=== PATIENT | female | born 1970 | race Caucasian/White ===

== ENCOUNTER 2017-01-22 05:23 | Emergency (ER) | payer OTHER ==
[~2017-01-22] VITALS: Ht 167.6 cm; Wt 54.5 kg
[~2017-01-22 05:23] MED LIST: B-CO-25 PO; BACL10TA PO; CALC500T83 PO; EPP3/2 IM; GABA-112 PO; LEVE1TAB57 PO; LEVO50TA6 PO; MAGN250T3 PO; MELO7.5T6 PO; MULT-506 PO; PANT40TA PO; POTA20TA16 PO; TOPI200T20 PO; VITACAP9 PO; ZLF/50 PO; [UNRECOGNIZED DRUG - CODE] PO
--- NOTE | 2017-01-22 05:54 | EMERGENCY ROOM VISIT NOTE ---
History Report prepared by Fely: Marshal Herron Under the Supervision of: Dr. Sarthak Waldron D.O. First contact with patient: 05:31 Chief Complaint: ALTERED MENTAL STATUS Stated Complaint: ALLERGIC REACTION TO MEDS History of Present Illness The patient is a 46 year old female with a history of epilepsy who presents to the Emergency Room with complaints of persistent altered mental status since she took her migraine medication almost 12 hours ago. As per , the patient has been very disoriented. The patient has been taking Sumatriptan for migraines which normally makes her "loopy." After taking it 12 hours ago the patient has been more out of it than usual. The patient has also been experiencing shakes throughout the night. Around 0200 the patient was shaking to such an extent that it nearly resembled past seizures. The patient takes Keppra for epilepsy. She has also been weaning off of Topamax since 01/10. History obtained from the patient's as the patient was nonverbal. 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 Review of Systems See HPI for pertinent positives and negatives. A total of ten systems were reviewed and were otherwise negative. Past Medical & Surgical Medical Problems: (1) Chest pain (2) History of sarcoidosis (3) Hypothyroidism (4) Raynauds phenomenon (5) Seizure (6) Seizure disorder Surgical Problems: (1) H/O foot surgery (2) H/O hernia repair (3) H/O shoulder surgery (4) History of esophagogastroduodenoscopy (EGD) (5) Hx of cholecystectomy Family History Breast cancer MOTHER GRANDMOTHER Diabetes mellitus MOTHER Hypertension MOTHER Myocardial infarction GRANDMOTHER Social History Smoking Status: Never Smoker Alcohol Use: none Drug Use: none Marital Status: Housing Status: lives with significant other Occupation Status: unemployed Current/Historical Medications Scheduled B-Complex W/ Folic Acid (Super B Complex Maxi), 1 TAB PO HS Baclofen (Lioresal), 20 MG PO TID Calcium (Calcium), 1 TAB PO HS Gabapentin (Neurontin), 200 MG PO TID Levetiracetam (Keppra), 1,500 MG PO BID Levothyroxine Sodium (Levothyroxine Sodium), 50 MCG PO QAM Magnesium (Magnesium 250 mg), 1 TAB PO HS Meloxicam (Mobic), 7.5 MG PO QAM Misc Natural Products (Super Greens), 1 TAB PO HS Multivitamin (Multivitamin), 1 TAB PO HS Pantoprazole (Protonix), 40 MG PO QAM Potassium Ext Rel (Klor-Con), 20 MEQ PO HS Sertraline (Zoloft), 200 MG PO DAILY Topiramate (Topamax), 200 MG PO BID Vitamins C & E (Cranberry Urinary Comfort), 1 TAB PO HS Scheduled PRN Epinephrine (Epipen 2-Itz), 0.3 MG IM UD PRN for ALLERGIC REACTION Sumatriptan Succinate (Imitrex), Unknown Dose PO UD PRN for Migraine Allergies Coded Allergies: Nut Tree (Verified Allergy, Unknown, throat swelling, 01/22/17) Penicillins (Verified Allergy, Unknown, HIVES, 01/22/17) Physical Exam Vital Signs Date Time Temp Pulse Resp B/P Pulse Ox O2 Delivery O2 Flow Rate FiO2 01/22/17 06:35 98 Room Air 01/22/17 06:24 85 20 98/71 99 Room Air 01/22/17 06:21 71 01/22/17 05:29 74 18 100/57 95 Room Air Physical Exam GENERAL: Alert but avoidant and tearful. HENT: Normocephalic, atraumatic. Oropharynx unremarkable. EYES: Normal conjunctiva. Sclera non-icteric. NECK: Supple. No nuchal rigidity. FROM. No JVD. RESPIRATORY: Clear to auscultation. CARDIAC: Regular rate, normal rhythm. Extremities warm and well perfused. Pulses equal. ABDOMEN: Soft, non-distended. No tenderness to palpation. No rebound or guarding. No masses. RECTAL: Deferred. MUSCULOSKELETAL: Chest examination reveals no tenderness. The back is symmetrical on inspection without obvious abnormality. There is no CVA tenderness to palpation. No joint edema. LOWER EXTREMITIES: Calves are equal size bilaterally and non-tender. No edema. No discoloration. NEURO: Alert, not interactive or talkative, otherwise nonfocal. SKIN: No rash or jaundice noted. PSYCH: Not cooperative, avoidant, tearful. Medical Decision & Procedures ER Provider Diagnostic Interpretation: Radiology results as stated below per my review and radiologist interpretation CT HEAD: No ICH, mass effect or edema. No evidence of acute cortical stroke. Visualized sinuses and mastoid air cells are clear. Radiologist: Elroy Morejon MD. Laboratory Results 01/22/17 05:55 Red Blood Count 4.05, Mean Corpuscular Volume 103.2, Mean Corpuscular Hemoglobin 34.1, Mean Corpuscular Hemoglobin Concent 33.0, Mean Platelet Volume 11.8, Neutrophils (%) (Auto) 46.8, Lymphocytes (%) (Auto) 43.1, Monocytes (%) ( Auto) 6.8, Eosinophils (%) (Auto) 2.3, Basophils (%) (Auto) 0.8, Neutrophils # ( Auto) 2.39, Lymphocytes # (Auto) 2.20, Monocytes # (Auto) 0.35, Eosinophils # ( Auto) 0.12, Basophils # (Auto) 0.04 01/22/17 05:55 Test 01/22/17 05:55 White Blood Count 5.11 K/uL (4.8-10.8) Red Blood Count 4.05 M/uL (4.2-5.4) Hemoglobin 13.8 g/dL (12.0-16.0) Hematocrit 41.8 % (37-47) Mean Corpuscular Volume 103.2 fL (80-100) Mean Corpuscular Hemoglobin 34.1 pg (25-34) Mean Corpuscular Hemoglobin Concent 33.0 g/dl (32-36) Platelet Count 193 K/uL (130-400) Mean Platelet Volume 11.8 fL (7.4-10.4) Neutrophils (%) (Auto) 46.8 % Lymphocytes (%) (Auto) 43.1 % Monocytes (%) (Auto) 6.8 % Eosinophils (%) (Auto) 2.3 % Basophils (%) (Auto) 0.8 % Neutrophils # (Auto) 2.39 K/uL (1.4-6.5) Lymphocytes # (Auto) 2.20 K/uL (1.2-3.4) Monocytes # (Auto) 0.35 K/uL (0.11-0.59) Eosinophils # (Auto) 0.12 K/uL (0-0.5) Basophils # (Auto) 0.04 K/uL (0-0.2) RDW Standard Deviation 49.8 fL (36.4-46.3) RDW Coefficient of Variation 13.2 % (11.5-14.5) Immature Granulocyte % (Auto) 0.2 % Immature Granulocyte # (Auto) 0.01 K/uL (0.00-0.02) Prothrombin Time 10.7 SECONDS (9.0-12.0) Prothromb Time International Ratio 1.0 (0.9-1.1) Activated Partial Thromboplast Time 24.6 SECONDS (21.0-31.0) Partial Thromboplastin Ratio 0.9 Anion Gap 9.0 mmol/L (3-11) Est Creatinine Clear Calc Drug Dose 68.0 ml/min Estimated GFR () 90.1 Estimated GFR (Non- 77.7 BUN/Creatinine Ratio 14.0 (10-20) Calcium Level 9.0 mg/dl (8.5-10.1) Total Bilirubin 0.8 mg/dl (0.2-1) Direct Bilirubin 0.2 mg/dl (0-0.2) Aspartate Amino Transf (AST/SGOT) 22 U/L (15-37) Alanine Aminotransferase (ALT/SGPT) 12 U/L (12-78) Alkaline Phosphatase 52 U/L (45-117) Total Protein 8.4 gm/dl (6.4-8.2) Albumin 4.5 gm/dl (3.4-5.0) Laboratory results reviewed by me ECG Indication: altered mental status Rate (beats per minute): 75 Rhythm: sinus rhythm Findings: PVC, no acute ischemic change, other (poor baseline, normal axis.) ED Course 0539: The patient was evaluated in room B2. A complete history and physical exam was performed. 0640: Checked on the patient. She is less tearful now. She is back from CT scan. 0655: I reevaluated the patient. Discussed results and discharge instructions: She verbalized understanding and agreement. The patient is ready for discharge. Medical Decision Differential diagnosis includes seizure, migraine, metabolic derangement, anxiety, psych disorder. Repeat examination of the patient at 7 AM she is nonfocal neurologically resting in no distress; patient may have taken an extra 50 mg eletriptan. Patient adamantly states that she did not overdose on any medication. does not think that she overdose. Patient is otherwise nonfocal and now interactive with me. There is no evidence of seizure. Patient's CAT scan is normal. There is no reported suicidal ideation. He feels comfortable taking her home and monitoring her today. He was advised she was advised of the CAT scan results as well as blood work. Advised to return for any concerns change in mental status or for further evaluation Impression Primary Impression: Altered mental status Additional Impression: Head ache Scribe Attestation The scribe's documentation has been prepared under my direction and personally reviewed by me in its entirety. I confirm that the note above accurately reflects all work, treatment, procedures, and medical decision making performed by me. Departure Information Dispostion Home / Self-Care Referrals Lorraine Garza M.D. (PCP) Forms HOME CARE DOCUMENTATION FORM, IMPORTANT VISIT INFORMATION Patient Instructions ED Altered Loc, ED Headache Migraine, My [facility] Health Problem Qualifiers Primary Impression: Altered mental status Altered mental status type: unspecified Qualified Codes: R41.82 - Altered mental status, unspecified Additional Impression: Head ache Headache type: unspecified Intractability: not intractable
[2017-01-22 06:13] LABS: BASO % 0.8 %; BASO ABS # 0.04 K/uL (0-0.2); COMPLETE YES; EOS % 2.3 %; HEMATOCRIT 41.8 % (37-47); IG% 0.2 %; LYMPH % 43.1 %; MEAN CELL VOLUME 103.2 fL (80-100); MEAN CORPUSCULAR HEMOGLOBIN 34.1 pg (25-34); MEAN PLATELET VOLUME 11.8 fL (7.4-10.4); MONO % 6.8 %; NEUT % 46.8 %; PLATELET COUNT 193 K/uL (130-400); RED BLOOD COUNT 4.05 M/uL (4.2-5.4); WHITE BLOOD COUNT 5.11 K/uL (4.8-10.8)
[2017-01-22 06:22] LABS: PARTIAL THROMBOPLASTIN RATIO 0.9; PROTHROMBIN TIME (PATIENT) 10.7 SECONDS (9.0-12.0)
[2017-01-22 06:24] VITALS: Ht 167.6 cm; Wt 54.5 kg
[2017-01-22 06:29] LABS: CREATININE 0.89 mg/dl (0.60-1.20); POTASSIUM 3.6 mmol/L (3.5-5.1)
[2017-01-22 06:35] VITALS: O2SAT 98
[2017-01-22] MEDS ORDERED: KPP/1000 PO (06:39)
[2017-01-22] MEDS ORDERED: SERT-234 PO (06:48)
[2017-01-22] MEDS ORDERED: SUMA25TA12 PO (06:49)
[2017-01-22 07:04] VITALS: BP 90/68; PULSE 112; O2SAT 94
--- NOTE | 2017-01-22 07:23 | DIAGNOSTIC IMAGING REPORT ---
HEAD CT NONCONTRAST CT DOSE: 537.48 mGy.cm HISTORY: headache TECHNIQUE: Multiaxial CT images of the head were performed without the use of intravenous contrast. Automated exposure control was utilized for this study. Comparison: Head CT 02/20/2016. Findings: The paranasal sinuses and mastoid air cells are clear. The calvarium and skull base are intact. The ventricles and sulci are within normal limits. There is no mass, hematoma, midline shift, or acute infarct. Impression: No acute intracranial abnormality. Electronically signed by: Finesse Polanco M.D. 01/22/2017 7:22 AM Dictated Date/Time: 01/22/2017 7:19 AM
== END 2017-01-22 08:08 | disposition home or self-care (01) ==
LOC: C.EDB 05:24
DX: R41.82 Altered mental status, unspecified (principal); R51 Headache; I49.3 Ventricular premature depolarization; G40.909 Epilepsy, unspecified, not intractable, without status epilepticus; E03.9 Hypothyroidism, unspecified; Z79.899 Other long term (current) drug therapy; Z87.898 Personal history of other specified conditions; Z80.3 Family history of malignant neoplasm of breast; Z82.49 Family history of ischemic heart disease and other diseases of the circulatory system; Z83.3 Family history of diabetes mellitus

== ENCOUNTER 2017-05-03 13:11 | Emergency (ER) | payer OTHER ==
[~2017-05-03] VITALS: Ht 167.6 cm; Wt 54.1 kg
[~2017-05-03 13:11] MED LIST changes: +KPP/1000 PO; -LEVE1TAB57 PO; +SERT-234 PO; +SUMA25TA12 PO; -ZLF/50 PO
[2017-05-03 13:26] VITALS: Ht 167.6 cm; Wt 54.1 kg
--- NOTE | 2017-05-03 14:15 | DIAGNOSTIC IMAGING REPORT ---
RIGHT RIBS UNILATERAL WITH PA CHEST CLINICAL HISTORY: Right rib pain status post trauma COMPARISON STUDY: Chest x-ray dated 07/03/2016 FINDINGS: Erect chest reveals no pneumothorax. There is no focal pulmonary consolidation. There is an old deformity the right sixth rib. No acute fractures are visualized on conventional radiographic imaging. 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 No acute fractures are visualized. There is no pneumothorax. Electronically signed by: Moris Childers M.D. 05/03/2017 2:14 PM Dictated Date/Time: 05/03/2017 2:12 PM
[2017-05-03] MEDS ORDERED: HYDR-5688 PO (15:03)
[2017-05-03 15:34] VITALS: BP 98/62; PULSE 61; TEMP 36.6; O2SAT 99
--- NOTE | 2017-05-03 15:47 | EMERGENCY ROOM VISIT NOTE ---
History First contact with patient: 13:29 Chief Complaint: RIB PAIN Stated Complaint: SEVERE PAIN IN RT SIDE RIB History of Present Illness The patient is a 47 year old female who presents to the Emergency Room with complaints of right-sided rib pain after falling down a few stairs at home last night. The patient is wearing a walking boot on her left foot as she has a history of chronic foot issues. She states this has made it difficult for her to go up and down the stairs, and last night she fell down 3 stairs at home, landing onto her right side. She did not strike her head or lose consciousness in the fall. She did not suffer extremity injury. Her discomfort is isolated to just under her right rest laterally. The pain is worse when she presses in the area, and takes a deep breath. She rates the pain a 9/10 without radiation. Review of Systems More than 10 systems were reviewed and otherwise negative with the exception of history of present illness. Past Medical/Surgical History Medical Problems: (1) Chest pain (2) History of sarcoidosis (3) Hypothyroidism (4) Raynauds phenomenon (5) Seizure (6) Seizure disorder Surgical Problems: (1) H/O foot surgery (2) H/O hernia repair (3) H/O shoulder surgery (4) History of esophagogastroduodenoscopy (EGD) (5) Hx of cholecystectomy Family History Breast cancer MOTHER GRANDMOTHER Diabetes mellitus MOTHER Hypertension MOTHER Myocardial infarction GRANDMOTHER Social History Smoking Status: Never Smoker Alcohol Use: none Drug Use: none Marital Status: Housing Status: lives with significant other Occupation Status: unemployed Current/Historical Medications Scheduled B-Complex W/ Folic Acid (Super B Complex Maxi), 1 TAB PO HS Baclofen (Lioresal), 20 MG PO TID Calcium (Calcium), 1 TAB PO HS Gabapentin (Neurontin), 200 MG PO TID Levetiracetam (Keppra), 1,500 MG PO BID Levothyroxine Sodium (Levothyroxine Sodium), 50 MCG PO QAM Magnesium (Magnesium 250 mg), 1 TAB PO HS Misc Natural Products (Super Greens), 1 TAB PO HS Multivitamin (Multivitamin), 1 TAB PO HS Potassium Ext Rel (Klor-Con), 20 MEQ PO HS Sertraline (Zoloft), 200 MG PO DAILY Topiramate (Topamax), 200 MG PO BID Vitamins C & E (Cranberry Urinary Comfort), 1 TAB PO HS Scheduled PRN Epinephrine (Epipen 2-Itz), 0.3 MG IM UD PRN for ALLERGIC REACTION Hydrocodone/Acetaminophen 5MG/325MG ([place] 5MG/325MG), 1-2 TABLET PO Q6 PRN for Pain Sumatriptan Succinate (Imitrex), Unknown Dose PO UD PRN for Migraine Physical Exam Vital Signs Date Time Temp Pulse Resp B/P (MAP) Pulse Ox O2 Delivery O2 Flow Rate FiO2 05/03/17 15:34 36.6 61 18 98/62 99 05/03/17 15:33 61 18 98/62 99 Room Air 05/03/17 13:26 36.6 65 18 99/64 99 Room Air Physical Exam VITALS: Vitals are noted on the nurse's note and reviewed by myself. Vital signs stable. GENERAL: Well-developed, well-nourished, white female, who is in no acute distress and resting comfortably. Patient is cooperative with the examination. NECK: Supple without nuchal rigidity. No lymphadenopathy. No thyromegaly. Cervical spine is nontender. HEART: Regular rate and rhythm without murmurs gallops or rubs. LUNGS: Clear to auscultation bilaterally without wheezes, rales or rhonchi. No retractions or accessory muscle use. CHEST WALL: Positive tenderness appreciated over the right anterolateral ribs, roughly through the fifth to seventh distribution. There is no flail chest or crepitus. No significant ecchymosis or edema. MUSCULOSKELETAL: Full sensation and range of motion to the bilateral upper extremities without deformity. Right lower extremity is also without acute findings. The patient is wearing a walking boot on the left lower extremity NEURO: Patient was alert and oriented to person place and time. CN II through XII grossly intact. Medical Decision & Procedures ER Provider Diagnostic Interpretation: RIGHT RIBS UNILATERAL WITH PA CHEST CLINICAL HISTORY: Right rib pain status post trauma COMPARISON STUDY: Chest x-ray dated 07/03/2016 FINDINGS: Erect chest reveals no pneumothorax. There is no focal pulmonary consolidation. There is an old deformity the right sixth rib. No acute fractures are visualized on conventional radiographic imaging. 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 No acute fractures are visualized. There is no pneumothorax. ED Course Physical exam and history were performed. Nursing notes, EMR, and Medication List were personally reviewed. Patient appears to have fallen down stairs last night with subsequent injury to her right side ribs. She does not appear to have other significant injury. Despite a history of seizure disorder, her symptoms most correlate with a mechanical fall, and she does not believe that she had a seizure. She is tender along the right side ribs and x-ray was performed. X-ray does not appear to show acute fracture, but may reveal old injury. She does not have pneumothorax. Overall the patient appears well for discharge home. I will give her an incentive spirometer to help prevent pneumonia. Additionally she will be given instructions to use Advil and Tylenol. She will be given a course of Vicodin to help with pain control. She is to follow with her family doctor in the next week and was certainly invited back to the emergency department with any new, worsening, or concerning symptoms. The chart was completed utilizing Back[employer] Speech Voice Recognition Software. Grammatical errors, random word insertions, pronoun errors, and incomplete sentences are an occasional consequence of this system due to software limitations, ambient noise, and hardware issues. Any formal questions or concerns about the content, text, or information contained within the body of this dictation should be directly addressed to the provider for clarification. . Medical Decision Differential diagnosis includes, but is not limited to: Sprain, strain, fracture , dislocation, sensation, contusion, pneumothorax, and others [place] Drug Monitoring Program Search Results: patient reviewed within database, no issues identified Medication Reconcilliation Current Medication List: was personally reviewed by oh Blood Pressure Screening Patient's blood pressure: Normal blood pressure Impression Primary Impression: Fall down stairs Additional Impression: Rib pain on right side Departure Information Prescriptions Hydrocodone/Acetaminophen 5MG/325MG ([place] 5MG/325MG) Tab 1-2 TABLET PO Q6 Y for Pain, #15 TAB For Initial Treatment Prov: Kody Huddleston PA-C 05/03/17 Referrals Lorraine Garza M.D. (PCP) Patient Instructions My [facility] Problem Qualifiers
== END 2017-05-03 15:34 | disposition home or self-care (01) ==
LOC: C.EDB 13:14 → C.EDD 15:34
DX: R07.81 Pleurodynia (principal); W10.9XXA Fall (on) (from) unspecified stairs and steps, initial encounter; Y92.019 Unspecified place in single-family (private) house as the place of occurrence of the external cause; D86.9 Sarcoidosis, unspecified; E03.9 Hypothyroidism, unspecified; G40.909 Epilepsy, unspecified, not intractable, without status epilepticus; I73.00 Raynaud's syndrome without gangrene; Z80.9 Family history of malignant neoplasm, unspecified; Z83.3 Family history of diabetes mellitus; Z82.49 Family history of ischemic heart disease and other diseases of the circulatory system; Z79.899 Other long term (current) drug therapy

== ENCOUNTER 2017-07-22 16:17 | Emergency (ER) | payer OTHER ==
[~2017-07-22] VITALS: Ht 165.1 cm; Wt 56.2 kg
[~2017-07-22 16:17] MED LIST changes: +HYDR-5688 PO; -MELO7.5T6 PO; -PANT40TA PO
[2017-07-22 16:20] VITALS: BP 109/74; PULSE 66; TEMP 36.8; O2SAT 98; Ht 165.1 cm; Wt 56.2 kg
--- NOTE | 2017-07-22 16:53 | DIAGNOSTIC IMAGING REPORT ---
L HAND MIN 3 VIEWS ROUTINE CLINICAL HISTORY: Left hand pain status post trauma COMPARISON: None. DISCUSSION: No fractures or dislocations are visualized. IMPRESSION: No fractures or dislocations identified. Electronically signed by: Moris Childers M.D. 07/22/2017 4:51 PM Dictated Date/Time: 07/22/2017 4:51 PM
[2017-07-22] MEDS ORDERED: METO25TA3 PO (17:04)
--- NOTE | 2017-07-22 18:19 | EMERGENCY ROOM VISIT NOTE ---
History Report prepared by Fely: Hardik Mace Under the Supervision of: Dr. Matthew Medina D.O. First contact with patient: 16:24 Chief Complaint: HAND PAIN/INJURY Stated Complaint: POSSIBLE BROKEN L HAND, L SHOULDER PAIN History of Present Illness The patient is a 47 year old female who presents to the Emergency Room with complaints of constant left handed pain that started last night. She rates her pain as an 8/10 in severity. The patient states that her pain is worsened with clenching her fist. The patient states that she fell down 5 stairs last night, which she admits is when her left hand started to hurt. She denies any loss of consciousness. Source of History: patient Onset: last night Position: hand (left) Symptom Intensity: 8/10 Timing: constant Modifying Factors (Worsening): other (clenching fist) Associated Symptoms: No LOC Review of Systems See HPI for pertinent positives & negatives. A total of 10 systems reviewed and were otherwise negative. Past Medical & Surgical Medical Problems: (1) Chest pain (2) History of sarcoidosis (3) Hypothyroidism (4) Raynauds phenomenon (5) Seizure (6) Seizure disorder Surgical Problems: (1) H/O foot surgery (2) H/O hernia repair (3) H/O shoulder surgery (4) History of esophagogastroduodenoscopy (EGD) (5) Hx of cholecystectomy Family History Breast cancer MOTHER GRANDMOTHER Diabetes mellitus MOTHER Hypertension MOTHER Myocardial infarction GRANDMOTHER Social History Smoking Status: Never Smoker Alcohol Use: none Drug Use: none Marital Status: Housing Status: lives with significant other Occupation Status: unemployed Current/Historical Medications Scheduled B-Complex W/ Folic Acid (Super B Complex Maxi), 1 TAB PO HS Baclofen (Lioresal), 20 MG PO TID Calcium (Calcium), 500 MG PO HS Gabapentin (Neurontin), 200 MG PO TID Levetiracetam (Keppra), 1,500 MG PO BID Levothyroxine Sodium (Levothyroxine Sodium), 50 MCG PO QAM Magnesium (Magnesium 250 mg), 250 MG PO HS Metoprolol Succ (Toprol Xl) (Toprol-Xl), 25 MG PO QAM Misc Natural Products (Super Greens), 1 TAB PO HS Multivitamin (Multivitamin), 1 TAB PO HS Potassium Ext Rel (Klor-Con), 20 MEQ PO HS Sertraline (Zoloft), 200 MG PO DAILY Topiramate (Topamax), 200 MG PO BID Vitamins C & E (Cranberry Urinary Comfort), 1 TAB PO HS Scheduled PRN Epinephrine (Epipen 2-Itz), 0.3 MG IM UD PRN for ALLERGIC REACTION Sumatriptan Succinate (Imitrex), Unknown Dose PO UD PRN for Migraine Allergies Coded Allergies: Penicillins (Verified Allergy, Unknown, HIVES, 05/03/17) Uncoded Allergies: TREE NUTS (Allergy, Severe, ANAPHYLAXIS, 07/22/17) Physical Exam Vital Signs Date Time Temp Pulse Resp B/P (MAP) Pulse Ox O2 Delivery O2 Flow Rate FiO2 07/22/17 16:20 36.8 66 16 109/74 98 Room Air Physical Exam CONSTITUTIONAL/VITAL SIGNS: Reviewed / noted above. GENERAL: Non-toxic in appearance. INTEGUMENTARY: Warm, dry, and [place]. HEAD: Normocephalic. EYES: without scleral icterus or trauma. ENT/OROPHARYNX: clear and moist. LYMPHADENOPATHY/NECK: Is supple without lymphadenopathy or meningismus. RESPIRATORY: Lungs clear and equal. CARDIOVASCULAR: Regular rate and rhythm. GI/ABDOMEN: Soft and nontender. No organomegaly or pulsatile mass. No rebound or guarding. Normal bowel sounds. EXTREMITIES: Warm and well perfused. Small abrasion noted to left shoulder. No obvious fracture. Full range of motion. BACK: No CVA tenderness. NEUROLOGICAL: Intact without focal deficits. PSYCHIATRIC: normal affect. MUSCULOSKELETAL: Normally developed with good muscle tone. Tenderness to palpation of the left hand ulnar side. Medical Decision & Procedures ER Provider Diagnostic Interpretation: X ray results and stated below per my interpretation and radiology interpretation. L HAND MIN 3 VIEWS ROUTINE CLINICAL HISTORY: Left hand pain status post trauma COMPARISON: None. DISCUSSION: No fractures or dislocations are visualized. IMPRESSION: No fractures or dislocations identified. Electronically signed by: Moris Childers M.D. 07/22/2017 4:51 PM Dictated Date/Time: 07/22/2017 4:51 PM ED Course 1627: Previous medical records were reviewed. The patient was evaluated in room C03. A complete history and physical examination was performed. 1808: On reevaluation, the patient is resting comfortably. I discussed the results and findings with the patient. She verbalized agreement of the treatment plan. The patient was discharged home. Medical Decision Differential diagnosis includes etiologies such as fracture, dislocation, neurovascular compromise, compartment syndrome, soft tissue injury, as well as others were entertained. This is a 47-year-old female who presents to the ED with a chief complaint of left hand pain after a fall down some steps. The patient states she fell down the steps yesterday. She came in with left hand pain today. She denies any other significant injuries. She does have a small abrasion to the left shoulder but does not feel anything is broken there. Exam of her left hand reveals tenderness in the ulnar aspect of the left dorsal hand. X-rays did not show fracture. The patient was felt to be stable for discharge. She was advised to take Tylenol or Motrin as needed for pain. Medication Reconcilliation Current Medication List: was personally reviewed by me Blood Pressure Screening Patient's blood pressure: Normal blood pressure Impression Primary Impression: Contusion of left hand Scribe Attestation The scribe's documentation has been prepared under my direction and personally reviewed by me in its entirety. I confirm that the note above accurately reflects all work, treatment, procedures, and medical decision making performed by me. Departure Information Dispostion Home / Self-Care Referrals Lorraine Garza M.D. (PCP) Patient Instructions Bruises Contusions, My [facility] Additional Instructions X-rays did not show fractures or broken bones. Take Tylenol or Motrin as needed for pain.
== END 2017-07-22 18:36 | disposition home or self-care (01) ==
LOC: C.EDB 16:19 → C.EDC 18:36
DX: S60.222A Contusion of left hand, initial encounter (principal); W10.9XXA Fall (on) (from) unspecified stairs and steps, initial encounter; Y92.9 Unspecified place or not applicable; D86.9 Sarcoidosis, unspecified; E03.9 Hypothyroidism, unspecified; I73.00 Raynaud's syndrome without gangrene; G40.909 Epilepsy, unspecified, not intractable, without status epilepticus; Z80.9 Family history of malignant neoplasm, unspecified; Z83.3 Family history of diabetes mellitus; Z82.49 Family history of ischemic heart disease and other diseases of the circulatory system; Z79.899 Other long term (current) drug therapy

== ENCOUNTER 2017-10-06 13:28 | Emergency (ER) | payer OTHER ==
[~2017-10-06] VITALS: Ht 165.1 cm; Wt 58.6 kg
[~2017-10-06 13:28] MED LIST changes: -HYDR-5688 PO; +METO25TA3 PO
[2017-10-06 13:31] VITALS: Ht 165.1 cm; Wt 58.6 kg
[2017-10-06] MEDS ORDERED: ONDANSETRON INJ 2 MG/ML 2 ML VIAL IV STA (13:48)
--- NOTE | 2017-10-06 13:56 | EMERGENCY ROOM VISIT NOTE ---
History First contact with patient: 13:35 Chief Complaint: SHORTNESS OF BREATH Stated Complaint: TROUBLE BREATHING, TARGETED CHEST PAIN Nursing Triage Summary: fell 2weeks ago has sob and thinks may have broken rib in left upper chest area traveled from [place] recently History of Present Illness The patient is a 47 year old female who presents to the Emergency Room with complaints of left anterior chest pain has gotten progressively worse over the last 2 weeks. The patient had a fall in [place] 2 weeks ago. The fall was mechanical. She has been taking ibuprofen with no relief. The pain is worse with deep inspiration. It is not exertional in nature. She denies any other symptoms such as lightheadedness, dizziness or shortness of breath. No recent illnesses such as fever or cough. 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 She sees Dr. Lopez and takes metoprolol daily. Review of Systems 10 system review performed and negative unless noted in HPI or below Past Medical/Surgical History Medical Problems: (1) Chest pain (2) History of sarcoidosis (3) Hypothyroidism (4) Raynauds phenomenon (5) Seizure (6) Seizure disorder Surgical Problems: (1) H/O foot surgery (2) H/O hernia repair (3) H/O shoulder surgery (4) History of esophagogastroduodenoscopy (EGD) (5) Hx of cholecystectomy Family History Breast cancer MOTHER GRANDMOTHER Diabetes mellitus MOTHER Hypertension MOTHER Myocardial infarction GRANDMOTHER Social History Smoking Status: Never Smoker Alcohol Use: none Drug Use: none Marital Status: Housing Status: lives with significant other Occupation Status: unemployed Current/Historical Medications Scheduled B-Complex W/ Folic Acid (Super B Complex Maxi), 1 TAB PO HS Baclofen (Lioresal), 20 MG PO TID Calcium (Calcium), 500 MG PO HS Gabapentin (Neurontin), 200 MG PO TID Levetiracetam (Keppra), 1,500 MG PO BID Levothyroxine Sodium (Levothyroxine Sodium), 50 MCG PO QAM Magnesium (Magnesium 250 mg), 250 MG PO HS Metoprolol Succ (Toprol Xl) (Toprol-Xl), 25 MG PO QAM Misc Natural Products (Super Greens), 1 TAB PO HS Multivitamin (Multivitamin), 1 TAB PO HS Potassium Ext Rel (Klor-Con), 20 MEQ PO HS Sertraline (Zoloft), 200 MG PO DAILY Topiramate (Topamax), 200 MG PO BID Vitamins C & E (Cranberry Urinary Comfort), 1 TAB PO HS Scheduled PRN Epinephrine (Epipen 2-Itz), 0.3 MG IM UD PRN for ALLERGIC REACTION Sumatriptan Succinate (Imitrex), Unknown Dose PO UD PRN for Migraine Tramadol (Ultram), 1 TAB PO Q4H PRN for Pain Physical Exam Vital Signs Date Time Temp Pulse Resp B/P (MAP) Pulse Ox O2 Delivery O2 Flow Rate FiO2 10/06/17 16:40 74 18 97/73 95 Room Air 10/06/17 15:08 36.8 75 18 115/86 98 Room Air 10/06/17 14:37 72 10/06/17 14:33 94 Room Air 10/06/17 13:31 36.7 82 18 105/72 97 Room Air Physical Exam VITALS: Vitals are noted on the nurse's note and reviewed by myself. Vital signs stable. GENERAL: 47-year-old female, in no acute distress, nondiaphoretic, well- developed well-nourished. SKIN: Multiple tattoos noted. No bruising on the thorax. HEAD: Normocephalic atraumatic. MOUTH: Mucous membranes slightly dry NECK: Supple without nuchal rigidity. No JVD. HEART: Regular rate and rhythm without murmurs gallops or rubs. Tenderness over the left anterior upper thorax above the breast. LUNGS: Clear to auscultation bilaterally without wheezes, rales or rhonchi. No accessory muscle use. ABDOMEN: Positive bowel sounds x 4.Soft, nontender, without organomegaly. No guarding or rebound tenderness. MUSCULOSKELETAL: No muscle atrophy, erythema, or edema noted. Strength 5/5 throughout. NEURO: Patient was alert and oriented to person place and time. Normal sensation to touch. No focal neurological deficits. Medical Decision & Procedures ER Provider Diagnostic Interpretation: CXR IMPRESSION: No active disease in the chest. Electronically signed by: Moris Childers M.D. 10/06/2017 2:06 PM Dictated Date/Time: 10/06/2017 2:05 PM The status of this report is Signed. Draft = Not yet reviewed or approved by Radiologist. Signed = Reviewed and approved by Radiologist. Laboratory Results 10/06/17 14:09 Red Blood Count 3.58, Mean Corpuscular Volume 104.5, Mean Corpuscular Hemoglobin 34.6, Mean Corpuscular Hemoglobin Concent 33.2, Mean Platelet Volume 11.1, Neutrophils (%) (Auto) 46.6, Lymphocytes (%) (Auto) 46.6, Monocytes (%) ( Auto) 4.7, Eosinophils (%) (Auto) 1.2, Basophils (%) (Auto) 0.6, Neutrophils # ( Auto) 1.59, Lymphocytes # (Auto) 1.59, Monocytes # (Auto) 0.16, Eosinophils # ( Auto) 0.04, Basophils # (Auto) 0.02 10/06/17 14:09 Test 10/06/17 13:48 10/06/17 14:09 10/06/17 14:43 10/06/17 15:02 Creatine Kinase MB Ratio (0-3.0) White Blood Count 3.41 K/uL (4.8-10.8) Red Blood Count 3.58 M/uL (4.2-5.4) Hemoglobin 12.4 g/dL (12.0-16.0) Hematocrit 37.4 % (37-47) Mean Corpuscular Volume 104.5 fL (80-100) Mean Corpuscular Hemoglobin 34.6 pg (25-34) Mean Corpuscular Hemoglobin Concent 33.2 g/dl (32-36) Platelet Count 233 K/uL (130-400) Mean Platelet Volume 11.1 fL (7.4-10.4) Neutrophils (%) (Auto) 46.6 % Lymphocytes (%) (Auto) 46.6 % Monocytes (%) (Auto) 4.7 % Eosinophils (%) (Auto) 1.2 % Basophils (%) (Auto) 0.6 % Neutrophils # (Auto) 1.59 K/uL (1.4-6.5) Lymphocytes # (Auto) 1.59 K/uL (1.2-3.4) Monocytes # (Auto) 0.16 K/uL (0.11-0.59) Eosinophils # (Auto) 0.04 K/uL (0-0.5) Basophils # (Auto) 0.02 K/uL (0-0.2) RDW Standard Deviation 49.4 fL (36.4-46.3) RDW Coefficient of Variation 13.0 % (11.5-14.5) Immature Granulocyte % (Auto) 0.3 % Immature Granulocyte # (Auto) 0.01 K/uL (0.00-0.02) Anion Gap 7.0 mmol/L (3-11) Est Creatinine Clear Calc Drug Dose 104.3 ml/min Estimated GFR () 125.8 Estimated GFR (Non- 108.5 BUN/Creatinine Ratio 9.5 (10-20) Calcium Level 8.1 mg/dl (8.5-10.1) Total Bilirubin 0.3 mg/dl (0.2-1) Aspartate Amino Transf (AST/SGOT) 64 U/L (15-37) Alanine Aminotransferase (ALT/SGPT) 27 U/L (12-78) Alkaline Phosphatase 85 U/L (45-117) Total Creatine Kinase 57 U/L (26-192) Creatine Kinase MB < 0.5 ng/ml (0.5-3.6) Troponin I < 0.015 ng/ml (0-0.045) Total Protein 7.4 gm/dl (6.4-8.2) Albumin 3.5 gm/dl (3.4-5.0) Globulin 3.9 gm/dl (2.5-4.0) Albumin/Globulin Ratio 0.9 (0.9-2) Chemistry Specimen Hemolysis Urine Test NEG (NEG) D-Dimer 340 ug/L FEU (0-500) Test 10/06/17 16:45 Urine Opiates Screen POS (NEG) Urine Methadone, Qualitative NEG (NEG) Urine Barbiturates NEG (NEG) Urine Phencyclidine (PCP) Level NEG (NEG) Ur Amphetamine/Methamphetamine NEG (NEG) MDMA (Ecstasy) Screen NEG (NEG) Urine Benzodiazepines Screen NEG (NEG) Urine Cocaine Metabolite NEG (NEG) Urine Marijuana (THC) NEG (NEG) Medications Administered Medications (Trade) Dose Ordered Sig/Alix Route Start Time Stop Time Status Last Admin Dose Admin Morphine Sulfate (MoRPHine SULFATE INJ) 4 mg Q1H PRN IV 10/06/17 14:00 10/06/17 17:55 DC 10/06/17 14:19 4 MG Ondansetron HCl (Zofran Inj) 4 mg NOW STAT IV 10/06/17 13:48 10/06/17 13:51 DC 10/06/17 13:48 4 MG Diphenhydramine HCl (Benadryl Inj) 25 mg NOW STAT IV 10/06/17 15:03 10/06/17 15:04 DC 10/06/17 15:07 25 MG Dicyclomine HCl (Bentyl Tab) 20 mg ONE ONCE PO 10/06/17 15:30 10/06/17 15:31 DC 10/06/17 15:34 20 MG Tramadol HCl (Ultram Tab) 50 mg NOW STAT PO 10/06/17 16:11 10/06/17 16:12 DC 10/06/17 16:40 50 MG ECG Indication: chest pain Rate (beats per minute): 77 Rhythm: normal sinus Findings: other (Q waves in the antior leads) ED Course Patient was seen and examined Vital signs including blood pressure were reviewed medications list was verified with patient Labs were obtained, and a saline lock was established The patient was given morphine 4 mg IV and Zofran 4 mg IV for her symptoms. Upon reevaluation, the patient thought that she was having a reaction to the morphine. She was complaining of abdominal cramping. She was given Benadryl 25 mg IV and Bentyl 20 mg po She was reassessed. The abdominal cramping was slightly better. She was still complaining of chest pain. She was given 1 dose of Ultram 50 mg. We discussed her workup. She voiced understanding. She was comfortable being discharged home. I reviewed discharge instructions the patient. They voiced understanding and had no further questions. Medical Decision Differential diagnosis: Pulmonary contusion, muscular skeletal pain, pulmonary embolus Acute myocardial infarction, cardiac arrhythmia, anemia, thyroid abnormality, pneumothorax, pneumonia, bronchitis, pericarditis, electrolyte imbalance This patient is a 47-year-old female that presents to emergency department with worsening anterior left chest pain for the last 2 weeks after an injury. She has also had recent long travel. On exam, the patient was tender over the left upper anterior chest wall. Otherwise, her physical exam was unremarkable. Her EKG shows normal sinus rhythm. No signs of ischemia or infarction. Troponin is negative. I do not suspect a cardiac cause. The patient also had reproducible pain, which was encouraging for musculoskeletal pain. Because of the recent travel, I ordered a d-dimer. This was negative. I have a very low suspicion of PE. The patient has good pain relief with Ultram. She was given a prescription for this. She was also instructed to continue ibuprofen. She was given an incentive spirometer. She was encouraged to follow up closely with her primary care physician. She was comfortable with this plan. She agrees to return to the emergency department with any new or worsening symptoms. This chart was completed in part utilizing [employer] Speech Voice Recognition software. Attempts were made to minimize the grammatical errors, random word insertions, pronoun errors and incomplete sentences. Any formal questions or concerns about the content, text or information contained within the body of this dictation should be directly addressed to the provider for clarification. Medication Reconcilliation Current Medication List: was personally reviewed by me Blood Pressure Screening Patient's blood pressure: Normal blood pressure Impression Primary Impression: Chest pain Departure Information Dispostion Home / Self-Care Condition GOOD Prescriptions Tramadol (Ultram) 50 Mg Tab 1 TAB PO Q4H Y for Pain, #15 TAB For Initial Treatment Prov: Seema Pearl PA-C 10/06/17 Referrals Lorraine Garza M.D. (PCP) Patient Instructions ED Contusion Rib, My [facility] Additional Instructions You had been evaluated in the emergency department for chest pain. This is likely due to a bruise on your rib cage. Please use the incentive spirometer 10 times per hour for the next week. This is to prevent pneumonia. Please take ibuprofen 6 mg every 6 hours as needed for pain. Please take tramadol 1 tab every 4 hours as needed for severe pain. Please do not drink alcohol or travel taking this medication. It is very important to follow closely with her primary care physician. Please call as soon as possible for a follow-up appointment. Do not hesitate to return to the emergency department with any new, worsening or concerning symptoms; especially, sudden, severe pain, or difficulty breathing Work Instructions Return To Work: 1 day
[2017-10-06] MEDS ORDERED: MoRPHine SULFATE 4 MG/ML 1 ML CARP\\VIAL IV PRN (14:00)
--- NOTE | 2017-10-06 14:07 | DIAGNOSTIC IMAGING REPORT ---
CHEST ONE VIEW PORTABLE CLINICAL HISTORY: Left anterior chest pain. History of trauma. COMPARISON STUDY: 07/03/2016 FINDINGS: The cardiac and mediastinal contours are normal. There is no evidence of focal pulmonary consolidation. There is no evidence of failure. No pleural effusions are visualized.[ No pneumothorax is visualized. IMPRESSION: No active disease in the chest. Electronically signed by: Moris Childers M.D. 10/06/2017 2:06 PM Dictated Date/Time: 10/06/2017 2:05 PM
[2017-10-06 14:22] LABS: BASO % 0.6 %; BASO ABS # 0.02 K/uL (0-0.2); EOS % 1.2 %; EOS ABS # 0.04 K/uL (0-0.5); HEMATOCRIT 37.4 % (37-47); HEMOGLOBIN 12.4 g/dL (12.0-16.0); IG# 0.01 K/uL (0.00-0.02); LYMPH % 46.6 %; LYMPH ABS # 1.59 K/uL (1.2-3.4); MEAN CELL VOLUME 104.5 fL (80-100); MEAN CORPUSCULAR HEMOGLOBIN 34.6 pg (25-34); MEAN CORPUSCULAR HGB CONC 33.2 g/dl (32-36); MEAN PLATELET VOLUME 11.1 fL (7.4-10.4); MONO % 4.7 %; MONO ABS # 0.16 K/uL (0.11-0.59); NEUT % 46.6 %; NEUT ABS # 1.59 K/uL (1.4-6.5); PLATELET COUNT 233 K/uL (130-400); RED CELL DISTRIBUTION WIDTH SD 49.4 fL (36.4-46.3); WHITE BLOOD COUNT 3.41 K/uL (4.8-10.8)
[2017-10-06 14:33] VITALS: O2SAT 94
[2017-10-06 14:51] LABS: ALBUMIN 3.5 gm/dl (3.4-5.0); ALT/SGPT 27 U/L (12-78); AST/SGOT 64 U/L (15-37); BLOOD UREA NITROGEN 6 mg/dl (7-18); CALCIUM 8.1 mg/dl (8.5-10.1); CARBON DIOXIDE 23 mmol/L (21-32); GLUCOSE 70 mg/dl (70-99); POTASSIUM 3.8 mmol/L (3.5-5.1); SODIUM 139 mmol/L (136-145)
[2017-10-06 14:56] LABS: ALKALINE PHOSPHATASE 85 U/L (45-117); CKMB < 0.5 ng/ml (0.5-3.6); TOTAL PROTEIN 7.4 gm/dl (6.4-8.2)
[2017-10-06] MEDS ORDERED: DiphenhydrAMINE HCL 50 MG/ML VIAL IV STA (15:03)
[2017-10-06 15:08] VITALS: TEMP 36.8
[2017-10-06] MEDS ORDERED: DICYCLOMINE HCL 20 MG TAB PO ONE (15:30)
[2017-10-06] MEDS ORDERED: TRAMADOL HCL 50 MG TAB PO STA (16:11)
[2017-10-06 16:40] VITALS: BP 97/73; PULSE 74; O2SAT 95
[2017-10-06] MEDS ORDERED: TRAM-10 PO (16:53)
== END 2017-10-06 17:37 | disposition home or self-care (01) ==
LOC: C.EDB 13:29 → C.EDC 17:37
DX: R07.9 Chest pain, unspecified (principal); D86.9 Sarcoidosis, unspecified; E03.9 Hypothyroidism, unspecified; G40.909 Epilepsy, unspecified, not intractable, without status epilepticus; Z80.3 Family history of malignant neoplasm of breast; Z83.3 Family history of diabetes mellitus; Z82.49 Family history of ischemic heart disease and other diseases of the circulatory system

== ENCOUNTER 2017-10-20 13:55 | Emergency (ER) | payer OTHER ==
[~2017-10-20] VITALS: Ht 167.6 cm; Wt 62.1 kg
[~2017-10-20 13:55] MED LIST changes: +TRAM-10 PO
[2017-10-20 14:10] VITALS: TEMP 36.6; O2SAT 100; Ht 167.6 cm; Wt 62.1 kg
[2017-10-20] MEDS ORDERED: LORAZEPAM 2 MG/ML 1 ML VIAL IV STA (14:51)
[2017-10-20] MEDS ORDERED: HYDROmorphone INJ 0.5 MG/0.5 ML SYR IV STA (15:07)
[2017-10-20 15:34] LABS: PTT PATIENT 26.9 SECONDS (21.0-31.0)
[2017-10-20 15:40] LABS: HEMATOCRIT 39.6 % (37-47); MEAN CELL VOLUME 105.3 fL (80-100); MEAN CORPUSCULAR HEMOGLOBIN 34.6 pg (25-34); MEAN CORPUSCULAR HGB CONC 32.8 g/dl (32-36); MEAN PLATELET VOLUME 11.4 fL (7.4-10.4); PLATELET COUNT 224 K/uL (130-400); RED CELL DISTRIBUTION WIDTH CV 13.2 % (11.5-14.5); RED CELL DISTRIBUTION WIDTH SD 51.3 fL (36.4-46.3); WHITE BLOOD COUNT 2.75 K/uL (4.8-10.8)
--- NOTE | 2017-10-20 15:41 | DIAGNOSTIC IMAGING REPORT ---
HEAD WITHOUT CONTRAST (CT) CLINICAL HISTORY: 47 years-old Female presenting with Seizure. TECHNIQUE: Multidetector CT imaging of the head was performed without the use of intravenous contrast. IV contrast: None. A dose lowering technique was used consistent with the principles of ALARA (as low as reasonably achievable). COMPARISON: 01/22/2017. CT DOSE (mGy.cm): The estimated cumulative dose is 537.48 mGy.cm. 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 Ventricles and sulci normal in size. Brain parenchyma normal in appearance with preserved bernal-white differentiation. No mass effect or midline shift. No hemorrhage or acute territorial infarct. No extra-axial fluid collection. Paranasal sinuses and mastoid air cells clear. Calvarium intact. IMPRESSION: 1. No acute intracranial abnormality. Electronically signed by: Kory Robertson M.D. 10/20/2017 3:40 PM Dictated Date/Time: 10/20/2017 3:38 PM
[2017-10-20 15:45] LABS: ALBUMIN 3.4 gm/dl (3.4-5.0); CALCIUM 8.2 mg/dl (8.5-10.1); CREATININE 0.62 mg/dl (0.60-1.20); POTASSIUM 3.6 mmol/L (3.5-5.1)
[2017-10-20 15:50] LABS: BASO % 1.1 %; BASO ABS # 0.03 K/uL (0-0.2); EOS % 1.1 %; EOS ABS # 0.03 K/uL (0-0.5); LYMPH % 58.2 %; MONO % 1.8 %; MONO ABS # 0.05 K/uL (0.11-0.59); NEUT % 37.8 %; NEUT ABS # 1.04 K/uL (1.4-6.5)
--- NOTE | 2017-10-20 16:51 | DIAGNOSTIC IMAGING REPORT ---
THORACIC SPINE 3 VIEWS ROUTINE CLINICAL HISTORY: Mid to low back pain s/p seizure. COMPARISON STUDY: Thoracic spine CT February 20, 2016. FINDINGS: Alignment of the thoracic spine is anatomic. Vertebral body heights are maintained. There is no fracture within the thoracic spine. Disc spaces are preserved. There is minimal osteophytosis. IMPRESSION: No acute thoracic spine fracture or subluxation. Electronically signed by: Alessandro Bass M.D. 10/20/2017 4:50 PM Dictated Date/Time: 10/20/2017 4:49 PM
--- NOTE | 2017-10-20 16:53 | DIAGNOSTIC IMAGING REPORT ---
L-SPINE MIN 4 VIEWS ROUTINE CLINICAL HISTORY: Mid to low back pain s/p seizure. COMPARISON: Lumbar spine CT February 20, 2016. FINDINGS: Alignment of the lumbar spine is anatomic. Vertebral body heights are maintained. There is no fracture. There is moderate to marked disc space narrowing at L5-S1 with vacuum disc phenomenon and osteophytosis. There is moderate multilevel facet arthrosis. Intrauterine device is incidentally noted. IMPRESSION: 1. No acute lumbar spine fracture or subluxation. 2. Moderate multilevel facet arthrosis and moderate to severe degenerative disc disease at L5-S1. Electronically signed by: Alessandro Bass M.D. 10/20/2017 4:52 PM Dictated Date/Time: 10/20/2017 4:50 PM
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
[2017-10-20 18:02] VITALS: BP 98/67; PULSE 61; O2SAT 99
[2017-10-20] MEDS ORDERED: OXYCODONE IR HOME PACK PO STA (18:03)
[2017-10-20] MEDS ORDERED: OXYC1TAB3 PO (18:04)
[2017-10-20] MEDS ORDERED: TRAMADOL HCL 50 MG HOME PACK PO STA (18:11)
[2017-10-20] MEDS ORDERED: TRAM-10 PO (18:24)
== END 2017-10-20 18:24 | disposition home or self-care (01) ==
LOC: EDUNIT# 13:55 → C.EDA 14:05
DX: G40.909 Epilepsy, unspecified, not intractable, without status epilepticus (principal); E03.9 Hypothyroidism, unspecified; I73.00 Raynaud's syndrome without gangrene; Z90.49 Acquired absence of other specified parts of digestive tract; Z98.890 Other specified postprocedural states; Z80.3 Family history of malignant neoplasm of breast; Z83.3 Family history of diabetes mellitus; Z82.49 Family history of ischemic heart disease and other diseases of the circulatory system; Z79.899 Other long term (current) drug therapy

== ENCOUNTER 2017-11-04 19:34 | Emergency (ER) | payer OTHER ==
[~2017-11-04] VITALS: Ht 165.1 cm; Wt 52.2 kg
[2017-11-04 19:50] VITALS: Ht 165.1 cm; Wt 52.2 kg
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
[2017-11-04] MEDS ORDERED: FENTANYL CITRATE INJ 50 MCG/1 ML 2 ML VIAL IV ONE (20:00)
[2017-11-04 20:13] LABS: HEMATOCRIT 36.4 % (37-47); HEMOGLOBIN 12.2 g/dL (12.0-16.0); MEAN CELL VOLUME 102.8 fL (80-100); MEAN CORPUSCULAR HEMOGLOBIN 34.5 pg (25-34); MEAN CORPUSCULAR HGB CONC 33.5 g/dl (32-36); MEAN PLATELET VOLUME 10.8 fL (7.4-10.4); PLATELET COUNT 188 K/uL (130-400); RED CELL DISTRIBUTION WIDTH SD 48.9 fL (36.4-46.3); WHITE BLOOD COUNT 3.07 K/uL (4.8-10.8)
[2017-11-04 20:36] LABS: ALBUMIN 3.4 gm/dl (3.4-5.0); BASO % 0.7 %; BASO ABS # 0.02 K/uL (0-0.2); CALCIUM 8.4 mg/dl (8.5-10.1); CREATININE 0.66 mg/dl (0.60-1.20); EOS ABS # 0.06 K/uL (0-0.5); LYMPH % 53.1 %; LYMPH ABS # 1.63 K/uL (1.2-3.4); MONO % 7.8 %; MONO ABS # 0.24 K/uL (0.11-0.59); NEUT % 36.4 %; NEUT ABS # 1.12 K/uL (1.4-6.5); POTASSIUM 3.4 mmol/L (3.5-5.1)
--- NOTE | 2017-11-04 20:49 | DIAGNOSTIC IMAGING REPORT ---
HEAD WITHOUT CONTRAST (CT) CLINICAL HISTORY: 47 years-old Female presenting with EVALUATE FOR PSYCH CLEARANCE. TECHNIQUE: Multidetector CT imaging of the head was performed without the use of intravenous contrast. IV contrast: None. A dose lowering technique was used consistent with the principles of ALARA (as low as reasonably achievable). COMPARISON: 10/20/2017. CT DOSE (mGy.cm): The estimated cumulative dose is 601.98 mGy.cm. FINDINGS: Biomedical Technician topogram: Unremarkable. Ventricles and sulci normal in size. Brain parenchyma normal in appearance with preserved bernal-white differentiation. No mass effect or midline shift. No hemorrhage or acute territorial infarct. No extra-axial fluid collection. Paranasal sinuses and mastoid air cells clear. Calvarium intact. IMPRESSION: 1. No acute intracranial abnormality. Electronically signed by: Kory Robertson M.D. 11/04/2017 8:48 PM Dictated Date/Time: 11/04/2017 8:47 PM
--- NOTE | 2017-11-04 20:51 | DIAGNOSTIC IMAGING REPORT ---
LUMBAR SPINE 2 OR 3 VIEWS CLINICAL HISTORY: 47 years-old Female presenting with s/p fall w/ R paraspinal and midline LBP. TECHNIQUE: Frontal, lateral, and coned in lateral views of the lumbar spine were obtained. COMPARISON: 10/20/2017. FINDINGS: No scoliosis. Normal lumbar lordosis. Vertebral bodies maintain normal height and alignment. Intervertebral disc height loss at L5-S1, where there is the greatest degree of degenerative change including anterior osteophytosis and likely facet arthropathy. Suspected osseous neural foraminal narrowing at this level. No radiographic evidence of a compression deformity or subluxation. Intrauterine device projects over the pelvis. No bowel obstruction. IMPRESSION: Focal degenerative changes at L5-S1. No radiographic evidence of acute osseous injury. Electronically signed by: Kory Robertson M.D. 11/04/2017 8:50 PM Dictated Date/Time: 11/04/2017 8:49 PM
[2017-11-04] MEDS ORDERED: KETOROLAC TROMETHAMINE 30 MG/ML VIAL IV STA (21:34)
[2017-11-04] MEDS ORDERED: CYANOCOBALAMIN 500 MCG TAB (VIT B-12) PO STA (23:19)
[2017-11-04] MEDS ORDERED: LEVETIRACETAM 500 MG TAB PO STA (23:19)
[2017-11-04] MEDS ORDERED: TOPIRAMATE 100 MG TAB PO STA (23:19)
[2017-11-04] MEDS ORDERED: THIAMINE HCL 100 MG TAB PO STA (23:19)
[2017-11-05] MEDS ORDERED: LEVETIRACETAM 500 MG TAB PO STA ×2 (00:03→08:44)
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
[2017-11-05 07:00] VITALS: TEMP 36.6
[2017-11-05] MEDS ORDERED: TOPIRAMATE 100 MG TAB PO STA (07:09)
[2017-11-05] MEDS ORDERED: SERTRALINE HCL 50 MG TAB PO STA (07:09)
[2017-11-05] MEDS ORDERED: METOPROLOL SUCC 50MG EXT REL TAB PO STA (07:09)
[2017-11-05] MEDS ORDERED: GABAPENTIN 100 MG CAP PO STA (07:09)
[2017-11-05] MEDS ORDERED: LEVOTHYROXINE 100 MCG TAB PO STA (07:09)
[2017-11-05] MEDS ORDERED: LEVETIRACETAM 500 MG TAB PO SCH (07:15)
[2017-11-05] MEDS ORDERED: KETOROLAC TROMETHAMINE 30 MG/ML VIAL IV STA (08:25)
[2017-11-05 11:37] VITALS: BP 95/70; PULSE 72; O2SAT 96
== END 2017-11-05 11:25 ==
LOC: EDBD 19:34 → C.EDA 19:36
DX: R45.851 Suicidal ideations (principal); F32.1 Major depressive disorder, single episode, moderate; G40.909 Epilepsy, unspecified, not intractable, without status epilepticus; R55 Syncope and collapse; E87.6 Hypokalemia; S50.812A Abrasion of left forearm, initial encounter; X78.1XXA Intentional self-harm by knife, initial encounter; X78.8XXA Intentional self-harm by other sharp object, initial encounter; E03.9 Hypothyroidism, unspecified; F43.10 Post-traumatic stress disorder, unspecified; I73.00 Raynaud's syndrome without gangrene; Z90.49 Acquired absence of other specified parts of digestive tract; Z98.890 Other specified postprocedural states; Z80.3 Family history of malignant neoplasm of breast; Z83.3 Family history of diabetes mellitus; Z82.49 Family history of ischemic heart disease and other diseases of the circulatory system; Z91.018 Allergy to other foods; Z88.0 Allergy status to penicillin

== ENCOUNTER 2018-11-27 23:56 | Inpatient (IN) ==
[2018-11-28] MEDS ORDERED: SODIUM CHLORIDE 0.9% 1000ML 1,000 ML IV ONE ×2 (00:08→01:12)
[2018-11-28 00:25] LABS: Basophils # (auto) 0.04 K/uL (0-0.2); Basophils % (auto) 0.7 %; Eosinophils # (auto) 0.11 K/uL (0-0.5); Eosinophils % (auto) 1.8 %; Hematocrit (blood only) 35.6 % (37-47); Hemoglobin 11.7 g/dL (12.0-16.0); Immature Granulocytes # (auto) 0.01 K/uL (0.00-0.02); Immature Granulocytes % (auto) 0.2 %; Lymphocytes # (auto) 2.39 K/uL (1.2-3.4); Lymphocytes % (auto) 39.7 %; Mean Corpuscular Hgb Conc 32.9 g/dL (32-36); Mean Corpuscular Volume 100.3 fL (80-100); Mean Platelet Volume 11.2 fL (7.4-10.4); Monocytes # (auto) 0.42 K/uL (0.11-0.59); Neutrophils # (auto) 3.05 K/uL (1.4-6.5); Neutrophils % (auto) 50.6 %; Platelet Count 230 K/uL (130-400); RDW Coefficient of Variation 12.5 % (11.5-14.5); Red Blood Count 3.55 M/uL (4.2-5.4); White Blood Count 6.02 K/uL (4.8-10.8)
[2018-11-28 00:27] LABS: Appearance Urine Clear (Clear); Bilirubin Urine Negative (Negative); Blood Urine Negative (Negative); Color Urine Yellow; Glucose Urine UA Negative (Negative); Ketones Urine Negative (Negative); Leukocyte Esterase Urine Negative (Negative); Nitrite Urine Negative (Negative); Protein Urine Negative (Negative); Specific Gravity Urine 1.008 (1.000-1.030); Urobilinogen Urine Negative (Negative); pH Urine 5.5 (4.5-7.5)
[2018-11-28 00:33] LABS: Prothrombin Time 10.4 Seconds (9.0-12.0)
[2018-11-28 00:45] LABS: Pregnancy Test, Serum Negative (Negative)
[2018-11-28 00:46] LABS: Alanine Aminotransferase 12 U/L (12-78); Albumin Level 3.4 gm/dl (3.4-5.0); Aspartate Aminotransferase 21 U/L (15-37); BUN Creatinine Ratio 8.4 (10-20); Blood Urea Nitrogen 6 mg/dl (7-18); Calcium 7.8 mg/dl (8.5-10.1); Carbon Dioxide 24 mmol/L (21-32); Chloride 107 mmol/L (98-107); Creatinine Clr Calc Pharmacy 80.7 ml/min; Est GFR (Non-African American) 95.8; Glucose 70 mg/dl (70-99); Potassium 3.3 mmol/L (3.5-5.1); Sodium 137 mmol/L (136-145)
[2018-11-28 00:50] LABS: Amphetamines+Metham, Urine Neg (Neg); Barbiturates, Urine Neg (Neg); Benzodiazepine, Urine Neg (Neg); Cocaine, Urine Neg (Neg); MDMA (Ecstacy), Urine Neg (Neg); Methadone, Urine Neg (Neg); Opiate, Urine Neg (Neg); Phencyclidine, Urine Neg (Neg)
[2018-11-28 00:51] LABS: Acetaminophen < 2 ug/ml (10-30); Albumin Globulin Ratio 0.9 (0.9-2); Alkaline Phosphatase 86 U/L (45-117); Bilirubin,Total 0.2 mg/dl (0.2-1); Globulin 3.7 gm/dl (2.5-4.0); Salicylate < 1.7 mg/dl (2.8-20); Total Protein 7.1 gm/dl (6.4-8.2); Troponin I < 0.015 ng/ml (0-0.045)
[2018-11-28] MEDS ORDERED: CHARCOAL, ACTIVATED LIQ 25 GM/120 ML TUBE PO ONE (00:51)
[2018-11-28] MEDS ORDERED: PROMETHAZINE HCL 12.5 MG in SODIUM CHLORIDE 0.9% 50 ML IV STA (01:29)
[2018-11-28] MEDS ORDERED: levETIRAcetam 1,500 MG in DEXTROSE 5% 100 ML IV STA (01:33)
[2018-11-28] MEDS ORDERED: NSS + 20MEQ KCL 20 MEQ/1,000 ML BAG IV SCH (03:30)
[2018-11-28] MEDS: MAGNESIUM SULFATE / D5W 1 GM/100 ML BAG IV SCH ×2 (03:45→04:45)
--- NOTE | 2018-11-28 04:11 | Emergency Department Note ---
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 ml/min Est GFR ( Amer) Est GFR (Non-Af Amer) BUN/Creatinine Ratio (10-20) Glucose (70-99) mg/dl POC Glucose (70-99) Osmolality (280-300) mOsm/kg Calcium (8.5-10.1) mg/dl Magnesium (1.8-2.4) mg/dl Total Bilirubin (0.2-1) mg/dl AST (15-37) U/L ALT (12-78) U/L Alkaline Phosphatase (45-117) U/L Troponin I (0-0.045) ng/ml Total Protein (6.4-8.2) gm/dl Albumin (3.4-5.0) gm/dl Globulin (2.5-4.0) gm/dl Albumin/Globulin Ratio (0.9-2) Lipase (73-393) U/L Folate (>5.38) ng/ml HCG, Qual Negative (Negative) Urine Color Urine Appearance (Clear) Urine pH (4.5-7.5) Ur Specific [place] (1.000-1.030) Urine Protein (Negative) Urine Glucose (UA) (Negative) Urine Ketones (Negative) Urine Blood (Negative) Urine Nitrite (Negative) Urine Bilirubin (Negative) Urine Urobilinogen (Negative) Ur Leukocyte Esterase (Negative) Nasal Screen MRSA (PCR) (Negative) Salicylates < 1.7 L (2.8-20) mg/dl Urine Opiates Screen (Neg) Ur Methadone, Qual (Neg) Acetaminophen < 2 L (10-30) ug/ml Urine Barbiturates (Neg) Ur Phencyclidine (PCP) (Neg) U Amphetamin/Meth Scrn (Neg) MDMA (Ecstasy) Screen (Neg) U Benzodiazepines Scrn (Neg) Ur Cocaine Metabolite (Neg) U Marijuana (THC) Screen (Neg) Ethyl Alcohol mg/dL 238.0 H (0-3) mg/dl 11/28/18 11/28/18 11/28/18 Range/Units 00:13 00:13 10:00 WBC (4.8-10.8) K/uL RBC (4.2-5.4) M/uL Hgb (12.0-16.0) g/dL Hct (37-47) % MCV (80-100) fL MCH (25-34) pg MCHC (32-36) g/dL RDW Std Deviation (36.4-46.3) fL RDW Coeff of Thea (11.5-14.5) % Plt Count (130-400) K/uL MPV (7.4-10.4) fL Immature Gran % (Auto) % Neut % (Auto) % Lymph % (Auto) % Jack % (Auto) % Eos % (Auto) % Baso % (Auto) % Immature Gran # (Auto) (0.00-0.02) K/uL Neut # (Auto) (1.4-6.5) K/uL Lymph # (Auto) (1.2-3.4) K/uL Jack # (Auto) (0.11-0.59) K/uL Eos # (Auto) (0-0.5) K/uL Baso # (Auto) (0-0.2) K/uL PT (9.0-12.0) Seconds INR (0.9-1.1) VBG pH (7.36-7.41) VBG pCO2 (38-50) mmHg VBG pO2 mmHg VBG HCO3 mmol/L VBG O2 Saturation % VBG Base Excess mEq/L Barometric Pressure mm/Hg Sodium (136-145) mmol/L Potassium (3.5-5.1) mmol/L Chloride (98-107) mmol/L Carbon Dioxide (21-32) mmol/L Anion Gap (3-11) BUN (7-18) mg/dl Creatinine (0.6-1.2) mg/dl Est Cr Clr Drug Dosing ml/min Est GFR ( Amer) Est GFR (Non-Af Amer) BUN/Creatinine Ratio (10-20) Glucose (70-99) mg/dl POC Glucose (70-99) Osmolality (280-300) mOsm/kg Calcium (8.5-10.1) mg/dl Magnesium (1.8-2.4) mg/dl Total Bilirubin (0.2-1) mg/dl AST (15-37) U/L ALT (12-78) U/L Alkaline Phosphatase (45-117) U/L Troponin I (0-0.045) ng/ml Total Protein (6.4-8.2) gm/dl Albumin (3.4-5.0) gm/dl Globulin (2.5-4.0) gm/dl Albumin/Globulin Ratio (0.9-2) Lipase (73-393) U/L Folate (>5.38) ng/ml HCG, Qual (Negative) Urine Color Yellow Urine Appearance Clear (Clear) Urine pH 5.5 (4.5-7.5) Ur Specific [place] 1.008 (1.000-1.030) Urine Protein Negative (Negative) Urine Glucose (UA) Negative (Negative) Urine Ketones Negative (Negative) Urine Blood Negative (Negative) Urine Nitrite Negative (Negative) Urine Bilirubin Negative (Negative) Urine Urobilinogen Negative (Negative) Ur Leukocyte Esterase Negative (Negative) Nasal Screen MRSA (PCR) Negative (Negative) Salicylates (2.8-20) mg/dl Urine Opiates Screen Neg (Neg) Ur Methadone, Qual Neg (Neg) Acetaminophen (10-30) ug/ml Urine Barbiturates Neg (Neg) Ur Phencyclidine (PCP) Neg (Neg) U Amphetamin/Meth Scrn Neg (Neg) MDMA (Ecstasy) Screen Neg (Neg) U Benzodiazepines Scrn Neg (Neg) Ur Cocaine Metabolite Neg (Neg) U Marijuana (THC) Screen Neg (Neg) Ethyl Alcohol mg/dL (0-3) mg/dl 11/28/18 11/28/18 11/28/18 Range/Units 10:20 10:20 10:20 WBC (4.8-10.8) K/uL RBC (4.2-5.4) M/uL Hgb (12.0-16.0) g/dL Hct (37-47) % MCV (80-100) fL MCH (25-34) pg MCHC (32-36) g/dL RDW Std Deviation (36.4-46.3) fL RDW Coeff of Thea (11.5-14.5) % Plt Count (130-400) K/uL MPV (7.4-10.4) fL Immature Gran % (Auto) % Neut % (Auto) % Lymph % (Auto) % Jack % (Auto) % Eos % (Auto) % Baso % (Auto) % Immature Gran # (Auto) (0.00-0.02) K/uL Neut # (Auto) (1.4-6.5) K/uL Lymph # (Auto) (1.2-3.4) K/uL Jack # (Auto) (0.11-0.59) K/uL Eos # (Auto) (0-0.5) K/uL Baso # (Auto) (0-0.2) K/uL PT (9.0-12.0) Seconds INR (0.9-1.1) VBG pH 7.38 (7.36-7.41) VBG pCO2 39 (38-50) mmHg VBG pO2 24 mmHg VBG HCO3 23 mmol/L VBG O2 Saturation < 60.0 % VBG Base Excess -2.1 mEq/L Barometric Pressure 743.3 mm/Hg Sodium (136-145) mmol/L Potassium (3.5-5.1) mmol/L Chloride (98-107) mmol/L Carbon Dioxide (21-32) mmol/L Anion Gap (3-11) BUN (7-18) mg/dl Creatinine (0.6-1.2) mg/dl Est Cr Clr Drug Dosing ml/min Est GFR ( Amer) Est GFR (Non-Af Amer) BUN/Creatinine Ratio (10-20) Glucose (70-99) mg/dl POC Glucose (70-99) Osmolality 311 H (280-300) mOsm/kg Calcium (8.5-10.1) mg/dl Magnesium (1.8-2.4) mg/dl Total Bilirubin (0.2-1) mg/dl AST (15-37) U/L ALT (12-78) U/L Alkaline Phosphatase (45-117) U/L Troponin I (0-0.045) ng/ml Total Protein (6.4-8.2) gm/dl Albumin (3.4-5.0) gm/dl Globulin (2.5-4.0) gm/dl Albumin/Globulin Ratio (0.9-2) Lipase (73-393) U/L Folate (>5.38) ng/ml HCG, Qual (Negative) Urine Color Urine Appearance (Clear) Urine pH (4.5-7.5) Ur Specific [place] (1.000-1.030) Urine Protein (Negative) Urine Glucose (UA) (Negative) Urine Ketones (Negative) Urine Blood (Negative) Urine Nitrite (Negative) Urine Bilirubin (Negative) Urine Urobilinogen (Negative) Ur Leukocyte Esterase (Negative) Nasal Screen MRSA (PCR) (Negative) Salicylates (2.8-20) mg/dl Urine Opiates Screen (Neg) Ur Methadone, Qual (Neg) Acetaminophen (10-30) ug/ml Urine Barbiturates (Neg) Ur Phencyclidine (PCP) (Neg) U Amphetamin/Meth Scrn (Neg) MDMA (Ecstasy) Screen (Neg) U Benzodiazepines Scrn (Neg) Ur Cocaine Metabolite (Neg) U Marijuana (THC) Screen (Neg) Ethyl Alcohol mg/dL 60.0 H (0-3) mg/dl 11/28/18 11/28/18 11/28/18 Range/Units 10:33 10:36 11:04 WBC (4.8-10.8) K/uL RBC (4.2-5.4) M/uL Hgb (12.0-16.0) g/dL Hct (37-47) % MCV (80-100) fL MCH (25-34) pg MCHC (32-36) g/dL RDW Std Deviation (36.4-46.3) fL RDW Coeff of Thea (11.5-14.5) % Plt Count (130-400) K/uL MPV (7.4-10.4) fL Immature Gran % (Auto) % Neut % (Auto) % Lymph % (Auto) % Jack % (Auto) % Eos % (Auto) % Baso % (Auto) % Immature Gran # (Auto) (0.00-0.02) K/uL Neut # (Auto) (1.4-6.5) K/uL Lymph # (Auto) (1.2-3.4) K/uL Jack # (Auto) (0.11-0.59) K/uL Eos # (Auto) (0-0.5) K/uL Baso # (Auto) (0-0.2) K/uL PT (9.0-12.0) Seconds INR (0.9-1.1) VBG pH (7.36-7.41) VBG pCO2 (38-50) mmHg VBG pO2 mmHg VBG HCO3 mmol/L VBG O2 Saturation % VBG Base Excess mEq/L Barometric Pressure mm/Hg Sodium (136-145) mmol/L Potassium (3.5-5.1) mmol/L Chloride (98-107) mmol/L Carbon Dioxide (21-32) mmol/L Anion Gap (3-11) BUN (7-18) mg/dl Creatinine (0.6-1.2) mg/dl Est Cr Clr Drug Dosing ml/min Est GFR ( Amer) Est GFR (Non-Af Amer) BUN/Creatinine Ratio (10-20) Glucose (70-99) mg/dl POC Glucose 62 L* 56 L* 72 (70-99) Osmolality (280-300) mOsm/kg Calcium (8.5-10.1) mg/dl Magnesium (1.8-2.4) mg/dl Total Bilirubin (0.2-1) mg/dl AST (15-37) U/L ALT (12-78) U/L Alkaline Phosphatase (45-117) U/L Troponin I (0-0.045) ng/ml Total Protein (6.4-8.2) gm/dl Albumin (3.4-5.0) gm/dl Globulin (2.5-4.0) gm/dl Albumin/Globulin Ratio (0.9-2) Lipase (73-393) U/L Folate (>5.38) ng/ml HCG, Qual (Negative) Urine Color Urine Appearance (Clear) Urine pH (4.5-7.5) Ur Specific [place] (1.000-1.030) Urine Protein (Negative) Urine Glucose (UA) (Negative) Urine Ketones (Negative) Urine Blood (Negative) Urine Nitrite (Negative) Urine Bilirubin (Negative) Urine Urobilinogen (Negative) Ur Leukocyte Esterase (Negative) Nasal Screen MRSA (PCR) (Negative) Salicylates (2.8-20) mg/dl Urine Opiates Screen (Neg) Ur Methadone, Qual (Neg) Acetaminophen (10-30) ug/ml Urine Barbiturates (Neg) Ur Phencyclidine (PCP) (Neg) U Amphetamin/Meth Scrn (Neg) MDMA (Ecstasy) Screen (Neg) U Benzodiazepines Scrn (Neg) Ur Cocaine Metabolite (Neg) U Marijuana (THC) Screen (Neg) Ethyl Alcohol mg/dL (0-3) mg/dl 11/28/18 11/28/18 Range/Units 11:16 18:37 WBC (4.8-10.8) K/uL RBC (4.2-5.4) M/uL Hgb (12.0-16.0) g/dL Hct (37-47) % MCV (80-100) fL MCH (25-34) pg MCHC (32-36) g/dL RDW Std Deviation (36.4-46.3) fL RDW Coeff of Thea (11.5-14.5) % Plt Count (130-400) K/uL MPV (7.4-10.4) fL Immature Gran % (Auto) % Neut % (Auto) % Lymph % (Auto) % Jack % (Auto) % Eos % (Auto) % Baso % (Auto) % Immature Gran # (Auto) (0.00-0.02) K/uL Neut # (Auto) (1.4-6.5) K/uL Lymph # (Auto) (1.2-3.4) K/uL Jack # (Auto) (0.11-0.59) K/uL Eos # (Auto) (0-0.5) K/uL Baso # (Auto) (0-0.2) K/uL PT (9.0-12.0) Seconds INR (0.9-1.1) VBG pH (7.36-7.41) VBG pCO2 (38-50) mmHg VBG pO2 mmHg VBG HCO3 mmol/L VBG O2 Saturation % VBG Base Excess mEq/L Barometric Pressure mm/Hg Sodium (136-145) mmol/L Potassium (3.5-5.1) mmol/L Chloride (98-107) mmol/L Carbon Dioxide (21-32) mmol/L Anion Gap (3-11) BUN (7-18) mg/dl Creatinine (0.6-1.2) mg/dl Est Cr Clr Drug Dosing ml/min Est GFR ( Amer) Est GFR (Non-Af Amer) BUN/Creatinine Ratio (10-20) Glucose (70-99) mg/dl POC Glucose 71 (70-99) Osmolality (280-300) mOsm/kg Calcium (8.5-10.1) mg/dl Magnesium (1.8-2.4) mg/dl Total Bilirubin (0.2-1) mg/dl AST (15-37) U/L ALT (12-78) U/L Alkaline Phosphatase (45-117) U/L Troponin I (0-0.045) ng/ml Total Protein (6.4-8.2) gm/dl Albumin (3.4-5.0) gm/dl Globulin (2.5-4.0) gm/dl Albumin/Globulin Ratio (0.9-2) Lipase (73-393) U/L Folate 17.76 (>5.38) ng/ml HCG, Qual (Negative) Urine Color Urine Appearance (Clear) Urine pH (4.5-7.5) Ur Specific [place] (1.000-1.030) Urine Protein (Negative) Urine Glucose (UA) (Negative) Urine Ketones (Negative) Urine Blood (Negative) Urine Nitrite (Negative) Urine Bilirubin (Negative) Urine Urobilinogen (Negative) Ur Leukocyte Esterase (Negative) Nasal Screen MRSA (PCR) (Negative) Salicylates (2.8-20) mg/dl Urine Opiates Screen (Neg) Ur Methadone, Qual (Neg) Acetaminophen (10-30) ug/ml Urine Barbiturates (Neg) Ur Phencyclidine (PCP) (Neg) U Amphetamin/Meth Scrn (Neg) MDMA (Ecstasy) Screen (Neg) U Benzodiazepines Scrn (Neg) Ur Cocaine Metabolite (Neg) U Marijuana (THC) Screen (Neg) Ethyl Alcohol mg/dL (0-3) mg/dl Imaging Data Attestation: I personally reviewed and interpreted this imaging study as follows: My Impression: XR CHEST 1V: No cardiomegaly. No effusion. No focal consolidation. No wide mediastinum ECG Data Attestation: I personally reviewed and interpreted this ECG as follows: Indication: toxicologic Rate (beats per minute): 77 Rhythm: sinus rhythm Findings: + other (normal QRS and QTc) and + 1st degree AV block; no acute ischemic change and no ectopy Blood Pressure Blood Pressure Findings: Low blood pressure Additional Comments: situational hypotension MDM Narrative Patient here with intentional overdose. Patient's presentation not initially consistent with anticholinergic toxicity, however concern given amount of diphenhydramine she did ingest. Patient did receive initial activated charcoal, however once patient complained of nausea, this was stopped due to fear of vomiting and subsequent aspiration. Patient was started on normal saline solution initially due to hypotension and her blood pressure did improve. Serial EKGs performed to monitor for QRS prolongation, and QTC prolongation was noted. I discussed the case again with poison control after noticing this change, who recommended additional IV magnesium. Patient's initial magnesium level was 2. Patient was given additional potassium. Patient was also noted to be intoxicated. Given concern for QTC prolongation and need for additional IV electrolytes, case discussed with hospitalist for additional evaluation and management. No ectopy was noted at any time. Patient here continued to be somnolent but arousable was otherwise oriented. Patient had no other complaints of pain. Patient had no vomiting. Patient had no seizures noted here, however given significant seizure history and multiple antiepileptic medications, she was given her Keppra IV. Her other antiepileptics could not be converted to an IV form. I do not suspect additional coingestions otherwise. Patient is well- known to the emergency department and has been here previously due to self-harm. Patient does have a complicated medical history and multiple medications as well. Impression & Plan Intentional overdose of drug in tablet form, QT prolongation, Hypokalemia Critical Care Time I have personally spent greater than 60 minutes of critical care time in the direct management of this patient. This includes bedside care, interpretation of diagnostic studies, and testing, discussion with consultants, patient, and family members, and other required patient management activities. This 60 minutes is in excess of all separately billable procedures. Critical Care Time: Yes Total Critical Care Time: 60 Discharge Plan Visit Data *Final* Discharge Date/Time: 11/28/18 08:10 Chief Complaint: Overdose (Intentional) ED Provider: Tala Dave Discharge Problem: Intentional overdose of drug in tablet form, QT prolongation, Hypokalemia Patient Disposition: Admitted As Inpatient Discharge Instructions Interventions: ED Discharge Assessment Last Done: 11/28/18 08:10 The scribe's documentation has been prepared under my direction and personally reviewed by me in its entirety. I confirm that the note above accurately reflects all work, treatment, procedures, and medical decision making performed by me.
--- NOTE | 2018-11-28 06:59 | XRay Report ---
XR chest 1V portable CLINICAL HISTORY: overdose COMPARISON STUDY: Chest radiograph October 06, 2017. FINDINGS: Lung volumes are normal. There is no pneumothorax or pleural effusion. No consolidation is present. Cardiac size is normal. Mediastinal contours are normal. Postsurgical/posttraumatic deformit y of the distal right clavicle is noted. IMPRESSION: No acute cardiopulmonary findings. Electronically signed by: Alessandro Bass M.D. 11/28/2018 6:58 AM
[2018-11-28] MEDS ORDERED: ICU PROTOCOL FOR HYPERGLYCEMIA PRN (08:49)
--- NOTE | 2018-11-28 10:02 | Critical Care Consultation ---
Date of Consultation November 28, 2018 Assessment & Plan (1) QT prolongation: (2) Intentional overdose of drug in tablet form: Reason Critically Ill: 48-year-old female with intentional overdose with Benadryl while intoxicated. 302ed and admitted to ICU for observation and suicide precautions. Neuro CAM ICU: Positive Intentional overdose/suicide attemptpatient reportedly took 48 50 mg Benadryl capsules with 1 bottle of wine at approximately 2300 last night -EtOH on admission was 290, acetaminophen and salicylates and UDS negative on screen -Received activated charcoal in ED and 2 L normal saline bolus -CT head negative -Consider benzos if patient becomes more agitated -Patient currently 302ed, suicide precautions with sitter -Obtaining VBG, Osmo's, and current to EtOH level -We will continue to monitor in ICU -Consult psych when sober and appropriate Seizure disordercontinue home dose of Keppra -We will continue topiramate and Tegretol when appropriate Alcohol abuseAWSS protocol -Start thiamine, folic acid, multivitamin Cardiac Prolonged QTCconsistent with anticholinergic overdose -Currently elevated but stable, will continue to monitor with routine EKGs -We will treat with bicarb if patient becomes symptomatic or QTC is continue to prolong -Holding home dose sertraline -Monitor on telemetry Respiratory Chest x-ray negative Patient currently on room air and protecting airway, tension needed at this time GI LFTs within normal limits ProphylaxisPPI RENAL/LYTES Hypokalemiapatient on supplemental potassium as home regimen -Continue normal saline with potassium additive IV fluids at 150 mL/h Routine BMPs Mata inserted, will keep for now considering decreased bladder tonicity with anticholinergic effects ENDO ICU hyperglycemic protocol Continue home dose Synthroid HEME Routine CBC ID No indication for antibiotic therapy at this time LINES/IV ACCESS - Peripheral IVs, Mata DVT PROPHYLAXIS - SCDs (3) Seizure disorder: (4) Alcohol abuse: Supervising Physician Co-Signing Physician Notes I have personally evaluated and examined this patient. I agree with assessment and plan of Shonda CHAVEZ. Patient with altered mental status, prolonged QTC. Intentional drug overdose. Patient was discussed in multidisciplinary rounds I have personally spent 40 minutes of critical care time in the direct management of this patient. This is a life/limb threatening event. This includes time spent evaluating patient, direct bedside care, chart review, placing orders, interpretation of diagnostic studies, discussion with consultants, patient, and/or family members regarding treatment decisions, as well as other required patient management activities. This time is exclusive of all separately billable procedures, and teaching time and separate from and in addition to any other critical care service time. History of Present Illness Attending Physician: Vipul Ruiz MD History of Present Illness 48-year-old female with past medical history significant for status epilepticus, sarcoidosis, alcohol abuse who presented to the ED for anticholinergic ingestion suicide attempt with reported 48 50mg diphenhydramine at approximately 2300 last night with a bottle of wine. Patient was confused and agitated on arrival. EtOH 290, acetaminophen and salicylates negative. Was given activated charcoal and bolused 2 L normal saline. Patient presented as confused, prolonged QTC on EKG consistent with anticholinergic overdose. On arrival to the ICU patient remains confused, is verbal but answers questions inappropriately, however is alert and protecting airway. Mild anxiety, pupils are PERRLA and accommodate. She is afebrile. Complains of dry mouth. Indwelling Mata in place with adequate urine output. She is in normal sinus rhythm on monitor. Will obtain VBG, Osmo, and EtOH level. Patient is a 302 and on suicide precautions with sitter to remain in ICU for now. Allergies Allergy/AdvReac Type Severity Reaction Status Date / Time tree nut Allergy Severe ANAPHYLAXIS Verified 11/28/18 02:35 Penicillins Allergy Unknown HIVES Verified 11/28/18 02:35 Home Medications Home Medications Medication Instructions Recorded Confirmed Type Toprol XL 25 mg PO DAILY 11/28/18 11/28/18 History baclofen 20 mg PO TID 11/28/18 11/28/18 History calcium carbonate [Calcium 500] 500 mg PO DAILY 11/28/18 11/28/18 History carbamazepine [Carbatrol] 200 mg PO BID 11/28/18 11/28/18 History epinephrine [EpiPen] 0.3 mg IM UD PRN 11/28/18 11/28/18 History gabapentin 400 mg PO TID 11/28/18 11/28/18 History levetiracetam 2,000 mg PO BID 11/28/18 11/28/18 History levothyroxine 75 mcg PO DAILY 11/28/18 11/28/18 History magnesium 250 mg PO DAILY 11/28/18 11/28/18 History multivitamin 1 tab PO DAILY 11/28/18 11/28/18 History potassium gluconate 500 mg PO DAILY 11/28/18 11/28/18 History sertraline 200 mg PO DAILY 11/28/18 11/28/18 History sumatriptan succinate 1 tab PO UD PRN 11/28/18 11/28/18 History topiramate [Topamax] 200 mg PO BID 11/28/18 11/28/18 History vitamin B complex-folic acid 1 tab PO DAILY 11/28/18 11/28/18 History Patient History Medical History Seizure disorder (Chronic) Hypothyroidism (Chronic) Raynauds phenomenon (Chronic) History of sarcoidosis (Chronic) Alcohol abuse (Acute) Hypokalemia (Acute) Syncope, non cardiac (Acute) Surgical History Hx of cholecystectomy (Chronic) H/O foot surgery (Chronic) H/O shoulder surgery (Chronic) H/O hernia repair (Chronic) History of esophagogastroduodenoscopy (EGD) (Chronic) Family History Other Breast cancer Diabetes Hypertension Myocardial infarction Social History Preferred Language: Georgian Communication Ability: Impaired Communication Ability Comment: Patient currently confused, but able to speak. Outpatient Therapist Required: No Beliefs That Will Affect Care: None marital status: Current Living Situation: Significant Other current occupational status: employed Other Information That Helps Us Care for You: No Feels Safe at Home: Yes Safety Concerns: Feels Safe At This Time Smoking Status: Never smoker Hx Alcohol Use: Yes Hx Substance Use: No Review of Systems Unable to obtain 12 system ROS secondary to patient confusion, see HPI Physical Exam Vital Signs (Past 24 Hours): Last Vital Signs Temp 37.6 C H 11/28/18 08:52 Pulse 95 H 11/28/18 08:52 Resp 20 11/28/18 08:52 BP 111/75 11/28/18 08:52 Pulse Ox 100 11/28/18 08:52 Constitutional: average body habitus Vitals within normal limits Eyes: PERRLA, pupils appropriately accommodate, EOMs intact ENMT: Throat: uvula midline Mucosal membranes dry Neck: trachea midline, no thyromegaly Respiratory: normal respiratory effort, lungs clear to auscultation Cardiovascular: RRR, no murmur, no edema Heart Sounds: normal S1 and normal S2 Gastrointestinal (Abdomen): normal bowel sounds, soft, nontender, no hepatosplenomegaly Musculoskeletal: no cyanosis or clubbing, extremities motor strength 5/5 Skin: no rashes, warm and dry Neurologic: Speech slurred, confused, cough gag corneals intact, symmetrical movement bilaterally Psychiatric: Orientation: cooperative Eye Contact: + poor eye contact Affect: + anxious affect Thought Process: + thought process not clear or coherent Genitourinary: Indwelling Mata, adequate urine output Results & Data Laboratory Results Laboratory Results - last 24 hr 11/28/18 11/28/18 11/28/18 00:07 00:07 00:07 WBC 6.02 RBC 3.55 L Hgb 11.7 L Hct 35.6 L MCV 100.3 H MCH 33.0 MCHC 32.9 RDW Std Deviation 46.0 RDW Coeff of Thea 12.5 Plt Count 230 MPV 11.2 H Immature Gran % (Auto) 0.2 Neut % (Auto) 50.6 Lymph % (Auto) 39.7 [place] % (Auto) 7.0 Eos % (Auto) 1.8 Baso % (Auto) 0.7 Immature Gran # (Auto) 0.01 Neut # (Auto) 3.05 Lymph # (Auto) 2.39 [place] # (Auto) 0.42 Eos # (Auto) 0.11 Baso # (Auto) 0.04 PT 10.4 INR 1.0 Sodium 137 Potassium 3.3 L Chloride 107 Carbon Dioxide 24 Anion Gap 6.0 BUN 6 L Creatinine 0.74 Est Cr Clr Drug Dosing 80.7 Est GFR ( Amer) 111.0 Est GFR (Non-Af Amer) 95.8 BUN/Creatinine Ratio 8.4 L Glucose 70 Calcium 7.8 L Magnesium 2.0 Total Bilirubin 0.2 AST 21 ALT 12 Alkaline Phosphatase 86 Troponin I < 0.015 Total Protein 7.1 Albumin 3.4 Globulin 3.7 Albumin/Globulin Ratio 0.9 Lipase 173 HCG, Qual Urine Color Urine Appearance Urine pH Ur Specific [place] Urine Protein Urine Glucose (UA) Urine Ketones Urine Blood Urine Nitrite Urine Bilirubin Urine Urobilinogen Ur Leukocyte Esterase Salicylates Urine Opiates Screen Ur Methadone, Qual Acetaminophen Urine Barbiturates Ur Phencyclidine (PCP) U Amphetamin/Meth Scrn MDMA (Ecstasy) Screen U Benzodiazepines Scrn Ur Cocaine Metabolite U Marijuana (THC) Screen Ethyl Alcohol mg/dL 11/28/18 11/28/18 11/28/18 00:07 00:07 00:07 WBC RBC Hgb Hct MCV MCH MCHC RDW Std Deviation RDW Coeff of Thea Plt Count MPV Immature Gran % (Auto) Neut % (Auto) Lymph % (Auto) [place] % (Auto) Eos % (Auto) Baso % (Auto) Immature Gran # (Auto) Neut # (Auto) Lymph # (Auto) [place] # (Auto) Eos # (Auto) Baso # (Auto) PT INR Sodium Potassium Chloride Carbon Dioxide Anion Gap BUN Creatinine Est Cr Clr Drug Dosing Est GFR ( Amer) Est GFR (Non-Af Amer) BUN/Creatinine Ratio Glucose Calcium Magnesium Total Bilirubin AST ALT Alkaline Phosphatase Troponin I Total Protein Albumin Globulin Albumin/Globulin Ratio Lipase HCG, Qual Negative Urine Color Urine Appearance Urine pH Ur Specific [place] Urine Protein Urine Glucose (UA) Urine Ketones Urine Blood Urine Nitrite Urine Bilirubin Urine Urobilinogen Ur Leukocyte Esterase Salicylates < 1.7 L Urine Opiates Screen Ur Methadone, Qual Acetaminophen < 2 L Urine Barbiturates Ur Phencyclidine (PCP) U Amphetamin/Meth Scrn MDMA (Ecstasy) Screen U Benzodiazepines Scrn Ur Cocaine Metabolite U Marijuana (THC) Screen Ethyl Alcohol mg/dL 238.0 H 11/28/18 11/28/18 00:13 00:13 WBC RBC Hgb Hct MCV MCH MCHC RDW Std Deviation RDW Coeff of Thea Plt Count MPV Immature Gran % (Auto) Neut % (Auto) Lymph % (Auto) [place] % (Auto) Eos % (Auto) Baso % (Auto) Immature Gran # (Auto) Neut # (Auto) Lymph # (Auto) [place] # (Auto) Eos # (Auto) Baso # (Auto) PT INR Sodium Potassium Chloride Carbon Dioxide Anion Gap BUN Creatinine Est Cr Clr Drug Dosing Est GFR ( Amer) Est GFR (Non-Af Amer) BUN/Creatinine Ratio Glucose Calcium Magnesium Total Bilirubin AST ALT Alkaline Phosphatase Troponin I Total Protein Albumin Globulin Albumin/Globulin Ratio Lipase HCG, Qual Urine Color Yellow Urine Appearance Clear Urine pH 5.5 Ur Specific [place] 1.008 Urine Protein Negative Urine Glucose (UA) Negative Urine Ketones Negative Urine Blood Negative Urine Nitrite Negative Urine Bilirubin Negative Urine Urobilinogen Negative Ur Leukocyte Esterase Negative Salicylates Urine Opiates Screen Neg Ur Methadone, Qual Neg Acetaminophen Urine Barbiturates Neg Ur Phencyclidine (PCP) Neg U Amphetamin/Meth Scrn Neg MDMA (Ecstasy) Screen Neg U Benzodiazepines Scrn Neg Ur Cocaine Metabolite Neg U Marijuana (THC) Screen Neg Ethyl Alcohol mg/dL Medications Administered Home Medications Toprol XL 25 mg PO DAILY 11/28/18 [History Confirmed 11/28/18] baclofen 20 mg PO TID 11/28/18 [History Confirmed 11/28/18] calcium carbonate [Calcium 500] 500 mg PO DAILY 11/28/18 [History Confirmed 11/28/18] carbamazepine [Carbatrol] 200 mg PO BID 11/28/18 [History Confirmed 11/28/18] epinephrine [EpiPen] 0.3 mg IM UD PRN 11/28/18 [History Confirmed 11/28/18] gabapentin 400 mg PO TID 11/28/18 [History Confirmed 11/28/18] levetiracetam 2,000 mg PO BID 11/28/18 [History Confirmed 11/28/18] levothyroxine 75 mcg PO DAILY 11/28/18 [History Confirmed 11/28/18] magnesium 250 mg PO DAILY 11/28/18 [History Confirmed 11/28/18] multivitamin 1 tab PO DAILY 11/28/18 [History Confirmed 11/28/18] potassium gluconate 500 mg PO DAILY 11/28/18 [History Confirmed 11/28/18] sertraline 200 mg PO DAILY 11/28/18 [History Confirmed 11/28/18] sumatriptan succinate 1 tab PO UD PRN 11/28/18 [History Confirmed 11/28/18] topiramate [Topamax] 200 mg PO BID 11/28/18 [History Confirmed 11/28/18] vitamin B complex-folic acid 1 tab PO DAILY 11/28/18 [History Confirmed 11/28/18] Active Medications Carbamazepine (Tegretol Xr) 200 mg PO BID CÉSAR Stop: 12/28/18 20:59 Potassium Chloride/Sodium Chloride (Normal Saline W/20 Meq Kcl) 20 meq in 1,000 mls @ 125 mls/hr IV .Q8H CÉSAR Stop: 12/28/18 08:59 Levetiracetam 2,000 mg/ (Dextrose) 270 mls @ 999 mls/hr IV BID CÉSAR Stop: 12/28/18 20:59 Levothyroxine Sodium 37.5 mcg/ (Syringe) 1.875 mls @ 2 mls/min IV DAILY@0900 CÉSAR Stop: 12/29/18 08:59 Magnesium Oxide (Mag-Ox) 400 mg PO DAILY CÉSAR Stop: 12/28/18 08:59 Metoprolol Succinate (Toprol Xl) 25 mg PO DAILY CÉSAR Stop: 12/28/18 09:14 Miscellaneous (Icu Protocol For Hyperglycemia) 1 ea N/A PRN PRN; Protocol PRN Reason: Hyperglycemia Protocol Stop: 11/30/18 08:48 Multivitamins (Multivitamin Tab) 1 tab PO DAILY CÉSAR Stop: 12/28/18 08:59 Topiramate (Topamax) 200 mg PO BID CÉSAR Stop: 12/28/18 08:59
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
[2018-11-28 10:33] LABS: Base Excess VBG -2.1 mEq/L; HCO3 VBG 23 mmol/L; PCO2 VBG 39 mmHg (38-50); PO2 VBG 24 mmHg; pH VBG 7.38 (7.36-7.41)
[2018-11-28 10:34] LABS: Oxygen Saturation VBG < 60.0 %
[2018-11-28] MEDS: NSS + 20MEQ KCL 20 MEQ/1,000 ML BAG IV SCH ×2 (10:40→18:48)
[2018-11-28] MEDS: TOPIRAMATE 100 MG TAB PO SCH ×2 (10:46→20:13)
[2018-11-28] MEDS: MAGNESIUM OXIDE 400 MG TAB PO SCH (10:46)
[2018-11-28] MEDS: METOPROLOL SUCC 25MG EXT REL TAB PO SCH (10:46)
[2018-11-28] MEDS: MULTIVITAMIN TAB PO SCH (10:47)
[2018-11-28] MEDS ORDERED: MULTIVITAMIN TAB PO SCH (11:00)
[2018-11-28] MEDS ORDERED: GLUCOSE 40% GEL 15 GM TUBE PO PRN (11:30)
[2018-11-28] MEDS ORDERED: CARBOHYDRATES FOR HYPOGLYCEMIA PO PRN (11:30)
[2018-11-28] MEDS ORDERED: GLUCAGON FOR INJ 1 MG VIAL SQ PRN (11:30)
[2018-11-28] MEDS ORDERED: DEXTROSE 50% 50 ML SYRINGE IV PRN (11:30)
[2018-11-28] MEDS ORDERED: GLUCOSE 10 TABS/TUBE PO PRN (11:30)
--- NOTE | 2018-11-28 11:37 | Hospitalist Progress Note ---
Date of Service November 28, 2018 Assessment & Plan (1) QT prolongation: Received intravenous magnesium for QT prolongation Monitor EKGs We will check electrolytes (2) Intentional overdose of drug in tablet form: Reason Critically Ill: 48-year-old female with intentional overdose with Benadryl while intoxicated. 302ed and admitted to ICU for observation and suicide precautions. Intentional overdose/suicide attemptpatient reportedly took 48 capsule of 50 mg Benadryl capsules with 1 bottle of wine at approximately 2300 last night -EtOH on admission was 290, acetaminophen and salicylates and UDS negative on screen -Received activated charcoal in ED and 2 L normal saline bolus -CT head negative -Ativan PRN for agitation -Patient currently 302ed, suicide precautions with sitter -Appreciate head charger input and recommendation -Continue to monitor in the ICU DVT PROPHYLAXIS - SCDs (3) Seizure disorder: Seizure disordercontinue home dose of Keppra -We will continue topiramate and Tegretol when appropriate (4) Alcohol abuse: Monitor for withdrawal symptoms and manage accordingly Subjective The patient was examined and seen in ICU She is a 48-year-old female with past medical history significant for seizures, migraines, hypothyroidism, history of mitral valve prolapse, arthritis, hype rtension, GERD, history of Raynaud's phenomenon, sarcoidosis, generalized anxiety disorder, presents with drug overdose around 11:00 last night. She took about 48 pills of Benadryl 50 mg each. Remains drowsy and pleasantly confused and is seen Denies any acute symptoms Physical Exam Vital Signs (Past 24 Hours): Last Vital Signs Temp 37.6 C H 11/28/18 08:52 Pulse 90 11/28/18 11:00 Resp 17 11/28/18 11:00 BP 124/89 11/28/18 11:00 Pulse Ox 98 11/28/18 11:00 Physical Exam: No acute distress at rest Constitutional: WD/WN, vitals as above average body habitus Eyes: PERRL, conjunctivae normal, anicteric sclerae ENMT: Throat: uvula midline Neck: trachea midline, no thyromegaly Respiratory: normal respiratory effort Auscultation: lungs clear to auscultation bilaterally and + diminished lung sounds Cardiovascular: RRR, no murmur, no edema Heart Sounds: normal S1 and normal S2 Gastrointestinal (Abdomen): normal bowel sounds, soft, nontender, no hepatosplenomegaly Musculoskeletal: no cyanosis or clubbing, extremities motor strength 5/5 Skin: no rashes, warm and dry Neurologic: Alert, awake and pleasantly confused. Generally weak Psychiatric: Orientation: cooperative Eye Contact: + poor eye contact Affect: + anxious affect Thought Process: + thought process not clear or coherent Results & Data Laboratory Results Short CBC 11/28/18 Range/Units 00:07 WBC 6.02 (4.8-10.8) K/uL Hgb 11.7 L (12.0-16.0) g/dL Hct 35.6 L (37-47) % Plt Count 230 (130-400) K/uL BMP 11/28/18 00:07 Sodium 137 Potassium 3.3 L Chloride 107 Carbon Dioxide 24 BUN 6 L Creatinine 0.74 Glucose 70 Calcium 7.8 L Cardiac Enzymes 11/28/18 Range/Units 00:07 Troponin I < 0.015 (0-0.045) ng/ml Liver Function 11/28/18 Range/Units 00:07 Total Bilirubin 0.2 (0.2-1) mg/dl AST 21 (15-37) U/L ALT 12 (12-78) U/L Alkaline Phosphatase 86 (45-117) U/L Albumin 3.4 (3.4-5.0) gm/dl Urine 11/28/18 Range/Units 00:13 Urine Color Yellow Urine Appearance Clear (Clear) Urine pH 5.5 (4.5-7.5) Ur Specific [place] 1.008 (1.000-1.030) Urine Protein Negative (Negative) Urine Glucose (UA) Negative (Negative) Medications Administered Current Inpatient Medications Carbamazepine (Tegretol Xr) 200 mg PO BID CÉSAR Stop: 12/28/18 20:59 Dextrose (Dextrose 50%) 25 - 50 ml IV UD PRN; Protocol PRN Reason: Hypoglycemia Protocol Stop: 12/28/18 11:29 Folic Acid (Folvite) 400 mcg PO QAM CÉSAR Stop: 12/28/18 10:59 Glucagon (Glucagen) 1 mg SQ UD PRN; Protocol PRN Reason: Hypoglycemia Protocol Stop: 12/28/18 11:29 Glucose (Glucose 40%) 15 - 30 gm PO UD PRN; Protocol PRN Reason: Hypoglycemia Protocol Stop: 12/28/18 11:29 Glucose (Dex4 Glucose) 4 - 8 tabs PO UD PRN; Protocol PRN Reason: Hypoglycemia Protocol Stop: 12/28/18 11:29 Potassium Chloride/Sodium Chloride (Normal Saline W/20 Meq Kcl) 20 meq in 1,000 mls @ 125 mls/hr IV .Q8H CÉSAR Stop: 12/28/18 08:59 Last Admin: 11/28/18 10:40 Dose: 125 mls/hr Documented by: Levetiracetam 2,000 mg/ (Dextrose) 270 mls @ 999 mls/hr IV BID CÉSAR Stop: 12/28/18 20:59 Levothyroxine Sodium 37.5 mcg/ (Syringe) 1.875 mls @ 2 mls/min IV DAILY@0900 CÉSAR Stop: 12/29/18 08:59 Magnesium Oxide (Mag-Ox) 400 mg PO DAILY CÉSAR Stop: 12/28/18 08:59 Last Admin: 11/28/18 10:46 Dose: 400 mg Documented by: Metoprolol Succinate (Toprol Xl) 25 mg PO DAILY CÉSAR Stop: 12/28/18 09:14 Last Admin: 11/28/18 10:46 Dose: 25 mg Documented by: Miscellaneous (Icu Protocol For Hyperglycemia) 1 ea N/A PRN PRN; Protocol PRN Reason: Hyperglycemia Protocol Stop: 11/30/18 08:48 Miscellaneous (Carbohydrates For Hypoglycemia) 15 - 30 gm PO UD PRN PRN Reason: Hypoglycemia Treatment Stop: 12/28/18 11:29 Last Admin: 11/28/18 10:36 Dose: 15 gm Documented by: Multivitamins (Multivitamin Tab) 1 tab PO DAILY CÉSAR Stop: 12/28/18 08:59 Last Admin: 11/28/18 10:47 Dose: 1 tab Documented by: Pantoprazole Sodium (Protonix) 40 mg PO QAM CÉSAR Stop: 12/28/18 10:59 Thiamine HCl (Vitamin B-1) 100 mg PO QAM CÉSAR Stop: 12/28/18 10:59 Topiramate (Topamax) 200 mg PO BID CÉSAR Stop: 12/28/18 08:59 Last Admin: 11/28/18 10:46 Dose: 200 mg Documented by:
[2018-11-28] MEDS: THIAMINE HCL 100 MG TAB PO SCH (11:46)
[2018-11-28] MEDS: FOLIC ACID 400 MCG TAB PO SCH (11:46)
[2018-11-28] MEDS: PANTOprazole 40 MG TAB PO SCH (13:32)
[2018-11-28] MEDS ORDERED: ACETAMINOPHEN 325 MG TAB PO PRN (18:17)
[2018-11-28] MEDS: CARBAMAZEPINE 200 MG TABCR PO SCH (20:13)
[2018-11-28] MEDS ORDERED: levETIRAcetam 2,000 MG in DEXTROSE 5% 250 ML IV SCH (21:00)
[2018-11-29] MEDS: NSS + 20MEQ KCL 20 MEQ/1,000 ML BAG IV SCH ×3 (02:48→19:18)
[2018-11-29 04:44] LABS: Basophils # (auto) 0.01 K/uL (0-0.2); Basophils % (auto) 0.2 %; Eosinophils # (auto) 0.03 K/uL (0-0.5); Eosinophils % (auto) 0.6 %; Hematocrit (blood only) 35.8 % (37-47); Hemoglobin 11.7 g/dL (12.0-16.0); Lymphocytes # (auto) 2.15 K/uL (1.2-3.4); Mean Corpuscular Hgb Conc 32.7 g/dL (32-36); Mean Corpuscular Volume 101.1 fL (80-100); Mean Platelet Volume 11.7 fL (7.4-10.4); Monocytes # (auto) 0.43 K/uL (0.11-0.59); Monocytes % (auto) 8.2 %; Neutrophils # (auto) 2.62 K/uL (1.4-6.5); Platelet Count 181 K/uL (130-400); RDW Coefficient of Variation 13.3 % (11.5-14.5); RDW Standard Deviation 49.2 fL (36.4-46.3); Red Blood Count 3.54 M/uL (4.2-5.4); White Blood Count 5.24 K/uL (4.8-10.8)
[2018-11-29 05:01] LABS: Calcium 8.2 mg/dl (8.5-10.1); Creatinine Clr Calc Pharmacy 76.4 ml/min; Est GFR (African American) 99.5; Est GFR (Non-African American) 85.9; Phosphorus 2.3 mg/dl (2.5-4.9); Potassium 3.6 mmol/L (3.5-5.1)
--- NOTE | 2018-11-29 06:59 | Critical Care Consultation ---
Date of Consultation November 29, 2018 Assessment & Plan (1) QT prolongation: (2) Intentional overdose of drug in tablet form: Reason Critically Ill: 48-year-old female with intentional overdose with Benadryl while intoxicated. 302ed and admitted to ICU for observation and suicide precautions. Neuro CAM ICU: Positive Intentional overdose/suicide attemptpatient reportedly took 48 50 mg Benadryl capsules with 1 bottle of wine at approximately 2300 11/27 -EtOH on admission was 290, acetaminophen and salicylates and UDS negative on screen -Received activated charcoal in ED and 2 L normal saline bolus -CT head negative -Consider benzos if patient becomes more agitated -Patient currently 302ed, suicide precautions with sitter -We will continue to monitor in ICU -Psych consulted, patient currently unable to participate in interview Seizure disordercontinue home dose of Keppra, topiramate, Tegretol -Standard seizure precautions Alcohol abuseAWSS protocol -Start thiamine, folic acid, multivitamin Cardiac Prolonged QTCconsistent with anticholinergic overdose -Proving with QTC 460 last EKG -We will treat with bicarb if patient becomes symptomatic or QTC is continue to prolong -Holding home dose sertraline -Monitor on telemetry Respiratory Chest x-ray negative Patient currently on room air and protecting airway, no intervention needed at this time GI LFTs within normal limits ProphylaxisPPI Regular diet RENAL/LYTES Hypokalemiapatient on supplemental potassium as home regimen Routine BMPs Mata discontinued, patient voiding ENDO ICU hyperglycemic protocol Continue home dose Synthroid HEME Routine CBC ID No indication for antibiotic therapy at this time LINES/IV ACCESS - Peripheral IVs DVT PROPHYLAXIS - SCDs (3) Seizure disorder: (4) Alcohol abuse: Supervising Physician Co-Signing Physician Notes I have personally evaluated and examined this patient. I agree with assessment and plan of Shonda CHAVEZ. Patient's altered mental status is mildly improved however she is still encephalopathic/delirious secondary to medication effect of intentional drug overdose. Hopefully patient will clear later today and be stable for downgrade to mental health inpatient management. Patient is ambulatory, ambulate every shift SCDs when in bed Patient was discussed in multidisciplinary rounds, I discussed the patient Dr. Ruiz of the hospitalist service History of Present Illness Attending Physician: Vipul Ruiz MD History of Present Illness 48-year-old female with past medical history significant for status epilepticus, sarcoidosis, alcohol abuse who presented to the ED for anticholinergic ingestion suicide attempt with reported 48 50mg diphenhydramine at approximately 2300 last night with a bottle of wine. Patient was confused and agitated on arrival. EtOH 290, acetaminophen and salicylates negative. Was given activated charcoal and bolused 2 L normal saline. Patient presented as confused, prolonged QTC on EKG consistent with anticholinergic overdose. Patient is a 302 and on suicide precautions with sitter. This morning the patient is more alert however still displays some confusion during interview. The one-to-one sitter states that the patient has been hallucinating this morning. She denies dizziness, syncope, agitation or anxiety, shortness of breath, palpitations. Patient remains hemodynamically stable, QTC improved but still prolonged. We will continue to hold Seroquel. Restarting home dose antiseizure medications. We will continue to monitor in ICU for now until patient is medically cleared for psychiatric disposition. Allergies Allergy/AdvReac Type Severity Reaction Status Date / Time tree nut Allergy Severe ANAPHYLAXIS Verified 11/28/18 02:35 Penicillins Allergy Unknown HIVES Verified 11/28/18 02:35 Home Medications Home Medications Medication Instructions Recorded Confirmed Type Toprol XL 25 mg PO DAILY 11/28/18 11/28/18 History baclofen 20 mg PO TID 11/28/18 11/28/18 History calcium carbonate [Calcium 500] 500 mg PO DAILY 11/28/18 11/28/18 History carbamazepine [Carbatrol] 200 mg PO BID 11/28/18 11/28/18 History epinephrine [EpiPen] 0.3 mg IM UD PRN 11/28/18 11/28/18 History gabapentin 400 mg PO TID 11/28/18 11/28/18 History levetiracetam 2,000 mg PO BID 11/28/18 11/28/18 History levothyroxine 75 mcg PO DAILY 11/28/18 11/28/18 History magnesium 250 mg PO DAILY 11/28/18 11/28/18 History multivitamin 1 tab PO DAILY 11/28/18 11/28/18 History potassium gluconate 500 mg PO DAILY 11/28/18 11/28/18 History sertraline 200 mg PO DAILY 11/28/18 11/28/18 History sumatriptan succinate 1 tab PO UD PRN 11/28/18 11/28/18 History topiramate [Topamax] 200 mg PO BID 11/28/18 11/28/18 History vitamin B complex-folic acid 1 tab PO DAILY 11/28/18 11/28/18 History Patient History Medical History Seizure disorder (Chronic) Hypothyroidism (Chronic) Raynauds phenomenon (Chronic) History of sarcoidosis (Chronic) Alcohol abuse (Acute) Hypokalemia (Acute) Syncope, non cardiac (Acute) Surgical History Hx of cholecystectomy (Chronic) H/O foot surgery (Chronic) H/O shoulder surgery (Chronic) H/O hernia repair (Chronic) History of esophagogastroduodenoscopy (EGD) (Chronic) Family History Other Breast cancer Diabetes Hypertension Myocardial infarction Social History Communication Ability: Impaired Beliefs That Will Affect Care: None marital status: Current Living Situation: Significant Other current occupational status: employed Other Information That Helps Us Care for You: No Feels Safe at Home: Yes Safety Concerns: Feels Safe At This Time Smoking Status: Never smoker Hx Alcohol Use: Yes Hx Substance Use: No Review of Systems 12 system ROS negative except for as noted in HPI. See above Physical Exam Vital Signs (Past 24 Hours): Last Vital Signs Temp 36.7 C 11/29/18 04:00 Pulse 71 11/29/18 04:00 Resp 17 11/29/18 04:00 BP 119/81 11/29/18 04:00 Pulse Ox 95 11/29/18 04:00 Constitutional: average body habitus ENMT: Throat: uvula midline Neck: trachea midline, no thyromegaly Respiratory: normal respiratory effort, lungs clear to auscultation Cardiovascular: RRR, no murmur, no edema Heart Sounds: normal S1 and normal S2 Gastrointestinal (Abdomen): normal bowel sounds, soft, nontender, no hepatosplenomegaly Musculoskeletal: no cyanosis or clubbing, extremities motor strength 5/5 Skin: no rashes, warm and dry Psychiatric: Orientation: cooperative Eye Contact: + poor eye contact Affect: + anxious affect Thought Process: + thought process not clear or coherent Results & Data Laboratory Results Laboratory Results - last 24 hr 11/28/18 11/29/18 11/29/18 18:37 04:12 04:12 WBC 5.24 RBC 3.54 L Hgb 11.7 L Hct 35.8 L MCV 101.1 H MCH 33.1 MCHC 32.7 RDW Std Deviation 49.2 H RDW Coeff of Thea 13.3 Plt Count 181 MPV 11.7 H Immature Gran % (Auto) 0.0 Neut % (Auto) 50.0 Lymph % (Auto) 41.0 [place] % (Auto) 8.2 Eos % (Auto) 0.6 Baso % (Auto) 0.2 Immature Gran # (Auto) 0.00 Neut # (Auto) 2.62 Lymph # (Auto) 2.15 [place] # (Auto) 0.43 Eos # (Auto) 0.03 Baso # (Auto) 0.01 Sodium 142 Potassium 3.6 Chloride 117 H Carbon Dioxide 20 L Anion Gap 5.0 BUN 6 L Creatinine 0.81 Est Cr Clr Drug Dosing 76.4 Est GFR ( Amer) 99.5 Est GFR (Non-Af Amer) 85.9 BUN/Creatinine Ratio 8.0 L Glucose 78 POC Glucose 71 Calcium 8.2 L Phosphorus 2.3 L Magnesium 2.0 11/29/18 11/29/18 04:28 10:49 WBC RBC Hgb Hct MCV MCH MCHC RDW Std Deviation RDW Coeff of Thea Plt Count MPV Immature Gran % (Auto) Neut % (Auto) Lymph % (Auto) [place] % (Auto) Eos % (Auto) Baso % (Auto) Immature Gran # (Auto) Neut # (Auto) Lymph # (Auto) [place] # (Auto) Eos # (Auto) Baso # (Auto) Sodium Potassium Chloride Carbon Dioxide Anion Gap BUN Creatinine Est Cr Clr Drug Dosing Est GFR ( Amer) Est GFR (Non-Af Amer) BUN/Creatinine Ratio Glucose POC Glucose 72 99 Calcium Phosphorus Magnesium Medications Administered Home Medications Toprol XL 25 mg PO DAILY 11/28/18 [History Confirmed 11/28/18] baclofen 20 mg PO TID 11/28/18 [History Confirmed 11/28/18] calcium carbonate [Calcium 500] 500 mg PO DAILY 11/28/18 [History Confirmed 11/28/18] carbamazepine [Carbatrol] 200 mg PO BID 11/28/18 [History Confirmed 11/28/18] epinephrine [EpiPen] 0.3 mg IM UD PRN 11/28/18 [History Confirmed 11/28/18] gabapentin 400 mg PO TID 11/28/18 [History Confirmed 11/28/18] levetiracetam 2,000 mg PO BID 11/28/18 [History Confirmed 11/28/18] levothyroxine 75 mcg PO DAILY 11/28/18 [History Confirmed 11/28/18] magnesium 250 mg PO DAILY 11/28/18 [History Confirmed 11/28/18] multivitamin 1 tab PO DAILY 11/28/18 [History Confirmed 11/28/18] potassium gluconate 500 mg PO DAILY 11/28/18 [History Confirmed 11/28/18] sertraline 200 mg PO DAILY 11/28/18 [History Confirmed 11/28/18] sumatriptan succinate 1 tab PO UD PRN 11/28/18 [History Confirmed 11/28/18] topiramate [Topamax] 200 mg PO BID 11/28/18 [History Confirmed 11/28/18] vitamin B complex-folic acid 1 tab PO DAILY 11/28/18 [History Confirmed 11/28/18] Active Medications Acetaminophen (Tylenol) 650 mg PO Q4H PRN PRN Reason: Pain Stop: 12/28/18 18:16 Last Admin: 11/28/18 18:41 Dose: 650 mg Documented by: Carbamazepine (Tegretol Xr) 200 mg PO BID [facility] Stop: 12/28/18 20:59 Last Admin: 11/29/18 08:44 Dose: 200 mg Documented by: Dextrose (Dextrose 50%) 25 - 50 ml IV UD PRN; Protocol PRN Reason: Hypoglycemia Protocol Stop: 12/28/18 11:29 Folic Acid (Folvite) 400 mcg PO QAM [facility] Stop: 12/28/18 10:59 Last Admin: 11/29/18 08:41 Dose: 400 mcg Documented by: Glucagon (Glucagen) 1 mg SQ UD PRN; Protocol PRN Reason: Hypoglycemia Protocol Stop: 12/28/18 11:29 Glucose (Glucose 40%) 15 - 30 gm PO UD PRN; Protocol PRN Reason: Hypoglycemia Protocol Stop: 12/28/18 11:29 Glucose (Dex4 Glucose) 4 - 8 tabs PO UD PRN; Protocol PRN Reason: Hypoglycemia Protocol Stop: 12/28/18 11:29 Potassium Chloride/Sodium Chloride (Normal Saline W/20 Meq Kcl) 20 meq in 1,000 mls @ 125 mls/hr IV .Q8H [facility] Stop: 12/28/18 08:59 Last Admin: 11/29/18 08:45 Dose: 125 mls/hr Documented by: Levetiracetam (Keppra) 2,000 mg PO BID [facility] Stop: 12/29/18 08:59 Last Admin: 11/29/18 09:43 Dose: 2,000 mg Documented by: Levothyroxine Sodium (Synthroid) 75 mcg PO DAILYBB [facility] Stop: 12/30/18 06:29 Magnesium Oxide (Mag-Ox) 400 mg PO DAILY [facility] Stop: 12/28/18 08:59 Last Admin: 11/29/18 08:43 Dose: 400 mg Documented by: Metoprolol Succinate (Toprol Xl) 25 mg PO DAILY [facility] Stop: 12/28/18 09:14 Last Admin: 11/29/18 08:43 Dose: 25 mg Documented by: Miscellaneous (Icu Protocol For Hyperglycemia) 1 ea N/A PRN PRN; Protocol PRN Reason: Hyperglycemia Protocol Stop: 11/30/18 08:48 Miscellaneous (Carbohydrates For Hypoglycemia) 15 - 30 gm PO UD PRN PRN Reason: Hypoglycemia Treatment Stop: 12/28/18 11:29 Last Admin: 11/28/18 10:36 Dose: 15 gm Documented by: Multivitamins (Multivitamin Tab) 1 tab PO DAILY [facility] Stop: 12/28/18 08:59 Last Admin: 11/29/18 08:43 Dose: 1 tab Documented by: Pantoprazole Sodium (Protonix) 40 mg PO QAM [facility] Stop: 12/28/18 10:59 Last Admin: 11/29/18 08:43 Dose: 40 mg Documented by: Thiamine HCl (Vitamin B-1) 100 mg PO QAM [facility] Stop: 12/28/18 10:59 Last Admin: 11/29/18 08:44 Dose: 100 mg Documented by: Topiramate (Topamax) 200 mg PO BID [facility] Stop: 12/28/18 08:59 Last Admin: 11/29/18 08:42 Dose: 200 mg Documented by:
[2018-11-29] MEDS: FOLIC ACID 400 MCG TAB PO SCH (08:41)
[2018-11-29] MEDS: TOPIRAMATE 100 MG TAB PO SCH ×2 (08:42→20:21)
[2018-11-29] MEDS: MAGNESIUM OXIDE 400 MG TAB PO SCH (08:43)
[2018-11-29] MEDS: METOPROLOL SUCC 25MG EXT REL TAB PO SCH (08:43)
[2018-11-29] MEDS: MULTIVITAMIN TAB PO SCH (08:43)
[2018-11-29] MEDS: PANTOprazole 40 MG TAB PO SCH (08:43)
[2018-11-29] MEDS: THIAMINE HCL 100 MG TAB PO SCH (08:44)
[2018-11-29] MEDS: CARBAMAZEPINE 200 MG TABCR PO SCH ×2 (08:44→20:21)
[2018-11-29] MEDS ORDERED: LEVOTHYROXINE SODIUM 37.5 MCG in SYRINGE 0 ML IV SCH (09:00)
[2018-11-29] MEDS: levETIRAcetam 500 MG TAB PO SCH ×2 (09:43→20:21)
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
--- NOTE | 2018-11-29 13:11 | Hospitalist Progress Note ---
Date of Service November 29, 2018 Assessment & Plan (1) QT prolongation: Received intravenous magnesium for QT prolongation Monitor EKGs We will check electrolytes EKG this morning showed prolonged QT Electrolytes were normal Recheck EKG tomorrow (2) Intentional overdose of drug in tablet form: Reason Critically Ill: 48-year-old female with intentional overdose with Benadryl while intoxicated. 302ed and admitted to ICU for observation and suicide precautions. Intentional overdose/suicide attemptpatient reportedly took 48 capsule of 50 mg Benadryl capsules with 1 bottle of wine at approximately 2300 last night -EtOH on admission was 290, acetaminophen and salicylates and UDS negative on screen -Received activated charcoal in ED and 2 L normal saline bolus -CT head negative -Ativan PRN for agitation -Patient currently 302ed, suicide precautions with sitter -Appreciate cardiac/vascular sonographer input and recommendation -Continue to monitor in the ICU -Clinically better today -Likely to be transferred out this afternoon/evening -We will need to have psych evaluation DVT PROPHYLAXIS - SCDs (3) Seizure disorder: Seizure disordercontinue home dose of Keppra -We will continue topiramate and Tegretol when appropriate (4) Alcohol abuse: Monitor for withdrawal symptoms and manage accordingly -No withdrawal symptoms Subjective The patient was examined and seen in ICU She is a 48-year-old female with past medical history significant for seizures, migraines, hypothyroidism, history of mitral valve prolapse, arthritis, hypertension, GERD, history of Raynaud's phenomenon, sarcoidosis, generalized anxiety disorder, presents with drug overdose around 11:00 last night. She took about 48 pills of Benadryl 50 mg each. Remains drowsy and pleasantly confused and is seen Denies any acute symptoms 11/29 The patient was seen and examined in ICU She has been feeling better today Remains pleasantly confused Denies any symptoms Physical Exam Vital Signs (Past 24 Hours): Last Vital Signs Temp 36.9 C 11/29/18 12:00 Pulse 69 11/29/18 12:00 Resp 15 11/29/18 12:00 BP 121/82 11/29/18 12:00 Pulse Ox 97 11/29/18 12:00 Physical Exam: No apparent distress at rest Constitutional: WD/WN, vitals as above average body habitus Eyes: PERRL, conjunctivae normal, anicteric sclerae ENMT: Throat: uvula midline Neck: trachea midline, no thyromegaly Respiratory: normal respiratory effort Auscultation: lungs clear to auscultation bilaterally and + diminished lung sounds Cardiovascular: RRR, no murmur, no edema Heart Sounds: normal S1 and normal S2 Gastrointestinal (Abdomen): normal bowel sounds, soft, nontender, no hepatosplenomegaly Musculoskeletal: no cyanosis or clubbing, extremities motor strength 5/5 Skin: no rashes, warm and dry Psychiatric: Orientation: cooperative Eye Contact: + poor eye contact Affect: + anxious affect Thought Process: + thought process not clear or coherent Results & Data Laboratory Results Short CBC 11/29/18 Range/Units 04:12 WBC 5.24 (4.8-10.8) K/uL Hgb 11.7 L (12.0-16.0) g/dL Hct 35.8 L (37-47) % Plt Count 181 (130-400) K/uL BMP 11/29/18 04:12 Sodium 142 Potassium 3.6 Chloride 117 H Carbon Dioxide 20 L BUN 6 L Creatinine 0.81 Glucose 78 Calcium 8.2 L Medications Administered Current Inpatient Medications Acetaminophen (Tylenol) 650 mg PO Q4H PRN PRN Reason: Pain Stop: 12/28/18 18:16 Last Admin: 11/28/18 18:41 Dose: 650 mg Documented by: Carbamazepine (Tegretol Xr) 200 mg PO BID [facility] Stop: 12/28/18 20:59 Last Admin: 11/29/18 08:44 Dose: 200 mg Documented by: Dextrose (Dextrose 50%) 25 - 50 ml IV UD PRN; Protocol PRN Reason: Hypoglycemia Protocol Stop: 12/28/18 11:29 Folic Acid (Folvite) 400 mcg PO QAM [facility] Stop: 12/28/18 10:59 Last Admin: 11/29/18 08:41 Dose: 400 mcg Documented by: Glucagon (Glucagen) 1 mg SQ UD PRN; Protocol PRN Reason: Hypoglycemia Protocol Stop: 12/28/18 11:29 Glucose (Glucose 40%) 15 - 30 gm PO UD PRN; Protocol PRN Reason: Hypoglycemia Protocol Stop: 12/28/18 11:29 Glucose (Dex4 Glucose) 4 - 8 tabs PO UD PRN; Protocol PRN Reason: Hypoglycemia Protocol Stop: 12/28/18 11:29 Potassium Chloride/Sodium Chloride (Normal Saline W/20 Meq Kcl) 20 meq in 1,000 mls @ 125 mls/hr IV .Q8H [facility] Stop: 12/28/18 08:59 Last Admin: 11/29/18 08:45 Dose: 125 mls/hr Documented by: Levetiracetam (Keppra) 2,000 mg PO BID [facility] Stop: 12/29/18 08:59 Last Admin: 11/29/18 09:43 Dose: 2,000 mg Documented by: Levothyroxine Sodium (Synthroid) 75 mcg PO DAILYBB [facility] Stop: 12/30/18 06:29 Magnesium Oxide (Mag-Ox) 400 mg PO DAILY [facility] Stop: 12/28/18 08:59 Last Admin: 11/29/18 08:43 Dose: 400 mg Documented by: Metoprolol Succinate (Toprol Xl) 25 mg PO DAILY [facility] Stop: 12/28/18 09:14 Last Admin: 11/29/18 08:43 Dose: 25 mg Documented by: Miscellaneous (Icu Protocol For Hyperglycemia) 1 ea N/A PRN PRN; Protocol PRN Reason: Hyperglycemia Protocol Stop: 11/30/18 08:48 Miscellaneous (Carbohydrates For Hypoglycemia) 15 - 30 gm PO UD PRN PRN Reason: Hypoglycemia Treatment Stop: 12/28/18 11:29 Last Admin: 11/28/18 10:36 Dose: 15 gm Documented by: Multivitamins (Multivitamin Tab) 1 tab PO DAILY [facility] Stop: 12/28/18 08:59 Last Admin: 11/29/18 08:43 Dose: 1 tab Documented by: Pantoprazole Sodium (Protonix) 40 mg PO QAM [facility] Stop: 12/28/18 10:59 Last Admin: 11/29/18 08:43 Dose: 40 mg Documented by: Thiamine HCl (Vitamin B-1) 100 mg PO QAM [facility] Stop: 12/28/18 10:59 Last Admin: 11/29/18 08:44 Dose: 100 mg Documented by: Topiramate (Topamax) 200 mg PO BID [facility] Stop: 12/28/18 08:59 Last Admin: 11/29/18 08:42 Dose: 200 mg Documented by:
[2018-11-30] MEDS: NSS + 20MEQ KCL 20 MEQ/1,000 ML BAG IV SCH (03:18)
[2018-11-30 04:55] LABS: Basophils # (auto) 0.03 K/uL (0-0.2); Basophils % (auto) 0.5 %; Eosinophils # (auto) 0.16 K/uL (0-0.5); Eosinophils % (auto) 2.8 %; Hemoglobin 11.5 g/dL (12.0-16.0); Immature Granulocytes # (auto) 0.01 K/uL (0.00-0.02); Immature Granulocytes % (auto) 0.2 %; Lymphocytes # (auto) 2.47 K/uL (1.2-3.4); Lymphocytes % (auto) 42.5 %; Mean Corpuscular Hgb Conc 32.9 g/dL (32-36); Mean Corpuscular Volume 100.6 fL (80-100); Mean Platelet Volume 11.5 fL (7.4-10.4); Monocytes # (auto) 0.37 K/uL (0.11-0.59); Monocytes % (auto) 6.4 %; Neutrophils # (auto) 2.77 K/uL (1.4-6.5); Neutrophils % (auto) 47.6 %; Platelet Count 190 K/uL (130-400); RDW Coefficient of Variation 13.2 % (11.5-14.5); RDW Standard Deviation 48.1 fL (36.4-46.3); Red Blood Count 3.48 M/uL (4.2-5.4); White Blood Count 5.81 K/uL (4.8-10.8)
[2018-11-30 05:13] LABS: BUN Creatinine Ratio 8.2 (10-20); Creatinine Clr Calc Pharmacy 80.4 ml/min; Est GFR (African American) 105.8; Est GFR (Non-African American) 91.3; Magnesium 1.9 mg/dl (1.8-2.4); Phosphorus 2.3 mg/dl (2.5-4.9)
[2018-11-30] MEDS ORDERED: LEVOTHYROXINE SODIUM 75 MCG TABLET PO SCH (06:30)
--- NOTE | 2018-11-30 07:42 | Critical Care Progress Note ---
Date of Service November 30, 2018 Assessment & Plan (1) QT prolongation: (2) Intentional overdose of drug in tablet form: Reason Critically Ill: 48-year-old female with intentional overdose with Benadryl while intoxicated. 302ed and admitted to ICU for observation and suicide precautions. Neuro [facility] ICU: Positive Intentional overdose/suicide attemptpatient reportedly took 48 50 mg Benadryl capsules with 1 bottle of wine at approximately 2300 11/27 -EtOH on admission was 290, acetaminophen and salicylates and UDS negative on screen -Received activated charcoal in ED and 2 L normal saline bolus -CT head negative -Okay to restart SSRI today -Consider benzos if patient becomes more agitated -Patient currently 302ed, suicide precautions with sitter -Psych consulted, patient unable to participate in interview yesterday, follow-up recs today Seizure disordercontinue home dose of Keppra, topiramate, Tegretol -Standard seizure precautions Alcohol abuseAWSS protocol -Start thiamine, folic acid, multivitamin Cardiac Prolonged QTCconsistent with anticholinergic overdose -Proving with QTC 469 last EKG -We will treat with bicarb if patient becomes symptomatic or QTC is continue to prolong -Monitor on telemetry Respiratory Chest x-ray negative Patient currently on room air and protecting airway, no intervention needed at this time GI LFTs within normal limits ProphylaxisPPI Regular diet RENAL/LYTES Hypokalemiapatient on supplemental potassium as home regimen Routine BMPs, replete electrolytes as necessary Mata discontinued, patient voiding ENDO ICU hyperglycemic protocol Continue home dose Synthroid HEME Routine CBC ID No indication for antibiotic therapy at this time LINES/IV ACCESS - Peripheral IVs DVT PROPHYLAXIS - SCDs (3) Seizure disorder: (4) Alcohol abuse: Supervising Physician Co-Signing Physician Notes I have personally evaluated and examined this patient. I agree with assessment and plan of Shonda CHAVEZ. Patient's encephalopathy has resolved, QTC 469 today will defer decision to restart SSRI to mental health stable for discharge and admission to mental health. Patient is ambulatory, ambulate every shift SCDs when in bed Patient was discussed in multidisciplinary rounds. Subjective 48-year-old female with past medical history significant for status epilepticus, sarcoidosis, alcohol abuse who presented to the ED for anticholinergic ingestion suicide attempt with reported 48 50mg diphenhydramine at approximately 2300 last night with a bottle of wine. Patient was confused and agitated on arrival. EtOH 290, acetaminophen and salicylates negative. Was given activated charcoal and bolused 2 L normal saline. Patient presented as confused, prolonged QTC on EKG consistent with anticholinergic overdose. Patient is a 302 and on suicide precautions with sitter. This morning the patient is alert and oriented. She denies dizziness, syncope, agitation or anxiety, shortness of breath, palpitations. Patient remains hemodynamically stable and okay to downgrade from telemetry status. Review of Systems 12 system ROS reviewed and negative Physical Exam Vital Signs (Past 24 Hours): Last Vital Signs Temp 36.9 C 11/30/18 04:00 Pulse 65 11/30/18 06:00 Resp 12 11/30/18 06:00 BP 102/66 11/30/18 06:00 Pulse Ox 96 11/30/18 06:00 Constitutional: average body habitus Neck: trachea midline, no thyromegaly Respiratory: normal respiratory effort, lungs clear to auscultation Cardiovascular: RRR, no murmur, no edema Heart Sounds: normal S1 and normal S2 Gastrointestinal (Abdomen): normal bowel sounds, soft, nontender, no hepatosplenomegaly Musculoskeletal: no cyanosis or clubbing, extremities motor strength 5/5 Skin: no rashes, warm and dry Psychiatric: Orientation: oriented x 3 and cooperative Results & Data Laboratory Results Laboratory Results - last 24 hr 11/29/18 11/29/18 11/29/18 10:49 16:58 22:38 WBC RBC Hgb Hct MCV MCH MCHC RDW Std Deviation RDW Coeff of Thea Plt Count MPV Immature Gran % (Auto) Neut % (Auto) Lymph % (Auto) Johnston % (Auto) Eos % (Auto) Baso % (Auto) Immature Gran # (Auto) Neut # (Auto) Lymph # (Auto) Johnston # (Auto) Eos # (Auto) Baso # (Auto) Sodium Potassium Chloride Carbon Dioxide Anion Gap BUN Creatinine Est Cr Clr Drug Dosing Est GFR ( Amer) Est GFR (Non-Af Amer) BUN/Creatinine Ratio Glucose POC Glucose 99 89 83 Calcium Phosphorus Magnesium 11/30/18 11/30/18 04:12 04:12 WBC 5.81 RBC 3.48 L Hgb 11.5 L Hct 35.0 L MCV 100.6 H MCH 33.0 MCHC 32.9 RDW Std Deviation 48.1 H RDW Coeff of Thea 13.2 Plt Count 190 MPV 11.5 H Immature Gran % (Auto) 0.2 Neut % (Auto) 47.6 Lymph % (Auto) 42.5 Johnston % (Auto) 6.4 Eos % (Auto) 2.8 Baso % (Auto) 0.5 Immature Gran # (Auto) 0.01 Neut # (Auto) 2.77 Lymph # (Auto) 2.47 Johnston # (Auto) 0.37 Eos # (Auto) 0.16 Baso # (Auto) 0.03 Sodium 141 Potassium 4.0 Chloride 116 H Carbon Dioxide 21 Anion Gap 4.0 BUN 6 L Creatinine 0.77 Est Cr Clr Drug Dosing 80.4 Est GFR ( Amer) 105.8 Est GFR (Non-Af Amer) 91.3 BUN/Creatinine Ratio 8.2 L Glucose 85 POC Glucose Calcium 8.0 L Phosphorus 2.3 L Magnesium 1.9 Medications Administered Home Medications Toprol XL 25 mg PO DAILY 11/28/18 [History Confirmed 11/28/18] baclofen 20 mg PO TID 11/28/18 [History Confirmed 11/28/18] calcium carbonate [Calcium 500] 500 mg PO DAILY 11/28/18 [History Confirmed 11/28/18] carbamazepine [Carbatrol] 200 mg PO BID 11/28/18 [History Confirmed 11/28/18] epinephrine [EpiPen] 0.3 mg IM UD PRN 11/28/18 [History Confirmed 11/28/18] gabapentin 400 mg PO TID 11/28/18 [History Confirmed 11/28/18] levetiracetam 2,000 mg PO BID 11/28/18 [History Confirmed 11/28/18] levothyroxine 75 mcg PO DAILY 11/28/18 [History Confirmed 11/28/18] magnesium 250 mg PO DAILY 11/28/18 [History Confirmed 11/28/18] multivitamin 1 tab PO DAILY 11/28/18 [History Confirmed 11/28/18] potassium gluconate 500 mg PO DAILY 11/28/18 [History Confirmed 11/28/18] sertraline 200 mg PO DAILY 11/28/18 [History Confirmed 11/28/18] sumatriptan succinate 1 tab PO UD PRN 11/28/18 [History Confirmed 11/28/18] topiramate [Topamax] 200 mg PO BID 11/28/18 [History Confirmed 11/28/18] vitamin B complex-folic acid 1 tab PO DAILY 11/28/18 [History Confirmed 11/28/18] Active Medications Acetaminophen (Tylenol) 650 mg PO Q4H PRN PRN Reason: Pain Stop: 12/28/18 18:16 Last Admin: 11/28/18 18:41 Dose: 650 mg Documented by: Carbamazepine (Tegretol Xr) 200 mg PO BID [facility] Stop: 12/28/18 20:59 Last Admin: 11/30/18 09:05 Dose: 200 mg Documented by: Dextrose (Dextrose 50%) 25 - 50 ml IV UD PRN; Protocol PRN Reason: Hypoglycemia Protocol Stop: 12/28/18 11:29 Folic Acid (Folvite) 400 mcg PO QAM [facility] Stop: 12/28/18 10:59 Last Admin: 11/30/18 09:05 Dose: 400 mcg Documented by: Glucagon (Glucagen) 1 mg SQ UD PRN; Protocol PRN Reason: Hypoglycemia Protocol Stop: 12/28/18 11:29 Glucose (Glucose 40%) 15 - 30 gm PO UD PRN; Protocol PRN Reason: Hypoglycemia Protocol Stop: 12/28/18 11:29 Glucose (Dex4 Glucose) 4 - 8 tabs PO UD PRN; Protocol PRN Reason: Hypoglycemia Protocol Stop: 12/28/18 11:29 Sodium Phosphate 24 mmol/ (Sodium Chloride) 508 mls @ 88 mls/hr IV ONE ONE Stop: 11/30/18 14:31 Last Admin: 11/30/18 08:58 Dose: 88 mls/hr Documented by: Levetiracetam (Keppra) 2,000 mg PO BID [facility] Stop: 12/29/18 08:59 Last Admin: 11/30/18 09:05 Dose: 2,000 mg Documented by: Levothyroxine Sodium (Synthroid) 75 mcg PO DAILYBB [facility] Stop: 12/30/18 06:29 Last Admin: 11/30/18 06:46 Dose: 75 mcg Documented by: Magnesium Oxide (Mag-Ox) 400 mg PO DAILY [facility] Stop: 12/28/18 08:59 Last Admin: 11/30/18 09:05 Dose: 400 mg Documented by: Metoprolol Succinate (Toprol Xl) 25 mg PO DAILY [facility] Stop: 12/28/18 09:14 Last Admin: 11/30/18 09:04 Dose: 25 mg Documented by: Miscellaneous (Carbohydrates For Hypoglycemia) 15 - 30 gm PO UD PRN PRN Reason: Hypoglycemia Treatment Stop: 12/28/18 11:29 Last Admin: 11/28/18 10:36 Dose: 15 gm Documented by: Multivitamins (Multivitamin Tab) 1 tab PO DAILY [facility] Stop: 12/28/18 08:59 Last Admin: 11/30/18 09:04 Dose: 1 tab Documented by: Pantoprazole Sodium (Protonix) 40 mg PO QAM [facility] Stop: 12/28/18 10:59 Last Admin: 11/30/18 09:04 Dose: 40 mg Documented by: Thiamine HCl (Vitamin B-1) 100 mg PO QAM [facility] Stop: 12/28/18 10:59 Last Admin: 11/30/18 09:05 Dose: 100 mg Documented by: Topiramate (Topamax) 200 mg PO BID [facility] Stop: 12/28/18 08:59 Last Admin: 11/30/18 09:05 Dose: 200 mg Documented by:
[2018-11-30] MEDS ORDERED: SODIUM PHOSPHATE 3 MMOL/1 ML 5 ML VIAL IV ONE (08:30)
[2018-11-30] MEDS ORDERED: SODIUM PHOSPHATE 24 MMOL in SODIUM CHLORIDE 0.9% 500 ML IV ONE (08:45)
[2018-11-30] MEDS: PANTOprazole 40 MG TAB PO SCH (09:04)
[2018-11-30] MEDS: MULTIVITAMIN TAB PO SCH (09:04)
[2018-11-30] MEDS: METOPROLOL SUCC 25MG EXT REL TAB PO SCH (09:04)
[2018-11-30] MEDS: CARBAMAZEPINE 200 MG TABCR PO SCH (09:05)
[2018-11-30] MEDS: levETIRAcetam 500 MG TAB PO SCH (09:05)
[2018-11-30] MEDS: FOLIC ACID 400 MCG TAB PO SCH (09:05)
[2018-11-30] MEDS: TOPIRAMATE 100 MG TAB PO SCH (09:05)
[2018-11-30] MEDS: MAGNESIUM OXIDE 400 MG TAB PO SCH (09:05)
[2018-11-30] MEDS: THIAMINE HCL 100 MG TAB PO SCH (09:05)
--- NOTE | 2018-11-30 12:00 | Hospitalist Progress Note ---
Date of Service November 30, 2018 Assessment & Plan (1) QT prolongation: Received intravenous magnesium for QT prolongation Monitor EKGs We will check electrolytes EKG this morning showed prolonged QT Electrolytes were normal Recheck EKG tomorrow-no more QT prolongation Electrolytes are corrected (2) Intentional overdose of drug in tablet form: Reason Critically Ill: 48-year-old female with intentional overdose with Benadryl while intoxicated. 302ed and admitted to ICU for observation and suicide precautions. Intentional overdose/suicide attemptpatient reportedly took 48 capsule of 50 mg Benadryl capsules with 1 bottle of wine at approximately 2300 last night -EtOH on admission was 290, acetaminophen and salicylates and UDS negative on screen -Received activated charcoal in ED and 2 L normal saline bolus -CT head negative -Ativan PRN for agitation -Patient currently 302ed, suicide precautions with sitter -Appreciate digital advertising analyst input and recommendation -Continue to monitor in the ICU -Clinically better today -Likely to be transferred out this afternoon/evening -We will need to have psych evaluation -Appreciate psych input and recommendation -She will be transferred to inpatient psych unit today DVT PROPHYLAXIS - SCDs (3) Seizure disorder: Seizure disordercontinue home dose of Keppra -We will continue topiramate and Tegretol when appropriate We will continue current medications (4) Alcohol abuse: Monitor for withdrawal symptoms and manage accordingly -No withdrawal symptoms The patient and her Agreeable to current management Subjective The patient was examined and seen in ICU She is a 48-year-old female with past medical history significant for seizures, migraines, hypothyroidism, history of mitral valve prolapse, arthritis, hypertension, GERD, history of Raynaud's phenomenon, sarcoidosis, generalized anxiety disorder, presents with drug overdose around 11:00 last night. She took about 48 pills of Benadryl 50 mg each. Remains drowsy and pleasantly confused and is seen Denies any acute symptoms 11/29 The patient was seen and examined in ICU She has been feeling better today Remains pleasantly confused Denies any symptoms 11/30 The patient was seen and examined in ICU and later on in telemetry unit She has been feeling a lot better She is willing to go to inpatient psychiatric unit She was discharged to the inpatient mental unit this afternoon Physical Exam Vital Signs (Past 24 Hours): Last Vital Signs Temp 36.8 C 11/30/18 08:00 Pulse 72 11/30/18 10:00 Resp 10 L 11/30/18 10:00 BP 110/80 11/30/18 10:00 Pulse Ox 100 11/30/18 10:00 Physical Exam: No apparent distress at rest Constitutional: WD/WN, vitals as above average body habitus Eyes: PERRL, conjunctivae normal, anicteric sclerae ENMT: Throat: uvula midline Neck: trachea midline, no thyromegaly Respiratory: normal respiratory effort Auscultation: lungs clear to auscultation bilaterally and + diminished lung sounds Cardiovascular: RRR, no murmur, no edema Heart Sounds: normal S1 and normal S2 Gastrointestinal (Abdomen): normal bowel sounds, soft, nontender, no hepatosplenomegaly Musculoskeletal: no cyanosis or clubbing, extremities motor strength 5/5 Skin: no rashes, warm and dry Psychiatric: Orientation: cooperative Eye Contact: + poor eye contact Affect: + anxious affect Thought Process: + thought process not clear or coherent Results & Data Laboratory Results Short CBC 11/30/18 Range/Units 04:12 WBC 5.81 (4.8-10.8) K/uL Hgb 11.5 L (12.0-16.0) g/dL Hct 35.0 L (37-47) % Plt Count 190 (130-400) K/uL BMP 11/30/18 04:12 Sodium 141 Potassium 4.0 Chloride 116 H Carbon Dioxide 21 BUN 6 L Creatinine 0.77 Glucose 85 Calcium 8.0 L Medications Administered Current Inpatient Medications Acetaminophen (Tylenol) 650 mg PO Q4H PRN PRN Reason: Pain Stop: 12/28/18 18:16 Last Admin: 11/28/18 18:41 Dose: 650 mg Documented by: Carbamazepine (Tegretol Xr) 200 mg PO BID [facility] Stop: 12/28/18 20:59 Last Admin: 11/30/18 09:05 Dose: 200 mg Documented by: Dextrose (Dextrose 50%) 25 - 50 ml IV UD PRN; Protocol PRN Reason: Hypoglycemia Protocol Stop: 12/28/18 11:29 Folic Acid (Folvite) 400 mcg PO QAM [facility] Stop: 12/28/18 10:59 Last Admin: 11/30/18 09:05 Dose: 400 mcg Documented by: Glucagon (Glucagen) 1 mg SQ UD PRN; Protocol PRN Reason: Hypoglycemia Protocol Stop: 12/28/18 11:29 Glucose (Glucose 40%) 15 - 30 gm PO UD PRN; Protocol PRN Reason: Hypoglycemia Protocol Stop: 12/28/18 11:29 Glucose (Dex4 Glucose) 4 - 8 tabs PO UD PRN; Protocol PRN Reason: Hypoglycemia Protocol Stop: 12/28/18 11:29 Levetiracetam (Keppra) 2,000 mg PO BID [facility] Stop: 12/29/18 08:59 Last Admin: 11/30/18 09:05 Dose: 2,000 mg Documented by: Levothyroxine Sodium (Synthroid) 75 mcg PO DAILYBB [facility] Stop: 12/30/18 06:29 Last Admin: 11/30/18 06:46 Dose: 75 mcg Documented by: Magnesium Oxide (Mag-Ox) 400 mg PO DAILY [facility] Stop: 12/28/18 08:59 Last Admin: 11/30/18 09:05 Dose: 400 mg Documented by: Metoprolol Succinate (Toprol Xl) 25 mg PO DAILY [facility] Stop: 12/28/18 09:14 Last Admin: 11/30/18 09:04 Dose: 25 mg Documented by: Miscellaneous (Carbohydrates For Hypoglycemia) 15 - 30 gm PO UD PRN PRN Reason: Hypoglycemia Treatment Stop: 12/28/18 11:29 Last Admin: 11/28/18 10:36 Dose: 15 gm Documented by: Multivitamins (Multivitamin Tab) 1 tab PO DAILY [facility] Stop: 12/28/18 08:59 Last Admin: 11/30/18 09:04 Dose: 1 tab Documented by: Pantoprazole Sodium (Protonix) 40 mg PO QAM [facility] Stop: 12/28/18 10:59 Last Admin: 11/30/18 09:04 Dose: 40 mg Documented by: Thiamine HCl (Vitamin B-1) 100 mg PO QAM [facility] Stop: 12/28/18 10:59 Last Admin: 11/30/18 09:05 Dose: 100 mg Documented by: Topiramate (Topamax) 200 mg PO BID [facility] Stop: 12/28/18 08:59 Last Admin: 11/30/18 09:05 Dose: 200 mg Documented by:
--- NOTE | 2018-11-30 13:22 | Psychiatric Progress Note ---
Date of Service November 30, 2018 Impression / Recommendations Impression 48-year-old female seen on psychiatric consult service for evaluation following an intentional overdose. Pt reportedly had not slept all evening and documentation continues to reflect that patient is not currently in a state to be able to provide accurate history. Given lack of sleep and a period of rest being beneficial to the patient, she was not awoken at time of initial visit. At this time, recommendation includes re-evaluation when better able to communicate psychiatric needs. Would recommend ongoing observation until assessment can be made. 302 on patient's chart, pt should not be permitted to leave the hospital AMA until re-evaluated. Pt will likely be recommended for inpatient mental health treatment, but will determine this once able to speak with the patient about the incident and associated stressors. Given ongoing variation in QTc and severity of her overdose, agree with holding sertraline at this time. Dr. Minerva Copeland was directly involved in review and discussion of the patient's case and participated in medical decision making regarding treatment recommendations. (1) Intentional overdose of drug in tablet form: 11/29 - Will require re-evaluation when better able to contribute to conversation - 302 on patient's chart - should not be permitted to leave AMA - Recommendation will likely be for inpatient psychiatric treatment once medically cleared, will firmly establish decision upon re-evaluation Risk Factors Assessment Male: No : Yes Health Problems: Yes Mental Health Diagnoses: Yes Interval History Chief Complaint "[]". Subjective Subjective Patient was seen & assessed and interval progress reviewed with [Treatment Team] [Nursing] Physical Exam Vital Signs (Past 24 Hours) Last Vital Signs Temp 36.8 C 11/30/18 12:00 Pulse 63 11/30/18 12:00 Resp 16 11/30/18 12:00 BP 123/84 11/30/18 12:00 Pulse Ox 100 11/30/18 12:00 Results & Data Laboratory Results Laboratory Results - last 24 hr 11/29/18 11/29/18 11/30/18 16:58 22:38 04:12 WBC 5.81 RBC 3.48 L Hgb 11.5 L Hct 35.0 L MCV 100.6 H MCH 33.0 MCHC 32.9 RDW Std Deviation 48.1 H RDW Coeff of Thea 13.2 Plt Count 190 MPV 11.5 H Immature Gran % (Auto) 0.2 Neut % (Auto) 47.6 Lymph % (Auto) 42.5 Ellis % (Auto) 6.4 Eos % (Auto) 2.8 Baso % (Auto) 0.5 Immature Gran # (Auto) 0.01 Neut # (Auto) 2.77 Lymph # (Auto) 2.47 Ellis # (Auto) 0.37 Eos # (Auto) 0.16 Baso # (Auto) 0.03 Sodium Potassium Chloride Carbon Dioxide Anion Gap BUN Creatinine Est Cr Clr Drug Dosing Est GFR ( Amer) Est GFR (Non-Af Amer) BUN/Creatinine Ratio Glucose POC Glucose 89 83 Calcium Phosphorus Magnesium 11/30/18 04:12 WBC RBC Hgb Hct MCV MCH MCHC RDW Std Deviation RDW Coeff of Thea Plt Count MPV Immature Gran % (Auto) Neut % (Auto) Lymph % (Auto) Ellis % (Auto) Eos % (Auto) Baso % (Auto) Immature Gran # (Auto) Neut # (Auto) Lymph # (Auto) Ellis # (Auto) Eos # (Auto) Baso # (Auto) Sodium 141 Potassium 4.0 Chloride 116 H Carbon Dioxide 21 Anion Gap 4.0 BUN 6 L Creatinine 0.77 Est Cr Clr Drug Dosing 80.4 Est GFR ( Amer) 105.8 Est GFR (Non-Af Amer) 91.3 BUN/Creatinine Ratio 8.2 L Glucose 85 POC Glucose Calcium 8.0 L Phosphorus 2.3 L Magnesium 1.9 Current Inpatient Medications Current Inpatient Medications: Current Inpatient Medications Acetaminophen (Tylenol) 650 mg PO Q4H PRN PRN Reason: Pain Stop: 12/28/18 18:16 Last Admin: 11/28/18 18:41 Dose: 650 mg Documented by: Carbamazepine (Tegretol Xr) 200 mg PO BID [facility] Stop: 12/28/18 20:59 Last Admin: 11/30/18 09:05 Dose: 200 mg Documented by: Dextrose (Dextrose 50%) 25 - 50 ml IV UD PRN; Protocol PRN Reason: Hypoglycemia Protocol Stop: 12/28/18 11:29 Folic Acid (Folvite) 400 mcg PO QAM CÉSAR Stop: 12/28/18 10:59 Last Admin: 11/30/18 09:05 Dose: 400 mcg Documented by: Glucagon (Glucagen) 1 mg SQ UD PRN; Protocol PRN Reason: Hypoglycemia Protocol Stop: 12/28/18 11:29 Glucose (Glucose 40%) 15 - 30 gm PO UD PRN; Protocol PRN Reason: Hypoglycemia Protocol Stop: 12/28/18 11:29 Glucose (Dex4 Glucose) 4 - 8 tabs PO UD PRN; Protocol PRN Reason: Hypoglycemia Protocol Stop: 12/28/18 11:29 Sodium Phosphate 24 mmol/ (Sodium Chloride) 508 mls @ 88 mls/hr IV ONE ONE Stop: 11/30/18 14:31 Last Admin: 11/30/18 08:58 Dose: 88 mls/hr Documented by: Levetiracetam (Keppra) 2,000 mg PO BID CÉSAR Stop: 12/29/18 08:59 Last Admin: 11/30/18 09:05 Dose: 2,000 mg Documented by: Levothyroxine Sodium (Synthroid) 75 mcg PO DAILYBB [facility] Stop: 12/30/18 06:29 Last Admin: 11/30/18 06:46 Dose: 75 mcg Documented by: Magnesium Oxide (Mag-Ox) 400 mg PO DAILY CÉSAR Stop: 12/28/18 08:59 Last Admin: 11/30/18 09:05 Dose: 400 mg Documented by: Metoprolol Succinate (Toprol Xl) 25 mg PO DAILY CÉSAR Stop: 12/28/18 09:14 Last Admin: 11/30/18 09:04 Dose: 25 mg Documented by: Miscellaneous (Carbohydrates For Hypoglycemia) 15 - 30 gm PO UD PRN PRN Reason: Hypoglycemia Treatment Stop: 12/28/18 11:29 Last Admin: 11/28/18 10:36 Dose: 15 gm Documented by: Multivitamins (Multivitamin Tab) 1 tab PO DAILY CÉSAR Stop: 12/28/18 08:59 Last Admin: 11/30/18 09:04 Dose: 1 tab Documented by: Pantoprazole Sodium (Protonix) 40 mg PO QAM CÉSAR Stop: 12/28/18 10:59 Last Admin: 11/30/18 09:04 Dose: 40 mg Documented by: Thiamine HCl (Vitamin B-1) 100 mg PO QAM CÉSAR Stop: 12/28/18 10:59 Last Admin: 11/30/18 09:05 Dose: 100 mg Documented by: Topiramate (Topamax) 200 mg PO BID CÉSAR Stop: 12/28/18 08:59 Last Admin: 11/30/18 09:05 Dose: 200 mg Documented by: CPT Code CPT Code 33874 [id number]
--- NOTE | 2018-11-30 13:32 | Communication Note ---
Date of Service: November 30, 2018 Patient's case was reviewed and discussed with psychiatric nurse liaison. Pt was evaluated by this provider and case was reviewed with supervising physician. It is our recommendation that patient be admitted for inpatient psychiatric admission, based on severity of overdose prior to admission and concern for patient's safety if discharged without mitigation of risk factors and adequate safety planning. See psychiatric H&P for full evaluation details. We are willing to accept patient on our unit voluntarily if she is agreeable for transfer and treatment. Attending physician will need to dispo 302 warrant if this is the case. Dr. Sarthak Helton was directly involved in review and discussion of the patient's case and participated in medical decision making regarding treatment recommendations.
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
== END 2018-11-30 16:48 | DRG 917 ==
LOC: ED 23:56 → 1E 11-28 07:01 → 2N 11-30 12:54

== ENCOUNTER 2018-11-30 16:48 | Inpatient (IN) ==
[2018-11-30] MEDS ORDERED: SODIUM CHLORIDE 0.65% NA SOLN 45 ML (OCEAN) PRN (17:18)
[2018-11-30] MEDS ORDERED: MAGNESIUM HYDROXIDE SUSP 30 ML UDC PO PRN (17:18)
[2018-11-30] MEDS ORDERED: ALUMINUM/MAGNESIUM SUSP 30 ML UDC PO PRN (17:18)
[2018-11-30] MEDS ORDERED: BISMUTH SUBSALICYLATE PER ML OMNICELL CHARGE PO PRN (17:18)
[2018-11-30] MEDS ORDERED: ACETAMINOPHEN 325 MG TAB PO PRN (17:18)
--- NOTE | 2018-11-30 17:25 | Allied Health Admission Assmnt ---
Date of Service November 30, 2018 Psychiatric History Identifying Data KAREN GARDINER is a 48-year-old F who currently lives in [place] with her significant other, Rayne. Pt has a reported history of depression and anxiety, and was admitted on 11/30/18 16:48 on a 201 voluntary commitment s/p intentional overdose of 48 - 50mg diphenhydramine tablets in combination with a bottle of wine. Information gathered from the patient is considered to be reliable. Chief Complaint "[]". Allergies Allergy/AdvReac Type Severity Reaction Status Date / Time tree nut Allergy Severe ANAPHYLAXIS Verified 11/28/18 02:35 Penicillins Allergy Unknown HIVES Verified 11/28/18 02:35 Home Medications Home Medications Medication Instructions Recorded Confirmed Type Toprol XL 25 mg PO DAILY 11/28/18 11/28/18 History multivitamin 1 tab PO DAILY 11/28/18 11/28/18 History potassium gluconate 500 mg PO DAILY 11/28/18 11/28/18 History sertraline 200 mg PO DAILY 11/28/18 11/28/18 History sumatriptan succinate 1 tab PO UD PRN 11/28/18 11/28/18 History topiramate [Topamax] 200 mg PO BID 11/28/18 11/28/18 History vitamin B complex-folic acid 1 tab PO DAILY 11/28/18 11/28/18 History baclofen 10 mg PO DAILY 11/30/18 11/30/18 History cannabidiol (CBD) extract 2 - 3 units PO DAILY 11/30/18 11/30/18 History carbamazepine [Tegretol XR] 200 mg PO DAILY 11/30/18 11/30/18 History gabapentin 100 mg PO TID 11/30/18 11/30/18 History levetiracetam [Keppra] 1,500 mg PO BID 11/30/18 11/30/18 History levothyroxine 75 mcg PO DAILY 11/30/18 11/30/18 History metoprolol tartrate 25 mg PO DAILY 11/30/18 11/30/18 History multivitamin 1 tab PO DAILY 11/30/18 11/30/18 History ondansetron HCl [Zofran] 4 mg PO TID PRN 11/30/18 11/30/18 History sertraline [Zoloft] 200 mg PO DAILY 11/30/18 11/30/18 History thiamine HCl (vitamin B1) 100 mg PO DAILY 11/30/18 11/30/18 History topiramate [Topamax] 200 mg PO BID 11/30/18 11/30/18 History Smoking Use Smoking Status: Never smoker Personal History Beliefs That Will Affect Care: None Patient History Social History Preferred Language: Kosovan Beliefs That Will Affect Care: None marital status: Current Living Situation: Significant Other current occupational status: employed Feels Safe at Home: Yes Smoking Status: Never smoker Hx Alcohol Use: Yes Hx Substance Use: No Results & Data Current Inpatient Medications Current Inpatient Medications: Current Inpatient Medications Acetaminophen (Tylenol) 650 mg PO Q4H PRN PRN Reason: Headache or Minor Fever Stop: 12/30/18 17:17 Al Hydrox/Mg Hydrox/Simethicone (Maalox) 30 ml PO Q4H PRN PRN Reason: GI Upset Stop: 12/30/18 17:17 Bismuth Subsalicylate (Kaopectate) 15 ml PO PRN PRN PRN Reason: Loose Stool Stop: 12/30/18 17:17 Hydroxyzine HCl (Vistaril) 25 mg PO Q4H PRN PRN Reason: Anxiety Stop: 12/30/18 17:17 Hydroxyzine HCl (Vistaril) 50 mg PO HSZ PRN PRN Reason: Insomnia Stop: 12/30/18 17:17 Magnesium Hydroxide (Milk Of Magnesia) 30 ml PO DAILY PRN PRN Reason: Heartburn Stop: 12/30/18 17:17 Sodium Chloride (Colbert Nasal) 1 - 2 sprays NA PRN PRN PRN Reason: Nasal Dryness/Congestion Stop: 12/30/18 17:17 CPT Code CPT Code Initial Hospital Care: [id number]
[2018-11-30] MEDS ORDERED: ONDANSETRON 4 MG TAB PO PRN (17:55)
--- NOTE | 2018-11-30 19:18 | History & Physical ---
Date of Service November 30, 2018 Impression / Recommendations Impression This is a somewhat puzzling case. The patient took a very large overdose of diphenhydramine. She estimates that she consumed 48 diphenhydramine 50 mg tablets, but has no recollection of doing so. She admits that she had consumed an entire bottle of wine and was drunk at the time. She assumes that the overdose was impulsive because she had not been contemplating suicide when she began drinking the wine. Both the patient and her report that alcohol consumption for the patient is unusual, and it is extremely unusual for her to drink enough alcohol to become intoxicated. The patient strongly denies any suicidal ideation, and tells me that she has never actually had any suicidal thoughts although she admits that she has implied suicidality on at least one occasion following an argument with her . However, this is the patient's second psychiatric hospitalization for presumed suicidality in less than a year, and there are certain presenting elements that do not necessarily fit together. For example, she tells me that she has 2 teenage sons and that her relationship with the sons is "good." However, when I told her that I had understood that her sons lived with their father in [place], she confirmed that, in fact, the teenage sons are living with their father and she did not offer an explanation. I also told her that I had her that her sons were estranged from her, and she c onfirmed that this is the case. She attributed the estrangement to "adolescent shitz, which is how it's pronounced in [place]," and she does not know exactly why they are speaking to herexcept that her divorce from their father was acrimonious. Our concern is that she seems to have great difficulty regulating her emotion within the context of a argument with her . She tells me that both she and her are "no each other's buttons and know how to push them," and she acknowledges that while she and her "rarely" fight, when they do fight today and up badly hurting each other's feelings. She tells me that her strategy to avoid any future occurrences of this nature is to work together with her to strenuously avoid pursuing arguments, and learning to walk away once one starts. She also tells me that she realizes that a precipitating factor for the overdose that she took prior to admission was the fact that she allowed herself to get drunk, and she recognizes that she will need to either not drink, or be extremely careful with alcohol use. While the patient does have a past history of recurrent major depressive episode, currently the patient does not meet criteria for major depression. I suspect that there may be certain characterologic issues in play in this case. (1) Acute stress reaction: 11/30/18 -The patient currently is taking sertraline 200 mg daily because of her history of recurrent depressive episodes. However, she does not endorse current symptoms of depression and, to the contrary, tells me that her mood has been "good" and "stable." However, clearly the patient has difficulty regulating her mood when under acute stress, such as an argument with her . -We will continue sertraline 200 mg daily. -It will also be important to identify the and further explore those triggers which precipitate an acute stress reaction for this individual. Certainly, arguments with her have precipitated her to psychiatric hospitalizations, and it will be important for the couple to come to some understanding as to how best to avoid pursuing argument to the point that there are severely hurt feelings or severe distress. Present on Admission?: Yes (2) Intentional overdose of drug in tablet form: 11/30/18 -The patient estimates that she took 2400 mg of diphenhydramine while intoxicated. She claims to not remember it, and says that she had not had thoughts of suicide when she started drinking, but does acknowledge that he was very upset because of the argument that she had with her . -We would like to have the opportunity to observe and evaluate the patient further in order to help assure a safe return to the community. -2 factors clearly contributed to the patient's intentional drug overdose: Alcohol intoxication and an argument with her . We will work with the patient to develop strategies to avoid both root causes in the future. Present on Admission?: No (3) Alcohol abuse: 11/30/18 -Although the patient and her tell us that it is "very unusual" for the patient to drink to the point of intoxication, she was given a diagnosis of alcohol abuse here at [facility] back in March 2018. -The patient is willing to consider that it will be important for her to not consume alcohol, given the length between her using alcohol and apparently impulsively taking a large overdose of medications. Inventory Assets Strengths: Supportive marriage. Multiple interests. Focused on her career. Needs: Improve mood regulation and improved individual coping strategies that will help her remove herself from situations in which she and her are beginning to argue, given the patient's reports that her 2 recent admissions were both precipitated by an argument with her . The patient also will need to abstain from alcohol and its role in the current suicide attempt. Risk Factors Assessment Male: No : Yes Do You Have Access To A Gun?: No Health Problems: Yes Mental Health Diagnoses: Yes Substance Use Disorders: No Previous Attempt: No Previous Attempt; Highly Lethal: No Previous Attempt; Planned: No Previous Attempt; Didn't Tell Anyone: No Family History of Suicide: No Previous Psychiatric Hospitalization: Yes Hopelessness: No Smoker: No Protective Factors Assessment Yarsanism Beliefs: No : Yes Responsible for Young Children: No Employed: Yes Stable Relationships: Yes Supportive Family: Yes Good Rapport with Provider: Yes Absence of Any Risk Factors Above: No Psychiatric History Identifying Data KAREN GARDINER is a 48-year-old F who currently lives in [place] with her second . She has a history of recurrent major depression, and was admitted on 11/30/18 16:48 on a 201 voluntary after she took an overdose of a "full bottle" of [id number] diphenhydramine while intoxicated. Chief Complaint "I did something really stupid and not like me. But, I'm accountable." History of Present Illness The patient is a 48-year-old woman who is admitted to the medical service at [facility] on 11/28/2018 after she drank an entire bottle of wine (a behavior that both she and her report is unusual for her) and, while intoxicated, consumed, she believes, 48 diphenhydramine 50 mg tablets. She tells us that she has no recollection of consuming the diphenhydramine tablets, assumes that it was an impulsive behavior that was a product of her intoxication, and she notes, specifically, that she was not considering suicide when she started drinking the wine. Instead, the patient notes that she was both hurt and upset following an argument that she had had with her . She struggles when she tells me that she cannot now even remember what the argument was about, but says that although she and her rarely argue, their arguments are almost always over 1 of them denigrating the others professional talents. 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 The patient reports that she has a history of recurrent depressive episodes dating back approximately 20 years. Her symptoms of depression have included depressed mood, withdrawal, apathy, anhedonia, anxiety, and anergia. She reports that she is only had to "severe" depressive episodesand both occurred . (She is the mother of 2 teenage sons.) The patient is currently in treatment with a Dr. Manolo Steen at [facility], and is also seeing a psychotherapist whom she refers to as "Karena." She has been taking sertraline 200 mg for years, and denies that she has been at all depressed recently. However, she was psychiatrically hospitalized last summer under somewhat similar circumstances. Following an argument with her , she made statements that she will admit suggested that she was considering harming herself, and locked herself in a bathroom and refused to come out. Out of concern, the patient's reportedly called the police, and the patient agreed to come out of the bathroom. The police determined that she require a psychiatric evaluation, and she was evaluated and psychiatrically hospitalized. The patient reports that she had not made a suicide attempt at the time, but does recall being "very upset" following the argument. Although the patient strongly denies any ongoing suicidal thoughts, and although she says she does not recall ever having suicidal thoughts, including preceding the behaviors that led to her admission, we are concerned by the fact that she tells us she cannot recall taking the overdose and has trouble saying how it is that she will avoid responding in a similar manner, should she and her argue in the future. The patient does note, however, that she can drink small amounts socially and has never consumed alcohol to the excess exhibited immediately prior to the overdose. Patient also says that she is prepared not to drink at all because of the risk. The patient is also interested in working with her to avoid "pushing each other's buttons," because she feels that "we are each other soulmates, but we both know what buttons to push, and its a behavior that we both have to be careful not to engage in." Past Psychiatric History Previous Psych History: Patient reports 1 previous psychiatric hospitalization during the summer 2017. That admission occurred under similar circumstances, although the patient had not made an actual suicide attempt. She does acknowledge that she had given her because to think that she might be suicidal when she locked herself in a bathroom and refused to exit the room. Current Psychiatric Diagnosis: depression [facility]: The patient currently is seeing Dr. Manolo Steen, a psychiatrist at [facility]. She is also seeing a individual therapist, Karena Vivas. Her only psychiatric medication is sertraline 200 mg a day, and she says that she has been on this medication "for some time." Apart from crises that appear to occur subsequent to in frequent arguments with her (the patient says "we do not argue often, but when we do argue it is always a doozy.") Previous Psych Admissions: This is the patient's second psychiatric hospitalization in less than a year. She reports that she has a history of no other previous psychiatric admissions. (See above.) Do You Have Access To A Gun?: No History of Previous Suicide Attempt: No Past Head Trauma/Neuro History History of Concussion/Seizure: Yes (The patient has a history of grand mal seizures. She says that her seizures have been well controlled recently, and attributes this to the addition of hemp based CBD oil ) Allergies Allergy/AdvReac Type Severity Reaction Status Date / Time tree nut Allergy Severe ANAPHYLAXIS Verified 11/28/18 02:35 Penicillins Allergy Unknown HIVES Verified 11/28/18 02:35 Home Medications Home Medications Medication Instructions Recorded Confirmed Type Toprol XL 25 mg PO DAILY 11/28/18 11/28/18 History multivitamin 1 tab PO DAILY 11/28/18 11/28/18 History potassium gluconate 500 mg PO DAILY 11/28/18 11/28/18 History sertraline 200 mg PO DAILY 11/28/18 11/28/18 History sumatriptan succinate 1 tab PO UD PRN 11/28/18 11/28/18 History topiramate [Topamax] 200 mg PO BID 11/28/18 11/28/18 History vitamin B complex-folic acid 1 tab PO DAILY 11/28/18 11/28/18 History baclofen 10 mg PO DAILY 11/30/18 11/30/18 History cannabidiol (CBD) extract 2 - 3 units PO DAILY 11/30/18 11/30/18 History carbamazepine [Tegretol XR] 200 mg PO DAILY 11/30/18 11/30/18 History gabapentin 100 mg PO TID 11/30/18 11/30/18 History levetiracetam [Keppra] 1,500 mg PO BID 11/30/18 11/30/18 History levothyroxine 75 mcg PO DAILY 11/30/18 11/30/18 History metoprolol tartrate 25 mg PO DAILY 11/30/18 11/30/18 History multivitamin 1 tab PO DAILY 11/30/18 11/30/18 History ondansetron HCl [Zofran] 4 mg PO TID PRN 11/30/18 11/30/18 History sertraline [Zoloft] 200 mg PO DAILY 11/30/18 11/30/18 History thiamine HCl (vitamin B1) 100 mg PO DAILY 11/30/18 11/30/18 History topiramate [Topamax] 200 mg PO BID 11/30/18 11/30/18 History Family History Family History of: Doesn't Know Alcohol History Hx of Alcohol Use Over the Past 12 Months: Yes (1 or 2 drinks of wine per week) AUDIT Total Score: 2 Smoking Use Have You Smoked or Used Tobacco Products in the Last 30 Days: No Smoking Status: Never smoker Substance History Hx of Prescription Med Misuse Over the Past 12 Months: No Hx of Over the Counter Med Misuse Over the Past 12 Months: Yes (Benadryl overdose) Hx of Inhalent Misuse Over the Past 12 Months: No Hx of Organic Substance Use Over the Past 12 Months: No Hx of Illegal Substances/Street Drug Use Over Past 12 Months: No Problems as a Result of Past Substance Use: None Identified Personal History Beliefs That Will Affect Care: None Patient History Social History Preferred Language: Belarusian Communication Ability: Effective Pot Feeder Required: No Beliefs That Will Affect Care: None marital status: Current Living Situation: Significant Other current occupational status: employed Feels Safe at Home: Yes Smoking Status: Never smoker Hx Alcohol Use: Yes Hx Substance Use: No Review of Systems All systems reviewed & are unremarkable except as noted in HPI & below The review of systems and physical examination completed by Vipul Ruiz MD earlier today has been reviewed and is approved for purposes of medical clearance to the behavioral health unit. Physical Exam Vital Signs (Past 24 Hours) Last Vital Signs Temp 36.6 C 11/30/18 17:15 Pulse 82 11/30/18 17:15 Resp 16 11/30/18 17:15 BP 120/83 11/30/18 17:15 Results & Data Current Inpatient Medications Current Inpatient Medications: Current Inpatient Medications Acetaminophen (Tylenol) 650 mg PO Q4H PRN PRN Reason: Headache or Minor Fever Stop: 12/30/18 17:17 Al Hydrox/Mg Hydrox/Simethicone (Maalox) 30 ml PO Q4H PRN PRN Reason: GI Upset Stop: 12/30/18 17:17 Baclofen (Lioresal) 10 mg PO DAILY CÉSAR Stop: 12/31/18 08:59 Bismuth Subsalicylate (Kaopectate) 15 ml PO PRN PRN PRN Reason: Loose Stool Stop: 12/30/18 17:17 Carbamazepine (Tegretol Xr) 200 mg PO DAILY CÉSAR Stop: 12/31/18 08:59 Gabapentin (Neurontin) 100 mg PO TID CÉSAR Stop: 12/30/18 20:59 Hydroxyzine HCl (Vistaril) 25 mg PO Q4H PRN PRN Reason: Anxiety Stop: 12/30/18 17:17 Hydroxyzine HCl (Vistaril) 50 mg PO HSZ PRN PRN Reason: Insomnia Stop: 12/30/18 17:17 Levetiracetam (Keppra) 1,500 mg PO BID CÉSAR Stop: 12/30/18 20:59 Levothyroxine Sodium (Synthroid) 75 mcg PO DAILY CÉSAR Stop: 12/31/18 08:59 Magnesium Hydroxide (Milk Of Magnesia) 30 ml PO DAILY PRN PRN Reason: Heartburn Stop: 12/30/18 17:17 Metoprolol Tartrate (Lopressor) 25 mg PO DAILY CÉSAR Stop: 12/31/18 08:59 Multivitamins (Multivitamin Tab) 1 tab PO DAILY CÉSAR Stop: 12/31/18 08:59 Ondansetron HCl (Zofran) 4 mg PO TID PRN PRN Reason: Nausea Stop: 12/30/18 17:54 Sertraline HCl (Zoloft) 200 mg PO DAILY CÉSAR Stop: 12/31/18 08:59 Sodium Chloride ([place] Nasal) 1 - 2 sprays NA PRN PRN PRN Reason: Nasal Dryness/Congestion Stop: 12/30/18 17:17 Thiamine HCl (Vitamin B-1) 100 mg PO DAILY CÉSAR Stop: 12/31/18 08:59 Topiramate (Topamax) 200 mg PO BID [facility] Stop: 12/30/18 20:59 CPT Code CPT Code Initial Hospital Care: 39982
[2018-11-30] MEDS: levETIRAcetam 500 MG TAB PO SCH (21:13)
[2018-11-30] MEDS: GABAPENTIN 100 MG CAP PO SCH (21:13)
[2018-11-30] MEDS: TOPIRAMATE 100 MG TAB PO SCH (21:15)
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
[2018-12-01] MEDS: MULTIVITAMIN TAB PO SCH (09:40)
[2018-12-01] MEDS: BACLOFEN 10 MG TAB PO SCH (09:40)
[2018-12-01] MEDS: levETIRAcetam 500 MG TAB PO SCH ×2 (09:40→21:19)
[2018-12-01] MEDS: METOPROLOL TARTRATE 25 MG TAB PO SCH (09:40)
[2018-12-01] MEDS: LEVOTHYROXINE SODIUM 75 MCG TABLET PO SCH (09:40)
[2018-12-01] MEDS: CARBAMAZEPINE 200 MG TABCR PO SCH (09:41)
[2018-12-01] MEDS: GABAPENTIN 100 MG CAP PO SCH ×3 (09:41→21:19)
[2018-12-01] MEDS: THIAMINE HCL 100 MG TAB PO SCH (09:42)
[2018-12-01] MEDS: TOPIRAMATE 100 MG TAB PO SCH ×2 (09:42→21:19)
[2018-12-01] MEDS: SERTRALINE HCL 100 MG TABLET PO SCH (09:43)
--- NOTE | 2018-12-02 08:30 | Discharge Summary ---
Date of Service December 02, 2018 History of Present Illness The patient is a 48-year-old woman who is admitted to the medical service at [facility] on 11/28/2018 after she drank an entire bottle of wine (a behavior that both she and her report is unusual for her) and, while intoxicated, consumed, she believes, 48 diphenhydramine 50 mg tablets. She tells us that she has no recollection of consuming the diphenhydramine tablets, assumes that it was an impulsive behavior that was a product of her intoxication, and she notes, specifically, that she was not considering suicide when she started drinking the wine. Instead, the patient notes that she was both hurt and upset following an argument that she had had with her . She struggles when she tells me that she cannot now even remember what the argument was about, but says that although she and her rarely argue, the ir arguments are almost always over 1 of them denigrating the others professional talents. 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 The patient reports that she has a history of recurrent depressive episodes dating back approximately 20 years. Her symptoms of depression have included depressed mood, withdrawal, apathy, anhedonia, anxiety, and anergia. She reports that she is only had to "severe" depressive episodesand both occurred . (She is the mother of 2 teenage sons.) The patient is currently in treatment with a Dr. Manolo Steen at [place], and is also seeing a psychotherapist whom she refers to as "Karena." She has been taking sertraline 200 mg for years, and denies that she has been at all depressed recently. However, she was psychiatrically hospitalized last summer under somewhat similar circumstances. Following an argument with her , she made statements that she will admit suggested that she was considering harming herself, and locked herself in a bathroom and refused to come out. Out of concern, the patient's reportedly called the police, and the patient agreed to come out of the bathroom. The police determined that she require a psychiatric evaluation, and she was evaluated and psychiatrically hospitalized. The patient reports that she had not made a suicide attempt at the time, but does recall being "very upset" following the argument. Although the patient strongly denies any ongoing suicidal thoughts, and although she says she does not recall ever having suicidal thoughts, including preceding the behaviors that led to her admission, we are concerned by the fact that she tells us she cannot recall taking the overdose and has trouble saying how it is that she will avoid responding in a similar manner, should she and her argue in the future. The patient does note, however, that she can drink small amounts socially and has never consumed alcohol to the excess exhibited immediately prior to the overdose. Patient also says that she is prepared not to drink at all because of the risk. The patient is also interested in working with her to avoid "pushing each other's buttons," because she feels that "we are each other soulmates, but we both know what buttons to push, and its a behavior that we both have to be careful not to engage in." Physical Exam Mental Examination Well-nourished well-developed white female appearing her stated age. Casually dressed, with good grooming and hygiene. Short, bright red dyed hair, wearing jewelry and glasses. Calm, cooperative, and pleasant. Seated in no acute distress, with good eye contact and no abnormal movements. Speech is spontaneous, normal rate, volume, and tone. Mood is "excited," and affect is euthymic, appropriate, and congruent. Thoughts are linear and goal-directed. Denies SI, HI, hallucinations, and paranoia; no delusions evident. Alert and oriented. Insight and judgment are fair. Vital Signs (Past 24 Hours) Last Vital Signs Temp 36.6 C 12/02/18 07:05 Pulse 91 H 12/02/18 07:06 Resp 16 12/02/18 07:05 BP 89/66 L 12/02/18 07:06 Principal Diagnosis MDD by history Acute stress reaction Intentional overdose (alcohol and diphenhydramine) with resulting delirium History of alcohol abuse Cluster B personality traits Psychiatric Data Patient was hospitalized on the behavioral health unit voluntarily for 2 days. She initially presented to the ER 11/28/2018 and was admitted to the ICU. She was medically stabilized and transferred to the behavioral health unit on 11/30/2018. While on the U, she consistently denied depressive symptoms and thoughts of suicide, stating her mood had been good until she had an argument with her significant other on the day of presentation. She was somewhat vague regarding the details of the argument and her overdose, at times stating she did not recall any of it, but other times giving some information. She consistently reported that she does not typically drink alcohol, and agreed to abstain from alcohol in the future. She attended and participated in groups, interacted appropriately with staff and peers, affect was bright and euthymic, and she completed ADLs independently. Her home medications were continued unchanged. There did appear to be an [place] II component with predominant cluster B personality traits, given her reports of pattern of unstable and intense interpersonal relationships (estranged from teenage sons, recent argument with friends that resulted in pseudoseizure and ER visit 11/24/2018), impulsivity, affective instability due to marked reactivity of mood, impressionistic style of speech that lacks detail, and use of physical appearance to draw attention to self. She was focused on discharge, stating she was homesick and did not feel she needed to be in the hospital. She reported good supports from friends and her significant other, who she referred to as her , but with additional questioning reported they were not legally , but were "spiritually ." She had a family meeting with her significant other and the social sciences chair on 12/01/2018. They discussed the need for improved communication, and agreed that alcohol played a role, and confirmed there are plan to remove alc ohol from the home. Her significant other said he would like to keep all of the medications locked and secured due to the patient's misuse/overdose, which the patient agreed to. They denied any other safety concerns with the discharge plan. Day of Discharge Assessment Patient reports her mood is "excited," and she is looking forward to returning h ome, listening to music, and spending time with her cats and . She continues to deny active depressive symptoms and thoughts of harming herself or anyone else. She denies side effects to her medications, and feels her current regimen works well for her. She is agreeing to abstain from alcohol for the foreseeable future, and to allow her significant other to keep all medications secured. She maintains that her overdose was impulsive in the setting of the argument with her significant other, and denies any safety concerns with going home. She is planning to follow-up with her outpatient therapist and physician health information assistant. She reports numerous healthy coping skills that she is looking forward to resuming at home. Transition of Care Transition Of Care Record: was reviewed with the patient Advance Directives Advance Directives Information Provided: No Advance Directives: No Mental Health Advance Directive: No Advance Directives on File: No Living Will: No Power of Bus Escort: No Advance Directives Reason:: Declines as Mental Health Visit. Risk Factors Assessment Risk factors were mitigated by admission to the inpatient unit, use of medications to target mood, treating comorbid medical conditions, participation in groups and therapy on the unit, working on healthy coping skills and a discharge safety plan, family meeting with significant other, and psychoeducation regarding the risks of alcohol use and recommendations for abstinence. The patient's significant other is going to lock and secure all medications in the home. The patient is reporting good mood, denying depressive symptoms and thoughts of harming herself, tending to ADLs independently, taking medications as prescribed, and voicing willingness to follow up with outpatient providers. Both she and her significant other whom she lives with deny any safety concerns at this time. She is requesting discharge, and as she is no longer at acute risk of harm to herself, can be managed as an outpatient at this time. Male: No : Yes Do You Have Access To A Gun?: No Health Problems: Yes Mental Health Diagnoses: Yes Substance Use Disorders: No Previous Attempt: No Previous Attempt; Highly Lethal: No Previous Attempt; Planned: No Previous Attempt; Didn't Tell Anyone: No Family History of Suicide: No Previous Psychiatric Hospitalization: Yes Hopelessness: No Smoker: No Protective Factors Assessment Scientology Beliefs: No : Yes Responsible for Young Children: No Employed: Yes Stable Relationships: Yes Supportive Family: Yes Good Rapport with Provider: Yes Absence of Any Risk Factors Above: No Hospital Course (1) Acute stress reaction: 11/30/18 -The patient currently is taking sertraline 200 mg daily because of her history of recurrent depressive episodes. However, she does not endorse current symptoms of depression and, to the contrary, tells me that her mood has been "good" and "stable." However, clearly the patient has difficulty regulating her mood when under acute stress, such as an argument with her . -We will continue sertraline 200 mg daily. -It will also be important to identify the and further explore those triggers which precipitate an acute stress reaction for this individual. Certainly, arguments with her have precipitated her to psychiatric hospitalizations, and it will be important for the couple to come to some understanding as to how best to avoid pursuing argument to the point that there are severely hurt feelings or severe distress. 12/01 -Suspect Oxn[place] II component. Patient continues to deny active depression. Scheduled family meeting with , and work on discharge safety plan. 12/02 -Family meeting held with significant other yesterday, and both he and patient are agreeable with discharge today. (2) Intentional overdose of drug in tablet form: 11/30/18 -The patient estimates that she took 2400 mg of diphenhydramine while intoxicated. She claims to not remember it, and says that she had not had thoughts of suicide when she started drinking, but does acknowledge that he was very upset because of the argument that she had with her . -We would like to have the opportunity to observe and evaluate the patient further in order to help assure a safe return to the community. -2 factors clearly contributed to the patient's intentional drug overdose: Alcohol intoxication and an argument with her . We will work with the patient to develop strategies to avoid both root causes in the future. 12/01 -Patient is agreeing to avoid alcohol for the foreseeable future. Would also recommend medications in the home be locked and secured. 12/02 -Significant other will locked and secure all medications, and remove all alcohol from the home prior to discharge. (3) Alcohol abuse: 11/30/18 -Although the patient and her tell us that it is "very unusual" for the patient to drink to the point of intoxication, she was given a diagnosis of alcohol abuse here at [facility] back in March 2018. -The patient is willing to consider that it will be important for her to not consume alcohol, given the length between her using alcohol and apparently impulsively taking a large overdose of medications. 12/01 -See above. Follow-up with therapist Karena Aponte and RUDY Barbosa for mental health and substance abuse treatment. 12/02 -Brief intervention was offered and accepted Brief interventions include: 1. Assess Readiness to Quit, 2. Advise: Help Patient to Reduce or Abstain from Alcohol, 3. Agree: Set Specific, Feasible Goals, 4. Assist: Anticipate barriers, Problem-Solving Solutions. Social work to 5. Arrange: Referrals to appropriate treatment. Summary of intervention: The patient is in contemplation stage with regards to transtheoretical model of change. The patient is advised to decrease alcohol consumption due to depressant effects and risk of interactions with prescription medications. The patient agreed to abstain from alcohol, and will be provided with recovery materials to continue to education self on how to cope with their condition without drinking. Post Discharge Appointments Primary Care Physician Name Of Family Doctor: Dr. Lorraine Garza - follow up as needed Primary Care Provider Appointment Comment: [address], [place] Psychiatrist Name of Psychiatrist: Tuyet Steen @ [facility] Psychiatric Appointment Comment: [id number] [place] [address] Therapist Name of Therapist: Karena Mathias Therapist's Date of Therapist Appointment: 12/04/18 Time of Therapist Appointment: 2 p.m. Therapy Appointment Comment: [address] [place], [place] Contact Information Discharge Discharge Address: [address] [place] [id number] Discharge Plan Discharge Items Patient Disposition: Home - Self-Care Reason For Visit: INTENTIONAL OVERDOSE Discharge Diagnosis: Overdose, depression Discharge Goals: Improve disease control, Prevent disease and Therapeutic intervention Activity: Per 'Additional Instructions' section Non-emergency contact: Psychiatrist and Therapist Call non-emergency contact if: you have any medication questions and your symptoms worsen Follow-up/Referrals: PCP,NO [Primary Care Provider] - Diet: Regular Addtl Provider Instructions: SPECIAL CARE INSTRUCTIONS: 1. Follow through with your scheduled aftercare appointments. If unable to keep an appointment, please call to reschedule. 2. Take your medication only as prescribed. Medication should not be changed or stopped without the approval of your doctor. In the event of worsening symptoms or concerns about side effects, contact your doctor immediately. 3. Utilize new healthy coping skills, anger management skills, and stress management skills learned during your hospitalization. Journal feelings and process them with a support person. Identify stressors or situations that may result in relapse, deterioration or inappropriate behaviors and develop a plan to deal with those issues. 4. If your coping skills are ineffective and you are in crisis, contact your outpatient providers for direction. If unable to reach your providers, please call the CAN HELP LINE AT or go to the closest Emergency Room. 5. Avoid alcohol and un-prescribed drugs. 6. You have been provided with the Mental Health Advance Directives Pamphlet for your review. AFTERCARE APPOINTMENTS: * Please call your insurance company prior to your scheduled appointment to confirm your aftercare providers are covered. Take your insurance information to your appointments. WHO TO CALL AND WHEN: Medical Emergencies: For questions or emergencies related to your hospital stay, please contact the Inpatient Behavioral Health Unit at [phone]. A train control technician is on-call 27/03 for the Behavioral Health Unit for angela rgencies At any time you feel your situation is an emergency, you may also call 911 immediately. Your Doctors Instructions noted above were prepared by provider Minerva Copeland MD. Prescriptions: Continued multivitamin Tablet 1 tab PO DAILY RF: 0 levetiracetam [Keppra] 500 mg Tablet 1,500 mg PO BID RF: 0 thiamine HCl (vitamin B1) 100 mg Tablet 100 mg PO DAILY RF: 0 sertraline [Zoloft] 100 mg Tablet 200 mg PO DAILY RF: 0 topiramate [Topamax] 200 mg Tablet 200 mg PO BID RF: 0 baclofen 10 mg Tablet 10 mg PO DAILY RF: 0 gabapentin 100 mg Capsule 100 mg PO TID RF: 0 metoprolol tartrate 25 mg Tablet 25 mg PO DAILY RF: 0 ondansetron HCl [Zofran] 4 mg Tablet 4 mg PO TID PRN (Reason: Nausea) RF: 0 carbamazepine [Tegretol XR] 200 mg Tablet Extended Release 12 Hr 200 mg PO DAILY RF: 0 cannabidiol (CBD) extract 2 - 3 units PO DAILY RF: 0 levothyroxine 75 mcg Tablet 75 mcg PO DAILY RF: 0 vitamin B complex-folic acid 0.4 mg Tablet 1 tab PO DAILY RF: 0 sumatriptan succinate 1 tab PO UD PRN (Reason: Migraine Headache) RF: 0 potassium gluconate 500 mg 500 mg PO DAILY RF: 0 Toprol XL 25 mg 25 mg PO DAILY RF: 0 Stand-Alone Forms: [facility] Discharge Orders: Discharge Order (Routine); Ordered 12/02/18 Ordered By: Minerva Copeland Admission Data Admit Date/Time: 11/30/18 16:48 Attending Provider: Minerva Copeland Admit Provider: Sarthak Helton Primary Care Provider: PCP,NO Service: Psychiatry Other Interventions: Discharge Summary Assessment (RN) Last Done: 12/02/18 09:58 PSY Interdisciplinary Discharge Planning Last Done: 12/02/18 10:02 Pending Studies at Discharge: No DC Date/Time DO NOT enter until pt leaves facility: 12/02/18 11:00
[2018-12-02] MEDS: CARBAMAZEPINE 200 MG TABCR PO SCH (09:54)
[2018-12-02] MEDS: THIAMINE HCL 100 MG TAB PO SCH (09:54)
[2018-12-02] MEDS: MULTIVITAMIN TAB PO SCH (09:54)
[2018-12-02] MEDS: BACLOFEN 10 MG TAB PO SCH (09:55)
[2018-12-02] MEDS: LEVOTHYROXINE SODIUM 75 MCG TABLET PO SCH (09:55)
[2018-12-02] MEDS: SERTRALINE HCL 100 MG TABLET PO SCH (09:55)
[2018-12-02] MEDS: GABAPENTIN 100 MG CAP PO SCH (09:56)
[2018-12-02] MEDS: METOPROLOL TARTRATE 25 MG TAB PO SCH (09:56)
[2018-12-02] MEDS: levETIRAcetam 500 MG TAB PO SCH (09:56)
[2018-12-02] MEDS: TOPIRAMATE 100 MG TAB PO SCH (09:57)
== END 2018-12-02 11:00 | disposition home or self-care (01) | DRG 880 ==
LOC: 3S 16:48
DX: Z79.899 Other long term (current) drug therapy; Z91.5 Personal history of self-harm; F10.10 Alcohol abuse, uncomplicated; F43.0 Acute stress reaction

== ENCOUNTER 2018-12-21 19:12 | Inpatient (IN) ==
--- NOTE | 2018-12-21 20:30 | CT Scan Report ---
HEAD CT NONCONTRAST CT DOSE: HISTORY: fall, headache TECHNIQUE: Multiaxial CT images of the head were performed without the use of intravenous contrast. A utomated exposure control was utilized for this study. A dose lowering technique was utilized adheri ng to the principles of ALARA. Comparison: Head CT 11/24/2018. Findings: The paranasal sinuses and mastoid air cells are clear. The calvarium and skull base are int act. The ventricles and sulci are within normal limits. There is no mass, hematoma, midline shift, or acute infarct. Impression: No acute intracranial abnormality. Electronically signed by: Finesse Polanco M.D. 12/21/2018 8:29 PM
--- NOTE | 2018-12-21 20:33 | CT Scan Report ---
CERVICAL SPINE CT CT DOSE: 968.08 mGy.cm HISTORY: fall TECHNIQUE: Multiaxial CT images of the cervical spine were performed and reformatted in the sagittal and coronal plane without the use of contrast. A dose lowering technique was utilized adhering to th e principles of ALARA. COMPARISON: Cervical spine CT 02/20/2016. FINDINGS: No fractures. No subluxation. Prevertebral soft tissues and the C1-C2 interval are intact. No pneumothorax. IMPRESSION: No fractures within the cervical spine. Electronically signed by: Finesse Polanco M.D. 12/21/2018 8:32 PM
[2018-12-21 20:43] LABS: Alanine Aminotransferase 16 U/L (12-78); Albumin Level 4.2 gm/dl (3.4-5.0); Aspartate Aminotransferase 20 U/L (15-37); BUN Creatinine Ratio 14.3 (10-20); Blood Urea Nitrogen 12 mg/dl (7-18); Calcium 9.4 mg/dl (8.5-10.1); Carbon Dioxide 23 mmol/L (21-32); Chloride 108 mmol/L (98-107); Creatinine Clr Calc Pharmacy 82.8 ml/min; Est GFR (African American) 98.1; Est GFR (Non-African American) 84.6; Glucose 48 mg/dl (70-99); Magnesium 2.2 mg/dl (1.8-2.4); Potassium 3.8 mmol/L (3.5-5.1); Sodium 139 mmol/L (136-145)
[2018-12-21 20:48] LABS: Pregnancy Test, Serum Negative (Negative)
[2018-12-21] MEDS ORDERED: DEXTROSE 50% 50 ML SYRINGE IV ONE (20:57)
[2018-12-21 21:01] LABS: Hematocrit (blood only) 33.3 % (37-47); Mean Corpuscular Volume 97.9 fL (80-100); Mean Platelet Volume 11.5 fL (7.4-10.4); Platelet Count 201 K/uL (130-400); RDW Coefficient of Variation 12.6 % (11.5-14.5); RDW Standard Deviation 44.7 fL (36.4-46.3); White Blood Count 5.25 K/uL (4.8-10.8)
[2018-12-21 21:04] LABS: Alkaline Phosphatase 82 U/L (45-117); Bilirubin,Total 0.2 mg/dl (0.2-1); Globulin 4.3 gm/dl (2.5-4.0); Total Protein 8.5 gm/dl (6.4-8.2); Troponin I < 0.015 ng/ml (0-0.045)
[2018-12-21 21:11] LABS: D Dimer 430 ug/L FEU (0-500); Prothrombin Time 10.4 Seconds (9.0-12.0)
[2018-12-21 21:29] LABS: Carbamazepine Tegretol < 0.5 mcg/ml (4-12); Salicylate 2.1 mg/dl (2.8-20)
--- NOTE | 2018-12-21 21:52 | XRay Report ---
XR chest 1V portable HISTORY: Atypical Chest Pain COMPARISON: Chest 11/28/2018. FINDINGS: No pneumothorax. No pleural effusions. Old right distal clavicle deformity remains unchange d. The heart remains enlarged. There is mild central pulmonary vascular congestion without overt dominic a. IMPRESSION: Borderline cardiomegaly with mild central pulmonary vascular congestion. Electronically signed by: Finesse Polanco M.D. 12/21/2018 9:51 PM
[2018-12-21] MEDS ORDERED: SODIUM CHLORIDE 0.9% 1000ML 1,000 ML IV ONE (22:08)
[2018-12-21] MEDS ORDERED: levETIRAcetam 1,500 MG in DEXTROSE 5% 100 ML IV STA (22:08)
[2018-12-21] MEDS ORDERED: GLUCAGON 1 MG in SYRINGE 0 ML IV STA (22:22)
[2018-12-21] MEDS ORDERED: LACTATED RINGER'S 1,000 ML IV ONE (22:27)
[2018-12-21 22:51] LABS: Basophils # (auto) 0.02 K/uL (0-0.2); Basophils % (auto) 0.4 %; Eosinophils % (auto) 1.9 %; Immature Granulocytes # (auto) 0.01 K/uL (0.00-0.02); Immature Granulocytes % (auto) 0.2 %; Lymphocytes # (auto) 1.23 K/uL (1.2-3.4); Lymphocytes % (auto) 23.4 %; Monocytes # (auto) 0.37 K/uL (0.11-0.59); Neutrophils # (auto) 3.52 K/uL (1.4-6.5); Neutrophils % (auto) 67.1 %
[2018-12-21] MEDS ORDERED: GLUCAGON FOR INJ 1 MG VIAL ONE (23:30)
[2018-12-22] MEDS ORDERED: NALOXONE HCL 0.4 MG/1 ML VIAL/CARP ONE (00:42)
--- NOTE | 2018-12-22 00:42 | Emergency Department Note ---
Entered by Eirca Gonzalez acting as a scribe for History of Present Illness General Chief complaint: Chest Pain Source: patient History of Present Illness Onset (ago): day(s) (today) Location: neck, chest and left (arm) Quality: + other (chest pain) Associated symptoms: + headaches (for the past week), + shortness of breath and + other (Positive nausea, neck pain, numbness in her left arm. Possible LOC and hitting her head. Negative hx of diabetes. ) The patient is a 48 year old female who presents to the Emergency Room with complaints of chest pain beginning today. She states she fell in the shower and believes she passed out and hit her head. She reports she has had a headache for the past week. She states she cannot feel her left arm and she feels a heaviness in her chest. She is accompanied by her who states that she has had intense chest pain and is worried his is having a heart attack. Pt has SOB, nausea, neck pain but denies having a hx of diabetes. Pt regularly takes metoprolol. She states she has been drinking a lot over the past 2 months to cope with her anxiety of her recently losing her mother. She reports she got a shot of vivitrol yesterday. Home Medications Home Medications Medication Instructions Recorded Confirmed Type vitamin B complex-folic acid 1 tab PO DAILY 11/28/18 12/21/18 History baclofen 10 mg PO TID 11/30/18 12/21/18 History cannabidiol (CBD) extract 2 - 3 units PO DAILY 11/30/18 12/21/18 History carbamazepine [Tegretol XR] 200 mg PO DAILY 11/30/18 12/21/18 History gabapentin 300 mg PO TID 11/30/18 12/21/18 History levetiracetam [Keppra] 1,500 mg PO BID 11/30/18 12/21/18 History levothyroxine 75 mcg PO DAILY 11/30/18 12/21/18 History metoprolol tartrate 25 mg PO DAILY 11/30/18 12/21/18 History multivitamin 1 tab PO DAILY 11/30/18 12/21/18 History ondansetron HCl [Zofran] 4 mg PO TID PRN 11/30/18 12/21/18 History sertraline [Zoloft] 200 mg PO DAILY 11/30/18 12/21/18 History topiramate [Topamax] 200 mg PO BID 11/30/18 12/21/18 History magnesium oxide 400 mg PO DAILY 12/21/18 12/21/18 History Allergies Allergy/AdvReac Type Severity Reaction Status Date / Time tree nut Allergy Severe ANAPHYLAXIS Verified 12/21/18 21:19 Penicillins Allergy Intermediate HIVES Verified 12/21/18 21:19 Past Med/Surg History Medical History Seizure disorder (Chronic) Hypothyroidism (Chronic) Raynauds phenomenon (Chronic) History of sarcoidosis (Chronic) Alcohol abuse (Acute) Hypokalemia (Acute) Syncope, non cardiac (Acute) Surgical History Hx of cholecystectomy (Chronic) H/O foot surgery (Chronic) H/O shoulder surgery (Chronic) H/O hernia repair (Chronic) History of esophagogastroduodenoscopy (EGD) (Chronic) Family History Other Breast cancer Diabetes Hypertension Myocardial infarction Social History Preferred Language: Bengali Communication Ability: Effective Beliefs That Will Affect Care: None marital status: Current Living Situation: Significant Other current occupational status: employed Feels Safe at Home: Yes Smoking Status: Never smoker Second Hand Exposure: No Hx Alcohol Use: Yes Hx Substance Use: No Review of Systems See HPI for pertinent positives & negatives. and A total of 10 systems reviewed and were otherwise negative Physical Exam Vital Signs Vital Signs - 24 hr 12/21/18 19:28 12/21/18 20:28 12/21/18 20:35 Temperature 36.7 C Temperature Source Oral Sepsis Recent Fever Within 48 Hours No Sepsis New/Unexplained Change in Mental Status No Sepsis Action Taken by Nursing No Action Required Pulse Rate 48 L Pulse Rate [Apical] 62 Respiratory Rate 18 18 Blood Pressure 106/69 Blood Pressure [Right Arm] 107/71 Blood Pressure Mean 81 Blood Pressure Mean [Right Arm] 83 Pulse Oximetry 94 93 94 Oxygen Delivery Method Room Air Room Air Room Air 12/21/18 22:02 12/21/18 23:45 Temperature Temperature Source Sepsis Recent Fever Within 48 Hours Sepsis New/Unexplained Change in Mental Status Sepsis Action Taken by Nursing Pulse Rate Pulse Rate [Apical] 60 61 Respiratory Rate 18 18 Blood Pressure Blood Pressure [Right Arm] 85/53 L 81/52 L Blood Pressure Mean Blood Pressure Mean [Right Arm] 63 61 Pulse Oximetry 97 95 Oxygen Delivery Method Room Air Room Air GENERAL: Awake, alert, in c collar HENT: Normocephalic, atraumatic. Oropharynx unremarkable. EYES: Normal conjunctiva. Sclera non-icteric. PERRL. Extra-ocular motions intact NECK: In a C-Collar. Mild posterior neck tenderness RESPIRATORY: Clear to auscultation. No wheezes. Normal respiratory effort. CARDIAC: Normal rate. Normal rhythm. Extremities warm and well perfused. GI: Soft, non-distended. No tenderness to palpation. No rebound or guarding. No masses. RECTAL: Deferred. MUSCULOSKELETAL: Atraumatic. Chest examination reveals no tenderness. UPPER EXTREMITIES: Lack of sensation on the LUE LOWER EXTREMITIES: Calves are equal size bilaterally and non-tender. No edema NEURO: Normal sensorium. No sensory or motor deficits noted. No facial droop. SKIN: Warm and dry. No rash or jaundice noted. Course 1952: The patient was evaluated in room C9, and a complete history and physical examination were performed. 2208: I reviewed the patient's case with Dr. [facility]. He will evaluate the patient for further management. Consultations Consultation #1: I reviewed the patient's case with Dr. [facility]. He will evaluate the patient for further management. Time: 22:09 Administered Medications Discontinued Medications Atropine Sulfate (Atropine Sulfate) 0.5 mg IV NOW STA Stop: 12/22/18 00:46 Last Admin: 12/22/18 01:04 Dose: Not Given Documented by: [id number] Atropine Sulfate (Atropine Sulfate 1mg/Ml) Confirm Administered Dose 1 mg .ROUTE .STK-MED ONE Stop: 12/22/18 00:48 Last Admin: 12/22/18 00:48 Dose: 0.5 mg Documented by: [id number] Dextrose (Dextrose 50%) 50 ml IV NOW ONE Stop: 12/21/18 20:58 Last Admin: 12/21/18 21:00 Dose: 50 ml Documented by: [id number] Glucagon (Glucagen) Confirm Administered Dose 1 mg .ROUTE .STK-MED ONE Stop: 12/21/18 23:31 Last Admin: 12/22/18 00:19 Dose: Not Given Documented by: [id number] Levetiracetam 1,500 mg/ (Dextrose) 115 mls @ 440 mls/hr IV NOW STA Stop: 12/21/18 22:22 Last Infusion: 12/21/18 23:19 Dose: 0 mls/hr Documented by: [id number] Admin: 12/21/18 23:00 Dose: 440 mls/hr Documented by: [id number] Sodium Chloride (Nss 1000ml) 1,000 mls @ 999 mls/hr IV .Q1H1M ONE Stop: 12/21/18 23:08 Last Infusion: 12/22/18 00:20 Dose: 0 mls/hr Documented by: [id number] Admin: 12/21/18 23:00 Dose: 999 mls/hr Documented by: [id number] Glucagon 1 mg/ Syringe 1 mls @ 1 mls/min IV NOW STA Stop: 12/21/18 22:23 Last Admin: 12/21/18 23:32 Dose: 1 mls/min Documented by: [id number] Lactated Ringer's (Lr) 1,000 mls @ 500 mls/hr IV .Q2H ONE Stop: 12/22/18 00:26 Last Admin: 12/22/18 00:19 Dose: 500 mls/hr Documented by: [id number] Naloxone HCl (Narcan) Confirm Administered Dose 0.4 mg .ROUTE .STK-MED ONE Stop: 12/22/18 00:43 Last Admin: 12/22/18 00:44 Dose: 0.4 mg Documented by: [id number] Naloxone HCl (Narcan) 0.4 mg IV NOW STA Stop: 12/22/18 00:44 Last Admin: 12/22/18 01:04 Dose: Not Given Documented by: [id number] Naloxone HCl (Narcan) 0.4 mg IV NOW STA Stop: 12/22/18 00:48 Last Admin: 12/22/18 01:05 Dose: Not Given Documented by: [id number] Medical Decision Making Differential Diagnosis Differential diagnosis: Etiologies such as metabolic, infection, hypoglycemia, electrolyte abnormalities, cardiac sources, intracerebral event, toxicologic, neurologic, cardiac ischemia, aortic dissection, pulmonary embolism, pneumonia, pneumothorax, musculoskeletal, infections, pericarditis, myocarditis, esophageal rupture, gastrointestinal, as well as others were entertained. Home Medications Current Medication List: was personally reviewed by me Laboratory Data Attestation: I reviewed the patient's lab results. Result diagrams: 12/21/18 20:53 12/21/18 19:17 Lab Results 12/21/18 12/21/18 12/21/18 Range/Units 19:17 19:17 19:17 WBC Cancelled RBC Cancelled Hgb Cancelled Hct Cancelled MCV Cancelled MCH Cancelled MCHC Cancelled RDW Std Deviation Cancelled RDW Coeff of Thea Cancelled Plt Count Cancelled MPV Cancelled Immature Gran % (Auto) Cancelled Neut % (Auto) Cancelled Lymph % (Auto) Cancelled Ferry % (Auto) Cancelled Eos % (Auto) Cancelled Baso % (Auto) Cancelled Immature Gran # (Auto) Cancelled Neut # (Auto) Cancelled Lymph # (Auto) Cancelled Ferry # (Auto) Cancelled Eos # (Auto) Cancelled Baso # (Auto) Cancelled Absolute Nucleated RBC Cancelled Nucleated RBC % (auto) Cancelled Neutrophils % (Manual) Cancelled Band Neutrophils % Cancelled Lymphocytes % (Manual) Cancelled Prolymphocyte % Cancelled Reactive Lymphs % (Man) Cancelled Monocytes % (Manual) Cancelled Eosinophils % (Manual) Cancelled Basophils % (Manual) Cancelled Metamyelocytes % (Man) Cancelled Myelocytes % (Man) Cancelled Promyelocytes % (Man) Cancelled Blast Cells % (Manual) Cancelled Plasma Cell % (Manual) Cancelled Other Cells % Cancelled Nucleated RBC % Cancelled Neutrophils # (Manual) Cancelled Band Neutrophils # Cancelled Total Absolute Neuts Cancelled Lymphocytes # (Manual) Cancelled Prolymphocyte # Cancelled Reactive Lymphs # Cancelled Total Abs Lymphocytes Cancelled Monocytes # (Manual) Cancelled Eosinophils # (Manual) Cancelled Basophils # (Manual) Cancelled Metamyelocytes # (Man) Cancelled Myelocytes # (Manual) Cancelled Promyelocytes # (Man) Cancelled Blast Cells # (Man) Cancelled Plasma Cell # (Manual) Cancelled Other Cells # Cancelled Nucleated RBCs # (Man) Cancelled Hypersegmented Neuts Cancelled Hyposegmented Neuts Cancelled Hypogranular Neuts Cancelled Large Granular Lymphs Cancelled # Lrg Granular Lymphs Cancelled Hairy Cells Cancelled Smudge Cells Cancelled Toxic Granulation Cancelled Toxic Vacuolation Cancelled Dohle Bodies Cancelled Lucero Rods Cancelled Platelet Estimate Cancelled Hypogranular Platelets Cancelled Clumped Platelets Cancelled Giant Platelets Cancelled Platelet Satelliting Cancelled RBC Morphology Cancelled Polychromasia Cancelled Hypochromasia Cancelled Poikilocytosis Cancelled Basophilic Stippling Cancelled Anisocytosis Cancelled Microcytosis Cancelled Macrocytosis Cancelled Spherocytes Cancelled Pappenheimer Bodies Cancelled Sickle Cells Cancelled Target Cells Cancelled Tear Drop Cells Cancelled Ovalocytes Cancelled Stomatocytes Cancelled [place] Bodies Cancelled Echinocytes Cancelled Acanthocytes (Spur) Cancelled Rouleaux Cancelled RBC Agglutinates Cancelled Schistocytes Cancelled RBC Morph Comment Cancelled Sezary Cell Cancelled PT (9.0-12.0) Seconds INR (0.9-1.1) D-Dimer (0-500) ug/L FEU Sodium 139 (136-145) mmol/L Potassium 3.8 (3.5-5.1) mmol/L Chloride 108 H (98-107) mmol/L Carbon Dioxide 23 (21-32) mmol/L Anion Gap 8.0 (3-11) BUN 12 (7-18) mg/dl Creatinine 0.82 (0.6-1.2) mg/dl Est Cr Clr Drug Dosing 82.8 ml/min Est GFR ( Amer) 98.1 Est GFR (Non-Af Amer) 84.6 BUN/Creatinine Ratio 14.3 (10-20) Glucose 48 L* (70-99) mg/dl POC Glucose (70-99) Lactate (0.4-2.0) mmol/L Calcium 9.4 (8.5-10.1) mg/dl Magnesium 2.2 (1.8-2.4) mg/dl Total Bilirubin 0.2 (0.2-1) mg/dl AST 20 (15-37) U/L ALT 16 (12-78) U/L Alkaline Phosphatase 82 (45-117) U/L Troponin I < 0.015 (0-0.045) ng/ml Total Protein 8.5 H (6.4-8.2) gm/dl Albumin 4.2 (3.4-5.0) gm/dl Globulin 4.3 H (2.5-4.0) gm/dl Albumin/Globulin Ratio 1.0 (0.9-2) Lipase 322 (73-393) U/L Procalcitonin (0-0.5) ng/ml TSH 2.020 (0.300-4.500) uIu/ml HCG, Qual Negative (Negative) Specimen Hemolysis Salicylates (2.8-20) mg/dl Acetaminophen (10-30) ug/ml Carbamazepine (4-12) mcg/ml Ethyl Alcohol mg/dL (0-3) mg/dl 12/21/18 12/21/18 12/21/18 Range/Units 19:17 19:17 20:53 WBC RBC Hgb Hct MCV MCH MCHC RDW Std Deviation RDW Coeff of Thea Plt Count MPV Immature Gran % (Auto) Neut % (Auto) Lymph % (Auto) Ferry % (Auto) Eos % (Auto) Baso % (Auto) Immature Gran # (Auto) Neut # (Auto) Lymph # (Auto) Ferry # (Auto) Eos # (Auto) Baso # (Auto) Absolute Nucleated RBC Nucleated RBC % (auto) Neutrophils % (Manual) Band Neutrophils % Lymphocytes % (Manual) Prolymphocyte % Reactive Lymphs % (Man) Monocytes % (Manual) Eosinophils % (Manual) Basophils % (Manual) Metamyelocytes % (Man) Myelocytes % (Man) Promyelocytes % (Man) Blast Cells % (Manual) Plasma Cell % (Manual) Other Cells % Nucleated RBC % Neutrophils # (Manual) Band Neutrophils # Total Absolute Neuts Lymphocytes # (Manual) Prolymphocyte # Reactive Lymphs # Total Abs Lymphocytes Monocytes # (Manual) Eosinophils # (Manual) Basophils # (Manual) Metamyelocytes # (Man) Myelocytes # (Manual) Promyelocytes # (Man) Blast Cells # (Man) Plasma Cell # (Manual) Other Cells # Nucleated RBCs # (Man) Hypersegmented Neuts Hyposegmented Neuts Hypogranular Neuts Large Granular Lymphs # Lrg Granular Lymphs Hairy Cells Smudge Cells Toxic Granulation Toxic Vacuolation Dohle Bodies Lucero Rods Platelet Estimate Hypogranular Platelets Clumped Platelets Giant Platelets Platelet Satelliting RBC Morphology Polychromasia Hypochromasia Poikilocytosis Basophilic Stippling Anisocytosis Microcytosis Macrocytosis Spherocytes Pappenheimer Bodies Sickle Cells Target Cells Tear Drop Cells Ovalocytes Stomatocytes [place] Bodies Echinocytes Acanthocytes (Spur) Rouleaux RBC Agglutinates Schistocytes RBC Morph Comment Sezary Cell PT 10.4 (9.0-12.0) Seconds INR 1.0 (0.9-1.1) D-Dimer 430 (0-500) ug/L FEU Sodium (136-145) mmol/L Potassium (3.5-5.1) mmol/L Chloride (98-107) mmol/L Carbon Dioxide (21-32) mmol/L Anion Gap (3-11) BUN (7-18) mg/dl Creatinine (0.6-1.2) mg/dl Est Cr Clr Drug Dosing ml/min Est GFR ( Amer) Est GFR (Non-Af Amer) BUN/Creatinine Ratio (10-20) Glucose (70-99) mg/dl POC Glucose (70-99) Lactate (0.4-2.0) mmol/L Calcium (8.5-10.1) mg/dl Magnesium (1.8-2.4) mg/dl Total Bilirubin (0.2-1) mg/dl AST (15-37) U/L ALT (12-78) U/L Alkaline Phosphatase (45-117) U/L Troponin I (0-0.045) ng/ml Total Protein (6.4-8.2) gm/dl Albumin (3.4-5.0) gm/dl Globulin (2.5-4.0) gm/dl Albumin/Globulin Ratio (0.9-2) Lipase (73-393) U/L Procalcitonin (0-0.5) ng/ml TSH (0.300-4.500) uIu/ml HCG, Qual (Negative) Specimen Hemolysis Salicylates 2.1 L (2.8-20) mg/dl Acetaminophen < 2 L (10-30) ug/ml Carbamazepine < 0.5 L (4-12) mcg/ml Ethyl Alcohol mg/dL (0-3) mg/dl 12/21/18 12/21/18 12/21/18 Range/Units 20:53 20:53 21:25 WBC 5.25 RBC 3.40 L Hgb 11.0 L Hct 33.3 L MCV 97.9 MCH 32.4 MCHC 33.0 RDW Std Deviation 44.7 RDW Coeff of Thea 12.6 Plt Count 201 MPV 11.5 H Immature Gran % (Auto) 0.2 Neut % (Auto) 67.1 Lymph % (Auto) 23.4 Ferry % (Auto) 7.0 Eos % (Auto) 1.9 Baso % (Auto) 0.4 Immature Gran # (Auto) 0.01 Neut # (Auto) 3.52 Lymph # (Auto) 1.23 Ferry # (Auto) 0.37 Eos # (Auto) 0.10 Baso # (Auto) 0.02 Absolute Nucleated RBC Nucleated RBC % (auto) Neutrophils % (Manual) Band Neutrophils % Lymphocytes % (Manual) Prolymphocyte % Reactive Lymphs % (Man) Monocytes % (Manual) Eosinophils % (Manual) Basophils % (Manual) Metamyelocytes % (Man) Myelocytes % (Man) Promyelocytes % (Man) Blast Cells % (Manual) Plasma Cell % (Manual) Other Cells % Nucleated RBC % Neutrophils # (Manual) Band Neutrophils # Total Absolute Neuts Lymphocytes # (Manual) Prolymphocyte # Reactive Lymphs # Total Abs Lymphocytes Monocytes # (Manual) Eosinophils # (Manual) Basophils # (Manual) Metamyelocytes # (Man) Myelocytes # (Manual) Promyelocytes # (Man) Blast Cells # (Man) Plasma Cell # (Manual) Other Cells # Nucleated RBCs # (Man) Hypersegmented Neuts Hyposegmented Neuts Hypogranular Neuts Large Granular Lymphs # Lrg Granular Lymphs Hairy Cells Smudge Cells Toxic Granulation Toxic Vacuolation Dohle Bodies [place] Rods Platelet Estimate Hypogranular Platelets Clumped Platelets Giant Platelets Platelet Satelliting RBC Morphology Polychromasia Hypochromasia Poikilocytosis Basophilic Stippling Anisocytosis Microcytosis Macrocytosis Spherocytes Pappenheimer Bodies Sickle Cells Target Cells Tear Drop Cells Ovalocytes Stomatocytes [place] Bodies Echinocytes Acanthocytes (Spur) Rouleaux RBC Agglutinates Schistocytes RBC Morph Comment Sezary Cell PT (9.0-12.0) Seconds INR (0.9-1.1) D-Dimer (0-500) ug/L FEU Sodium (136-145) mmol/L Potassium (3.5-5.1) mmol/L Chloride (98-107) mmol/L Carbon Dioxide (21-32) mmol/L Anion Gap (3-11) BUN (7-18) mg/dl Creatinine (0.6-1.2) mg/dl Est Cr Clr Drug Dosing ml/min Est GFR ( Amer) Est GFR (Non-Af Amer) BUN/Creatinine Ratio (10-20) Glucose (70-99) mg/dl POC Glucose 238 H (70-99) Lactate (0.4-2.0) mmol/L Calcium (8.5-10.1) mg/dl Magnesium (1.8-2.4) mg/dl Total Bilirubin (0.2-1) mg/dl AST (15-37) U/L ALT (12-78) U/L Alkaline Phosphatase (45-117) U/L Troponin I (0-0.045) ng/ml Total Protein (6.4-8.2) gm/dl Albumin (3.4-5.0) gm/dl Globulin (2.5-4.0) gm/dl Albumin/Globulin Ratio (0.9-2) Lipase (73-393) U/L Procalcitonin < 0.05 (0-0.5) ng/ml TSH (0.300-4.500) uIu/ml HCG, Qual (Negative) Specimen Hemolysis Salicylates (2.8-20) mg/dl Acetaminophen (10-30) ug/ml Carbamazepine (4-12) mcg/ml Ethyl Alcohol mg/dL (0-3) mg/dl 12/21/18 12/21/18 12/21/18 Range/Units 21:26 21:38 22:58 WBC RBC Hgb Hct MCV MCH MCHC RDW Std Deviation RDW Coeff of Thea Plt Count MPV Immature Gran % (Auto) Neut % (Auto) Lymph % (Auto) Ferry % (Auto) Eos % (Auto) Baso % (Auto) Immature Gran # (Auto) Neut # (Auto) Lymph # (Auto) Ferry # (Auto) Eos # (Auto) Baso # (Auto) Absolute Nucleated RBC Nucleated RBC % (auto) Neutrophils % (Manual) Band Neutrophils % Lymphocytes % (Manual) Prolymphocyte % Reactive Lymphs % (Man) Monocytes % (Manual) Eosinophils % (Manual) Basophils % (Manual) Metamyelocytes % (Man) Myelocytes % (Man) Promyelocytes % (Man) Blast Cells % (Manual) Plasma Cell % (Manual) Other Cells % Nucleated RBC % Neutrophils # (Manual) Band Neutrophils # Total Absolute Neuts Lymphocytes # (Manual) Prolymphocyte # Reactive Lymphs # Total Abs Lymphocytes Monocytes # (Manual) Eosinophils # (Manual) Basophils # (Manual) Metamyelocytes # (Man) Myelocytes # (Manual) Promyelocytes # (Man) Blast Cells # (Man) Plasma Cell # (Manual) Other Cells # Nucleated RBCs # (Man) Hypersegmented Neuts Hyposegmented Neuts Hypogranular Neuts Large Granular Lymphs # Lrg Granular Lymphs Hairy Cells Smudge Cells Toxic Granulation Toxic Vacuolation Dohle Bodies [place] Rods Platelet Estimate Hypogranular Platelets Clumped Platelets Giant Platelets Platelet Satelliting RBC Morphology Polychromasia Hypochromasia Poikilocytosis Basophilic Stippling Anisocytosis Microcytosis Macrocytosis Spherocytes Pappenheimer Bodies Sickle Cells Target Cells Tear Drop Cells Ovalocytes Stomatocytes [place] Bodies Echinocytes Acanthocytes (Spur) Rouleaux RBC Agglutinates Schistocytes RBC Morph Comment Sezary Cell PT (9.0-12.0) Seconds INR (0.9-1.1) D-Dimer (0-500) ug/L FEU Sodium (136-145) mmol/L Potassium (3.5-5.1) mmol/L Chloride (98-107) mmol/L Carbon Dioxide (21-32) mmol/L Anion Gap (3-11) BUN (7-18) mg/dl Creatinine (0.6-1.2) mg/dl Est Cr Clr Drug Dosing ml/min Est GFR ( Amer) Est GFR (Non-Af Amer) BUN/Creatinine Ratio (10-20) Glucose (70-99) mg/dl POC Glucose 235 H 124 H (70-99) Lactate (0.4-2.0) mmol/L Calcium (8.5-10.1) mg/dl Magnesium (1.8-2.4) mg/dl Total Bilirubin (0.2-1) mg/dl AST (15-37) U/L ALT (12-78) U/L Alkaline Phosphatase (45-117) U/L Troponin I (0-0.045) ng/ml Total Protein (6.4-8.2) gm/dl Albumin (3.4-5.0) gm/dl Globulin (2.5-4.0) gm/dl Albumin/Globulin Ratio (0.9-2) Lipase (73-393) U/L Procalcitonin (0-0.5) ng/ml TSH (0.300-4.500) uIu/ml HCG, Qual (Negative) Specimen Hemolysis Salicylates (2.8-20) mg/dl Acetaminophen (10-30) ug/ml Carbamazepine (4-12) mcg/ml Ethyl Alcohol mg/dL < 3.0 (0-3) mg/dl 12/21/18 12/21/18 Range/Units 23:16 23:54 WBC RBC Hgb Hct MCV MCH MCHC RDW Std Deviation RDW Coeff of Thea Plt Count MPV Immature Gran % (Auto) Neut % (Auto) Lymph % (Auto) Ferry % (Auto) Eos % (Auto) Baso % (Auto) Immature Gran # (Auto) Neut # (Auto) Lymph # (Auto) [place]erry # (Auto) Eos # (Auto) Baso # (Auto) Absolute Nucleated RBC Nucleated RBC % (auto) Neutrophils % (Manual) Band Neutrophils % Lymphocytes % (Manual) Prolymphocyte % Reactive Lymphs % (Man) Monocytes % (Manual) Eosinophils % (Manual) Basophils % (Manual) Metamyelocytes % (Man) Myelocytes % (Man) Promyelocytes % (Man) Blast Cells % (Manual) Plasma Cell % (Manual) Other Cells % Nucleated RBC % Neutrophils # (Manual) Band Neutrophils # Total Absolute Neuts Lymphocytes # (Manual) Prolymphocyte # Reactive Lymphs # Total Abs Lymphocytes Monocytes # (Manual) Eosinophils # (Manual) Basophils # (Manual) Metamyelocytes # (Man) Myelocytes # (Manual) Promyelocytes # (Man) Blast Cells # (Man) Plasma Cell # (Manual) Other Cells # Nucleated RBCs # (Man) Hypersegmented Neuts Hyposegmented Neuts Hypogranular Neuts Large Granular Lymphs # Lrg Granular Lymphs Hairy Cells Smudge Cells Toxic Granulation Toxic Vacuolation Dohle Bodies Luc[place] Rods Platelet Estimate Hypogranular Platelets Clumped Platelets Giant Platelets Platelet Satelliting RBC Morphology Polychromasia Hypochromasia Poikilocytosis Basophilic Stippling Anisocytosis Microcytosis Macrocytosis Spherocytes Pappenheimer Bodies Sickle Cells Target Cells Tear Drop Cells Ovalocytes Stomatocytes [place] Bodies Echinocytes Acanthocytes (Spur) Rouleaux RBC Agglutinates Schistocytes RBC Morph Comment Sezary Cell PT (9.0-12.0) Seconds INR (0.9-1.1) D-Dimer (0-500) ug/L FEU Sodium (136-145) mmol/L Potassium (3.5-5.1) mmol/L Chloride (98-107) mmol/L Carbon Dioxide (21-32) mmol/L Anion Gap (3-11) BUN (7-18) mg/dl Creatinine (0.6-1.2) mg/dl Est Cr Clr Drug Dosing ml/min Est GFR ( Amer) Est GFR (Non-Af Amer) BUN/Creatinine Ratio (10-20) Glucose (70-99) mg/dl POC Glucose 161 H (70-99) Lactate 1.1 (0.4-2.0) mmol/L Calcium (8.5-10.1) mg/dl Magnesium (1.8-2.4) mg/dl Total Bilirubin (0.2-1) mg/dl AST (15-37) U/L ALT (12-78) U/L Alkaline Phosphatase (45-117) U/L Troponin I (0-0.045) ng/ml Total Protein (6.4-8.2) gm/dl Albumin (3.4-5.0) gm/dl Globulin (2.5-4.0) gm/dl Albumin/Globulin Ratio (0.9-2) Lipase (73-393) U/L Procalcitonin (0-0.5) ng/ml TSH (0.300-4.500) uIu/ml HCG, Qual (Negative) Specimen Hemolysis Salicylates (2.8-20) mg/dl Acetaminophen (10-30) ug/ml Carbamazepine (4-12) mcg/ml Ethyl Alcohol mg/dL (0-3) mg/dl Imaging Data Radiologist's Impression: Radiology results as stated below per my review and the radiologist's interpretation: XR chest 1V portable HISTORY: Atypical Chest Pain COMPARISON: Chest 11/28/2018. FINDINGS: No pneumothorax. No pleural effusions. Old right distal clavicle deformity remains unchanged. The heart remains enlarged. There is mild central pulmonary vascular congestion without overt edema. IMPRESSION: Borderline cardiomegaly with mild central pulmonary vascular congestion. Electronically signed by: Finesse Polanco M.D. 12/21/2018 9:[address] DOSE: 968.08 mGy.cm HISTORY: fall TECHNIQUE: Multiaxial CT images of the cervical spine were performed and reformatted in the sagittal and coronal plane without the use of contrast. A dose lowering technique was utilized adhering to the principles of ALARA. COMPARISON: Cervical spine CT 02/20/2016. FINDINGS: No fractures. No subluxation. Prevertebral soft tissues and the C1-C2 interval are intact. No pneumothorax. IMPRESSION: No fractures within the cervical spine. Electronically signed by: Finesse Polanco M.D. 12/21/2018 8:[address]AST CT DOSE: HISTORY: fall, headache TECHNIQUE: Multiaxial CT images of the head were performed without the use of intravenous contrast. Automated exposure control was utilized for this study. A dose lowering technique was utilized adhering to the principles of ALARA. Comparison: Head CT 11/24/2018. Findings: The paranasal sinuses and mastoid air cells are clear. The calvarium and skull base are intact. The ventricles and sulci are within normal limits. There is no mass, hematoma, midline shift, or acute infarct. Impression: No acute intracranial abnormality. Electronically signed by: Finesse Polanco M.D. 12/21/2018 8:29 PM ECG Data Attestation: I personally reviewed and interpreted this ECG as follows: Indication: chest pain Rate (beats per minute): 71 Rhythm: normal sinus Findings: + other (QTC 475); no ST depression and no ST elevation Blood Pressure Blood Pressure Findings: Normal blood pressure Blood Pressure Disposition: did not require urgent referral MDM Narrative Patient is a 48-year-old female with a past medical history seizures, psychiatric history recent overdose attempt who presents today after having a fall event in the shower. Fell to the ground complained of severe left-sided upper chest pain. Patient denies any overdose attempt or taking extra medication. States did just get Vivitrol yesterday. Denies alcohol use. Start experience numbness in her left arm with slight headache over the past week. CT the head and cervical spine was completed. Does have some mild cervical spine tenderness and is in a c-collar. CT the head and cervical but are negative. Patient was noted to be hypoglycemic and given D50 here. Patient's blood sugar improved but became more somnolent. My initial evaluation she is awake and talking me him describing her symptoms. Later on reevaluation she seemed much more fatigued and required some stimuli for interaction. Negative Tylenol and ethanol level. No anion gap. Doubt infectious etiology. EKG does show borderline QTC. Similar to previous. EKG and troponin are completed without other ischemic findings. Chest x-ray is unremarkable without gross evidence of pneumonia. No pneumothorax. D-dimer is negative. Is able to move the left arm fine so no motor weakness; seems of an odd distribution for focal stroke. Unsure if this is migrainous atypical symptom or related to possible postictal/seizure but unable to clear cervical spine given her decreased mental status now and this finding. Placed in a Irion J collar. Given IV Keppra dose of her home medication. Given the fact that she is at this unexplained event with severe chest pain and is now more somnolent with hypoglycemia of unclear significance discussed with the hospitalist for admission. Impression & Plan Syncope, Chest pain, Altered mental status, Numbness of upper limb Discharge Plan Visit Data Chief Complaint: Chest Pain Other Complaint: Seizure ED Provider: Hai Wolf Discharge Problem: Syncope, Chest pain, Altered mental status, Numbness of upper limb Patient Disposition: Being Evaluated by Hospitalist Forms Stand Alone Forms: Call Back Authorization, [facility] Prescriptions Prescriptions: No Action multivitamin Tablet 1 tab PO DAILY RF: 0 levetiracetam [Keppra] 500 mg Tablet 1,500 mg PO BID RF: 0 sertraline [Zoloft] 100 mg Tablet 200 mg PO DAILY RF: 0 topiramate [Topamax] 200 mg Tablet 200 mg PO BID RF: 0 baclofen 10 mg Tablet 10 mg PO TID RF: 0 gabapentin 100 mg Capsule 300 mg PO TID RF: 0 metoprolol tartrate 25 mg Tablet 25 mg PO DAILY RF: 0 ondansetron HCl [Zofran] 4 mg Tablet 4 mg PO TID PRN (Reason: Nausea) RF: 0 carbamazepine [Tegretol XR] 200 mg Tablet Extended Release 12 Hr 200 mg PO DAILY RF: 0 cannabidiol (CBD) extract 2 - 3 units PO DAILY RF: 0 levothyroxine 75 mcg Tablet 75 mcg PO DAILY RF: 0 vitamin B complex-folic acid 0.4 mg Tablet 1 tab PO DAILY RF: 0 magnesium oxide 400 mg magnesium Tablet 400 mg PO DAILY RF: 0 Referrals Referrals: Lorraine Garza MD [Primary Care Provider] - Discharge Problem: Syncope Qualifiers: Syncope type: unspecified Qualified Code(s): R55 - Syncope and collapse Chest pain Qualifiers: Chest pain type: unspecified Qualified Code(s): R07.9 - Chest pain, unspecified Altered mental status Qualifiers: Altered mental status type: somnolence Qualified Code(s): R40.0 - Somnolence The scribe's documentation has been prepared under my direction and personally reviewed by me in its entirety. I confirm that the note above accurately reflects all work, treatment, procedures, and medical decision making performed by me.
[2018-12-22] MEDS ORDERED: NALOXONE HCL 0.4 MG/1 ML VIAL/CARP IV STA ×2 (00:43→00:47)
[2018-12-22] MEDS ORDERED: ATROPINE SULFATE 0.1 MG/ML 10ML SYR IV STA (00:45)
[2018-12-22] MEDS ORDERED: ATROPINE SO4 1 MG/ML 1ML VIAL ONE (00:47)
[2018-12-22 01:10] LABS: NT Pro B Type Natriuretic Pept 218 pg/ml (0-450)
[2018-12-22 01:11] LABS: Appearance Urine Clear (Clear); Bilirubin Urine Negative (Negative); Blood Urine Negative (Negative); Color Urine Yellow; Glucose Urine UA Negative (Negative); Ketones Urine Negative (Negative); Leukocyte Esterase Urine Negative (Negative); Nitrite Urine Negative (Negative); Protein Urine Negative (Negative); Specific Gravity Urine 1.009 (1.000-1.030); Urobilinogen Urine Negative (Negative); pH Urine 6.5 (4.5-7.5)
[2018-12-22 01:29] LABS: Amphetamines+Metham, Urine Neg (Neg); Barbiturates, Urine Neg (Neg); Benzodiazepine, Urine Neg (Neg); Cocaine, Urine Neg (Neg); MDMA (Ecstacy), Urine Neg (Neg); Methadone, Urine Neg (Neg); Opiate, Urine Neg (Neg); Phencyclidine, Urine Neg (Neg)
--- NOTE | 2018-12-22 01:29 | History & Physical Report ---
Date of Service December 22, 2018 Assessment & Plan (1) Hypotension: Episodic hypotension, bradycardia, hypoglycemia ? 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 Past history intentional drug overdose Encephalopathy likely secondary to polypharmacy overdose Unwitnessed syncopal event secondary to break through seizure/pseudoseizure Traumatic chest pain rule out rib fracture, pericarditis Traumatic cervical pain with radiculopathy symptoms CT cervical spine uninformative anxiety disorder hypothyroidism, euthyroid as of today's TSH chronic anemia hemoglobin at baseline PCU Appropriate to hold home beta-gino for now IVF, atropine, glucagon as needed Accu-Cheks every 4 hours for now Hold home neuropsychotropics until patient more awake Psych consult RE suicidality, suicide watch for now Cervical MRI RE traumatic cervical pain with radiculopathy symptoms Orthopedics spine consult RE traumatic cervical pain Continue cervical collar until evaluated by Orthopedics Rib series, TTE RE traumatic chest pain DVT prophylaxis. SCDs RE possible Orthopedic spine procedure Full code Patient's boyfriend requesting updates from providers. Mr. Abel Huerta, contact #[phone]. Addendum : Upon arriving at PCU room, patient became upset by one-to-one suicide watch order. Patient denied prior suicidal statements. Will maintain suicide precautions until evaluated by Psychiatry. History of Present Illness Chief Complaint: Chest pain, syncope Primary Care Provider: Lorraine Garza MD History obtained from patient, family, and records. Patient is a fair historian. History limited by partial sedation during encounter. Medical history significant for seizure/pseudoseizure disorder, sarcoidosis, anxiety disorder, migraine, hypothyroidism, frequent PVCs on beta-gino Rx, autonomic orthostatic hypotension as per records, chronic anemia baseline hemoglobin of 11. Recent confinement November 2018 for intentional (suicidal) drug (Benadryl) overdose. Patient subsequently discharged to mental health unit. Patient had an unwitnessed syncopal event in the shower, thinks she may have had a seizure. Patient sustained head and chest trauma. Achy headache. Neck pain shooting down the left arm, left upper extremity weakness, pleuritic central chest pain with shortness of breath. Patient brought to the emergency room. Episodic hypotension, bradycardia, hypoglycemia noted at the ER. IV Glucagon and Atropine given for possible beta-gino overdose. Patient subsequently became difficult to rouse at the ER despite normal blood sugars. Patient woke up after IV Narcan administration. Half-asleep, patient admitted to taking her home medications and amounts more than prescribed to harm herself because of stress. 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 Allergy/AdvReac Type Severity Reaction Status Date / Time tree nut Allergy Severe ANAPHYLAXIS Verified 12/21/18 21:19 Penicillins Allergy Intermediate HIVES Verified 12/21/18 21:19 Home Medications Home Medications Medication Instructions Recorded Confirmed Type vitamin B complex-folic acid 1 tab PO DAILY 11/28/18 12/21/18 History baclofen 10 mg PO TID 11/30/18 12/21/18 History cannabidiol (CBD) extract 2 - 3 units PO DAILY 11/30/18 12/21/18 History carbamazepine [Tegretol XR] 200 mg PO DAILY 11/30/18 12/21/18 History gabapentin 300 mg PO TID 11/30/18 12/21/18 History levetiracetam [Keppra] 1,500 mg PO BID 11/30/18 12/21/18 History levothyroxine 75 mcg PO DAILY 11/30/18 12/21/18 History metoprolol tartrate 25 mg PO DAILY 11/30/18 12/21/18 History multivitamin 1 tab PO DAILY 11/30/18 12/21/18 History ondansetron HCl [Zofran] 4 mg PO TID PRN 11/30/18 12/21/18 History sertraline [Zoloft] 200 mg PO DAILY 11/30/18 12/21/18 History topiramate [Topamax] 200 mg PO BID 11/30/18 12/21/18 History magnesium oxide 400 mg PO DAILY 12/21/18 12/21/18 History Past Med/Surg History Medical History Seizure disorder (Chronic) Hypothyroidism (Chronic) Raynauds phenomenon (Chronic) History of sarcoidosis (Chronic) Alcohol abuse (Acute) Hypokalemia (Acute) Syncope, non cardiac (Acute) Surgical History Hx of cholecystectomy (Chronic) H/O foot surgery (Chronic) H/O shoulder surgery (Chronic) H/O hernia repair (Chronic) History of esophagogastroduodenoscopy (EGD) (Chronic) Family History Other Breast cancer Diabetes Hypertension Myocardial infarction Social History Preferred Language: Jamaican Communication Ability: Effective Beliefs That Will Affect Care: None marital status: Current Living Situation: Spouse current occupational status: employed Other Information That Helps Us Care for You: No Feels Safe at Home: Yes Safety Concerns: Feels Safe At This Time Smoking Status: Unknown if ever smoked Hx Alcohol Use: No Hx Substance Use: Yes Substance Use Type Other:: cannabis oil Review of Systems Review of Systems: Could not be reliably obtained Physical Exam Physical Exam: GENERAL: Lethargic, uncomfortable, no respiratory distress SKIN: Pallor, warm HEENT: Pale palpebral conjunctivae, no ptosis, dry buccal mucosa NECK : Cervical collar in place, left lateral tenderness CHEST : Decreased effort, bilateral chest wall tenderness HEART : Bradycardic, no obvious murmurs ABDOMEN: Some distention, nontender EXTREMITIES : No LE swelling/tenderness, no other conspicuous deformities noted NEUROLOGIC : Lethargic, no facial asymmetry, MMTS LUE/RUE 4/5 Results & Data Vital Signs (Past 12 Hours) Vital Signs Temp Pulse Pulse Resp BP BP Pulse Ox 12/22/18 01:15 79 18 98/80 L 96 12/21/18 23:45 61 18 81/52 L 95 12/21/18 22:02 60 18 85/53 L 97 12/21/18 20:35 62 18 107/71 94 12/21/18 20:28 93 12/21/18 19:28 36.7 C 48 L 18 106/69 94 Laboratory Results Laboratory Results WBC 5.25 K/uL (4.8-10.8) 12/21/18 20:53 RBC 3.40 M/uL (4.2-5.4) L 12/21/18 20:53 Hgb 11.0 g/dL (12.0-16.0) L 12/21/18 20:53 Hct 33.3 % (37-47) L 12/21/18 20:53 MCV 97.9 fL (80-100) 12/21/18 20:53 MCH 32.4 pg (25-34) 12/21/18 20:53 MCHC 33.0 g/dL (32-36) 12/21/18 20:53 RDW Std Deviation 44.7 fL (36.4-46.3) 12/21/18 20:53 RDW Coeff of Thea 12.6 % (11.5-14.5) 12/21/18 20:53 Plt Count 201 K/uL (130-400) 12/21/18 20:53 MPV 11.5 fL (7.4-10.4) H 12/21/18 20:53 Immature Gran % (Auto) 0.2 % 12/21/18 20:53 Neut % (Auto) 67.1 % 12/21/18 20:53 Lymph % (Auto) 23.4 % 12/21/18 20:53 [place]a % (Auto) 7.0 % 12/21/18 20:53 Eos % (Auto) 1.9 % 12/21/18 20:53 Baso % (Auto) 0.4 % 12/21/18 20:53 Immature Gran # (Auto) 0.01 K/uL (0.00-0.02) 12/21/18 20:53 Neut # (Auto) 3.52 K/uL (1.4-6.5) 12/21/18 20:53 Lymph # (Auto) 1.23 K/uL (1.2-3.4) 12/21/18 20:53 [place] # (Auto) 0.37 K/uL (0.11-0.59) 12/21/18 20:53 Eos # (Auto) 0.10 K/uL (0-0.5) 12/21/18 20:53 Baso # (Auto) 0.02 K/uL (0-0.2) 12/21/18 20:53 Absolute Nucleated RBC Cancelled 12/21/18 19:17 Nucleated RBC % (auto) Cancelled 12/21/18 19:17 Neutrophils % (Manual) Cancelled 12/21/18 19:17 Band Neutrophils % Cancelled 12/21/18 19:17 Lymphocytes % (Manual) Cancelled 12/21/18 19:17 Prolymphocyte % Cancelled 12/21/18 19:17 Reactive Lymphs % (Man) Cancelled 12/21/18 19:17 Monocytes % (Manual) Cancelled 12/21/18 19:17 Eosinophils % (Manual) Cancelled 12/21/18 19:17 Basophils % (Manual) Cancelled 12/21/18 19:17 Metamyelocytes % (Man) Cancelled 12/21/18 19:17 Myelocytes % (Man) Cancelled 12/21/18 19:17 Promyelocytes % (Man) Cancelled 12/21/18 19:17 Blast Cells % (Manual) Cancelled 12/21/18 19:17 Plasma Cell % (Manual) Cancelled 12/21/18 19:17 Other Cells % Cancelled 12/21/18 19:17 Nucleated RBC % Cancelled 12/21/18 19:17 Neutrophils # (Manual) Cancelled 12/21/18 19:17 Band Neutrophils # Cancelled 12/21/18 19:17 Total Absolute Neuts Cancelled 12/21/18 19:17 Lymphocytes # (Manual) Cancelled 12/21/18 19:17 Prolymphocyte # Cancelled 12/21/18 19:17 Reactive Lymphs # Cancelled 12/21/18 19:17 Total Abs Lymphocytes Cancelled 12/21/18 19:17 Monocytes # (Manual) Cancelled 12/21/18 19:17 Eosinophils # (Manual) Cancelled 12/21/18 19:17 Basophils # (Manual) Cancelled 12/21/18 19:17 Metamyelocytes # (Man) Cancelled 12/21/18 19:17 Myelocytes # (Manual) Cancelled 12/21/18 19:17 Promyelocytes # (Man) Cancelled 12/21/18 19:17 Blast Cells # (Man) Cancelled 12/21/18 19:17 Plasma Cell # (Manual) Cancelled 12/21/18 19:17 Other Cells # Cancelled 12/21/18 19:17 Nucleated RBCs # (Man) Cancelled 12/21/18 19:17 Hypersegmented Neuts Cancelled 12/21/18 19:17 Hyposegmented Neuts Cancelled 12/21/18 19:17 Hypogranular Neuts Cancelled 12/21/18 19:17 Large Granular Lymphs Cancelled 12/21/18 19:17 # Lrg Granular Lymphs Cancelled 12/21/18 19:17 Hairy Cells Cancelled 12/21/18 19:17 Smudge Cells Cancelled 12/21/18 19:17 Toxic Granulation Cancelled 12/21/18 19:17 Toxic Vacuolation Cancelled 12/21/18 19:17 Dohle Bodies Cancelled 12/21/18 19:17 Lucero Rods Cancelled 12/21/18 19:17 Platelet Estimate Cancelled 12/21/18 19:17 Hypogranular Platelets Cancelled 12/21/18 19:17 Clumped Platelets Cancelled 12/21/18 19:17 Giant Platelets Cancelled 12/21/18 19:17 Platelet Satelliting Cancelled 12/21/18 19:17 RBC Morphology Cancelled 12/21/18 19:17 Polychromasia Cancelled 12/21/18 19:17 Hypochromasia Cancelled 12/21/18 19:17 Poikilocytosis Cancelled 12/21/18 19:17 Basophilic Stippling Cancelled 12/21/18 19:17 Anisocytosis Cancelled 12/21/18 19:17 Microcytosis Cancelled 12/21/18 19:17 Macrocytosis Cancelled 12/21/18 19:17 Spherocytes Cancelled 12/21/18 19:17 Pappenheimer Bodies Cancelled 12/21/18 19:17 Sickle Cells Cancelled 12/21/18 19:17 Target Cells Cancelled 12/21/18 19:17 Tear Drop Cells Cancelled 12/21/18 19:17 Ovalocytes Cancelled 12/21/18 19:17 Stomatocytes Cancelled 12/21/18 19:17 Webster-Donaldson Bodies Cancelled 12/21/18 19:17 Echinocytes Cancelled 12/21/18 19:17 Acanthocytes (Spur) Cancelled 12/21/18 19:17 Rouleaux Cancelled 12/21/18 19:17 RBC Agglutinates Cancelled 12/21/18 19:17 Schistocytes Cancelled 12/21/18 19:17 RBC Morph Comment Cancelled 12/21/18 19:17 Sezary Cell Cancelled 12/21/18 19:17 PT 10.4 Seconds (9.0-12.0) 12/21/18 20:53 INR 1.0 (0.9-1.1) 12/21/18 20:53 D-Dimer 430 ug/L FEU (0-500) 12/21/18 20:53 Sodium 139 mmol/L (136-145) 12/21/18 19:17 Potassium 3.8 mmol/L (3.5-5.1) 12/21/18 19:17 Chloride 108 mmol/L (98-107) H 12/21/18 19:17 Carbon Dioxide 23 mmol/L (21-32) 12/21/18 19:17 Anion Gap 8.0 (3-11) 12/21/18 19:17 BUN 12 mg/dl (7-18) 12/21/18 19:17 Creatinine 0.82 mg/dl (0.6-1.2) 12/21/18 19:17 Est Cr Clr Drug Dosing 82.8 ml/min 12/21/18 19:17 Est GFR ( Amer) 98.1 12/21/18 19:17 Est GFR (Non-Af Amer) 84.6 12/21/18 19:17 BUN/Creatinine Ratio 14.3 (10-20) 12/21/18 19:17 Glucose 48 mg/dl (70-99) L* 12/21/18 19:17 POC Glucose 161 (70-99) H 12/21/18 23:54 Lactate 1.1 mmol/L (0.4-2.0) 12/21/18 23:16 Calcium 9.4 mg/dl (8.5-10.1) 12/21/18 19:17 Magnesium 2.2 mg/dl (1.8-2.4) 12/21/18 19:17 Total Bilirubin 0.2 mg/dl (0.2-1) 12/21/18 19:17 AST 20 U/L (15-37) 12/21/18 19:17 ALT 16 U/L (12-78) 12/21/18 19:17 Alkaline Phosphatase 82 U/L (45-117) 12/21/18 19:17 Troponin I < 0.015 ng/ml (0-0.045) 12/21/18 19:17 NT-Pro-B Natriuret Pep 218 pg/ml (0-450) 12/21/18 19:17 Total Protein 8.5 gm/dl (6.4-8.2) H 12/21/18 19:17 Albumin 4.2 gm/dl (3.4-5.0) 12/21/18 19:17 Globulin 4.3 gm/dl (2.5-4.0) H 12/21/18 19:17 Albumin/Globulin Ratio 1.0 (0.9-2) 12/21/18 19:17 Lipase 322 U/L (73-393) 12/21/18 19:17 Procalcitonin < 0.05 ng/ml (0-0.5) 12/21/18 20:53 TSH 2.020 uIu/ml (0.300-4.500) 12/21/18 19:17 HCG, Qual Negative (Negative) 12/21/18 19:17 Specimen Hemolysis 12/21/18 19:17 Urine Color Yellow 12/22/18 00:59 Urine Appearance Clear (Clear) 12/22/18 00:59 Urine pH 6.5 (4.5-7.5) 12/22/18 00:59 Ur Specific [place] 1.009 (1.000-1.030) 12/22/18 00:59 Urine Protein Negative (Negative) 12/22/18 00:59 Urine Glucose (UA) Negative (Negative) 12/22/18 00:59 Urine Ketones Negative (Negative) 12/22/18 00:59 Urine Blood Negative (Negative) 12/22/18 00:59 Urine Nitrite Negative (Negative) 12/22/18 00:59 Urine Bilirubin Negative (Negative) 12/22/18 00:59 Urine Urobilinogen Negative (Negative) 12/22/18 00:59 Ur Leukocyte Esterase Negative (Negative) 12/22/18 00:59 Salicylates 2.1 mg/dl (2.8-20) L 12/21/18 19:17 Acetaminophen < 2 ug/ml (10-30) L 12/21/18 19:17 Carbamazepine < 0.5 mcg/ml (4-12) L 12/21/18 19:17 Ethyl Alcohol mg/dL < 3.0 mg/dl (0-3) 12/21/18 21:38 Diagnostic Findings Chest x-ray showed cardiomegaly, central congestion EKG as per my interpretation : rate 70, NSR, diffuse T wave flattening CT head: No acute pathology CT cervical spine: No acute pathology
[2018-12-22] MEDS ORDERED: IBUPROFEN 200 MG TAB PO PRN (01:38)
[2018-12-22] MEDS ORDERED: ATROPINE SULFATE 0.1 MG/ML 5ML SYR IV PRN (01:38)
[2018-12-22] MEDS ORDERED: PROMETHAZINE HCL 12.5 MG in SODIUM CHLORIDE 0.9% 50 ML IV PRN (01:38)
[2018-12-22] MEDS ORDERED: KETOROLAC TROMETHAMINE 15 MG/ML VIAL IV PRN (01:38)
[2018-12-22] MEDS ORDERED: GLUCOSE 40% GEL 15 GM TUBE PO PRN (01:43)
[2018-12-22] MEDS ORDERED: GLUCOSE 10 TABS/TUBE PO PRN (01:43)
[2018-12-22] MEDS ORDERED: DEXTROSE 50% 50 ML SYRINGE IV PRN (01:43)
[2018-12-22] MEDS ORDERED: CARBOHYDRATES FOR HYPOGLYCEMIA PO PRN (01:43)
[2018-12-22] MEDS ORDERED: GLUCAGON FOR INJ 1 MG VIAL SQ PRN (01:43)
[2018-12-22] MEDS ORDERED: ACETAMINOPHEN 325 MG TAB PO PRN (02:43)
[2018-12-22] MEDS ORDERED: LACTATED RINGER'S 1,000 ML IV ONE (02:43)
[2018-12-22 06:25] LABS: Basophils # (auto) 0.01 K/uL (0-0.2); Basophils % (auto) 0.2 %; Eosinophils # (auto) 0.11 K/uL (0-0.5); Eosinophils % (auto) 2.2 %; Hematocrit (blood only) 34.9 % (37-47); Hemoglobin 11.2 g/dL (12.0-16.0); Immature Granulocytes # (auto) 0.01 K/uL (0.00-0.02); Immature Granulocytes % (auto) 0.2 %; Lymphocytes # (auto) 1.74 K/uL (1.2-3.4); Lymphocytes % (auto) 34.9 %; Mean Corpuscular Hgb Conc 32.1 g/dL (32-36); Mean Corpuscular Volume 100.9 fL (80-100); Mean Platelet Volume 11.8 fL (7.4-10.4); Monocytes # (auto) 0.29 K/uL (0.11-0.59); Monocytes % (auto) 5.8 %; Neutrophils # (auto) 2.82 K/uL (1.4-6.5); Neutrophils % (auto) 56.7 %; Platelet Count 191 K/uL (130-400); RDW Coefficient of Variation 12.6 % (11.5-14.5); RDW Standard Deviation 46.2 fL (36.4-46.3); Red Blood Count 3.46 M/uL (4.2-5.4); White Blood Count 4.98 K/uL (4.8-10.8)
[2018-12-22] MEDS: LEVOTHYROXINE SODIUM 75 MCG TABLET PO SCH (06:34)
[2018-12-22 06:55] LABS: BUN Creatinine Ratio 11.6 (10-20); Blood Urea Nitrogen 9 mg/dl (7-18); Calcium 8.8 mg/dl (8.5-10.1); Carbon Dioxide 25 mmol/L (21-32); Chloride 118 mmol/L (98-107); Creatinine Clr Calc Pharmacy 81.5 ml/min; Est GFR (African American) 107.5; Est GFR (Non-African American) 92.8; Glucose 89 mg/dl (70-99); Sodium 147 mmol/L (136-145); Troponin I < 0.015 ng/ml (0-0.045)
--- NOTE | 2018-12-22 07:24 | XRay Report ---
XR ribs BI 9 views CLINICAL HISTORY: Rib pain. Trauma. COMPARISON: None. DISCUSSION: There are multiple bilateral rib fractures which are likely old. No pneumothorax is visua lized. IMPRESSION: Multiple bilateral rib fractures, likely subacute and chronic. No pneumothorax identified . Electronically signed by: Moris Childers M.D. 12/22/2018 7:23 AM
[2018-12-22] MEDS: VITAMIN B COMPLEX TAB PO SCH (08:10)
[2018-12-22] MEDS: MULTIVITAMIN TAB PO SCH (08:10)
[2018-12-22] MEDS ORDERED: CARBAMAZEPINE 200 MG TABCR PO SCH (09:00)
[2018-12-22] MEDS ORDERED: levETIRAcetam 500 MG TAB PO SCH (09:00)
[2018-12-22] MEDS: D5W AND 1/2NSS 1,000 ML IV SCH ×2 (09:34→16:27)
[2018-12-22] MEDS ORDERED: LORazepam 1 MG TAB PO STA ×2 (11:38→15:13)
--- NOTE | 2018-12-22 11:52 | Hospitalist Progress Note ---
Date of Service delayed entry date of service as noted below December 22, 2018 Assessment & Plan (1) Hypotension: PCU Appropriate to hold home beta-gino for now IVF, atropine, glucagon as needed Accu-Cheks every 4 hours for now Hold home neuropsychotropics until patient more awake Psych consult RE suicidality, suicide watch for now Cervical MRI RE traumatic cervical pain with radiculopathy symptoms Orthopedics spine consult RE traumatic cervical pain Continue cervical collar until evaluated by Orthopedics Rib series, TTE RE traumatic chest pain DVT prophylaxis. SCDs RE possible Orthopedic spine procedure Full code Patient's boyfriend requesting updates from providers. Mr. Abel Huerta, contact #[phone]. Addendum : Upon arriving at PCU room, patient became upset by one-to-one suicide watch order. Patient denied prior suicidal statements. Will maintain suicide precautions until evaluated by Psychiatry. (2) Syncope: Likely secondary to orthostasis, bradycardia Metoprolol for PVCs held Monitor heart rate and blood pressure, continue telemetry monitoring IV fluids ordered Also possible breakthrough seizure History of seizure disorder Neurologist Dr. Gonzalez consulted Recommend to increase Keppra 2000 mg twice daily Hypoglycemia Resolved Neck pain Developed after syncopal episode MRI cervical spine shows pain paracentral disc protrusion and C5-C6 Orthopedic spine service consulted History of anxiety, depression Psychiatry service consulted Confirmed that the patient did not have a suicide attempt Recommend to hold off on patient's antidepressant, likely rexulti as this can lower the seizure threshold Recommend to resume previous psychiatry medications hypothyroidism euthyroid chronic anemia baseline hemoglobin of 11 In the evening patient, developed syncope while standing brushing her teeth at the sink, she was supported by her significant other and did not hit the floor Patient reports feeling lightheaded and dizzy event She was noted to the bed, blood pressure systolic 111, heart rate also above 60s Blood sugars also fine Likely orthostasis, bedrest, IV fluids continued, metoprolol held Monitor orthostatic vitals Case discussed with patient and her significant other in detail and at length Comfortable and agreeable with plan of care DVT prophylaxis SCDs Disposition Lives at home PT OT evaluation and blood pressure stable stable Subjective ff up for syncope, seizure resting in bed, RN Don at bedside thru whole encounter not in distress, answers all questions appropriately states she still feels somewhat drowsy, tired recalls that she suddenly passed out while in the shower, felt she had a seizure, woke up with her on her side, felt somewhat confused has mild neck discomfort, left hand numbness, no other focal neurologic de ficits, denies other pain in her body States her mood is fine, denies taking more of her medications to harm herself No symptoms Review of Systems Review of Systems: All systems reviewed & are unremarkable except as noted in HPI & below Physical Exam Physical Exam: General- oriented x 3, not in distress, speaks in sentences with no effort or accessory muscle use Head- atraumatic Eyes- PERRL, EOMI, anicteric ENT- oropharynx clear Neck-collar in place Lungs- clear to auscultation bilaterally, no rales/wheezes Heart- normal rate, regular rhythm; no murmur, no gallop, no rub appreciated Abdomen- normal bowel sounds, nondistended, soft, nontender, no masses or hepatosplenomegaly Extremities- no pretibial edema, no calf tenderness; peripheral pulses intact Neuro- alert, oriented x 3; CN 2-12 grossly intact; motor 5/5 bilaterally;s ensation 100% on all extremities; no other gross focal neurologic deficits Skin- warm & dry Results & Data Vital Signs (Past 12 Hours) Vital Signs Temp Pulse Pulse Resp BP Pulse Ox 12/22/18 08:00 51 L 12/22/18 07:00 36.3 C L 64 18 98/59 L 100 12/22/18 02:43 36.3 C L 79 80 111/70 100 12/22/18 01:15 79 18 98/80 L 96
[2018-12-22] MEDS: CARBAMAZEPINE 100 MG CHEW TAB PO SCH ×2 (14:08→20:36)
[2018-12-22] MEDS: MAGNESIUM OXIDE 400 MG TAB PO SCH (14:08)
[2018-12-22] MEDS: TOPIRAMATE 100 MG TAB PO SCH ×2 (14:08→20:36)
[2018-12-22] MEDS: GABAPENTIN 400 MG CAP PO SCH ×2 (14:08→20:36)
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
--- NOTE | 2018-12-22 16:06 | Neurology Progress Note ---
Date of Service December 22, 2018 Assessment & Plan (1) Seizure disorder: I attempted to see NUPURMARYKAREN today, but she was not in her room. It is unclear to me if her recent events have been epileptic seizures vs non-epileptic. I don't think she needs to stay in the hospital from a n euological standpoint, and can call the neuro clinic on Monday. Could increase her keppra back to 2000mg BID if desired on discharge (although a negative carbamazepine level suggests that she may not be to her medications as prescribed). If she is still here tomorrow, I will see her. If possible, it would be helpful to obtain records from [facility] from November 2018, as she was recently there for evaluation of seizure-like events. Results & Data Vital Signs (Past 12 Hours) Vital Signs Temp Pulse Pulse Resp BP Pulse Ox 12/22/18 11:50 36.6 C 66 18 100/64 95 12/22/18 08:00 51 L 12/22/18 07:00 36.3 C L 64 18 98/59 L 100
[2018-12-22] MEDS: SERTRALINE HCL 100 MG TABLET PO SCH (16:26)
--- NOTE | 2018-12-22 17:21 | Magnetic Resonance Report ---
MR cervical spine wo con CLINICAL HISTORY: Traumatic neck pain with left upper extremity weakness. TECHNIQUE: Sagittal and axial T1, T2 and STIR images were obtained. COMPARISON STUDY: CT scan dated 12/21/2018 There are no suspicious areas of marrow replacement. No intrinsic cervical cord lesions are visualize d. There are no areas of marrow edema to indicate an occult fracture. C2-3: There is no evidence of disc bulge or focal herniation. There is no spinal or foraminal stenosi s. C3-4: There is no evidence of disc bulge or focal herniation. There is no spinal or foraminal stenosi s. C4-5: There are no disc bulges or focal herniations. There is no spinal or foraminal stenosis. C5-6 :There is a tiny left posterior central disc protrusion. There is slight effacement of the left anterior thecal sac. There is no significant foraminal narrowing C6-7: There is a tiny annular fissure. There is no significant spinal or foraminal stenosis. C7-T1: There is no evidence of disc bulge or focal herniation. There is no evidence of spinal or fora sparkle stenosis. There is no evidence of ligamentous disruption. IMPRESSION: 1. No acute traumatic findings. 2. No evidence of spinal cord contusion 3. No evidence of ligamentous disruption 4. Tiny left paracentral disc protrusion at the C5-6 level. Electronically signed by: Moris Childers M.D. 12/22/2018 5:20 PM
[2018-12-22] MEDS: levETIRAcetam 500 MG TAB PO SCH (20:37)
[2018-12-23] MEDS: D5W AND 1/2NSS 1,000 ML IV SCH ×3 (02:09→18:13)
[2018-12-23] MEDS: LEVOTHYROXINE SODIUM 75 MCG TABLET PO SCH (06:26)
[2018-12-23] MEDS: SERTRALINE HCL 100 MG TABLET PO SCH (08:54)
[2018-12-23] MEDS: MULTIVITAMIN TAB PO SCH (08:54)
[2018-12-23] MEDS: CARBAMAZEPINE 100 MG CHEW TAB PO SCH ×2 (08:55→20:47)
[2018-12-23] MEDS: GABAPENTIN 400 MG CAP PO SCH ×3 (08:55→20:46)
[2018-12-23] MEDS: TOPIRAMATE 100 MG TAB PO SCH ×2 (08:56→20:46)
[2018-12-23] MEDS: MAGNESIUM OXIDE 400 MG TAB PO SCH (08:56)
[2018-12-23] MEDS: VITAMIN B COMPLEX TAB PO SCH (08:57)
[2018-12-23] MEDS: levETIRAcetam 500 MG TAB PO SCH ×2 (09:34→20:47)
--- NOTE | 2018-12-23 10:45 | Consultation Report ---
DATE OF CONSULTATION: 12/23/2018 Orthopedic consultation coverage for Dr. Schmitz for neck problem. HISTORY OF PRESENT ILLNESS: The patient is a 48-year-old female, who was admitted to the hospital following an unwitnessed syncopal episode. She has a long history of mental health issue as well as question pseudoseizure versus seizure disorder. She had an unwitnessed fall where she struck her head. She was admitted to the hospital on Monday evening. She has had an extensive workup including CAT scan and MRI of her neck. At the point she was brought to the Emergency Room, she was hypotensive, bradycardic and hypoglycemic. She received IV glucagon, atropine for possible beta-gino overdose. The patient became difficult to arouse and woke up after IV Narcan administration. PAST SURGICAL HISTORY: Remarkable for breast surgery, bunion surgery, clavicle surgery, shoulder surgery, hernia repair. FAMILY HISTORY: Remarkable for breast cancer, diabetes, heart disease. PERSONAL AND SOCIAL HISTORY: Remarkable for no tobacco use, past alcohol abuse per records. ALLERGIES: MULTIPLE MEDICATION ALLERGIES, ALSO IS ALLERGIC TO TREE NUTS, PENICILLIN. PREADMISSION MEDICATIONS: Include vitamins, baclofen, CBD extract, Tegretol, gabapentin, Keppra, levothyroxine, metoprolol, multivitamin, Zofran, Zoloft, Topamax and magnesium oxide. REVIEW OF SYSTEMS: Noncontributory today. Reveals no chest pain, shortness of breath, fever, chills, nausea, vomiting or headache. Chief complaint today is significant for pain in her left arm. She states it is globally numb. It is non-anatomic in distribution and complete. She states the whole arm feels like it fallen asleep and starting to wake up. Vital signs are stable. She is afebrile. Hematocrit has been stable in the mid 30s. EKG per Medicine. CT of her head, no acute pathology. CT of her cervical spine, no acute pathology. MRI of her spine reveals some minor disc changes, nothing that is causing any type of significant impending catastrophic spinal cord impingement. PHYSICAL EXAMINATION: Today reveals nothing focal. Has negative Lico sign. Has intact strength with poor effort on the left in median, radian, ulnar, suprascapular and axillary nerve distribution. Has initiate abduction, adduction of fingers, but has uncoordinated unreliable scissoring of her fingers. EPL, FPL intact. EDQ, FDP, FDS to the little finger intact. FDP, FDS to all digits intact. FPL intact. Elbow flexion, extension intact. Shoulder abduction and rotation intact.Bilateral neurologic exam of lower extremities is wnl.Reflexes upper and lower symmetric. Assessment: Cervival neck pain with mild dd and no cord compromise.Imaging Studies reviewed and are revealing no obvious fracture or surgical disc lesion. At this point, suggest continued medical management, neck collar. Consult when Dr. Schmitz is available for official spine consult. His office has been notified. At this point, there is nothing further to do except try to medically manage her symptoms. Consider dose of Decadron to help with some of the suspected slight nerve impingement. MTDD
[2018-12-23] MEDS ORDERED: DEXAMETHASONE SOD PHOSPHATE 8 MG in SYRINGE 0 ML IV ONE (11:00)
[2018-12-23 12:11] LABS: BUN Creatinine Ratio 7.5 (10-20); Calcium 8.3 mg/dl (8.5-10.1); Creatinine Clr Calc Pharmacy 84.8 ml/min; Est GFR (African American) 112.9; Est GFR (Non-African American) 97.4; Potassium 3.7 mmol/L (3.5-5.1)
--- NOTE | 2018-12-23 12:18 | Ultrasound Report ---
LEFT UPPER EXTREMITY VENOUS DOPPLER HISTORY: Left arm swelling. COMPARISON STUDY: None. FINDINGS: The left internal jugular vein and proximal subclavian vein are obscured by the patient's c ervical collar. The mid to distal left subclavian vein is patent. There is normal flow and compressib ility within the left axillary, basilic, brachial, radial, ulnar, and visualized cephalic veins. IMPRESSION: No DVT within the visualized left upper extremity. Electronically signed by: Finesse Polanco M.D. 12/23/2018 12:17 PM
--- NOTE | 2018-12-23 12:42 | Neurology Consultation ---
Date of Consultation December 23, 2018 Assessment & Plan (1) Syncope: This is a 48-year-old female with some sort of syncopal episode yesterday. It is unclear whether she had epileptic seizure or not. Certainly most causes of syncope are related to blood pressure cardiogenic. Her description of feeling lightheaded before the event may point towards hypotension or cardiogenic. That being said the patient did have some events last month concerning for possible seizure versus pseudoseizures. This occurred after her Keppra was decreased to 1500 mg twice a day. Recommendations: Recommend increasing Keppra back to 2000 mg twice a day to cover for possible seizure etiology. Continue home carbamazepine extended release 200 mg twice a day without any changes. (Med reconciliation is incorrect for this visit as carbamazepine should be twice a day not daily) If the patient continues to have uncontrolled events concerning for seizures, recommend referral to [facility] epilepsy monitoring unit. Follow-up in neurology clinic as previously instructed in May, or if she continues to have uncontrolled events sooner if needed. I had the patient sign medical release today so that we can get records from her recent stay at [facility] in November 2018. Agree with orthopedic consult to treat her symptoms symptomatically and to consider short course of steroids. History of Present Illness Reason for Consultation: Consultation for possible seizure Attending Physician: Dionicio Franklin MD History of Present Illness This is a 48-year-old left-handed female who is known to myself as I see her in neurology clinic for epilepsy and migraine headaches. Patient was seen in November for episodes concerning for possible seizure versus pseudoseizures. She was transferred to [facility]. Unfortunately I do not have notes from [facility] to review. She reports that no events were captured on EEG at [facility]. She reports that testing was normal at that time. I have had some concern in the past that she could have psychogenic nonepileptic events, versus a combination of epileptic and nonepileptic events. Patient has seem to respond appropriately to antiepileptic medications in the past indicating that her events could be simply epileptic seizures. When patient was seen in November I had lowered her Keppra to 1500 mg twice a day and increased her carbamazepine extended release to 200 mg twice a day in an effort to try to get her off Keppra in the event that this could potentially be worsening her moods (although patient denies any mood side effects). Patient at that time reported that her migraine headaches and seizures were under control with CBD. Yesterday patient presented to the hospital because she had some syncopal or unresponsive events. She was having neck pain and arm numbness with pain as well as chest pressure/pain. She was found to have several fractured ribs (which may be old), and MRI of the C-spine reported images were reviewed by myself and essentially unremarkable. She has not few mild bulging disc but no signs of cord injury or compression. In addition no signs of nerve impingement. Patient reports that she still has pain and numbness in her left arm but seems to be improving. She does not know why she passed out or if it was a seizure. She does report that she felt lightheaded beforehand. Orthostatics this morning were unremarkable, although the patient's blood pressure does seem to run on the low side. Allergies Allergy/AdvReac Type Severity Reaction Status Date / Time tree nut Allergy Severe ANAPHYLAXIS Verified 12/21/18 21:19 Penicillins Allergy Intermediate HIVES Verified 12/21/18 21:19 Home Medications Home Medications Medication Instructions Recorded Confirmed Type vitamin B complex-folic acid 1 tab PO DAILY 11/28/18 12/21/18 History baclofen 10 mg PO TID 11/30/18 12/21/18 History cannabidiol (CBD) extract 2 - 3 units PO DAILY 11/30/18 12/21/18 History carbamazepine [Tegretol XR] 200 mg PO DAILY 11/30/18 12/21/18 History gabapentin 300 mg PO TID 11/30/18 12/21/18 History levetiracetam [Keppra] 1,500 mg PO BID 11/30/18 12/21/18 History levothyroxine 75 mcg PO DAILY 11/30/18 12/21/18 History metoprolol tartrate 25 mg PO DAILY 11/30/18 12/21/18 History multivitamin 1 tab PO DAILY 11/30/18 12/21/18 History ondansetron HCl [Zofran] 4 mg PO TID PRN 11/30/18 12/21/18 History sertraline [Zoloft] 200 mg PO DAILY 11/30/18 12/21/18 History topiramate [Topamax] 200 mg PO BID 11/30/18 12/21/18 History magnesium oxide 400 mg PO DAILY 12/21/18 12/21/18 History Patient History Medical History Seizure disorder (Chronic) Hypothyroidism (Chronic) Raynauds phenomenon (Chronic) History of sarcoidosis (Chronic) Alcohol abuse (Acute) Hypokalemia (Acute) Syncope, non cardiac (Acute) Surgical History Hx of cholecystectomy (Chronic) H/O foot surgery (Chronic) H/O shoulder surgery (Chronic) H/O hernia repair (Chronic) History of esophagogastroduodenoscopy (EGD) (Chronic) Family History Other Breast cancer Diabetes Hypertension Myocardial infarction Social History Preferred Language: Kiswahili Communication Ability: Effective Beliefs That Will Affect Care: None marital status: Current Living Situation: Spouse current occupational status: employed Other Information That Helps Us Care for You: No Feels Safe at Home: Yes Safety Concerns: Feels Safe At This Time Smoking Status: Unknown if ever smoked Hx Alcohol Use: No Hx Substance Use: Yes Substance Use Type Other:: cannabis oil Review of Systems Review of Systems: All systems reviewed & are unremarkable except as noted in HPI & below Physical Exam Physical Exam: Gen.: Patient is alert and oriented in no acute distress lying in bed Heart: Regular rate and rhythm Extremities: No gross deformities or rashes noted Neurological examination: Mental status: Patient is alert and oriented to person place and time. Able to give own history. Good fund of knowledge. Attention and concentration normal for the situation. Recent and remote memory intact Speech is fluent without any dysarthria or aphasia noted Cranial nerves: Funduscopic examination was unremarkable with no signs of papilledema. Pupils equally round and reactive to light. Extraocular muscles intact without nystagmus. No facial asymmetry noted. Facial sensation intact. Tongue midline. Good palatal elevation. Good shoulder shrug bilaterally. Hearing grossly intact voice. Strength: 5/5 both proximal and distal in all extremities, with give way weaknes s secondary to pain in left upper extremity.Tone is normal. Sensation: Grossly intact to light touch in all extremities with the exception of decreased sensation diffusely in the left arm Deep tendon reflexes: +2 in bilateral biceps and patellar. Coordination: Patient has good finger to nose without dysmetria Station within the bed is normal. Results & Data Vital Signs (Past 12 Hours) Vital Signs Temp Pulse Pulse Resp BP Pulse Ox 12/23/18 08:00 64 12/23/18 07:08 36.6 C 65 18 101/63 94 12/23/18 03:49 36.4 C L 70 15 95/63 L 96 (1) Syncope Syncope type: unspecified Qualified Code(s): R55 - Syncope and collapse
--- NOTE | 2018-12-23 17:30 | Hospitalist Progress Note ---
Date of Service December 23, 2018 Assessment & Plan (1) Syncope: Likely secondary to orthostasis, bradycardia Metoprolol for PVCs held Heart rate mostly in the 60s 70s while awake, couple of PVCs overnight Pressure still on the low side Hold metoprolol Monitor orthostatic vital signs IV fluids ordered Also possible breakthrough seizure History of seizure disorder Neurologist Dr. Gonzalez consulted Recommend to increase Keppra 2000 mg twice daily If persistent, recommend [facility] referral Hypoglycemia Resolved Neck pain Developed after syncopal episode MRI cervical spine shows pain paracentral disc protrusion and C5-C6 Orthopedic spine service consulted recommend trial of Decadron History of anxiety, depression Psychiatry service consulted Confirmed that the patient did not have a suicide attempt Recommend to hold off on patient's antidepressant, likely rexulti as this can lower the seizure threshold Recommend to resume previous psychiatry medications Mood stable Left flank pain In the abdomen, patient was reporting persistent sharp left flank pain, denies urinary symptoms Renal ultrasound ordered to rule out nephrolithiasis Monitor closely hypothyroidism euthyroid chronic anemia baseline hemoglobin of 11 Case discussed with patient in detail and at length Comfortable and agreeable with plan of care DVT prophylaxis SCDs Hold anti-coagulation as patient is high risk for falls at this time Disposition Lives at home PT OT evaluation when blood pressure stable stable Subjective Follow-up for syncope, orthostasis, possible breakthrough seizure Seen sitting up in bed, awake, alert, not distressed Appears brighter today States she feels improved today compared to yesterday Denies confusion, focal neurologic deficits except for mild numbness of the left upper extremity Headache, dizziness, palpitations, chest pain, shortness of breath Ambulated to the commode today with no symptoms Denies other symptoms Review of Systems Review of Systems: All systems reviewed & are unremarkable except as noted in HPI & below Physical Exam Physical Exam: General- oriented x 3, not in distress, speaks in sentences with no effort or accessory muscle use Eyes- anicteric Neck- no JVD Lungs- clear BS bilaterally Heart- normal rate, regular rhythm; no murmurs Abdomen- normal bowel sounds, nondistended, soft, nontender Extremities-positive moderate edema of the left upper extremity, no warmth/tenderness ;no pretibial edema, no calf tenderness Neuro- alert, oriented x 3; no gross focal neurologic deficits Skin- warm & dry Results & Data Vital Signs (Past 12 Hours) Vital Signs Temp Pulse Pulse Resp BP Pulse Ox 12/23/18 16:20 63 12/23/18 15:48 36.6 C 74 18 99/64 L 94 12/23/18 08:00 64 12/23/18 07:08 36.6 C 65 18 101/63 94 Laboratory Results Laboratory Results - last 24 hr 12/22/18 12/23/18 12/23/18 19:53 07:22 11:12 Sodium Potassium Chloride Carbon Dioxide Anion Gap BUN Creatinine Est Cr Clr Drug Dosing Est GFR ( Amer) Est GFR (Non-Af Amer) BUN/Creatinine Ratio Glucose POC Glucose 111 H 121 H 101 H Calcium 12/23/18 12/23/18 11:27 16:23 Sodium 142 Potassium 3.7 D Chloride 112 H Carbon Dioxide 24 Anion Gap 6.0 BUN 5 L Creatinine 0.73 Est Cr Clr Drug Dosing 84.8 Est GFR ( Amer) 112.9 Est GFR (Non-Af Amer) 97.4 BUN/Creatinine Ratio 7.5 L Glucose 94 POC Glucose 158 H Calcium 8.3 L
--- NOTE | 2018-12-23 19:08 | Ultrasound Report ---
RENAL ULTRASOUND HISTORY: left flank pain, r/o nephrolithiasis COMPARISON: None. FINDINGS: Right kidney: 8.9 cm. No hydronephrosis. Normal corticomedullary differentiation and cortical thickne ss. Left kidney: 8.9 cm. No hydronephrosis. Normal corticomedullary differentiation and cortical thicknes s. Bladder: No bladder wall thickening. The bilateral ureteral jets were identified. IMPRESSION: Normal renal ultrasound. Electronically signed by: Finesse Polanco M.D. 12/23/2018 7:06 PM
[2018-12-23] MEDS ORDERED: LORazepam 0.5 MG/1 ML VIAL IV STA (20:44)
[2018-12-24] MEDS: D5W AND 1/2NSS 1,000 ML IV SCH ×2 (01:20→08:18)
[2018-12-24] MEDS: LEVOTHYROXINE SODIUM 75 MCG TABLET PO SCH (05:51)
[2018-12-24] MEDS: TOPIRAMATE 100 MG TAB PO SCH ×2 (08:19→20:53)
[2018-12-24] MEDS: MULTIVITAMIN TAB PO SCH (08:19)
[2018-12-24] MEDS: SERTRALINE HCL 100 MG TABLET PO SCH (08:19)
[2018-12-24] MEDS: VITAMIN B COMPLEX TAB PO SCH (08:19)
[2018-12-24] MEDS: GABAPENTIN 400 MG CAP PO SCH ×3 (08:20→20:53)
[2018-12-24] MEDS: levETIRAcetam 500 MG TAB PO SCH ×2 (08:20→20:53)
[2018-12-24] MEDS: MAGNESIUM OXIDE 400 MG TAB PO SCH (08:20)
[2018-12-24] MEDS: CARBAMAZEPINE 100 MG CHEW TAB PO SCH ×2 (08:20→20:53)
[2018-12-24] MEDS: BACLOFEN 20 MG TAB PO PRN (09:15)
[2018-12-24 12:47] LABS: BUN Creatinine Ratio 5.1 (10-20); Calcium 8.2 mg/dl (8.5-10.1); Est GFR (African American) 114.8; Potassium 3.2 mmol/L (3.5-5.1)
[2018-12-24] MEDS ORDERED: POTASSIUM CHLORIDE 10 MEQ TABCR PO ONE (15:00)
--- NOTE | 2018-12-24 18:00 | Hospitalist Progress Note ---
Date of Service delayed entry date of serivce noted below December 24, 2018 Assessment & Plan (1) Syncope: Likely secondary to orthostasis, bradycardia Metoprolol for PVCs held Heart rate mostly in the 60s 70s while awake, couple of PVCs overnight BP improved Metoprolol discontinued Also possible breakthrough seizure History of seizure disorder Neurologist Dr. Gonzalez consulted Recommend to increase Keppra 2000 mg twice daily If persistent, recommend [facility] epilepsy center referral will discuss with Dr. Blanco re: overnight's event Hypoglycemia Resolved Neck pain Developed after syncopal episode MRI cervical spine shows pain paracentral disc protrusion and C5-C6 Orthopedic spine service consulted :trial of Decadron, improved History of anxiety, depression Psychiatry service consulted Confirmed that the patient did not have a suicide attempt Recommend to hold off on patient's antidepressant, likely rexulti as this can lower the seizure threshold Recommend to resume previous psychiatry medications Mood stable Left flank pain In the abdomen, patient was reporting persistent sharp left flank pain, denies urinary symptoms Renal ultrasound ordered to rule out nephrolithiasis resolved hypothyroidism euthyroid chronic anemia baseline hemoglobin of 11 Case discussed with patient in detail and at length Comfortable and agreeable with plan of care DVT prophylaxis SCDs Hold anti-coagulation as patient is high risk for falls at this time Disposition Lives at home PT OT evaluation Subjective ff up for breakthrough seizure seen resting in bed, comfortable overnight, patient was found to be "slumped over bedrail patient was woken up, no confusion- postictal symptoms noted no recurrence since denies confusion, headache, dizziness states she feels that she continues to improve neck pain improving, no L arm numbness denies other symptoms Review of Systems Review of Systems: All systems reviewed & are unremarkable except as noted in HPI & below Physical Exam Physical Exam: General- oriented x 3, not in distress, speaks in sentences with no effort or accessory muscle use Eyes- anicteric Neck- no JVD Lungs- clear BS BL Heart- normal rate, regular rhythm; no murmurs Abdomen- normal bowel sounds, nondistended, soft, nontender Extremities- no pretibial edema, no calf tenderness Neuro- alert, oriented x 3; no gross focal neurologic deficits Skin- warm & dry Results & Data Vital Signs (Past 12 Hours) Vital Signs Temp Pulse Pulse Resp BP Pulse Ox 12/24/18 15:37 36.8 C 18 12/24/18 10:35 36.6 C 79 16 108/75 99 12/24/18 09:36 80 12/24/18 07:57 36.6 C 82 18 102/65 96 Laboratory Results all noted and reviewed
[2018-12-25] MEDS: LEVOTHYROXINE SODIUM 75 MCG TABLET PO SCH (06:08)
[2018-12-25 06:40] LABS: Calcium 8.3 mg/dl (8.5-10.1); Creatinine Clr Calc Pharmacy 83.7 ml/min; Est GFR (Non-African American) 95.8; Magnesium 1.9 mg/dl (1.8-2.4); Potassium 3.7 mmol/L (3.5-5.1)
[2018-12-25] MEDS ORDERED: POTASSIUM CHLORIDE 10 MEQ TABCR PO STA (08:05)
[2018-12-25] MEDS: BACLOFEN 20 MG TAB PO PRN (08:34)
[2018-12-25] MEDS: GABAPENTIN 400 MG CAP PO SCH ×2 (08:34→14:56)
[2018-12-25] MEDS: SERTRALINE HCL 100 MG TABLET PO SCH (08:34)
[2018-12-25] MEDS: MAGNESIUM OXIDE 400 MG TAB PO SCH (08:34)
[2018-12-25] MEDS: TOPIRAMATE 100 MG TAB PO SCH (08:35)
[2018-12-25] MEDS: CARBAMAZEPINE 100 MG CHEW TAB PO SCH (08:35)
[2018-12-25] MEDS: VITAMIN B COMPLEX TAB PO SCH (08:35)
[2018-12-25] MEDS: MULTIVITAMIN TAB PO SCH (08:35)
[2018-12-25] MEDS: levETIRAcetam 500 MG TAB PO SCH (08:35)
--- NOTE | 2018-12-25 14:18 | Hospitalist Progress Note ---
Date of Service December 25, 2018 Assessment & Plan (1) Syncope: Likely secondary to orthostasis, bradycardia Metoprolol for PVCs held Heart rate mostly in the 70s while awake, no PVCs overnight given IV fluids Blood pressure stable, now systolic 110s patient ambulating with no problems cleared by PT/OT to return home Also Possible breakthrough seizure History of Seizure disorder Neurologist Dr. Gonzalez consulted Recommend to increase Keppra 2000 mg twice daily If persistent, recommend [facility] epilepsy center referral Hypoglycemia Resolved Neck pain Developed after syncopal episode MRI cervical spine shows pain paracentral disc protrusion and C5-C6 Orthopedic spine service consulted recommend trial of Decadron-- neck pain improved left arm numbness resolved History of anxiety, depression Psychiatry service consulted- Dr. Hunter Confirmed that the patient did not have a suicide attempt Recommend to hold off on patient's antidepressant, likely rexulti as this can lower the seizure threshold Recommend to resume other previous psychiatry medications Mood stable since admission ff up with Psychiatrist as scheduled 1st week of January Left flank pain In the abdomen, patient was reporting persistent sharp left flank pain, denies urinary symptoms Renal ultrasound: no Nephrolithiasis resolved Hypothyroidism euthyroid Chronic anemia baseline hemoglobin of 11 Case discussed with patient in detail and at length Comfortable and agreeable with plan of care Disposition Lives at home d/c home ff up with PCp 01/04/19 (patient has travel plans to [place] this week) ff up with Psychiatrist 1st week of January Subjective ff up for syncope seen resting in bed, comfortable sitting up, using tablet in good spirits states she feels better overall denies syncope/presyncope recurrence denies dizziness, nausea, chest pain, dyspnea, palpitations ambulating with no problems has some posterior neck pain, no left arm numbness denies other symptoms states she is ready and would like to be discharged today Review of Systems Review of Systems: All systems reviewed & are unremarkable except as noted in HPI & below Physical Exam Physical Exam: General- oriented x 3, not in distress, speaks in sentences with no effort or accessory muscle use Eyes- anicteric Neck- no JVD Lungs- clear breath sounds bilaterally Heart- normal rate, regular rhythm; no murmurs Abdomen- normal bowel sounds, nondistended, soft, nontender Extremities- no pretibial edema, no calf tenderness mild Left arm edema: no erythema/warmth Neuro- alert, oriented x 3; no gross focal neurologic deficits left arm 5/5 motor strength Skin- warm & dry Results & Data Vital Signs (Past 12 Hours) Vital Signs Temp Pulse Pulse Resp BP Pulse Ox 12/25/18 11:13 36.8 C 73 18 117/74 95 12/25/18 08:25 64 12/25/18 07:00 36.8 C 95 H 16 96 12/25/18 04:00 36.6 C 72 16 103/69 94
--- NOTE | 2018-12-25 14:38 | Discharge Summary ---
Date of Service December 25, 2018 Admission HPI Per Admitting Provider History obtained from patient, family, and records. Patient is a fair historian. History limited by partial sedation during encounter. Medical history significant for seizure/pseudoseizure disorder, sarcoidosis, anxiety disorder, migraine, hypothyroidism, frequent PVCs on beta-gino Rx, autonomic orthostatic hypotension as per records, chronic anemia baseline hemoglobin of 11. Recent confinement November 2018 for intentional (suicidal) drug (Benadryl) overdose. Patient subsequently discharged to mental health unit. Patient had an unwitnessed syncopal event in the shower, thinks she may have had a seizure. Patient sustained head and chest trauma. Achy headache. Neck pain shooting down the left arm, left upper extremity weakness, pleuritic central chest pain with shortness of breath. Patient brought to the emergency room. Episodic hypotension, bradycardia, hypoglycemia noted at the ER. IV Glucagon and Atropine given for possible beta-gino overdose. Patient subsequently became difficult to rouse at the ER despite normal blood sugars. Patient woke up after IV Narcan administration. Half-asleep, patient admitted to taking her home medications and amounts more than prescribed to harm herself because of stress. 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 Admission Exam Per Admitting Provider GENERAL: Lethargic, uncomfortable, no respiratory distress SKIN: Pallor, warm HEENT: Pale palpebral conjunctivae, no ptosis, dry buccal mucosa NECK : Cervical collar in place, left lateral tenderness CHEST : Decreased effort, bilateral chest wall tenderness HEART : Bradycardic, no obvious murmurs ABDOMEN: Some distention, nontender EXTREMITIES : No LE swelling/tenderness, no other conspicuous deformities noted NEUROLOGIC : Lethargic, no facial asymmetry, MMTS LUE/RUE 4/5 Principal Diagnosis BREAKTHROUGH SEIZURE Discharge Exam General- oriented x 3, not in distress, speaks in sentences with no effort or accessory muscle use Eyes- anicteric Neck- no JVD Lungs- clear breath sounds bilaterally Heart- normal rate, regular rhythm; no murmurs Abdomen- normal bowel sounds, nondistended, soft, nontender Extremities- no pretibial edema, no calf tenderness mild Left arm edema: no erythema/warmth Neuro- alert, oriented x 3; no gross focal neurologic deficits left arm 5/5 motor strength Skin- warm & dry Discharge Data Allergies Allergy/AdvReac Type Severity Reaction Status Date / Time tree nut Allergy Severe ANAPHYLAXIS Verified 12/21/18 21:19 Penicillins Allergy Intermediate HIVES Verified 12/21/18 21:19 Consultations 12/21/18 22:03 ED Decision to Admit Stat 12/22/18 11:50 Consult Neurology Routine 12/23/18 08:55 Consult Orthopedic Surgery Routine Ordered Studies 12/21/18 20:04 CT cervical spine wo con Stat IMPRESSION: No fractures within the cervical spine. CT head/brain wo con Stat Impression: No acute intracranial abnormality. 12/22/18 01:38 MR cervical spine wo con Routine IMPRESSION: 1. No acute traumatic findings. 2. No evidence of spinal cord contusion 3. No evidence of ligamentous disruption 4. Tiny left paracentral disc protrusion at the C5-6 level. 12/23/18 10:40 US venous doppler UE LT Stat IMPRESSION: No DVT within the visualized left upper extremity 12/23/18 17:19 US renal/blad retro comp Routine IMPRESSION: Normal renal ultrasound. Hospital Course (1) Syncope: Likely secondary to orthostasis, bradycardia Metoprolol for PVCs held Heart rate mostly in the 70s while awake, no PVCs overnight given IV fluids Blood pressure stable, now systolic 110s patient ambulating with no problems cleared by PT/OT to return home Also Possible breakthrough seizure History of Seizure disorder Neurologist Dr. Gonzalez consulted Recommend to increase Keppra 2000 mg twice daily If persistent, recommend [facility] epilepsy center referral Hypoglycemia Resolved Neck pain Developed after syncopal episode MRI cervical spine shows pain paracentral disc protrusion and C5-C6 Orthopedic spine service consulted recommend trial of Decadron-- neck pain improved left arm numbness resolved History of anxiety, depression Psychiatry service consulted- Dr. Hunter Confirmed that the patient did not have a suicide attempt Recommend to hold off on patient's antidepressant, likely rexulti as this can lower the seizure threshold Recommend to resume other previous psychiatry medications Mood stable since admission ff up with Psychiatrist as scheduled 1st week of January Left flank pain In the abdomen, patient was reporting persistent sharp left flank pain, denies urinary symptoms Renal ultrasound: no Nephrolithiasis resolved Hypothyroidism euthyroid Chronic anemia baseline hemoglobin of 11 Case discussed with patient in detail and at length Comfortable and agreeable with plan of care Disposition Lives at home d/c home ff up with PCp 01/04/19 (patient has travel plans to [place] this week) ff up with Psychiatrist week january Total Time Total Time Spent Total Time Spent (In Minutes): 45 minutes Discharge Plan Discharge Items Patient Disposition: Home - Self-Care Reason For Visit: EPISODIC HYPOTENSION, DRUG OD Discharge Diagnosis: SYNCOPE, LIKELY FROM ORTHOSTASIS, POSSIBLE BREAKTHROUGH SEIZURE Discharge Goals: Diagnostic testing and Therapeutic intervention Activity: As commented below Activity Comment: NO HEAVY EXERTION UNTIL RE-EVALUATED BY PRIMARY CARE PHYSICIAN Lifting: Wait until after follow-up appointment Bathing Comment: NO BATHING IN THE TUB Exercise/Sports: Wait until after follow-up appointment Driving/Machine Use Comment: NO DRIVING Non-emergency contact: Primary Care Provider Call non-emergency contact if: you have any medication questions, your symptoms worsen, your pain is not controlled and you have a fever Follow-up/Referrals: Lorraine Garza MD [Primary Care Provider] - 01/04/19 1:25 pm Diet: Regular Addtl Provider Instructions: PLEASE FOLLOW UP WITH THE PSYCHIATRIST SCHEDULED WEEK January. ALSO FOLLOW UP WITH ORTHOPEDIC CLINIC DR. BARTH IN 1-2 WEEKS. PLEASE CALL HIS OFFICE FOR AN APPOINTMENT. TEL NO. . FOLLOW UP WITH NEUROLOGIST DR. FLETCHER SCHEDULED. CALL PRIMARY CARE PHYSICIAN IMMEDIATELY IF WITH DIZZINESS/LIGHTHEADEDNESS, WEAKNESS, INCREASING NECK PAIN, ARM NUMBNESS/PAIN/SWELLING. CALL 911 IMMEDIATELY IF WITH RECURRENCE OF PASSING OUT, SEIZURES. NO DRIVING, OPERATING MACHINERIES, SWIMMING, BATHING IN THE TUB, HEIGHTS. PLEASE REVIEW YOUR NEW MEDICATION LIST AND FOLLOW INSTRUCTIONS CAREFULLY. KEEP THE NECK COLLAR IN PLACE UNTIL FOLLOW UP WITH THE ORTHOPEDIC SURGEON. STAY WELL HYDRATED, DRINK PLENTY OF FLUIDS. EAT A WELL BALANCED DIET AND ENSURE THREE MEALS IN A DAY. Prescriptions: New levetiracetam [Keppra] 500 mg Tablet 2,000 mg PO BID 30 Days Qty: 240 RF: 1 hydroxyzine HCl 25 mg Tablet 25 mg PO Q6H PRN (Reason: anxiety) 7 Days Qty: 10 RF: 0 acetaminophen 500 mg capsule 500 mg PO Q6H PRN (Reason: pain) 7 Days Qty: 14 RF: 0 Continued multivitamin Tablet 1 tab PO DAILY RF: 0 sertraline [Zoloft] 100 mg Tablet 200 mg PO DAILY RF: 0 topiramate [Topamax] 200 mg Tablet 200 mg PO BID RF: 0 gabapentin 100 mg Capsule 300 mg PO TID RF: 0 ondansetron HCl [Zofran] 4 mg Tablet 4 mg PO TID PRN (Reason: Nausea) RF: 0 cannabidiol (CBD) extract 2 - 3 units PO DAILY RF: 0 levothyroxine 75 mcg Tablet 75 mcg PO DAILY RF: 0 vitamin B complex-folic acid 0.4 mg Tablet 1 tab PO DAILY RF: 0 magnesium oxide 400 mg magnesium Tablet 400 mg PO DAILY RF: 0 Changed baclofen 10 mg Tablet 10 mg PO TID PRN (Reason: MUSCLE SPASMS) 7 Days Qty: 0 RF: 0 Discontinued levetiracetam [Keppra] 500 mg Tablet 1,500 mg PO BID RF: 0 metoprolol tartrate 25 mg Tablet 25 mg PO DAILY RF: 0 carbamazepine [Tegretol XR] 200 mg Tablet Extended Release 12 Hr 200 mg PO DAILY RF: 0 Stand-Alone Forms: Call Back Authorization, [facility] Discharge Orders: Discharge Order (Routine); Ordered 12/25/18 Ordered By: Dionicio Franklin Admission Data Admit Date/Time: 12/22/18 01:33 Attending Provider: Dionicio Franklin Admit Provider: Carlos Sharp Primary Care Provider: Lorraine Garza Other Providers: Carlos Sharp ; Andrew Greenwood ; Demarcus Millan III ; Bess Fletcher ; Joan Szymanski ; Sarthak Lee ; Jose Francisco Barth Service: Telemetry Other Interventions: Discharge Summary Assessment (RN) Last Done: 12/25/18 14:37 DC Date/Time DO NOT enter until pt leaves facility: 12/25/18 17:33
--- NOTE | 2018-12-25 16:03 | Orthopedic Progress Note ---
Date of Service December 25, 2018 Assessment & Plan (1) Neck pain: She was seen and examined by Dr. Farrell today. MRI of her c-spine was reviewed. She has a small left sided paracentral disc protrusion at the C5-6 level. We recommended continued conservative management. She can be discharged from an orthopedic standpoint when medically ready. She can continue use of the collar for comfort as needed, tylenol for pain, and follow up with Dr. Schmitz in approx 2 weeks at our office. [phone] Nuno is a 48 y/o female, initially seen by Dr. Iqbal for an orthopedic consult. She had a fall, which she states was either a syncopal episode or seizure, and now has some neck pain. She still has some neck pain. She's been in a cervical collar. She reports some tingling in the LUE. Denies any gait problems or weakness in her legs. No neck pain prior to this episode. Physical Exam Physical Exam: She's alert, NAD. She has a cervical collar on. 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 Results & Data Vital Signs (Past 12 Hours) Vital Signs Temp Pulse Pulse Pulse Resp BP BP 12/25/18 15:42 36.8 C 69 18 125/80 12/25/18 14:37 36.8 C 66 73 18 117/74 102/68 12/25/18 11:13 36.8 C 73 18 117/74 12/25/18 08:25 64 12/25/18 07:00 36.8 C 95 H 16 Pulse Ox 12/25/18 15:42 98 12/25/18 14:37 95 12/25/18 11:13 95 12/25/18 08:25 12/25/18 07:00 96
[2018-12-27 11:50] LABS: Levetiracetam Keppra < 1.0 mcg/mL; Topiramate 10.2 mcg/mL
== END 2018-12-25 17:33 | disposition home or self-care (01) | DRG 100 ==
LOC: ED 19:12 → 2S 12-22 01:33
DX: Z80.9 Family history of malignant neoplasm, unspecified; G92 Toxic encephalopathy; G40.909 Epilepsy, unspecified, not intractable, without status epilepticus; I73.00 Raynaud's syndrome without gangrene; E03.9 Hypothyroidism, unspecified; D86.9 Sarcoidosis, unspecified; F43.10 Post-traumatic stress disorder, unspecified; Z90.49 Acquired absence of other specified parts of digestive tract; T44.7X5A Adverse effect of beta-adrenoreceptor antagonists, initial encounter; R00.1 Bradycardia, unspecified; I95.9 Hypotension, unspecified; F41.9 Anxiety disorder, unspecified; F32.1 Major depressive disorder, single episode, moderate; Z82.49 Family history of ischemic heart disease and other diseases of the circulatory system; M54.2 Cervicalgia; Z88.0 Allergy status to penicillin; Z79.899 Other long term (current) drug therapy; Z83.3 Family history of diabetes mellitus

== ENCOUNTER 2019-01-04 02:33 | Inpatient (IN) ==
--- OUTSIDE RECORDS SUMMARY | 2019-01-04 02:36 | External Medical Summary | Continuity of Care Document ---
:1970 Author Name Vernon Weldon, Provider Address Unavailable Unavailable , Care Team Providers Name Role Phone Todd Weldon, Sudarshan Venegas Unavailable [email or web address] Unavailable [email or web address] MEREDITH Unavailable [email or web address] MAINALI Unavailable Unavailable Unavailable Unavailable Unavailable Problems Anxiety disorder (300.00) (F41.9) Musculocutaneous nerve lesion, right Syncope and collapse (780.2) (R55) Labral tear of shoulder (840.8) (S43.439A) Traumatic partial tear of biceps tendon (840.8) (S46.119A) Filemon's thyroiditis (245.2) (E06.3) Hypothyroidism (244.9) (E03.9) Insomnia (780.52) (G47.00) Arm pain, diffuse, right (729.5) (M79.601) Arm pain, diffuse, left (729.5) (M79.602) Irregular heart beat (427.9) (I49.9) Classic migraine with aura (346.00) (G43.109) Epilepsy (345.90) (G40.909) Allergies and Adverse Reactions Penicillins (Allergy) Nuts (Allergy) Medications Vitamin B Complex Oral Tablet; TAKE 1 TABLET DAILY. Start: 18-Sep-2014 Refills: 0 Magnesium Oxide 400 MG Oral Tablet; TAKE 1 TABLET DAILY. Start: 18-Sep-2014 Refills: 0 Multi Vitamin Daily Oral Tablet; TAKE 1 TABLET DAILY. Start: 18-Sep-2014 Refills: 0 levETIRAcetam 500 MG Oral Tablet; TAKE 3 TABLETS TWICE DAILY DO Bess Blanco Start: 18-Sep-2014 Quantity: 180 Refills: 5 carBAMazepine ER 200 MG Oral Capsule Ext ended Release 12 Hour; TAKE 1 CAPSULE EVERY 12 HOURS DAILY. DO Bess Blanco Start: 11-Jan-2018 Quantity: 60 Refills: 5 Baclofen 10 MG Oral Tablet; TAKE 1 TABLET 3 times daily Refills: 0 Potassium TABS Refills: 0 Sertraline HCl - 100 MG Oral Tablet; TAKE 2 TABLETS DAILY. Start: 18-Nov-2014 Refills: 0 Gabapentin 100 MG Oral Capsule; TAKE 3 CAPSULE 3 times daily Refills: 0 Topiramate 200 MG Oral Tablet; take 1 tablet by mouth twice a day DO Bess Blanco Start: 07-Jan-2015 Quantity: 60 Refills: 5 Metoprolol Tartrate 25 MG Oral Tablet; TAKE 1 TABLET DAILY. Start: 19-Oct-2016 Refills: 0 Ondansetron HCl - 4 MG Oral Tablet; TAKE 1-2 TABLETS THREE TIMES DAILY NEEDED FOR NAUSEA DO Bess Blanco Start: 19-Oct-2016 Quantity: 30 Refills: 0 Cannabidiol (CBD); as directed DO Bess Blanco Start: 12-May-2018 Quantity: 1 Refills: 0 Levothyroxine Sodium 75 MCG Oral Tablet; TAKE 1 TABLET DAILY DIRECTED. Shiraz Brooks Start: 25-Jun-2018 Quantity: 90 Refills: 3 Procedures History of Umbilical Hernia Repair Statu s: Completed History of Cholecystotomy Status: Comple lc History of Foot Surgery Status: Complete d Immunizations Immunizations not documented Family History Mother Family history unknown (V49.89) (Z78.9) Status: Active Father Family history unknown (V49.89) (Z78.9) Status: Active Social History - Smoking Status Never smoker Plan of Treatment Planned Encounters Appointment; Joan Szymanski PA-C Start: 24-May-2019 15:30 R equest Planned Observations Planned Goals not documented Results No Known Results Results not documented Encounters Appointment; Bess Blanco DO 21-Nov-2018 15:20 Encounter Diagnosis: Problem not documented Appointment; Jamey Lind PA-C 22-Jun-2018 13:50 Encounter Diagnosis: Problem not documented Appointment; Bess Blanco DO 22-May-2018 14:40 Encounter Diagnosis: Problem not documented Appointment; Bess Blanco DO 11-Jan-2018 16:00 Encounter Diagnosis: Problem not documented Appointment; Bess Blanco DO 25-Oct-2017 14:20 Encounter Diagnosis: Problem not documented Appointment; Bess Blanco DO 22-Jun-2017 14:40 Encounter Diagnosis: Problem not documented Appointment; Jamey Lind PA-C 13-Apr-2017 13:50 Encounter Diagnosis: Problem not documented Appointment; Joan Szymanski PA-C 24-May-2019 15:30 Encounter Diagnosis: Problem not documented
[2019-01-04] MEDS ORDERED: SODIUM CHLORIDE 0.9% 1000ML 1,000 ML IV ONE (02:47)
[2019-01-04 03:00] LABS: Appearance Urine Clear (Clear); Bilirubin Urine Negative (Negative); Blood Urine Negative (Negative); Color Urine Yellow; Glucose Urine UA Negative (Negative); Ketones Urine Negative (Negative); Leukocyte Esterase Urine Negative (Negative); Nitrite Urine Negative (Negative); Protein Urine Negative (Negative); Urobilinogen Urine Negative (Negative); pH Urine 7.5 (4.5-7.5)
[2019-01-04 03:19] LABS: Basophils # (auto) 0.03 K/uL (0-0.2); Basophils % (auto) 0.5 %; Eosinophils # (auto) 0.25 K/uL (0-0.5); Eosinophils % (auto) 4.2 %; Hematocrit (blood only) 32.3 % (37-47); Hemoglobin 10.9 g/dL (12.0-16.0); Immature Granulocytes # (auto) 0.01 K/uL (0.00-0.02); Immature Granulocytes % (auto) 0.2 %; Lymphocytes # (auto) 2.61 K/uL (1.2-3.4); Lymphocytes % (auto) 43.8 %; Mean Corpuscular Hgb Conc 33.7 g/dL (32-36); Mean Corpuscular Volume 94.4 fL (80-100); Monocytes # (auto) 0.37 K/uL (0.11-0.59); Monocytes % (auto) 6.2 %; Neutrophils # (auto) 2.69 K/uL (1.4-6.5); Neutrophils % (auto) 45.1 %; Platelet Count 236 K/uL (130-400); RDW Coefficient of Variation 12.4 % (11.5-14.5); RDW Standard Deviation 42.4 fL (36.4-46.3); Red Blood Count 3.42 M/uL (4.2-5.4); White Blood Count 5.96 K/uL (4.8-10.8)
[2019-01-04 03:21] LABS: Amphetamines+Metham, Urine Neg (Neg); Barbiturates, Urine Neg (Neg); Benzodiazepine, Urine Neg (Neg); Cocaine, Urine Neg (Neg); MDMA (Ecstacy), Urine Neg (Neg); Methadone, Urine Neg (Neg); Opiate, Urine Neg (Neg); Phencyclidine, Urine Neg (Neg)
[2019-01-04 03:28] LABS: Prothrombin Time 10.3 Seconds (9.0-12.0)
[2019-01-04 03:31] LABS: HCO3 ABG 22 mmol/L (19-24); Oxygen Saturation ABG 99.4 % (90-95); PCO2 ABG 33 mmHg (35-46); PO2 ABG 172 mm/Hg (80-95); pH ABG 7.44 (7.35-7.45)
[2019-01-04 03:32] LABS: Allen Test Pos (Pos)
[2019-01-04 03:37] LABS: Alanine Aminotransferase 13 U/L (12-78); Albumin Level 3.2 gm/dl (3.4-5.0); Aspartate Aminotransferase 18 U/L (15-37); Blood Urea Nitrogen 7 mg/dl (7-18); Calcium 8.7 mg/dl (8.5-10.1); Carbon Dioxide 23 mmol/L (21-32); Chloride 112 mmol/L (98-107); Creatinine Clr Calc Pharmacy 94.1 ml/min; Est GFR (African American) 114.8; Glucose 90 mg/dl (70-99); Potassium 3.4 mmol/L (3.5-5.1); Sodium 141 mmol/L (136-145)
[2019-01-04 03:40] LABS: Pregnancy Test, Serum Negative (Negative)
[2019-01-04 03:43] LABS: Albumin Globulin Ratio 0.9 (0.9-2); Alkaline Phosphatase 71 U/L (45-117); Bilirubin,Total 0.2 mg/dl (0.2-1); Globulin 3.4 gm/dl (2.5-4.0); Total Protein 6.6 gm/dl (6.4-8.2); Troponin I < 0.015 ng/ml (0-0.045)
[2019-01-04 03:49] LABS: Phosphorus 2.7 mg/dl (2.5-4.9)
[2019-01-04] MEDS: MAGNESIUM SULFATE / D5W 1 GM/100 ML BAG IV SCH ×2 (03:52→04:59)
[2019-01-04 03:56] LABS: Acetaminophen < 2 ug/ml (10-30); Salicylate < 1.7 mg/dl (2.8-20)
[2019-01-04] MEDS ORDERED: LORazepam 2 MG/4 ML VIAL ONE (04:03)
[2019-01-04] MEDS ORDERED: LORazepam 0.5 MG/1 ML VIAL IV STA (04:13)
[2019-01-04] MEDS ORDERED: SODIUM CHLORIDE 0.9% 1000ML 1,000 ML IV SCH (05:15)
--- NOTE | 2019-01-04 06:39 | XRay Report ---
XR chest 1V portable CLINICAL HISTORY: od dyspnea COMPARISON STUDY: 12/22/2018 FINDINGS: Lungs are clear. Diaphragms are smooth. Old fracture right clavicle. Old separation right a cromioclavicular joint. IMPRESSION: Chronic change. No acute process. The above report was generated using voice recognition software. It may contain grammatical, syntax or spelling errors. Electronically signed by: Caesar Damon M.D. 01/04/2019 6:37 AM
[2019-01-04] MEDS ORDERED: POTASSIUM CHLORIDE 20 MEQ TABCR PO STA (06:47)
[2019-01-04] MEDS ORDERED: NITROGLYCERIN SL 0.4 MG/TAB TAB SL PRN (06:50)
[2019-01-04] MEDS ORDERED: ONDANSETRON 4 MG TAB PO PRN (06:50)
[2019-01-04] MEDS ORDERED: LORazepam 1 MG/2 ML VIAL IV PRN (06:50)
[2019-01-04] MEDS ORDERED: ACETAMINOPHEN 325 MG TAB PO PRN (06:50)
--- NOTE | 2019-01-04 08:02 | History and Physical Report ---
DATE OF ADMISSION: 01/04/2019 CHIEF COMPLAINT: Drug overdose, suicidal ideation. HISTORY OF PRESENT ILLNESS: This is a 48-year-old female with past medical history significant for seizures, migraines, hypothyroidism, history of mitral valve prolapse, arthritis, hypertension, GERD, history of Raynaud's phenomenon, sarcoidosis, general anxiety disorder, history of drug overdose with Benadryl in November and recently in December with a beta gino overdose, now presents with drug overdose of carbamazepine. The patient's boyfriend was in the room, but by the time I saw her the boyfriend left. The patient in the ER had a short like few seconds of seizure activity and 5 minutes of confusion and was given like a small dose of 0.5 IV Ativan. Currently drowsy but arousable and answers appropriately. Can tell her name, knows today's date, and knows that she is in the hospital and can tell her date of . She said she took a bottle of carbamazepine, seems to be 30 to 50 tablets. Last admission, carbamazepine was stopped and she her Keppra dose was increased for seizures. Patient says that she had thoughts to hurt herself at that time, but now she is okay. Denies any headache, no blurred visions, no sore throat, no chest pain, no shortness of breath, no abdominal pain, no nausea. She has normal bowel and bladder movements. No melena or hematochezia or hematuria. No swelling in the legs. No rash. Currently resting comfortable and hemodynamically stable. Her QT was prolonged at 504 and though her magnesium was 2, poison control recommended 2 g of magnesium and recheck magnesium levels every 6 hours and also recheck EKG every 6 hours and to monitor until patient is asymptomatic. ALLERGIES: TREE NUTS, PENICILLINS. PAST MEDICAL HISTORY: As mentioned above. PAST SURGICAL HISTORY: Right breast core biopsy, left foot bunion surgery, colonoscopy, EGDs, right clavicle repair, right shoulder arthroscopy, umbilical hernia repair. MEDICATIONS: She was discharged on Keppra 2000 mg p.o. b.i.d., hydralazine 25 mg p.o. q. 6 hours p.r.n. for anxiety, Tylenol 500 mg p.o. q. 6 hours p.r.n., multivitamin 1 tablet daily, Zoloft 200 mg p.o. daily, Topamax 200 mg p.o. b.i.d., gabapentin 300 mg p.o. t.i.d., Zofran 4 mg p.o. t.i.d. p.r.n., CBD extract 2-3 units p.o. daily, levothyroxine 75 mcg p.o. daily, vitamin B complex 1 tablet daily, magnesium 400 mg p.o. daily. FAMILY HISTORY: Significant for mother had breast cancer and diabetes, aunt has breast cancer, maternal grandmother had breast cancer, and maternal grandfather had heart disorder. SOCIAL HISTORY: . No smoking, history of alcoholism, has been sober since 2012, but her alcohol level was high today. No drug use as per records. REVIEW OF SYMPTOMS: As per HPI. Rest of the review of symptoms negative. PHYSICAL EXAMINATION: GENERAL: The patient is drowsy but arousable, not in acute distress. VITAL SIGNS: Temperature 36.5, pulse 80, respiratory rate 17, blood pressure 87/75, oxygen 99% on 2 L. HEENT: No pallor, no icterus. Pupils are equal, round, and reactive to light. NECK: No JVD, no neck masses, no carotid bruits. CARDIOVASCULAR: S1, S2 heard, regular rate and rhythm, no murmur, no gallop. RESPIRATORY: Normal AP diameter, no accessory muscle use. No wheezes, no crackles. ABDOMEN: Soft, bowel sounds present. Nontender. No distention. CENTRAL NERVOUS SYSTEM: Drowsy, but alert and oriented x3. Answers questions appropriately. Moves extremities. EXTREMITIES: No edema, no erythema. SKIN: Tattoos seen all over the body. LABORATORY DATA: WBC 5.9, hemoglobin 10.9, hematocrit 32.8, platelets 236. PT 10.3, INR 1. Blood gases , pH 7.44, pCO2 of 33, pO2 of 172, bicarbonate 22, on 6 L. Sodium 141, potassium 3.4, chloride 112, CO2 of 23, BUN 7, creatinine 0.7, serum glucose 90, calcium 8.7, phosphorus 2.7, magnesium 2, total bilirubin 0.2, AST 18, ALT 13, alkaline phosphatase 71. Troponin I less than 0.015. Lipase 149. TSH 1.12. HCG negative. Urinalysis negative. Toxicology screen, salicylate less than 1.7, acetaminophen less than 2. Urine tox screen negative. Alcohol level 124. IMAGING DATA: Chest x-ray, no acute findings. EKG: Normal sinus rhythm with rate of 73 with QTC of 504. ASSESSMENT AND PLAN: This is a 48-year-old female who presents with drug overdose and suicidal ideation. 1. Drug overdose. Recently patient in hospital in the last week of November. She was admitted for Benadryl overdose and on December 22 again she was admitted for beta-gino overdose and discharged on 12/25/2018. Supposed to follow with PCP on 01/04/2019 and also with psychiatry in first week of January. Presents again with overdose of carbamazepine. Carbamazepine was actually stopped last admission. Her beta-gino was also stopped last admission and her Keppra was increased from 1500mg to 2000 mg b.i.d. Actually carbamazepine can also cause suicidal ideations, but it was stopped last admission, but patient seems to have taken 30-50 tablets today. Overdose of carbamazepine can be proconvulsant and cause seizures and also hypertension. She had a few seconds of seizure episode in the ER and was given 0.5 of IV Ativan. Currently resting comfortably and stable. Her QTC was 504 and poison control, even though magnesium was 2, recommended 2 g of IV magnesium, which she was given in the ER. To recheck EKG in 6 hours and also magnesium in 6 hours and monitor patient in the tele floor until patient is asymptomatic. We will place the patient on intravenous fluids. Full liquid diet for now. Avoid QT prolongation agents. Continue her home Keppra and Topamax and IV Ativan p.r.n. for breakthrough seizures. One-on-one on suicidal watch and consult psychiatry and also consult neurology to help with seizure medications. Closely monitor in the tele floor. Repeat EKG every 6 hours. 2. Hypothyroidism, continue her home Synthroid. 3. Chronic anemia, baseline hemoglobin 11, today hemoglobin is 10.9, will monitor the labs. 4. Deep venous thrombosis prophylaxis, sequential compression devices for now. 5. Disposition: Closely monitor in tele floor. Level 1 full code. MTDD
[2019-01-04] MEDS ORDERED: VITAMIN B COMPLEX FOLIC ACID PO SCH (09:00)
[2019-01-04] MEDS ORDERED: levETIRAcetam 500 MG TAB PO SCH (09:00)
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
--- NOTE | 2019-01-04 12:31 | Hospitalist Progress Note ---
Date of Service January 04, 2019 Assessment & Plan (1) Overdose: This is a 48-year-old female who presents with drug overdose and suicidal ideation. Drug overdose - Recently patient in hospital in the last week for Benadryl overdose and on December 22 again she was admitted for beta-gino overdose and discharged on 12/25/2018 (for which beta gino and carbamazepine were discontinued) - Presents again with overdose of carbamazepine. Carbamazepine level was found to be in the toxic range as 21.6 mcg/ml due to taking excess medication -also positive alcohol levels in the urine -continue IV fluids -monitor on telemetry -continue 1 to 1 observation and suicide checks -psychiatry consultation requested Prolong QTC on EKG -QTC was 504 and poison control recommended giving 2 grams of IV magnesium even though admission serum magnesium was normal -serial EKGs are being performed because of concern for carbamazepine toxicity -Patient's EKG at noon on 01/04/19 with QTC at 482 Seizure disorder: -This is a 48-year-old female with epilepsy NOS - In the ED on this admission ; She had a few seconds of suspected seizure episode in the ER and was given 0.5 of IV Ativan. -as per initial neurology note, neurologist suspects that subsequent lethargy may have psychiatric component and it is not clear whether the shaking episodes seen in the ED was were true epileptic seizures vs pseudoseizures -Neurology service recommends to continue Keppra and Topamax and possible outpatient epilepsy monitoring -would hold Carbamazepine at this time and trend levels; neurology recommends that when carbamazeipine is no longer in toxic range then can resume home carbamazepine 200 mg twice a day Hypothyroidism -continue her home Synthroid. Chronic anemia Deep venous thrombosis prophylaxis, sequential compression devices for now. Subjective Patient is lethargic. snoring and difficult to arouse. she was able to open her eyes briefly and make eye contact but then went back to sleep. Patient was seen when psychiatry nurse in the room to try to get more medical history but patient cannot give history at this time. Patient's EKG at noon on 01/04/19 with QTC at 482 Physical Exam Constitutional: + lethargic Eyes: PERRL, conjunctivae normal, anicteric sclerae ENMT: external ear and nose normal, oropharynx normal Neck: normal visual inspection Respiratory: normal respiratory effort, lungs clear to auscultation Cardiovascular: RRR, no murmur, no edema Gastrointestinal (Abdomen): normal bowel sounds, soft, nontender, no hepatosplenomegaly Results & Data Vital Signs (Past 12 Hours) Vital Signs Temp Pulse Pulse Pulse Resp BP BP 01/04/19 11:58 36.6 C 93 H 20 108/63 01/04/19 08:00 80 01/04/19 07:13 36.6 C 85 18 127/83 01/04/19 06:51 36.6 C 84 22 123/85 01/04/19 05:31 80 17 87/73 L 01/04/19 05:30 80 18 01/04/19 05:02 87 18 01/04/19 05:01 70 11 L 85/56 L 01/04/19 05:00 71 12 01/04/19 04:32 69 01/04/19 04:31 68 93/63 L 01/04/19 04:30 69 01/04/19 04:14 70 14 01/04/19 04:13 70 14 98/70 L 01/04/19 04:05 73 4 L 108/68 01/04/19 03:31 76 19 115/79 01/04/19 03:28 68 71 12 110/78 110/78 01/04/19 02:39 36.5 C 75 14 121/86 Pulse Ox 01/04/19 11:58 92 01/04/19 08:00 01/04/19 07:13 96 01/04/19 06:51 98 01/04/19 05:31 99 01/04/19 05:30 01/04/19 05:02 98 01/04/19 05:01 98 01/04/19 05:00 98 01/04/19 04:32 100 01/04/19 04:31 100 01/04/19 04:30 100 01/04/19 04:14 100 01/04/19 04:13 100 01/04/19 04:05 100 01/04/19 03:31 98 01/04/19 03:28 98 01/04/19 02:39 100 (1) Overdose Encounter type: initial encounter Injury intent: intentional self-harm Qualified Code(s): T50.902A - Poisoning by unspecified drugs, medicaments and biological substances, intentional self-harm, initial encounter
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
[2019-01-04] MEDS: SODIUM CHLORIDE 0.9% 1000ML 1,000 ML IV SCH ×2 (13:20→16:23)
[2019-01-04] MEDS: TOPIRAMATE 100 MG TAB PO SCH ×2 (15:23→20:19)
[2019-01-04] MEDS: MULTIVITAMIN TAB PO SCH (15:23)
[2019-01-04] MEDS: MAGNESIUM OXIDE 400 MG TAB PO SCH (15:23)
[2019-01-04] MEDS: LEVOTHYROXINE SODIUM 75 MCG TABLET PO SCH (15:23)
[2019-01-04] MEDS: GABAPENTIN 300 MG CAP PO SCH ×2 (15:23→20:19)
[2019-01-04] MEDS: SERTRALINE HCL 100 MG TABLET PO SCH (15:24)
[2019-01-04] MEDS: levETIRAcetam 2,000 MG in DEXTROSE 5% 250 ML IV SCH (20:42)
--- NOTE | 2019-01-04 22:08 | Emergency Department Note ---
Entered by Elroy Reese acting as a scribe for History of Present Illness General Chief complaint: Overdose (Intentional) Stated complaint: overdose Source: EMS Mode of arrival: EMS Limitations: altered mental status History of Present Illness The patient is a 48 y/o female who presents to the ED w/ CC of an intentional overdose beginning 1.5 hours ago. EMS states the patient just returned home from [place]. They report when she returned home, she took about 30, 200mg tablets of Carbamazepin Extended release. EMS notes she waited an hour before telling her that she took the pills. They state police found the patient in her bed, unresponsive. EMS reports the patient was flaccid the entire time they brought her out to the ambulance. They note the patient started to seize in the ambulance which lasted <1 minute. No medication was given. The patients sats have been normal for EMS. No other VS abnormality. HPI limited secondary to the patient's AMS. Home Medications Home Medications Medication Instructions Recorded Confirmed Type vitamin B complex-folic acid 1 tab PO DAILY 11/28/18 01/04/19 History cannabidiol (CBD) extract 2 - 3 units PO DAILY 11/30/18 01/04/19 History gabapentin 300 mg PO TID 11/30/18 01/04/19 History levothyroxine 75 mcg PO DAILY 11/30/18 01/04/19 History multivitamin 1 tab PO DAILY 11/30/18 01/04/19 History ondansetron HCl [Zofran] 4 mg PO TID PRN 11/30/18 01/04/19 History sertraline [Zoloft] 200 mg PO DAILY 11/30/18 01/04/19 History topiramate [Topamax] 200 mg PO BID 11/30/18 01/04/19 History magnesium oxide 400 mg PO DAILY 12/21/18 01/04/19 History levetiracetam [Keppra] 2,000 mg PO BID 30 Days #240 tab 12/25/18 01/04/19 Rx hydroxyzine HCl 25 mg PO Q6H PRN 01/04/19 01/04/19 History Allergies Allergy/AdvReac Type Severity Reaction Status Date / Time tree nut Allergy Severe ANAPHYLAXIS Verified 01/04/19 02:57 Penicillins Allergy Intermediate HIVES Verified 01/04/19 02:57 Past Med/Surg History Medical History Seizure disorder (Chronic) Hypothyroidism (Chronic) Raynauds phenomenon (Chronic) History of sarcoidosis (Chronic) Alcohol abuse (Acute) Hypokalemia (Acute) Syncope, non cardiac (Acute) Surgical History Hx of cholecystectomy (Chronic) H/O foot surgery (Chronic) H/O shoulder surgery (Chronic) H/O hernia repair (Chronic) History of esophagogastroduodenoscopy (EGD) (Chronic) Family History Other Breast cancer Diabetes Hypertension Myocardial infarction Social History Preferred Language: Malay Communication Ability: Effective Beliefs That Will Affect Care: None marital status: Current Living Situation: Spouse current occupational status: employed Other Information That Helps Us Care for You: No Feels Safe at Home: Yes Safety Concerns: Feels Safe At This Time Smoking Status: Unknown if ever smoked Hx Alcohol Use: No Hx Substance Use: Yes Substance Use Type Other:: cannabis oil Review of Systems Unobtainable due to reduced consciousness Physical Exam Vital Signs Vital Signs - 24 hr 01/04/19 02:39 01/04/19 03:28 01/04/19 03:31 Temperature 36.5 C Temperature Source Oral Sepsis Recent Fever Within 48 Hours No Sepsis Action Taken by Nursing No Action Required Pulse Rate 75 68 76 Pulse Rate [Apical] 71 Pulse Rate [Left Brachial] Pulse Rate from SpO2 Sensor 76 73 Pulse Rhythm Regular Respiratory Rate 14 12 19 Respiratory Effort / Characteristics Non-Labored Spontaneous Non-Labored Spontaneous Respiratory Depth Normal Normal Blood Pressure 121/86 110/78 115/79 Blood Pressure [Left Arm] 110/78 Blood Pressure Mean 97 88 91 Blood Pressure Mean [Left Arm] 88 Blood Pressure Position Lying Blood Pressure Position [Left Arm] Lying Pulse Oximetry 100 98 98 Oxygen Delivery Method Room Air Room Air Oxygen Flow Rate 01/04/19 04:05 01/04/19 04:13 01/04/19 04:14 Temperature Temperature Source Sepsis Recent Fever Within 48 Hours Sepsis Action Taken by Nursing Pulse Rate 73 70 70 Pulse Rate [Apical] Pulse Rate [Left Brachial] Pulse Rate from SpO2 Sensor 73 70 71 Pulse Rhythm Respiratory Rate 4 L 14 14 Respiratory Effort / Characteristics Respiratory Depth Blood Pressure 108/68 98/70 L Blood Pressure [Left Arm] Blood Pressure Mean 81 79 Blood Pressure Mean [Left Arm] Blood Pressure Position Blood Pressure Position [Left Arm] Pulse Oximetry 100 100 100 Oxygen Delivery Method Nasal Cannula Oxygen Flow Rate 2 01/04/19 04:30 01/04/19 04:31 01/04/19 04:32 Temperature Temperature Source Sepsis Recent Fever Within 48 Hours Sepsis Action Taken by Nursing Pulse Rate 69 68 69 Pulse Rate [Apical] Pulse Rate [Left Brachial] Pulse Rate from SpO2 Sensor 69 68 70 Pulse Rhythm Respiratory Rate Respiratory Effort / Characteristics Respiratory Depth Blood Pressure 93/63 L Blood Pressure [Left Arm] Blood Pressure Mean 73 Blood Pressure Mean [Left Arm] Blood Pressure Position Blood Pressure Position [Left Arm] Pulse Oximetry 100 100 100 Oxygen Delivery Method Nasal Cannula Nasal Cannula Oxygen Flow Rate 2 2 2 01/04/19 05:00 01/04/19 05:01 01/04/19 05:02 Temperature Temperature Source Sepsis Recent Fever Within 48 Hours Sepsis Action Taken by Nursing Pulse Rate 71 70 87 Pulse Rate [Apical] Pulse Rate [Left Brachial] Pulse Rate from SpO2 Sensor 71 70 83 Pulse Rhythm Respiratory Rate 12 11 L 18 Respiratory Effort / Characteristics Respiratory Depth Blood Pressure 85/56 L Blood Pressure [Left Arm] Blood Pressure Mean 65 Blood Pressure Mean [Left Arm] Blood Pressure Position Blood Pressure Position [Left Arm] Pulse Oximetry 98 98 98 Oxygen Delivery Method Nasal Cannula Oxygen Flow Rate 2 2 01/04/19 05:30 01/04/19 05:31 01/04/19 06:30 Temperature Temperature Source Sepsis Recent Fever Within 48 Hours Sepsis Action Taken by Nursing Pulse Rate 80 80 Pulse Rate [Apical] Pulse Rate [Left Brachial] Pulse Rate from SpO2 Sensor 87 80 Pulse Rhythm Respiratory Rate 18 17 Respiratory Effort / Characteristics Respiratory Depth Blood Pressure 87/73 L Blood Pressure [Left Arm] Blood Pressure Mean 77 Blood Pressure Mean [Left Arm] Blood Pressure Position Blood Pressure Position [Left Arm] Pulse Oximetry 99 Oxygen Delivery Method Nasal Cannula Room Air Oxygen Flow Rate 2 01/04/19 06:51 01/04/19 07:13 01/04/19 08:00 Temperature 36.6 C 36.6 C Temperature Source Oral Oral Sepsis Recent Fever Within 48 Hours Sepsis Action Taken by Nursing Pulse Rate 80 Pulse Rate [Apical] 84 Pulse Rate [Left Brachial] 85 Pulse Rate from SpO2 Sensor Pulse Rhythm Respiratory Rate 22 18 Respiratory Effort / Characteristics Respiratory Depth Blood Pressure Blood Pressure [Left Arm] 123/85 127/83 Blood Pressure Mean Blood Pressure Mean [Left Arm] 97 97 Blood Pressure Position Blood Pressure Position [Left Arm] Semi-fowlers Pulse Oximetry 98 96 Oxygen Delivery Method Room Air Room Air Oxygen Flow Rate 01/04/19 11:58 01/04/19 14:57 01/04/19 16:00 Temperature 36.6 C 36.7 C Temperature Source Oral Oral Sepsis Recent Fever Within 48 Hours Sepsis Action Taken by Nursing Pulse Rate 80 Pulse Rate [Apical] Pulse Rate [Left Brachial] 93 H 95 H Pulse Rate from SpO2 Sensor Pulse Rhythm Respiratory Rate 20 18 Respiratory Effort / Characteristics Respiratory Depth Blood Pressure Blood Pressure [Left Arm] 108/63 121/74 Blood Pressure Mean Blood Pressure Mean [Left Arm] 78 89 Blood Pressure Position Blood Pressure Position [Left Arm] Semi-fowlers Semi-fowlers Pulse Oximetry 92 94 Oxygen Delivery Method Room Air Room Air Oxygen Flow Rate 01/04/19 18:54 Temperature 36.6 C Temperature Source Axillary Sepsis Recent Fever Within 48 Hours Sepsis Action Taken by Nursing Pulse Rate Pulse Rate [Apical] Pulse Rate [Left Brachial] 114 H Pulse Rate from SpO2 Sensor Pulse Rhythm Respiratory Rate 20 Respiratory Effort / Characteristics Respiratory Depth Blood Pressure Blood Pressure [Left Arm] 133/79 Blood Pressure Mean Blood Pressure Mean [Left Arm] 97 Blood Pressure Position Blood Pressure Position [Left Arm] Lying Pulse Oximetry 95 Oxygen Delivery Method Room Air Oxygen Flow Rate GENERAL: alert, well appearing, well nourished, no distress, non-toxic EYE EXAM: normal conjunctiva, PERRL and EOM's grossly intact OROPHARYNX: no exudate, no erythema, lips, buccal mucosa, and tongue normal and mucous membranes are moist NECK: supple, no nuchal rigidity, no adenopathy, non-tender LUNGS: Clear to auscultation. Normal chest wall mechanics. Left nasal pharyngeal airway placed w/o difficulty. HEART: no murmurs, S1 normal and S2 normal ABDOMEN: abdomen soft, non-tender, normo-active bowel sounds, no masses, no rebound or guarding. BACK: Back is symmetrical on inspection and there is no deformity, no midline tenderness, no CVA tenderness. SKIN: no rashes and no bruising UPPER EXTREMITIES: upper extremities are grossly normal. Nml pulses b/l, no evidence of trauma. LOWER EXTREMITIES: No pitting edema. Nml pulses b/l, no evidence of trauma. NEURO EXAM: Patient resists eye opening. No response to verbal or painful stimuli otherwise. Minimal gag reflex. Course 0233: The patient was evaluated in room B01. A complete history and physical exam was performed. 0244: The patient is now more awake and responding to questions. 0258: The patient is awake and trying to get a line in her. 0321: She is now awake and alert an the family is at the bedside. 0334: I discussed the case with Poison Control. They recommended the patient be given 2g of magnesium over 15 minutes due to her prolonged QTc. Then, repeat the magnesium level in 6 hours after it is given. 0354: The patient states she actually took 50 tablets instead of 30 minutes. 0402: The patient had brief seizure like activity per the nursing staff. The patient stopped seizing before I arrived in the room. Ativan 0.5 mg given. 0437: Discussed the patient's case with Dr. Brewster, [place] [facility]. The patient will be evaluated for further management. Administered Medications Gabapentin (Neurontin) 300 mg PO TID [facility] Stop: 02/03/19 08:59 Last Admin: 01/04/19 20:19 Dose: Not Given Documented by: [id number] Admin: 01/04/19 15:23 Dose: Not Given Documented by: [id number] Admin: 01/04/19 15:23 Dose: Not Given Documented by: [id number] Sodium Chloride (Nss 1000ml) 1,000 mls @ 125 mls/hr IV .Q8H CÉSAR Stop: 02/03/19 06:49 Last Admin: 01/04/19 16:23 Dose: 125 mls/hr Documented by: [id number] Infusion: 01/04/19 16:23 Dose: 125 mls/hr Documented by: [id number] Admin: 01/04/19 13:20 Dose: 125 mls/hr Documented by: [id number] Levetiracetam 2,000 mg/ (Dextrose) 270 mls @ 999 mls/hr IV BID CÉSAR Stop: 02/03/19 20:59 Last Infusion: 01/04/19 21:14 Dose: 0 mls/hr Documented by: [id number] Admin: 01/04/19 20:42 Dose: 999 mls/hr Documented by: [id number] Levothyroxine Sodium (Synthroid) 75 mcg PO DAILYBB CÉSAR Stop: 02/03/19 06:29 Last Admin: 01/04/19 15:23 Dose: Not Given Documented by: [id number] Magnesium Oxide (Mag-Ox) 400 mg PO DAILY CÉSAR Stop: 02/03/19 08:59 Last Admin: 01/04/19 15:23 Dose: Not Given Documented by: [id number] Multivitamins (Multivitamin Tab) 1 tab PO DAILY CÉSAR Stop: 02/03/19 08:59 Last Admin: 01/04/19 15:23 Dose: Not Given Documented by: [id number] Sertraline HCl (Zoloft) 200 mg PO DAILY CÉSAR Stop: 02/03/19 08:59 Last Admin: 01/04/19 15:24 Dose: Not Given Documented by: [id number] Topiramate (Topamax) 200 mg PO BID CÉSAR Stop: 02/03/19 08:59 Last Admin: 01/04/19 20:19 Dose: Not Given Documented by: [id number] Admin: 01/04/19 15:23 Dose: Not Given Documented by: [id number] Discontinued Medications Sodium Chloride (Nss 1000ml) 1,000 mls @ 999 mls/hr IV .Q1H1M ONE Stop: 01/04/19 03:47 Last Infusion: 01/04/19 04:16 Dose: 0 mls/hr Documented by: [id number] Admin: 01/04/19 03:15 Dose: 999 mls/hr Documented by: [id number] Magnesium Sulfate/Dextrose (Magnesium Sulfate / D5w) 1 gm in 100 mls @ 100 mls/hr IV Q1H CÉSAR Stop: 01/04/19 05:44 Last Infusion: 01/04/19 06:11 Dose: 0 mls/hr Documented by: [id number] Admin: 01/04/19 04:59 Dose: 100 mls/hr Documented by: [id number] Infusion: 01/04/19 04:52 Dose: 100 mls/hr Documented by: [id number] Admin: 01/04/19 03:52 Dose: 100 mls/hr Documented by: [id number] Lorazepam (Ativan) 0.5 mg in 1 mls @ 1 mls/min IV NOW STA Stop: 01/04/19 04:14 Last Admin: 01/04/19 04:16 Dose: Not Given Documented by: [id number] Sodium Chloride (Nss 1000ml) 1,000 mls @ 200 mls/hr IV .Q5H CÉSAR Stop: 02/03/19 05:14 Last Infusion: 01/04/19 19:10 Dose: 0 mls/hr Documented by: [id number] Admin: 01/04/19 05:03 Dose: 200 mls/hr Documented by: [id number] Levetiracetam (Keppra) 2,000 mg PO BID CÉSAR Stop: 02/03/19 08:59 Last Admin: 01/04/19 15:23 Dose: Not Given Documented by: [id number] Lorazepam (Ativan) Confirm Administered Dose 2 mg .ROUTE .STK-MED ONE Stop: 01/04/19 04:04 Last Admin: 01/04/19 04:06 Dose: 0.5 mg Documented by: [id number] Potassium Chloride (Klor-Con M20) 40 meq PO NOW STA Stop: 01/04/19 06:48 Last Admin: 01/04/19 15:23 Dose: Not Given Documented by: [id number] Medical Decision Making Differential Diagnosis Differential: Suicide Attempt, Mood Disorder, Poisoning, Medication OD, Narcotic OD, Tylenol OD, Salicylated OD, Prolonged QTc, Metabolic/Electrolyte imbalance, Trauma, Rhabdo, Infectious, amongst other pathologies entertained. Medical Records Attestation: I reviewed the patient's medical records. Home Medications Current Medication List: was personally reviewed by me Laboratory Data Attestation: I reviewed the patient's lab results. Result diagrams: 01/04/19 03:04 01/04/19 03:04 Lab Results 01/04/19 01/04/19 01/04/19 Range/Units 02:45 02:45 03:04 WBC (4.8-10.8) K/uL RBC (4.2-5.4) M/uL Hgb (12.0-16.0) g/dL Hct (37-47) % MCV (80-100) fL MCH (25-34) pg MCHC (32-36) g/dL RDW Std Deviation (36.4-46.3) fL RDW Coeff of Thea (11.5-14.5) % Plt Count (130-400) K/uL MPV (7.4-10.4) fL Immature Gran % (Auto) % Neut % (Auto) % Lymph % (Auto) % Crisp % (Auto) % Eos % (Auto) % Baso % (Auto) % Immature Gran # (Auto) (0.00-0.02) K/uL Neut # (Auto) (1.4-6.5) K/uL Lymph # (Auto) (1.2-3.4) K/uL Crisp # (Auto) (0.11-0.59) K/uL Eos # (Auto) (0-0.5) K/uL Baso # (Auto) (0-0.2) K/uL PT (9.0-12.0) Seconds INR (0.9-1.1) ABG pH 7.44 (7.35-7.45) ABG pCO2 33 L (35-46) mmHg ABG pO2 172 H (80-95) mm/Hg ABG HCO3 22 (19-24) mmol/L ABG O2 Saturation 99.4 H (90-95) % ABG Base Excess -1.8 (-9-1.8) mEq/L Forrest Test Pos (Pos) Barometric Pressure 732.2 mm/Hg Oxygen Given 6L O2 Sodium (136-145) mmol/L Potassium (3.5-5.1) mmol/L Chloride (98-107) mmol/L Carbon Dioxide (21-32) mmol/L Anion Gap (3-11) BUN (7-18) mg/dl Creatinine (0.6-1.2) mg/dl Est Cr Clr Drug Dosing ml/min Est GFR ( Amer) Est GFR (Non-Af Amer) BUN/Creatinine Ratio (10-20) Glucose (70-99) mg/dl Calcium (8.5-10.1) mg/dl Phosphorus (2.5-4.9) mg/dl Magnesium (1.8-2.4) mg/dl Total Bilirubin (0.2-1) mg/dl AST (15-37) U/L ALT (12-78) U/L Alkaline Phosphatase (45-117) U/L Troponin I (0-0.045) ng/ml Total Protein (6.4-8.2) gm/dl Albumin (3.4-5.0) gm/dl Globulin (2.5-4.0) gm/dl Albumin/Globulin Ratio (0.9-2) Lipase (73-393) U/L TSH (0.300-4.500) uIu/ml HCG, Qual (Negative) Urine Color Yellow Urine Appearance Clear (Clear) Urine pH 7.5 (4.5-7.5) Ur Specific [place] 1.010 (1.000-1.030) Urine Protein Negative (Negative) Urine Glucose (UA) Negative (Negative) Urine Ketones Negative (Negative) Urine Blood Negative (Negative) Urine Nitrite Negative (Negative) Urine Bilirubin Negative (Negative) Urine Urobilinogen Negative (Negative) Ur Leukocyte Esterase Negative (Negative) Salicylates (2.8-20) mg/dl Urine Opiates Screen Neg (Neg) Ur Methadone, Qual Neg (Neg) Acetaminophen (10-30) ug/ml Urine Barbiturates Neg (Neg) Carbamazepine (4-12) mcg/ml Ur Phencyclidine (PCP) Neg (Neg) U Amphetamin/Meth Scrn Neg (Neg) MDMA (Ecstasy) Screen Neg (Neg) U Benzodiazepines Scrn Neg (Neg) Ur Cocaine Metabolite Neg (Neg) U Marijuana (THC) Screen Neg (Neg) Ethyl Alcohol mg/dL (0-3) mg/dl 01/04/19 01/04/19 01/04/19 Range/Units 03:04 03:04 03:04 WBC 5.96 (4.8-10.8) K/uL RBC 3.42 L (4.2-5.4) M/uL Hgb 10.9 L (12.0-16.0) g/dL Hct 32.3 L (37-47) % MCV 94.4 (80-100) fL MCH 31.9 (25-34) pg MCHC 33.7 (32-36) g/dL RDW Std Deviation 42.4 (36.4-46.3) fL RDW Coeff of Thea 12.4 (11.5-14.5) % Plt Count 236 (130-400) K/uL MPV 11.0 H (7.4-10.4) fL Immature Gran % (Auto) 0.2 % Neut % (Auto) 45.1 % Lymph % (Auto) 43.8 % Crisp % (Auto) 6.2 % Eos % (Auto) 4.2 % Baso % (Auto) 0.5 % Immature Gran # (Auto) 0.01 (0.00-0.02) K/uL Neut # (Auto) 2.69 (1.4-6.5) K/uL Lymph # (Auto) 2.61 (1.2-3.4) K/uL Crisp # (Auto) 0.37 (0.11-0.59) K/uL Eos # (Auto) 0.25 (0-0.5) K/uL Baso # (Auto) 0.03 (0-0.2) K/uL PT 10.3 (9.0-12.0) Seconds INR 1.0 (0.9-1.1) ABG pH (7.35-7.45) ABG pCO2 (35-46) mmHg ABG pO2 (80-95) mm/Hg ABG HCO3 (19-24) mmol/L ABG O2 Saturation (90-95) % ABG Base Excess (-9-1.8) mEq/L Forrest Test (Pos) Barometric Pressure mm/Hg Oxygen Given Sodium 141 (136-145) mmol/L Potassium 3.4 L (3.5-5.1) mmol/L Chloride 112 H (98-107) mmol/L Carbon Dioxide 23 (21-32) mmol/L Anion Gap 6.0 (3-11) BUN 7 (7-18) mg/dl Creatinine 0.72 (0.6-1.2) mg/dl Est Cr Clr Drug Dosing 94.1 ml/min Est GFR ( Amer) 114.8 Est GFR (Non-Af Amer) 99.0 BUN/Creatinine Ratio 10.0 (10-20) Glucose 90 (70-99) mg/dl Calcium 8.7 (8.5-10.1) mg/dl Phosphorus 2.7 (2.5-4.9) mg/dl Magnesium 2.0 (1.8-2.4) mg/dl Total Bilirubin 0.2 (0.2-1) mg/dl AST 18 (15-37) U/L ALT 13 (12-78) U/L Alkaline Phosphatase 71 (45-117) U/L Troponin I < 0.015 (0-0.045) ng/ml Total Protein 6.6 (6.4-8.2) gm/dl Albumin 3.2 L (3.4-5.0) gm/dl Globulin 3.4 (2.5-4.0) gm/dl Albumin/Globulin Ratio 0.9 (0.9-2) Lipase 149 (73-393) U/L TSH 1.120 (0.300-4.500) uIu/ml HCG, Qual (Negative) Urine Color Urine Appearance (Clear) Urine pH (4.5-7.5) Ur Specific [place] (1.000-1.030) Urine Protein (Negative) Urine Glucose (UA) (Negative) Urine Ketones (Negative) Urine Blood (Negative) Urine Nitrite (Negative) Urine Bilirubin (Negative) Urine Urobilinogen (Negative) Ur Leukocyte Esterase (Negative) Salicylates (2.8-20) mg/dl Urine Opiates Screen (Neg) Ur Methadone, Qual (Neg) Acetaminophen (10-30) ug/ml Urine Barbiturates (Neg) Carbamazepine (4-12) mcg/ml Ur Phencyclidine (PCP) (Neg) U Amphetamin/Meth Scrn (Neg) MDMA (Ecstasy) Screen (Neg) U Benzodiazepines Scrn (Neg) Ur Cocaine Metabolite (Neg) U Marijuana (THC) Screen (Neg) Ethyl Alcohol mg/dL (0-3) mg/dl 01/04/19 01/04/19 01/04/19 Range/Units 03:04 03:04 03:05 WBC (4.8-10.8) K/uL RBC (4.2-5.4) M/uL Hgb (12.0-16.0) g/dL Hct (37-47) % MCV (80-100) fL MCH (25-34) pg MCHC (32-36) g/dL RDW Std Deviation (36.4-46.3) fL RDW Coeff of Thea (11.5-14.5) % Plt Count (130-400) K/uL MPV (7.4-10.4) fL Immature Gran % (Auto) % Neut % (Auto) % Lymph % (Auto) % Crisp % (Auto) % Eos % (Auto) % Baso % (Auto) % Immature Gran # (Auto) (0.00-0.02) K/uL Neut # (Auto) (1.4-6.5) K/uL Lymph # (Auto) (1.2-3.4) K/uL Crisp # (Auto) (0.11-0.59) K/uL Eos # (Auto) (0-0.5) K/uL Baso # (Auto) (0-0.2) K/uL PT (9.0-12.0) Seconds INR (0.9-1.1) ABG pH (7.35-7.45) ABG pCO2 (35-46) mmHg ABG pO2 (80-95) mm/Hg ABG HCO3 (19-24) mmol/L ABG O2 Saturation (90-95) % ABG Base Excess (-9-1.8) mEq/L Forrest Test (Pos) Barometric Pressure mm/Hg Oxygen Given Sodium (136-145) mmol/L Potassium (3.5-5.1) mmol/L Chloride (98-107) mmol/L Carbon Dioxide (21-32) mmol/L Anion Gap (3-11) BUN (7-18) mg/dl Creatinine (0.6-1.2) mg/dl Est Cr Clr Drug Dosing ml/min Est GFR ( Amer) Est GFR (Non-Af Amer) BUN/Creatinine Ratio (10-20) Glucose (70-99) mg/dl Calcium (8.5-10.1) mg/dl Phosphorus (2.5-4.9) mg/dl Magnesium (1.8-2.4) mg/dl Total Bilirubin (0.2-1) mg/dl AST (15-37) U/L ALT (12-78) U/L Alkaline Phosphatase (45-117) U/L Troponin I (0-0.045) ng/ml Total Protein (6.4-8.2) gm/dl Albumin (3.4-5.0) gm/dl Globulin (2.5-4.0) gm/dl Albumin/Globulin Ratio (0.9-2) Lipase (73-393) U/L TSH (0.300-4.500) uIu/ml HCG, Qual Negative (Negative) Urine Color Urine Appearance (Clear) Urine pH (4.5-7.5) Ur Specific [place] (1.000-1.030) Urine Protein (Negative) Urine Glucose (UA) (Negative) Urine Ketones (Negative) Urine Blood (Negative) Urine Nitrite (Negative) Urine Bilirubin (Negative) Urine Urobilinogen (Negative) Ur Leukocyte Esterase (Negative) Salicylates < 1.7 L (2.8-20) mg/dl Urine Opiates Screen (Neg) Ur Methadone, Qual (Neg) Acetaminophen < 2 L (10-30) ug/ml Urine Barbiturates (Neg) Carbamazepine (4-12) mcg/ml Ur Phencyclidine (PCP) (Neg) U Amphetamin/Meth Scrn (Neg) MDMA (Ecstasy) Screen (Neg) U Benzodiazepines Scrn (Neg) Ur Cocaine Metabolite (Neg) U Marijuana (THC) Screen (Neg) Ethyl Alcohol mg/dL 124.0 H (0-3) mg/dl 01/04/19 01/04/19 Range/Units 07:53 12:50 WBC (4.8-10.8) K/uL RBC (4.2-5.4) M/uL Hgb (12.0-16.0) g/dL Hct (37-47) % MCV (80-100) fL MCH (25-34) pg MCHC (32-36) g/dL RDW Std Deviation (36.4-46.3) fL RDW Coeff of Thea (11.5-14.5) % Plt Count (130-400) K/uL MPV (7.4-10.4) fL Immature Gran % (Auto) % Neut % (Auto) % Lymph % (Auto) % Crisp % (Auto) % Eos % (Auto) % Baso % (Auto) % Immature Gran # (Auto) (0.00-0.02) K/uL Neut # (Auto) (1.4-6.5) K/uL Lymph # (Auto) (1.2-3.4) K/uL Crisp # (Auto) (0.11-0.59) K/uL Eos # (Auto) (0-0.5) K/uL Baso # (Auto) (0-0.2) K/uL PT (9.0-12.0) Seconds INR (0.9-1.1) ABG pH (7.35-7.45) ABG pCO2 (35-46) mmHg ABG pO2 (80-95) mm/Hg ABG HCO3 (19-24) mmol/L ABG O2 Saturation (90-95) % ABG Base Excess (-9-1.8) mEq/L Forrest Test (Pos) Barometric Pressure mm/Hg Oxygen Given Sodium (136-145) mmol/L Potassium (3.5-5.1) mmol/L Chloride (98-107) mmol/L Carbon Dioxide (21-32) mmol/L Anion Gap (3-11) BUN (7-18) mg/dl Creatinine (0.6-1.2) mg/dl Est Cr Clr Drug Dosing ml/min Est GFR ( Amer) Est GFR (Non-Af Amer) BUN/Creatinine Ratio (10-20) Glucose (70-99) mg/dl Calcium (8.5-10.1) mg/dl Phosphorus (2.5-4.9) mg/dl Magnesium 2.3 (1.8-2.4) mg/dl Total Bilirubin (0.2-1) mg/dl AST (15-37) U/L ALT (12-78) U/L Alkaline Phosphatase (45-117) U/L Troponin I (0-0.045) ng/ml Total Protein (6.4-8.2) gm/dl Albumin (3.4-5.0) gm/dl Globulin (2.5-4.0) gm/dl Albumin/Globulin Ratio (0.9-2) Lipase (73-393) U/L TSH (0.300-4.500) uIu/ml HCG, Qual (Negative) Urine Color Urine Appearance (Clear) Urine pH (4.5-7.5) Ur Specific [place] (1.000-1.030) Urine Protein (Negative) Urine Glucose (UA) (Negative) Urine Ketones (Negative) Urine Blood (Negative) Urine Nitrite (Negative) Urine Bilirubin (Negative) Urine Urobilinogen (Negative) Ur Leukocyte Esterase (Negative) Salicylates (2.8-20) mg/dl Urine Opiates Screen (Neg) Ur Methadone, Qual (Neg) Acetaminophen (10-30) ug/ml Urine Barbiturates (Neg) Carbamazepine 21.6 H* (4-12) mcg/ml Ur Phencyclidine (PCP) (Neg) U Amphetamin/Meth Scrn (Neg) MDMA (Ecstasy) Screen (Neg) U Benzodiazepines Scrn (Neg) Ur Cocaine Metabolite (Neg) U Marijuana (THC) Screen (Neg) Ethyl Alcohol mg/dL (0-3) mg/dl Imaging Data Attestation: I personally reviewed and interpreted this imaging study as follows: My Impression: XR chest 1V: No pulmonary edema. No focal consolidation. No wide mediastinum. No effusion. ECG Data Attestation: I personally reviewed and interpreted this ECG as follows: Indication: toxicologic Rate (beats per minute): 73 Rhythm: sinus rhythm Findings: + other (Normal axis. Normal QRS. Prolonged QTc.); no ST depression, no ST elevation and no acute ischemic change Comparison ECG Date: from (10/06/17) Change: the following changes noted Additional Comments: Current QTc is more prolonged compared to prior. Blood Pressure Blood Pressure Findings: Low blood pressure Blood Pressure Disposition: further management by hospitalist MDM Narrative Pt here after intentional overdose. Initially unresponsive and seizure like episode for EMS and still unresponsive on arrival here. While preparing to intubate the patient due to GCS <8, pt began to have more purposeful movements. Never hypoxic, no tachycardia, BP stable. Pt's mentation improved and she was oriented and able to provide additional hx. Pt with prior hx of depression and prior suicide attempts. Case was discussed with poison control who agrees with plan for medical observation due to increased risk of seizures throughout long half life as pt's carbamazepine is extended release. Pt with prolonged QT hx, however today's EKG QT is more prolonged than usual. Given risk of dysrhythmia, increased seizure risk, case discussed with hospitalist for additional evaluation and mgmt. Mild alcohol intoxication also noted, however I do not feel this is a significant contributing factor to her current condition. Pt placed on suicide precautions and seizure precautions. No evidence of anticholinergic toxicity. Impression & Plan Overdose, Prolonged QT interval, Suicidal ideation, Seizure disorder Discharge Plan Visit Data *Final* Discharge Date/Time: 01/04/19 06:18 Chief Complaint: Overdose (Intentional) Stated Complaint: overdose ED Provider: Tala Dave Discharge Problem: Overdose, Prolonged QT interval, Suicidal ideation, Seizure disorder Patient Disposition: Admitted As Inpatient Condition: Fair Discharge Instructions Interventions: ED Discharge Assessment Last Done: 01/04/19 06:18 The scribe's documentation has been prepared under my direction and personally reviewed by me in its entirety. I confirm that the note above accurately reflects all work, treatment, procedures, and medical decision making performed by me.
[2019-01-04 22:19] LABS: Magnesium 2.2 mg/dl (1.8-2.4)
[2019-01-05] MEDS: SODIUM CHLORIDE 0.9% 1000ML 1,000 ML IV SCH ×4 (00:33→22:03)
[2019-01-05] MEDS: LEVOTHYROXINE SODIUM 75 MCG TABLET PO SCH (06:07)
[2019-01-05] MEDS: MAGNESIUM OXIDE 400 MG TAB PO SCH (08:02)
[2019-01-05] MEDS: SERTRALINE HCL 100 MG TABLET PO SCH (08:02)
[2019-01-05] MEDS: TOPIRAMATE 100 MG TAB PO SCH ×2 (08:02→20:23)
[2019-01-05] MEDS: GABAPENTIN 300 MG CAP PO SCH ×3 (08:02→20:23)
[2019-01-05] MEDS: MULTIVITAMIN TAB PO SCH (08:02)
[2019-01-05] MEDS: levETIRAcetam 2,000 MG in DEXTROSE 5% 250 ML IV SCH ×2 (08:21→20:31)
[2019-01-05 08:34] LABS: Basophils # (auto) 0.01 K/uL (0-0.2); Basophils % (auto) 0.1 %; Eosinophils # (auto) 0.02 K/uL (0-0.5); Eosinophils % (auto) 0.3 %; Hematocrit (blood only) 28.7 % (37-47); Hemoglobin 9.8 g/dL (12.0-16.0); Immature Granulocytes # (auto) 0.02 K/uL (0.00-0.02); Immature Granulocytes % (auto) 0.3 %; Lymphocytes # (auto) 1.07 K/uL (1.2-3.4); Lymphocytes % (auto) 14.1 %; Mean Corpuscular Hgb Conc 34.1 g/dL (32-36); Mean Corpuscular Volume 95.3 fL (80-100); Mean Platelet Volume 10.8 fL (7.4-10.4); Monocytes % (auto) 5.3 %; Neutrophils # (auto) 6.09 K/uL (1.4-6.5); Neutrophils % (auto) 79.9 %; Platelet Count 196 K/uL (130-400); RDW Coefficient of Variation 12.7 % (11.5-14.5); RDW Standard Deviation 43.4 fL (36.4-46.3); Red Blood Count 3.01 M/uL (4.2-5.4); White Blood Count 7.61 K/uL (4.8-10.8)
[2019-01-05 08:51] LABS: Albumin Level 2.8 gm/dl (3.4-5.0); BUN Creatinine Ratio 10.2 (10-20); Bilirubin Direct 0.1 mg/dl (0-0.2); Est GFR (African American) 119.9; Est GFR (Non-African American) 103.4; Magnesium 2.1 mg/dl (1.8-2.4)
[2019-01-05 08:54] LABS: Bilirubin,Total 0.4 mg/dl (0.2-1); Total Protein 5.8 gm/dl (6.4-8.2)
--- NOTE | 2019-01-05 09:22 | Hospitalist Progress Note ---
Date of Service January 05, 2019 Assessment & Plan (1) Overdose: This is a 48-year-old female who presents with drug overdose and suicidal ideation. Drug overdose - Recently patient in hospital in the last week for Benadryl overdose and on December 22 again she was admitted for beta-gino overdose and discharged on 12/25/2018 (for which beta gino and carbamazepine were discontinued) - Presents again with overdose of carbamazepine. Carbamazepine level was found to be in the toxic range as 21.6 mcg/ml due to taking excess medication -also positive alcohol levels in the urine -daily carbamazepine levels, carbamazepine peaked at 41.3 mcg/ml on 01/04/19 and downtrended to 27.4 mcg/ml 01/05/19 -continue IV fluids -monitor on telemetry and monitor EKGs daily -continue 1 to 1 observation and suicide checks -psychiatry consultation following but patient cannot engage in meaningful conversation at this time due to lethargy Prolong QTC on EKG -QTC was 504 and poison control recommended giving 2 grams of IV magnesium even though admission serum magnesium was normal -serial EKGs are being performed because of concern for carbamazepine toxicity -Patient's EKG at nightime of 01/05/19 with QTC at 471 -continue EKG daily monitoring and telemetry monitoring Seizure disorder: -This is a 48-year-old female with epilepsy NOS - In the ED on this admission ; She had a few seconds of suspected seizure episode in the ER and was given 0.5 of IV Ativan. -as per initial neurology note, neurologist suspects that subsequent lethargy may have psychiatric component and it is not clear whether the shaking episodes seen in the ED was were true epileptic seizures vs pseudoseizures -Neurology service recommends to continue Keppra and Topamax and possible outpatient epilepsy monitoring -would hold Carbamazepine at this time and trend levels; neurology recommends that when carbamazeipine is no longer in toxic range then can resume home carbamazepine 200 mg twice a day Hypokalemia -serum potassium is 3 on 01/05/19, will give IV potassium 10 meq x 4 Hypothyroidism -continue her home Synthroid. Chronic anemia Deep venous thrombosis prophylaxis, sequential compression devices for now. Subjective Patient is lethargic today but appears less somnolent than yesterday. Patient was able to take deep breaths when instructed and move her arms out of they way when asked to for chest auscultation. She was sleeping in position and was able to straighten her legs while laying on the bed when asked. Patient was encouraged to speak with physician but only mouthed words softly. We could not engage in conversation Physical Exam Constitutional: + lethargic Eyes: PERRL, conjunctivae normal, anicteric sclerae ENMT: external ear and nose normal, oropharynx normal Neck: normal visual inspection Respiratory: normal respiratory effort, lungs clear to auscultation Cardiovascular: RRR, no murmur, no edema Gastrointestinal (Abdomen): normal bowel sounds, soft, nontender, no hepatosplenomegaly Psychiatric: Eye Contact: + poor eye contact Results & Data Vital Signs (Past 12 Hours) Vital Signs Temp Pulse Resp BP Pulse Ox 01/05/19 07:25 36.8 C 96 H 20 153/78 H 93 01/05/19 03:32 36.9 C 108 H 18 122/75 95 01/04/19 23:05 36.9 C 111 H 16 133/82 97 (1) Overdose Encounter type: initial encounter Injury intent: intentional self-harm Qualified Code(s): T50.902A - Poisoning by unspecified drugs, medicaments and biological substances, intentional self-harm, initial encounter
[2019-01-05] MEDS: POTASSIUM CHLORIDE / WTR 10 MEQ/100 ML PLCT IV SCH ×4 (09:46→13:09)
--- NOTE | 2019-01-05 12:06 | Psychiatric Progress Note ---
Date of Service January 05, 2019 Impression / Recommendations Impression s/p Tegretol OD, ?polysubstance ingestion Continue prn Ativan and medical monitoring. Will hold Zoloft as well as can't exclude some degree of serotonin syndrome. Presentation could also be consistent with anticholinergic delirium. Will likely need inpatient mental health when medically cleared. Risk Factors Assessment Do You Have Access To A Gun?: No Interval History Chief Complaint delirium Review of Systems Notes patient unable to complete Subjective Subjective Contacted last night as patient had periods of calling out during the day and remained restless. Seemed to be posturing with her hands with unusual mouth movements, ?swelling of tongue. Confirmed patient not on atypical. Receiving prn Ativan per toxicology rec. Hasn't received Zoloft so far due to AMS. Case reviewed with Dr. Shepard briefly following MSE and review of psych consult. Patient with slightly elevated BP and tachy seemingly due to restlessness follow ing OD. Patient with history of recent anticholinergic OD and reviewed that presentation could be complicated by polypharm ingestion. Physical Exam Psychiatric Orientation: oriented to person; + not oriented to place, + not oriented to time and + uncooperative Apperance: not disheveled Eye Contact: not poor eye contact writhing on bed, picking up legs appearing uncomfortable, vocalized when asked if need to have a bowel movement so likely related to indwelling moreira. Calmed a bit when cardiac monitoring leads disconnected briefly during exam. Follows command intermittently, able to stick out tone. appears to have some jaw tremor and although no muscle tightness in legs has few beats of clonus both sides. odd vocalizations Affect: + blunted affect unable to assess Vital Signs (Past 24 Hours) Last Vital Signs Temp 36.8 C 01/05/19 07:25 Pulse 96 H 01/05/19 07:25 Resp 20 01/05/19 07:25 BP 153/78 H 01/05/19 07:25 Pulse Ox 93 01/05/19 07:25 Results & Data Laboratory Results Laboratory Results - last 24 hr 01/04/19 01/04/19 01/04/19 12:50 21:57 21:57 WBC RBC Hgb Hct MCV MCH MCHC RDW Std Deviation RDW Coeff of Thea Plt Count MPV Immature Gran % (Auto) Neut % (Auto) Lymph % (Auto) Randall % (Auto) Eos % (Auto) Baso % (Auto) Immature Gran # (Auto) Neut # (Auto) Lymph # (Auto) Randall # (Auto) Eos # (Auto) Baso # (Auto) Sodium Potassium Chloride Carbon Dioxide Anion Gap BUN Creatinine Est Cr Clr Drug Dosing Est GFR ( Amer) Est GFR (Non-Af Amer) BUN/Creatinine Ratio Glucose Calcium Magnesium 2.3 2.2 Total Bilirubin Direct Bilirubin AST ALT Alkaline Phosphatase Total Creatine Kinase 70 Total Protein Albumin Carbamazepine 41.3 H* 01/05/19 01/05/19 01/05/19 08:13 08:13 08:13 WBC 7.61 RBC 3.01 L Hgb 9.8 L Hct 28.7 L MCV 95.3 MCH 32.6 MCHC 34.1 RDW Std Deviation 43.4 RDW Coeff of Thea 12.7 Plt Count 196 MPV 10.8 H Immature Gran % (Auto) 0.3 Neut % (Auto) 79.9 Lymph % (Auto) 14.1 Randall % (Auto) 5.3 Eos % (Auto) 0.3 Baso % (Auto) 0.1 Immature Gran # (Auto) 0.02 Neut # (Auto) 6.09 Lymph # (Auto) 1.07 L Randall # (Auto) 0.40 Eos # (Auto) 0.02 Baso # (Auto) 0.01 Sodium 142 Potassium 3.0 L Chloride 114 H Carbon Dioxide 22 Anion Gap 6.0 BUN 7 Creatinine 0.68 Est Cr Clr Drug Dosing 91.0 Est GFR ( Amer) 119.9 Est GFR (Non-Af Amer) 103.4 BUN/Creatinine Ratio 10.2 Glucose 139 H Calcium 8.0 L Magnesium 2.1 Total Bilirubin 0.4 Direct Bilirubin 0.1 AST 19 ALT 12 Alkaline Phosphatase 66 Total Creatine Kinase Total Protein 5.8 L Albumin 2.8 L Carbamazepine 27.4 H* Current Inpatient Medications Current Inpatient Medications: Current Inpatient Medications Acetaminophen (Tylenol) 650 mg PO Q4H PRN PRN Reason: Pain or Fever Stop: 02/03/19 06:49 Gabapentin (Neurontin) 300 mg PO TID CÉSAR Stop: 02/03/19 08:59 Last Admin: 01/05/19 08:02 Dose: Not Given Documented by: Sodium Chloride (Nss 1000ml) 1,000 mls @ 125 mls/hr IV .Q8H CÉSAR Stop: 02/03/19 06:49 Last Admin: 01/05/19 08:21 Dose: 125 mls/hr Documented by: Levetiracetam 2,000 mg/ (Dextrose) 270 mls @ 999 mls/hr IV BID CÉSAR Stop: 02/03/19 20:59 Last Infusion: 01/05/19 08:38 Dose: Infused Documented by: Potassium Chloride (K Manish / Wtr) 10 meq in 100 mls @ 100 mls/hr IV Q1H CÉSAR Stop: 01/05/19 13:29 Last Admin: 01/05/19 11:41 Dose: 100 mls/hr Documented by: Levothyroxine Sodium (Synthroid) 75 mcg PO DAILYBB CÉSAR Stop: 02/03/19 06:29 Last Admin: 01/05/19 06:07 Dose: Not Given Documented by: Magnesium Oxide (Mag-Ox) 400 mg PO DAILY CÉSAR Stop: 02/03/19 08:59 Last Admin: 01/05/19 08:02 Dose: Not Given Documented by: Multivitamins (Multivitamin Tab) 1 tab PO DAILY CÉSAR Stop: 02/03/19 08:59 Last Admin: 01/05/19 08:02 Dose: Not Given Documented by: Nitroglycerin (Nitrostat) 0.4 mg SL UD PRN PRN Reason: Chest Pain Stop: 02/03/19 06:49 Ondansetron HCl (Zofran) 4 mg PO TID PRN PRN Reason: Nausea Stop: 02/03/19 06:49 Topiramate (Topamax) 200 mg PO BID CÉSAR Stop: 02/03/19 08:59 Last Admin: 01/05/19 08:02 Dose: Not Given Documented by: CPT Code CPT Code 89474
[2019-01-06] MEDS: SODIUM CHLORIDE 0.9% 1000ML 1,000 ML IV SCH (05:33)
[2019-01-06] MEDS: LEVOTHYROXINE SODIUM 75 MCG TABLET PO SCH (05:34)
[2019-01-06] MEDS: TOPIRAMATE 100 MG TAB PO SCH ×2 (08:26→19:41)
[2019-01-06] MEDS: levETIRAcetam 2,000 MG in DEXTROSE 5% 250 ML IV SCH ×2 (08:26→19:41)
[2019-01-06] MEDS: MAGNESIUM OXIDE 400 MG TAB PO SCH (08:26)
[2019-01-06] MEDS: MULTIVITAMIN TAB PO SCH (08:26)
[2019-01-06] MEDS: GABAPENTIN 300 MG CAP PO SCH ×3 (08:26→19:41)
[2019-01-06 09:22] LABS: Basophils # (auto) 0.02 K/uL (0-0.2); Basophils % (auto) 0.4 %; Eosinophils # (auto) 0.12 K/uL (0-0.5); Eosinophils % (auto) 2.4 %; Hematocrit (blood only) 27.6 % (37-47); Hemoglobin 9.4 g/dL (12.0-16.0); Lymphocytes # (auto) 1.22 K/uL (1.2-3.4); Lymphocytes % (auto) 24.5 %; Mean Corpuscular Hgb Conc 34.1 g/dL (32-36); Mean Corpuscular Volume 94.8 fL (80-100); Mean Platelet Volume 10.4 fL (7.4-10.4); Monocytes # (auto) 0.27 K/uL (0.11-0.59); Monocytes % (auto) 5.4 %; Neutrophils # (auto) 3.35 K/uL (1.4-6.5); Neutrophils % (auto) 67.3 %; Platelet Count 158 K/uL (130-400); RDW Coefficient of Variation 12.7 % (11.5-14.5); RDW Standard Deviation 43.7 fL (36.4-46.3); Red Blood Count 2.91 M/uL (4.2-5.4); White Blood Count 4.98 K/uL (4.8-10.8)
[2019-01-06 09:48] LABS: Albumin Level 2.6 gm/dl (3.4-5.0); BUN Creatinine Ratio 7.3 (10-20); Calcium 7.7 mg/dl (8.5-10.1); Creatinine Clr Calc Pharmacy 116.8 ml/min; Est GFR (African American) 130.1; Est GFR (Non-African American) 112.3; Magnesium 1.7 mg/dl (1.8-2.4)
[2019-01-06 09:51] LABS: Albumin Globulin Ratio 0.9 (0.9-2); Bilirubin,Total 0.4 mg/dl (0.2-1); Globulin 2.9 gm/dl (2.5-4.0); Total Protein 5.5 gm/dl (6.4-8.2)
--- NOTE | 2019-01-06 10:20 | Hospitalist Progress Note ---
Date of Service January 06, 2019 Assessment & Plan (1) Overdose: This is a 48-year-old female who presents with drug overdose and concerns for suicidal ideation. Drug overdose - Recently patient in hospital in the last week for Benadryl overdose and on December 22 again she was admitted for beta-gino overdose and discharged on 12/25/2018 (for which beta gino and carbamazepine were discontinued) - Presents again with overdose of carbamazepine. Carbamazepine level was found to be in the toxic range as 21.6 mcg/ml due to taking excess medication -also positive alcohol levels in the urine -daily carbamazepine levels, carbamazepine peaked at 41.3 mcg/ml on 01/04/19 and downtrended to 27.4 mcg/ml 01/05/19 and to 14.2 mcg/ml on 01/06/19 while on IV fluids; will reduce IV fluids by 01/06/19 as carbamazipine levels are downtrended -monitor on telemetry and monitor EKGs daily -continue 1 to 1 observation and suicide checks -psychiatry consultation asked to see the patient as she is more awake and alert by 01/06/19; will also get PT/OT evaluation to encourage ambulation and discontinue moreira Prolong QTC on EKG -QTC was 504 and poison control recommended giving 2 grams of IV magnesium even though admission serum magnesium was normal -serial EKGs are being performed because of concern for carbamazepine toxicity -Patient's EKG 01/05/19 with QTC at 502 -continue EKG daily monitoring and telemetry monitoring Seizure disorder: -This is a 48-year-old female with epilepsy NOS - In the ED on this admission ; She had a few seconds of suspected seizure episode in the ER and was given 0.5 of IV Ativan. -as per initial neurology note, neurologist suspects that subsequent lethargy may have psychiatric component and it is not clear whether the shaking episodes seen in the ED was were true epileptic seizures vs pseudoseizures -Neurology service recommends to continue Keppra and Topamax and possible outpatient epilepsy monitoring in the future -would hold Carbamazepine at this time and trend levels; neurology recommends that when carbamazeipine is no longer in toxic range then can resume home carbamazepine 200 mg twice a day Hypokalemia -serum potassium is 3 on 01/05/19, and given IV potassium 10 meq x 4 -serum potassium remains as 3 on 5/5/19 and serum magnesium 1.7 and will give IV potassium and IV magnesium Hypothyroidism -continue her home Synthroid. Chronic anemia Deep venous thrombosis prophylaxis, sequential compression devices for now. Subjective Patient is somewhat lethargic today. But she is more awake and alert than she has been in recently days. First time this provider was able to carry a conservation with the patient. She was cooperative on exam. reports nausea. reports she has been able to urinate but no bowel movement yet. denies abdomen pain. denies chest pain. denies shortness of breath Patient oriented to month and year. she knows she has been in hospital but does not know for how long. she reports she lives at home with her . she denies concerns for domestic abuse or violence. she denies suicidal ideations but she cannot explain the context of why she has been found to have excessive amounts of medications such as carbamazepine in her system or previous hospitalization for overuse of Benadryl. She reports that she takes medications at home on her home and no one else assists her. She thinks that the last time she was her usual state of health was before January 2019 but she cannot explain at length how she was doing at that time Patient was able to name her outpatient psychology providers and neurologist. Patient agrees to be seen by inpatient behavioral health (psychiatry) but she is concerned that she still cannot stay awake long enough to speak at length to them Physical Exam Constitutional: + lethargic Eyes: PERRL, conjunctivae normal, anicteric sclerae ENMT: external ear and nose normal, oropharynx normal Neck: normal visual inspection Respiratory: normal respiratory effort, lungs clear to auscultation Cardiovascular: RRR, no murmur, no edema Gastrointestinal (Abdomen): normal bowel sounds, soft, nontender, no hepatosplenomegaly Musculoskeletal: no cyanosis or clubbing, extremities motor strength 5/5 Head/Neck/Chest: normocephalic and head atraumatic Neurologic: PERRL, EOMI, accommodation nl, no face palsy, no dysarthria CN's II-XI intact bilaterally Psychiatric: Orientation: alert, oriented to person, oriented to place, oriented to time and cooperative Genitourinary: moreira in place and to be removed Results & Data Vital Signs (Past 12 Hours) Vital Signs Temp Pulse Resp BP BP Pulse Ox 01/06/19 07:00 36.7 C 92 H 16 119/77 94 01/06/19 04:26 36.8 C 89 18 119/82 93 01/05/19 23:31 36.8 C 92 H 22 117/74 94 (1) Overdose Encounter type: initial encounter Injury intent: intentional self-harm Qualified Code(s): T50.902A - Poisoning by unspecified drugs, medicaments and biological substances, intentional self-harm, initial encounter
[2019-01-06] MEDS: POTASSIUM CHLORIDE / WTR 10 MEQ/100 ML PLCT IV SCH ×4 (10:22→13:25)
[2019-01-06] MEDS: MAGNESIUM SULFATE / D5W 1 GM/100 ML BAG IV SCH ×2 (14:26→15:30)
[2019-01-07 05:49] LABS: Basophils # (auto) 0.02 K/uL (0-0.2); Basophils % (auto) 0.4 %; Eosinophils # (auto) 0.33 K/uL (0-0.5); Eosinophils % (auto) 6.5 %; Hematocrit (blood only) 31.5 % (37-47); Hemoglobin 10.7 g/dL (12.0-16.0); Lymphocytes # (auto) 1.58 K/uL (1.2-3.4); Lymphocytes % (auto) 31.3 %; Mean Corpuscular Volume 94.9 fL (80-100); Mean Platelet Volume 10.5 fL (7.4-10.4); Neutrophils # (auto) 2.81 K/uL (1.4-6.5); Neutrophils % (auto) 55.8 %; Platelet Count 191 K/uL (130-400); RDW Coefficient of Variation 12.5 % (11.5-14.5); RDW Standard Deviation 43.3 fL (36.4-46.3); Red Blood Count 3.32 M/uL (4.2-5.4); White Blood Count 5.04 K/uL (4.8-10.8)
[2019-01-07] MEDS: LEVOTHYROXINE SODIUM 75 MCG TABLET PO SCH (05:52)
[2019-01-07 06:28] LABS: Albumin Level 2.7 gm/dl (3.4-5.0); BUN Creatinine Ratio 6.4 (10-20); Creatinine Clr Calc Pharmacy 110.6 ml/min; Est GFR (African American) 127.8; Est GFR (Non-African American) 110.3; Potassium 3.2 mmol/L (3.5-5.1)
[2019-01-07 06:31] LABS: Albumin Globulin Ratio 0.8 (0.9-2); Bilirubin,Total 0.4 mg/dl (0.2-1); Globulin 3.3 gm/dl (2.5-4.0)
[2019-01-07] MEDS ORDERED: POTASSIUM CHLORIDE 20 MEQ TABCR PO ONE (07:30)
[2019-01-07] MEDS: POTASSIUM CHLORIDE / WTR 10 MEQ/100 ML PLCT IV SCH ×4 (07:50→11:53)
[2019-01-07] MEDS: GABAPENTIN 300 MG CAP PO SCH ×2 (07:50→14:06)
[2019-01-07] MEDS: TOPIRAMATE 100 MG TAB PO SCH (07:50)
[2019-01-07] MEDS: MULTIVITAMIN TAB PO SCH (07:50)
[2019-01-07] MEDS: MAGNESIUM OXIDE 400 MG TAB PO SCH (07:50)
[2019-01-07] MEDS ORDERED: CARBAMAZEPINE 200 MG TABCR PO SCH ×2 (09:00)
[2019-01-07] MEDS ORDERED: levETIRAcetam 500 MG TAB PO SCH (09:00)
--- NOTE | 2019-01-07 14:33 | Hospitalist Progress Note ---
Date of Service January 07, 2019 Assessment & Plan (1) Overdose: This is a 48-year-old female who presents with drug overdose and concerns for suicidal ideation. Drug overdose - Recently patient in hospital in the last week for Benadryl overdose and on December 22 again she was admitted for beta-gino overdose and discharged on 12/25/2018 (for which beta gino and carbamazepine were discontinued) - Presents again with overdose of carbamazepine. Carbamazepine level was found to be in the toxic range as 21.6 mcg/ml due to taking excess medication -also positive alcohol levels in the urine -has been monitored on telemetry with 1 to 1 observation and suicide checks -daily carbamazepine levels, carbamazepine peaked at 41.3 mcg/ml on 01/04/19 and downtrended to 27.4 mcg/ml 01/05/19 and to 14.2 mcg/ml on 01/06/19 while on IV fluids; reduced IV fluids by 01/06/19 as carbamazipine levels are downtrended -01/07/19: carbamazepine levels downtrended to 10.6 and will follow the neurology recommendations to resume home carbamazepine 200 mg twice a day Patient is medically cleared to be transferred to behavioral health unit at [facility] for further inpatient mental health evaluation Prolong QTC on EKG (resolving) -QTC was 504 and poison control recommended giving 2 grams of IV magnesium even though admission serum magnesium was normal -serial EKGs are being performed because of concern for carbamazepine toxicity -Patient's EKG 01/05/19 with QTC at 502 -Patient's EKG on 01/06/19 with QTC 460 which may reflect resolution of carbamazepine toxicity Seizure disorder: -This is a 48-year-old female with epilepsy NOS - In the ED on this admission ; She had a few seconds of suspected seizure episode in the ER and was given 0.5 of IV Ativan. -as per initial neurology note, neurologist suspects that subsequent lethargy may have psychiatric component and it is not clear whether the shaking episodes seen in the ED was were true epileptic seizures vs pseudoseizures -Neurology service recommends to continue Keppra and Topamax and possible outpatient epilepsy monitoring in the future -neurology recommends that when carbamazeipine is no longer in toxic range then can resume home carbamazepine 200 mg twice a day ; carbamazepine has been resumed on 01/07/19 Hypokalemia -serum potassium is 3 on 01/05/19, and given IV potassium 10 meq x 4 -serum potassium remains as 3 on 01/06/19 and serum magnesium 1.7 and will give IV potassium and IV magnesium -serum potassium is 3.2 on 01/07/19 was was given 40 meq oral potassium and again IV potassium 10 meq x 4 -would recommend when discharge from telemetry olea to behavioral health unit that patient be on magnesium oxide 400 mg daily and potassium 10 meq daily and may need periodic monitoring of these levels Hypothyroidism -continue home dose Levothyroxine Chronic anemia Deep venous thrombosis prophylaxis, sequential compression devices and ambulation Discharge Diagnosis Drug overdose, Suicidal Ideation, Seizure disorder, Hypokalemia, QT prolongation (resolving), Hypothyroidism Disposition 01/07/19: Patient is medically cleared to be transferred to behavioral health unit at [facility] for further inpatient mental health evaluation would recommend when discharge from telemetry olea to behavioral health unit that patient be on magnesium oxide 400 mg daily and potassium 10 meq daily and may need periodic monitoring of these levels Subjective Patient awake and alert today. was able to ambulate with therapist. she is medically stable and agrees to be transferred to behavioral health unit at [facility] as she admits to suicidal ideations when she was taking excessive amounts of carbamazepine at home. Patient reports no chest pain. no shortness of breath no abdominal pain. She reports she is able to eat and use the bathroom. Physical Exam Constitutional: WD/WN, vitals as above Eyes: PERRL, conjunctivae normal, anicteric sclerae ENMT: external ear and nose normal, oropharynx normal Neck: normal visual inspection Respiratory: normal respiratory effort, lungs clear to auscultation Cardiovascular: RRR, no murmur, no edema Gastrointestinal (Abdomen): normal bowel sounds, soft, nontender, no hepatosplenomegaly Musculoskeletal: no cyanosis or clubbing, extremities motor strength 5/5 Head/Neck/Chest: normocephalic and head atraumatic Neurologic: PERRL, EOMI, accommodation nl, no face palsy, no dysarthria CN's II-XI intact bilaterally Psychiatric: Orientation: alert, oriented to person, oriented to place, oriented to time and cooperative Eye Contact: good eye contact Results & Data Vital Signs (Past 12 Hours) Vital Signs Temp Pulse Pulse Resp BP BP Pulse Ox 05/06/19 12:00 36.6 C 79 20 120/82 95 01/07/19 08:00 70 01/07/19 06:54 36.6 C 78 17 112/70 95 01/07/19 03:51 36.8 C 82 17 115/67 93 (1) Overdose Encounter type: initial encounter Injury intent: intentional self-harm Qualified Code(s): T50.902A - Poisoning by unspecified drugs, medicaments and biological substances, intentional self-harm, initial encounter
--- NOTE | 2019-01-07 14:43 | Discharge Summary ---
Date of Service January 07, 2019 Admission HPI Per Admitting Provider DATE OF ADMISSION: 01/04/2019 CHIEF COMPLAINT: Drug overdose, suicidal ideation. HISTORY OF PRESENT ILLNESS: This is a 48-year-old female with past medical history significant for seizures, migraines, hypothyroidism, history of mitral valve prolapse, arthritis, hypertension, GERD, history of Raynaud's phenomenon, sarcoidosis, general anxiety disorder, history of drug overdose with Benadryl in November and recently in December with a beta gino overdose, now presents with drug overdose of carbamazepine. The patient's boyfriend was in the room, but by the time I saw her the boyfriend left. The patient in the ER had a short like few seconds of seizure activity and 5 minutes of confusion and was given like a small dose of 0.5 IV Ativan. Currently drowsy but arousable and answers appropriately. Can tell her name, knows today's date, and knows that she is in the hospital and can tell her date of . She said she took a bottle of carbamazepine, seems to be 30 to 50 tablets. Last admission, carbamazepine was stopped and she her Keppra dose was increased for seizures. Patient says that she had thoughts to hurt herself at that time, but now she is okay. Denies any headache, no blurred visions, no sore throat, no chest pain, no shortness of breath, no abdominal pain, no nausea. She has normal bowel and bladder movements. No melena or hematochezia or hematuria. No swelling in the legs. No rash. Currently resting comfortable and hemodynamically stable. Her QT was prolonged at 504 and though her magnesium was 2, poison control recommended 2 g of magnesium and recheck magnesium levels every 6 hours and also recheck EKG every 6 hours and to monitor until patient is asymptomatic. Psychiatry initial evaluation "Yaakov York is a 48-year-old female admitted medically s/p intentional overdose of carbamazepine with QTc prolongation. Previous documentation suggests the patient ingested 30-50 tablets (unknown dosage) of carbamazepine prior to admission. No access yet to ED records to further clarify details of patient's presentation to the ED, and no visitors to gather collateral information. At time of this assessment, patient is not responsive to verbal or tactile stimuli and is not able to be aroused for formal evaluation. Historically, the patient was seen on our consult service in 11/2018 s/p intentional Benadryl overdose and was subsequently admitted for inpatient psychiatric treatment. She was maintained on sertraline 200mg daily, as reporting the event to be an acute reaction to stress, and denying any symptoms of depression. She was again seen on psychiatric consult service on 12/22/18 due to what was suspected to be another overdose. Despite suspicion, patient had denied taking excessive medications and reported medication compliance. She denied any symptoms to provide criteria for re-admission to inpatient psychiatric treatment and was discharged home." Admission Exam Per Admitting Provider PHYSICAL EXAMINATION: GENERAL: The patient is drowsy but arousable, not in acute distress. VITAL SIGNS: Temperature 36.5, pulse 80, respiratory rate 17, blood pressure 87/75, oxygen 99% on 2 L. HEENT: No pallor, no icterus. Pupils are equal, round, and reactive to light. NECK: No JVD, no neck masses, no carotid bruits. CARDIOVASCULAR: S1, S2 heard, regular rate and rhythm, no murmur, no gallop. RESPIRATORY: Normal AP diameter, no accessory muscle use. No wheezes, no crackles. ABDOMEN: Soft, bowel sounds present. Nontender. No distention. CENTRAL NERVOUS SYSTEM: Drowsy, but alert and oriented x3. Answers questions appropriately. Moves extremities. EXTREMITIES: No edema, no erythema. SKIN: Tattoos seen all over the body. Principal Diagnosis Drug overdose, Suicidal Ideation, Seizure disorder, Hypokalemia, QT prolongation (resolving), Hypothyroidism Discharge Exam Constitutional WD/WN, vitals as above Eyes PERRL, conjunctivae normal, anicteric sclerae ENMT external ear and nose normal, oropharynx normal Neck normal visual inspection Respiratory normal respiratory effort, lungs clear to auscultation Cardiovascular RRR, no murmur, no edema Gastrointestinal (Abdomen) normal bowel sounds, soft, nontender, no hepatosplenomegaly Musculoskeletal no cyanosis or clubbing, extremities motor strength 5/5 Head/Neck/Chest: normocephalic and head atraumatic Neurologic PERRL, EOMI, accommodation nl, no face palsy, no dysarthria CN's II-XI intact bilaterally Psychiatric Orientation: alert, oriented to person, oriented to place, oriented to time and cooperative Eye Contact: good eye contact Discharge Data Allergies Allergy/AdvReac Type Severity Reaction Status Date / Time tree nut Allergy Severe ANAPHYLAXIS Verified 01/04/19 02:57 Penicillins Allergy Intermediate HIVES Verified 01/04/19 02:57 Consultations 01/04/19 04:33 ED Decision to Admit Stat 01/04/19 06:50 Consult Case Management - Discharge Planning Routine 01/04/19 08:00 Consult Neurology Routine Consult Psychiatry Routine Hospital Course (1) Overdose: This is a 48-year-old female who presents with drug overdose and concerns for suicidal ideation. Drug overdose - Recently patient in hospital in the last week for Benadryl overdose and on December 22 again she was admitted for beta-gino overdose and discharged on 12/25/2018 (for which beta gino and carbamazepine were discontinued) - Presents again with overdose of carbamazepine. Carbamazepine level was found to be in the toxic range as 21.6 mcg/ml due to taking excess medication -also positive alcohol levels in the urine -has been monitored on telemetry with 1 to 1 observation and suicide checks -daily carbamazepine levels, carbamazepine peaked at 41.3 mcg/ml on 01/04/19 and downtrended to 27.4 mcg/ml 01/05/19 and to 14.2 mcg/ml on 01/06/19 while on IV fluids; reduced IV fluids by 01/06/19 as carbamazipine levels are downtrended -01/07/19: carbamazepine levels downtrended to 10.6 and will follow the neurology recommendations to resume home carbamazepine 200 mg twice a day Patient is medically cleared to be transferred to behavioral health unit at [facility] for further inpatient mental health evaluation Prolong QTC on EKG (resolving) -QTC was 504 and poison control recommended giving 2 grams of IV magnesium even though admission serum magnesium was normal -serial EKGs are being performed because of concern for carbamazepine toxicity -Patient's EKG 01/05/19 with QTC at 502 -Patient's EKG on 01/06/19 with QTC 460 which may reflect resolution of carbamazepine toxicity Seizure disorder: -This is a 48-year-old female with epilepsy NOS - In the ED on this admission ; She had a few seconds of suspected seizure episode in the ER and was given 0.5 of IV Ativan. -as per initial neurology note, neurologist suspects that subsequent lethargy may have psychiatric component and it is not clear whether the shaking episodes seen in the ED was were true epileptic seizures vs pseudoseizures -Neurology service recommends to continue Keppra and Topamax and possible outpatient epilepsy monitoring in the future -neurology recommends that when carbamazeipine is no longer in toxic range then can resume home carbamazepine 200 mg twice a day ; carbamazepine has been resumed on 01/07/19 Hypokalemia -serum potassium is 3 on 01/05/19, and given IV potassium 10 meq x 4 -serum potassium remains as 3 on 01/06/19 and serum magnesium 1.7 and will give IV potassium and IV magnesium -serum potassium is 3.2 on 01/07/19 was was given 40 meq oral potassium and again IV potassium 10 meq x 4 -would recommend when discharge from telemetry [facility] to behavioral health [facility] that patient be on magnesium oxide 400 mg daily and potassium 10 meq daily and may need periodic monitoring of these levels Hypothyroidism -continue home dose Levothyroxine Chronic anemia Deep venous thrombosis prophylaxis, sequential compression devices and ambulation Discharge Diagnosis Drug overdose, Suicidal Ideation, Seizure disorder, Hypokalemia, QT prolongation (resolving), Hypothyroidism Disposition 01/07/19: Patient is medically cleared to be transferred to behavioral health unit at [facility] for further inpatient mental health evaluation would recommend when discharge from telemetry [facility] to behavioral health unit that patient be on magnesium oxide 400 mg daily and potassium 10 meq daily and may need periodic monitoring of these levels Total Time Total Time Spent Total Time Spent (In Minutes): 40 minutes Total Time Includes: Examination of the Patient, Discharge Planning, Medication Reconciliation and Communication With Other Providers Discharge Plan Discharge Items Patient Disposition: Transfer [facility] Reason For Visit: DRUG OVERDOSE Discharge Diagnosis: Drug overdose, Suicidal Ideation, Seizure disorder, Hypokalemia, QT prolongation (resolving), Hypothyroidism Condition: Fair Discharge Goals: Improve disease control Activity: Per 'Additional Instructions' section Non-emergency contact: Primary Care Provider and Psychiatrist Call non-emergency contact if: you have any medication questions Follow-up/Referrals: Lorraine Garza MD [Primary Care Provider] - Diet: Regular Addtl Provider Instructions: Patient is medically cleared to be transferred to behavioral health unit at [facility] for further inpatient mental health evaluation would recommend when discharge from telemetry [facility] to behavioral health unit that patient be on magnesium oxide 400 mg daily and potassium 10 meq daily and may need periodic monitoring of these levels Prescriptions: New carbamazepine 200 mg Tablet Extended Release 12 Hr 200 mg PO BID 30 Days Qty: 60 RF: 0 potassium chloride [Klor-Con M10] 10 mEq Tablet,Er Particles/Crystals 10 meq PO DAILY 30 Days Qty: 30 RF: 0 Continued multivitamin Tablet 1 tab PO DAILY RF: 0 topiramate [Topamax] 200 mg Tablet 200 mg PO BID RF: 0 gabapentin 100 mg Capsule 300 mg PO TID RF: 0 ondansetron HCl [Zofran] 4 mg Tablet 4 mg PO TID PRN (Reason: Nausea) RF: 0 levothyroxine 75 mcg Tablet 75 mcg PO DAILY RF: 0 vitamin B complex-folic acid 0.4 mg Tablet 1 tab PO DAILY RF: 0 magnesium oxide 400 mg magnesium Tablet 400 mg PO DAILY RF: 0 levetiracetam [Keppra] 500 mg Tablet 2,000 mg PO BID 30 Days Qty: 240 RF: 1 hydroxyzine HCl 25 mg Tablet 25 mg PO Q6H PRN (Reason: Anxiety) RF: 0 Discontinued sertraline [Zoloft] 100 mg Tablet 200 mg PO DAILY RF: 0 cannabidiol (CBD) extract 2 - 3 units PO DAILY RF: 0 Stand-Alone Forms: [facility] Discharge Orders: Discharge Order (Routine); Ordered 01/07/19 Ordered By: Miles Shepard Admission Data Admit Date/Time: 01/04/19 05:45 Attending Provider: Miles Shepard Admit Provider: Steve Brewster Primary Care Provider: Lorraine Garza Other Providers: Steve Brewster ; Andrew Greenwood ; Demarcus Millan III ; Bess Blanco ; Joan Szymanski ; Sarthak Lee Melissa C Service: Telemetry
[2019-01-08] MEDS ORDERED: POTASSIUM CHLORIDE 10 MEQ TABCR PO SCH (09:00)
== END 2019-01-07 16:13 | DRG 918 ==
LOC: ED 02:33 → 2S 05:45

== ENCOUNTER 2019-01-07 16:14 | Inpatient (IN) ==
[2019-01-07] MEDS ORDERED: ALUMINUM/MAGNESIUM SUSP 30 ML UDC PO PRN (16:25)
[2019-01-07] MEDS ORDERED: SODIUM CHLORIDE 0.65% NA SOLN 45 ML (OCEAN) PRN (16:25)
[2019-01-07] MEDS ORDERED: BISMUTH SUBSALICYLATE PER ML OMNICELL CHARGE PO PRN (16:25)
[2019-01-07] MEDS ORDERED: MAGNESIUM HYDROXIDE SUSP 30 ML UDC PO PRN (16:25)
[2019-01-07] MEDS ORDERED: ONDANSETRON 4 MG TAB PO PRN (20:30)
[2019-01-07] MEDS: GABAPENTIN 100 MG CAP PO SCH (21:38)
[2019-01-07] MEDS: CARBAMAZEPINE 200 MG TABCR PO SCH (21:38)
[2019-01-07] MEDS: levETIRAcetam 500 MG TAB PO SCH (21:38)
[2019-01-07] MEDS: TOPIRAMATE 100 MG TAB PO SCH (21:38)
[2019-01-08] MEDS: LEVOTHYROXINE SODIUM 75 MCG TABLET PO SCH (08:48)
[2019-01-08] MEDS: levETIRAcetam 500 MG TAB PO SCH ×2 (10:05→21:31)
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
[2019-01-08] MEDS: POTASSIUM CHLORIDE 10 MEQ TABCR PO SCH (10:06)
[2019-01-08] MEDS: MAGNESIUM OXIDE 400 MG TAB PO SCH (10:06)
[2019-01-08] MEDS: GABAPENTIN 100 MG CAP PO SCH ×3 (10:07→21:31)
[2019-01-08] MEDS: MULTIVITAMIN TAB PO SCH (10:07)
[2019-01-08] MEDS: TOPIRAMATE 100 MG TAB PO SCH ×2 (10:08→21:31)
[2019-01-08] MEDS: VITAMIN B COMPLEX TAB PO SCH (10:08)
[2019-01-08] MEDS: CARBAMAZEPINE 200 MG TABCR PO SCH ×2 (10:08→21:31)
[2019-01-08] MEDS: ACETAMINOPHEN 325 MG TAB PO PRN (13:16)
[2019-01-09] MEDS: LEVOTHYROXINE SODIUM 75 MCG TABLET PO SCH (08:43)
[2019-01-09] MEDS: MULTIVITAMIN TAB PO SCH (10:09)
[2019-01-09] MEDS: GABAPENTIN 100 MG CAP PO SCH ×3 (10:09→21:36)
[2019-01-09] MEDS: TOPIRAMATE 100 MG TAB PO SCH ×2 (10:10→21:36)
[2019-01-09] MEDS: MAGNESIUM OXIDE 400 MG TAB PO SCH (10:10)
[2019-01-09] MEDS: levETIRAcetam 500 MG TAB PO SCH ×2 (10:11→21:36)
[2019-01-09] MEDS: CARBAMAZEPINE 200 MG TABCR PO SCH ×2 (10:11→21:36)
[2019-01-09] MEDS: POTASSIUM CHLORIDE 10 MEQ TABCR PO SCH (10:11)
[2019-01-09] MEDS: VITAMIN B COMPLEX TAB PO SCH (10:12)
[2019-01-09] MEDS: ACETAMINOPHEN 325 MG TAB PO PRN (12:35)
--- NOTE | 2019-01-09 12:39 | Psychiatric Progress Note ---
Date of Service January 09, 2019 Impression / Recommendations Impression Patient reports improvement in mood since her initial admission. Her affect does appear brighter, and she is encouraged to continue discussing safety plans. The impulsive nature of her overdose attempts continues to be concerning and puts her at higher risk of future attempts. Contact has been made with both patient's outpatient prescriber and therapist, and we are hoping to confirm her reports of her reports of referrals for additional outpatient providers. Despite improvement in mood and safety planning will be very important for this particular patient. We will attempt to ensure medications are adequately secured, and coordinate care with outpatient providers to reduce risk of self- harm in the future. Family meeting with scheduled for this afternoon, which will allow us to ensure involvement of her largest outpatient support. Given uncertainties and safety and aftercare planning, it is medically necessary the patient remain on the inpatient psychiatric unit with adequate supervision until these factors can be adequately addressed. She remains at high risk of harm to self if discharged prematurely without adequate safety plan. (1) Overdose: 01/08 -patient overdosed intentionally on a large amount of carbamazepine XR, resulting in loss of consciousness, seizures, and prolonged QTC, requiring hospitalization for 5 days on the medical service. She states this occurred in the context of a rejection from her teenage sons, whom she attempted to contact using her mother's phone, but they hung up on her. She took a bottle of alcohol from a relatives house, drink to intoxication, then impulsively took the overdose. She did not tell her until at least an hour later. This was a serious, potentially lethal suicide attempt. Unfortunately, she is minimizing this and is dismissive of recommendations to address her alcohol abuse and repeated overdoses, not wanting to allow her boyfriend whom she lives with to secure her medications and dispense them daily, she does not want to "be controlled." She had recently been started on Vivitrol as an outpatient, but does not want to continue it as she does not think it will help, despite having not given it an adequate trial. -She remains at high risk for suicide. We will coordinate care with her outpatient PA, Tuyet Steen at [facility], and therapist Karena Mathias. -Suicide checks for safety. -Family meeting with significant other, Abel. -Patient had hypokalemia and hypomagnesemia, which are being treated with oral potassium and magnesium. Continue and follow up with PCP as directed by the hospitalist service. 01/09 - Continue treatment plan as above - Meeting with Abel scheduled for this afternoon - Confirm reports of additional therapy referrals to ensure adequate outp atient support - Will need to address safety concerns prior to discharge, specifically her access to medications at home (2) Cluster B personality disorder: 01/08 -patient reports mood was good until the incident several days prior to the overdose where she felt rejected by her son. Her symptom pattern is not consistent with major depression, and she reports borderline and histrionic traits including a pattern of unstable and intense interpersonal relationships (estrangement from teenage sons, arguments with significant other resulting in overdose/suicide attempt, arguments with friends resulting in pseudoseizures and an ER visit), impulsivity, affective instability due to marked reactivity of mood, impressionistic style of speech that lacks detail, and use of physical appearance to draw attention to self. -Coordinate care with therapist. Explore IOP option patient states her therapist suggested (she does not know the name). (3) PTSD (post-traumatic stress disorder): 01/08 -patient reports a history of PTSD diagnosis, but current symptoms are minimal. Coordinate care with therapist. -Patient previously on sertraline 200 mg daily, but it was discontinued while on the medical service due to prolonged QTc and seizures. Will discuss with her outpatient PA prior to resuming psychotropic medications, given the risk with ongoing alcohol use, multiple overdoses, and refusal to allow significant other to secure all medications at home, which places her at risk for repeated overdoses. (4) Alcohol abuse: 01/08 -has had 2 serious, intentional overdoses in the past 2 months while intoxicated. -Believes that drinking is a problem for her, but is unwilling to continue Vivitrol after receiving her first shot within the past 2 weeks, feeling that "cravings are not a problem for me." She will need ongoing motivational interviewing and psychoeducation about alcohol use disorder. -Follow-up with therapist Karena Aponte and PA Tuyet Steen. Consider the need for intensive outpatient substance abuse treatment if she continues to drink. (5) Seizure disorder: 01/08 - Patient seen by Dr. Gonzalez of neurology during her hospitalist admission. She recommended continuing her antiepileptic medications, including topiramate 200 mg twice daily, carbamazepine XR 200 mg twice daily, and levetiracetam 2000 mg twice daily. She will need to follow-up with neurology as an outpatient after discharge. -Patient does not drive due to active seizure disorder. (6) Hypothyroidism: 01/08 -continue home dose of levothyroxine 75 mcg daily. TSH 01/04/2019 was normal at 1.120. Inventory Assets Strengths: Supportive relationship, stable housing, artistic Needs: Sobriety from alcohol, DBT, reasonable safety plan with respect to access to large amounts of multiple prescription medications. Risk Factors Assessment Male: No : Yes Do You Have Access To A Gun?: No Health Problems: Yes Mental Health Diagnoses: Yes Substance Use Disorders: Yes Previous Attempt: Yes Family History of Suicide: Yes Previous Psychiatric Hospitalization: Yes Hopelessness: No Smoker: No Protective Factors Assessment Sikhism Beliefs: Yes : No (But lives with significant other) Responsible for Young Children: No (Estranged from teenage children) Employed: Yes Stable Relationships: No Supportive Family: No Good Rapport with Provider: Yes Interval History Identifying Information KAREN GARDINER is a 48-year-old F who currently lives in [place] with her boyfriend, has a history of seizure disorder, depression, anxiety, personality disorder, alcohol use disorder, multiple intentional medication overdoses, and was admitted on 01/07/19 16:14 on a 201 voluntary commitment on transfer from the hospitalist service, after presenting 01/04/2019 status post intentional overdose on number #30 200 mg tablets of carbamazepine extended release in a suicide attempt. Chief Complaint "Feeling much better". Review of Systems Notes Constitutional: denied Cardiovascular: denied Respiratory: denied Gastrointestinal: denied Neurological: denied Musculoskeletal: musculoskeletal pain of sternum Psychiatric: denies symptoms other than stated above Total of at least 10 systems reviewed, pertinent positives as above and in HPI. Sleep Information Total Hours of Sleep: 6.5 Sleep Comments: pt on q-15 minute checks Meal Information Percent Meal Consumed - Breakfast: 100 Percent Meal Consumed - Lunch: 65 Percent Meal Consumed - Dinner: 100 Nutrition Comment: per meal log Subjective Subjective Patient was seen & assessed and interval progress reviewed with Treatment Team. Staff report the patient was initially cooperative yesterday with admission assessments, then isolating to bed with complaints of a migraine headache. Since that time staff feels the patient's mood has been brighter and she has been interactive with peers. Patient was seen today to assess progress since admission. She feels that she is doing "much better." The patient states that she has been able to recognize a specific trigger which led to this impulsive overdose, reporting she has not been able to identify specific triggers in the past. Patient states her son hanging up on her was most likely the cause of her impulsive reaction to stress. Patient states she is feeling better today and is spoken with her regarding some aspects of safety planning. The patient was recommended to have control medications, providing her with doses daily. She states this seems, "a little too controlling," but was agreeable to only having access to a week's supply of medication. The patient also shares with this provider various therapy and support groups recommended to the patient by her therapist. She is unaware of specific details, but they have been discussing referrals for more intensive outpatient support at her recent sessions. The patient is planning to have a meeting with her this afternoon, and states she is hopeful for discharge tomorrow. Patient denies SI today. Does not verbalize any other concerns. Physical Exam Psychiatric Orientation: alert, oriented x 3 and cooperative Apperance: appropriately dressed, appropriately groomed and appeared stated age appropriately dressed and groomed; short, bright red hair with several piercings and tattoos Eye Contact: good eye contact Motor Behavior: steady gait and station and no abnormal motor movements Speech: normal rate/rhythm/volume of speech Affect: euthymic affect (appears calm) Mood: no depressed mood and no anxious mood Reports improvement in mood, "much better" Thought Process: goal directed thought process and clear/coherent thought process Thought Content: reality based without delusions Suicidal Thoughts: denies suicidal thoughts Homicidal Thoughts: denies homicidal thoughts Hallucinations: no auditory hallucinations and no visual hallucinations Cognition: recent memory grossly intact, remote memory grossly intact, attention grossly intact (Circumstantial) and language grossly intact Estimated Intelligence: average estimated intelligence Insight: + fair insight Judgement: + fair judgement Vital Signs (Past 24 Hours) Last Vital Signs Temp 36.6 C 01/09/19 06:54 Pulse 88 01/09/19 06:55 Resp 16 01/09/19 06:54 BP 88/61 L 01/09/19 06:55 Pulse Ox 98 01/07/19 17:10 Results & Data Current Inpatient Medications Current Inpatient Medications: Current Inpatient Medications Acetaminophen (Tylenol) 650 mg PO Q4H PRN PRN Reason: Headache or Minor Fever Stop: 02/06/19 16:24 Last Admin: 01/08/19 13:16 Dose: 650 mg Documented by: Al Hydrox/Mg Hydrox/Simethicone (Maalox) 30 ml PO Q4H PRN PRN Reason: GI Upset Stop: 02/06/19 16:24 Bismuth Subsalicylate (Kaopectate) 15 ml PO PRN PRN PRN Reason: Loose Stool Stop: 02/06/19 16:24 Carbamazepine (Tegretol Xr) 200 mg PO BID C[facility]AR Stop: 02/06/19 20:59 Last Admin: 01/09/19 10:11 Dose: 200 mg Documented by: Gabapentin (Neurontin) 300 mg PO TID CÉSAR Stop: 02/06/19 20:59 Last Admin: 01/09/19 10:09 Dose: 300 mg Documented by: Hydroxyzine HCl (Vistaril) 25 mg PO Q4H PRN PRN Reason: Anxiety Stop: 02/06/19 16:24 Hydroxyzine HCl (Vistaril) 50 mg PO HSZ PRN PRN Reason: Insomnia Stop: 02/06/19 16:24 Last Admin: 01/08/19 21:33 Dose: 50 mg Documented by: Levetiracetam (Keppra) 2,000 mg PO BID [facility] Stop: 02/06/19 20:59 Last Admin: 01/09/19 10:11 Dose: 2,000 mg Documented by: Levothyroxine Sodium (Synthroid) 75 mcg PO DAILYBB [facility] Stop: 02/07/19 07:59 Last Admin: 01/09/19 08:43 Dose: 75 mcg Documented by: Magnesium Hydroxide (Milk Of Magnesia) 30 ml PO DAILY PRN PRN Reason: Heartburn Stop: 02/06/19 16:24 Magnesium Oxide (Mag-Ox) 400 mg PO QAM [facility] Stop: 02/07/19 08:59 Last Admin: 01/09/19 10:10 Dose: 400 mg Documented by: Multivitamins (Multivitamin Tab) 1 tab PO DAILY [facility] Stop: 02/07/19 08:59 Last Admin: 01/09/19 10:09 Dose: 1 tab Documented by: Ondansetron HCl (Zofran) 4 mg PO TID PRN PRN Reason: Nausea Stop: 06/05/19 20:29 Potassium Chloride (Klor-Con M10) 10 meq PO DAILY [facility] Stop: 02/07/19 08:59 Last Admin: 01/09/19 10:11 Dose: 10 meq Documented by: Sodium Chloride ([place] Nasal) 1 - 2 sprays NA PRN PRN PRN Reason: Nasal Dryness/Congestion Stop: 02/06/19 16:24 Topiramate (Topamax) 200 mg PO BID [facility] Stop: 02/06/19 20:59 Last Admin: 01/09/19 10:10 Dose: 200 mg Documented by: Vitamin B Complex (Vitamin B Complex) 1 tab PO DAILY CÉSAR; Protocol Stop: 02/07/19 08:59 Last Admin: 01/09/19 10:12 Dose: 1 tab Documented by: Post Discharge Appointments Primary Care Physician Name Of Family Doctor: Dr. Garza Therapist Name of Therapist: Karena Mathias CPT Code CPT Code 26052 (1) Overdose Encounter type: initial encounter Injury intent: intentional self-harm Qualified Code(s): T50.902A - Poisoning by unspecified drugs, medicaments and biological substances, intentional self-harm, initial encounter
[2019-01-09] MEDS: BACLOFEN 10 MG TAB PO SCH (21:37)
[2019-01-10] MEDS: LEVOTHYROXINE SODIUM 75 MCG TABLET PO SCH (06:53)
[2019-01-10] MEDS: POTASSIUM CHLORIDE 10 MEQ TABCR PO SCH (08:32)
[2019-01-10] MEDS: BACLOFEN 10 MG TAB PO SCH (08:32)
[2019-01-10] MEDS: MULTIVITAMIN TAB PO SCH (08:32)
[2019-01-10] MEDS: levETIRAcetam 500 MG TAB PO SCH (08:32)
[2019-01-10] MEDS: MAGNESIUM OXIDE 400 MG TAB PO SCH (08:32)
[2019-01-10] MEDS: TOPIRAMATE 100 MG TAB PO SCH (08:33)
[2019-01-10] MEDS: GABAPENTIN 100 MG CAP PO SCH (08:33)
[2019-01-10] MEDS: VITAMIN B COMPLEX TAB PO SCH (08:33)
[2019-01-10] MEDS: CARBAMAZEPINE 200 MG TABCR PO SCH (08:33)
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
[2019-01-10] MEDS ORDERED: DESTROY THIS MEDICATION ONE (13:45)
== END 2019-01-10 12:55 | disposition home or self-care (01) | DRG 883 ==
LOC: 3S 16:14

== ENCOUNTER 2019-03-14 00:12 | Inpatient (IN) ==
[2019-03-14] MEDS ORDERED: SODIUM CHLORIDE 0.9% 1000ML 1,000 ML IV SCH (00:30)
[2019-03-14 00:51] LABS: Basophils # (auto) 0.02 K/uL (0-0.2); Basophils % (auto) 0.5 %; Eosinophils # (auto) 0.05 K/uL (0-0.5); Eosinophils % (auto) 1.1 %; Hemoglobin 12.5 g/dL (12.0-16.0); Lymphocytes # (auto) 1.93 K/uL (1.2-3.4); Lymphocytes % (auto) 43.6 %; Mean Corpuscular Hgb Conc 33.8 g/dL (32-36); Mean Corpuscular Volume 93.4 fL (80-100); Mean Platelet Volume 11.3 fL (7.4-10.4); Monocytes # (auto) 0.16 K/uL (0.11-0.59); Monocytes % (auto) 3.6 %; Neutrophils # (auto) 2.27 K/uL (1.4-6.5); Neutrophils % (auto) 51.2 %; Platelet Count 248 K/uL (130-400); RDW Coefficient of Variation 12.5 % (11.5-14.5); RDW Standard Deviation 42.5 fL (36.4-46.3); Red Blood Count 3.96 M/uL (4.2-5.4); White Blood Count 4.43 K/uL (4.8-10.8)
[2019-03-14 01:09] LABS: Appearance Urine Clear (Clear); Bilirubin Urine Negative (Negative); Blood Urine Negative (Negative); Color Urine Yellow; Glucose Urine UA Negative (Negative); Ketones Urine Negative (Negative); Leukocyte Esterase Urine Negative (Negative); Nitrite Urine Negative (Negative); Protein Urine Negative (Negative); Specific Gravity Urine 1.009 (1.000-1.030); Urobilinogen Urine Negative (Negative)
[2019-03-14 01:10] LABS: Pregnancy Test, Serum Negative (Negative)
[2019-03-14 01:15] LABS: Albumin Globulin Ratio 1.1 (0.9-2); Albumin Level 4.1 gm/dl (3.4-5.0); BUN Creatinine Ratio 5.1 (10-20); Bilirubin,Total 0.2 mg/dl (0.2-1); Calcium 8.5 mg/dl (8.5-10.1); Est GFR (African American) 85.9; Est GFR (Non-African American) 74.1; Globulin 3.7 gm/dl (2.5-4.0); Total Protein 7.8 gm/dl (6.4-8.2)
[2019-03-14 01:25] LABS: Amphetamines+Metham, Urine Neg (Neg); Barbiturates, Urine Neg (Neg); Benzodiazepine, Urine Neg (Neg); Cocaine, Urine Neg (Neg); MDMA (Ecstacy), Urine Neg (Neg); Methadone, Urine Neg (Neg); Opiate, Urine Neg (Neg); Phencyclidine, Urine Neg (Neg)
[2019-03-14] MEDS ORDERED: ONDANSETRON INJ 2 MG/ML 2 ML VIAL IV STA (01:37)
[2019-03-14] MEDS ORDERED: POTASSIUM CHLORIDE 20 MEQ TABCR PO STA (01:37)
[2019-03-14] MEDS ORDERED: SODIUM CHLORIDE 0.9% 1000ML 500 ML IV ONE (01:37)
[2019-03-14 01:58] LABS: Acetaminophen < 2 ug/ml (10-30); Salicylate < 1.7 mg/dl (2.8-20)
[2019-03-14] MEDS: MAGNESIUM SULFATE / D5W 1 GM/100 ML BAG IV SCH ×2 (03:43→04:44)
[2019-03-14] MEDS ORDERED: METOCLOPRAMIDE HCL INJ 5 MG/ML 2 ML VIAL IV STA (06:07)
--- NOTE | 2019-03-14 06:07 | Emergency Department Note ---
Entered by Trinh Marie acting as a scribe for Matthew Young MD History of Present Illness General Chief complaint: Overdose (Intentional) Stated complaint: OD Time Seen by Provider: 03/14/19 00:17 Source: patient History of Present Illness Provider complaint: overdose Onset (ago): hour(s) 3 Location: head Pain Consistency: + now resolved Quality: + other (mental health) Relieved By: + none Exacerbated By: + none Associated symptoms: + denies other symptoms The patient is a 49 y/o female who presents to the emergency department for evaluation following an overdose three hours ago. The patient states that she took three quarters of a bottle of Benadryl three hours ago with the intent to harm herself. She notes her found her unresponsive and called EMS. EMS reports that they placed a nasal airway on the patient but she become responsive in the ambulance so it was removed. The patient notes that there is a lot going on in her life and she was intending to harm herself tonight. She admits to taking some shots of vodka tonight as well. The patient states that she does have a case fitter and therapist but her support system is not helping her. The patient does note that she was in the ED 10 days ago for similar issues but signed out in the morning. She denies any other symptoms. Home Medications Home Medications Medication Instructions Recorded Confirmed Type vitamin B complex-folic acid 1 tab PO DAILY 11/28/18 03/14/19 History gabapentin 300 mg PO TID 11/30/18 03/14/19 History levothyroxine 75 mcg PO DAILY 11/30/18 03/14/19 History multivitamin 1 tab PO DAILY 11/30/18 03/14/19 History ondansetron HCl [Zofran] 4 - 8 mg PO TID PRN 11/30/18 03/14/19 History topiramate [Topamax] 200 mg PO BID 11/30/18 03/14/19 History magnesium oxide 400 mg PO DAILY 12/21/18 03/14/19 History baclofen 10 mg PO TID 01/07/19 03/14/19 History hydroxyzine HCl 25 mg PO Q4H PRN #30 tab 01/10/19 03/14/19 Rx levetiracetam [Keppra] 2,000 mg PO BID #30 tab 01/10/19 03/14/19 Rx oxycodone 5 - 10 mg PO Q6 PRN #8 tab 01/19/19 03/14/19 Rx diphenhydramine HCl [Benadryl] 0 mg PO ONCE PRN 03/14/19 03/14/19 History Allergies Allergy/AdvReac Type Severity Reaction Status Date / Time tree nut Allergy Severe ANAPHYLAXIS Verified 03/14/19 00:46 Penicillins Allergy Intermediate HIVES Verified 03/14/19 00:46 Past Med/Surg History Medical History Alcohol abuse (Chronic) Seizure disorder (Chronic) Hypothyroidism (Chronic) Raynauds phenomenon (Chronic) Cluster B personality disorder (Chronic) Diphenhydramine overdose (Chronic) PTSD (post-traumatic stress disorder) (Chronic) Hypokalemia (Inactive) Surgical History Hx of cholecystectomy (Chronic) H/O foot surgery (Chronic) H/O shoulder surgery (Chronic) H/O hernia repair (Chronic) Family History Other Breast cancer Diabetes Hypertension Myocardial infarction Social History Preferred Language: Czech Communication Ability: Effective Dance Master Required: No Beliefs That Will Affect Care: None marital status: Current Living Situation: Significant Other current occupational status: unemployed Other Information That Helps Us Care for You: No Feels Safe at Home: Yes Safety Concerns: Feels Safe At This Time Smoking Status: Never smoker Do You Dip or Chew Tobacco: No Second Hand Exposur e: No Tobacco Cessation Education Requested by Patient: No Hx Alcohol Use: Yes Alcohol type: wine and hard liquor Hx Substance Use: Yes substance use type: other Substance Use Type Other:: cannabis oil Last Used Substance: Unknown Review of Systems See HPI for pertinent positives & negatives. and A total of 10 systems reviewed and were otherwise negative Physical Exam Vital Signs Vital Signs - 24 hr 03/14/19 06:30 03/14/19 07:00 03/14/19 07:30 Pulse Rate 105 H 117 H 122 H Pulse Rate from SpO2 Sensor 105 H 117 H 120 H Respiratory Rate 21 20 23 Blood Pressure 117/78 123/85 118/79 Blood Pressure Mean 91 97 92 Pulse Oximetry 97 98 95 Oxygen Delivery Method Room Air Room Air Room Air 03/14/19 08:00 03/14/19 08:30 03/14/19 09:01 Pulse Rate 133 H 127 H 109 H Pulse Rate from SpO2 Sensor 133 H 127 H 110 H Respiratory Rate 22 29 H 24 Blood Pressure 125/85 127/87 132/92 Blood Pressure Mean 98 100 105 Pulse Oximetry 99 97 96 Oxygen Delivery Method Room Air Room Air Room Air 03/14/19 09:30 Pulse Rate 104 H Pulse Rate from SpO2 Sensor 107 H Respiratory Rate 23 Blood Pressure 117/82 Blood Pressure Mean 93 Pulse Oximetry 98 Oxygen Delivery Method Room Air GENERAL: Awake, alert, well-appearing, in no acute distress. Slurring speech. HENT: Normocephalic, atraumatic. Oropharynx unremarkable. EYES: Normal conjunctiva. Sclera non-icteric. NECK: Supple. No nuchal rigidity. FROM. No JVD. RESPIRATORY: Clear to auscultation. CARDIAC: Regular rate, normal rhythm. Extremities warm and well perfused. Pulses equal. ABDOMEN: Soft, non-distended. No tenderness to palpation. No rebound or guarding. No masses. RECTAL: Deferred. MUSCULOSKELETAL: Chest examination reveals no tenderness. The back is symmetrical on inspection without obvious abnormality. There is no CVA tenderness to palpation. No joint edema. LOWER EXTREMITIES: Calves are equal size bilaterally and non-tender. No edema. No discoloration. NEURO: Normal sensorium. No sensory or motor deficits noted. SKIN: No rash or jaundice noted. Course 0020: Past medical records reviewed. The patient was evaluated in room B04B. A complete history and physical exam was performed. 0029: watershed manager was informed about the patient. 0052: The patients is at bedside. He notes that the patient was seizing when he found her. 0100: The will not fill out a 302 for patient. He thinks she will sign herself in. He states she took the Benadryl at 11:30 p.m. 0105: I spoke with poison control. They recommend an EKG, aspirin level, fluids and benzos as needed. She should be medically clear in a few hours. 0120: [facility] is refusing to sing a 302 for the patient. 0130: Police are refusing to fill out a 302 for the patient. 0339: Poison control would like a repeat magnesium and EKG two hours after the infusion. Administered Medications Dextrose (Dextrose 50%) 25 - 50 ml IV UD PRN; Protocol PRN Reason: Hypoglycemia Protocol Stop: 04/13/19 22:08 Last Admin: 03/14/19 22:14 Dose: 25 ml Documented by: [id number] Enoxaparin Sodium (Lovenox) 30 mg SQ Q24H CÉSAR Stop: 04/13/19 18:29 Last Admin: 03/14/19 19:36 Dose: 30 mg Documented by: [id number] Thiamine HCl 500 mg/ Sodium (Chloride) 105 mls @ 210 mls/hr IV QAM CÉSAR Stop: 03/16/19 09:29 Last Infusion: 03/14/19 13:46 Dose: 0 mls/hr Documented by: [id number] Admin: 03/14/19 13:16 Dose: 210 mls/hr Documented by: [id number] Levetiracetam (Keppra) 2,000 mg PO BID CÉSAR Stop: 04/13/19 20:59 Last Admin: 03/14/19 20:54 Dose: Not Given Documented by: [id number] Phenobarbital Sodium (Phenobarbital Sodium) 65 mg IM Q6H PRN PRN Reason: Undecided Stop: 03/19/19 12:14 Last Admin: 03/15/19 00:28 Dose: 65 mg Documented by: [id number] Topiramate (Topamax) 200 mg PO BID CÉSAR Stop: 04/13/19 20:59 Last Admin: 03/14/19 20:54 Dose: Not Given Documented by: [id number] Discontinued Medications Sodium Chloride (Nss 1000ml) 1,000 mls @ 999 mls/hr IV .Q1H1M CÉSAR Stop: 03/14/19 01:30 Last Infusion: 03/14/19 03:23 Dose: 0 mls/hr Documented by: [id number] Admin: 03/14/19 01:10 Dose: 999 mls/hr Documented by: [id number] Sodium Chloride (Nss 1000ml) 500 mls @ 999 mls/hr IV .Q31M ONE Stop: 03/14/19 02:07 Last Infusion: 03/14/19 04:55 Dose: 0 mls/hr Documented by: [id number] Admin: 03/14/19 03:23 Dose: 999 mls/hr Documented by: [id number] Magnesium Sulfate/Dextrose (Magnesium Sulfate / D5w) 1 gm in 100 mls @ 100 mls/hr IV Q1H CÉSAR Stop: 03/14/19 05:44 Last Infusion: 03/14/19 05:51 Dose: 0 mls/hr Documented by: [id number] Admin: 03/14/19 04:44 Dose: 100 mls/hr Documented by: [id number] Infusion: 03/14/19 04:43 Dose: 100 mls/hr Documented by: [id number] Admin: 03/14/19 03:43 Dose: 100 mls/hr Documented by: [id number] Potassium Chloride (K Manish / Wtr) 10 meq in 100 mls @ 100 mls/hr IV Q1H CÉSAR Stop: 03/14/19 08:44 Last Infusion: 03/14/19 08:45 Dose: 0 mls/hr Documented by: [id number] Admin: 03/14/19 07:45 Dose: 100 mls/hr Documented by: [id number] Infusion: 03/14/19 07:39 Dose: 0 mls/hr Documented by: [id number] Admin: 03/14/19 06:39 Dose: 100 mls/hr Documented by: [id number] Lorazepam (Ativan) 1 mg in 2 mls @ 2 mls/min IV NOW STA Stop: 03/14/19 08:17 Last Admin: 03/14/19 08:28 Dose: 2 mls/min Documented by: [id number] Lorazepam (Ativan) 0.5 mg in 1 mls @ 1 mls/min IV NOW STA Stop: 03/14/19 11:39 Last Admin: 03/14/19 11:43 Dose: 1 mls/min Documented by: [id number] Sodium Bicarbonate 150 meq/ (Sterile Water) 1,150 mls @ 75 mls/hr IV .[id number] CÉSAR Stop: 04/13/19 12:38 Last Infusion: 03/14/19 18:50 Dose: 0 mls/hr Documented by: [id number] Admin: 03/14/19 13:16 Dose: 75 mls/hr Documented by: [id number] Phenobarbital Sodium 100 mg/ (Syringe) 0.7692 mls @ 0 mls/sec IM Q3H CÉSAR Stop: 03/14/19 19:01 Last Admin: 03/14/19 19:37 Dose: 1 mls/sec Documented by: [id number] Admin: 03/14/19 16:24 Dose: 1 mls/sec Documented by: [id number] Levetiracetam (Keppra) 2,000 mg PO BID CÉSAR Stop: 04/13/19 08:59 Last Admin: 03/14/19 09:29 Dose: 2,000 mg Documented by: [id number] Metoclopramide HCl (Reglan) 10 mg IV NOW STA Stop: 03/14/19 06:08 Last Admin: 03/14/19 06:16 Dose: 10 mg Documented by: [id number] Ondansetron HCl (Zofran) 4 mg IV NOW STA Stop: 03/14/19 01:38 Last Admin: 03/14/19 01:52 Dose: 4 mg Documented by: [id number] Phenobarbital Sodium (Phenobarbital Sodium) 135 mg IM NOW STA Stop: 03/14/19 12:20 Last Admin: 03/14/19 13:01 Dose: 135 mg Documented by: [id number] Potassium Chloride (Klor-Con M20) 40 meq PO NOW STA Stop: 03/14/19 01:38 Last Admin: 03/14/19 01:52 Dose: 40 meq Documented by: [id number] Potassium Chloride (Klor-Con M20) 40 meq PO NOW STA Stop: 03/14/19 06:08 Last Admin: 03/14/19 06:32 Dose: Not Given Documented by: [id number] Medical Decision Making Differential Diagnosis Differential diagnosis includes: mood disorder, infection, hypoglycemia, electrolyte abnormalities, cardiac sources, intracerebral event, toxicologic, neurologic, as well as others were entertained. Medical Records Attestation: I reviewed the patient's medical records. Home Medications Current Medication List: was personally reviewed by me Laboratory Data Attestation: I reviewed the patient's lab results. Result diagrams: 03/15/19 04:22 03/15/19 04:22 Lab Results 03/14/19 03/14/19 03/14/19 Range/Units 00:30 00:30 00:39 WBC (4.8-10.8) K/uL RBC (4.2-5.4) M/uL Hgb (12.0-16.0) g/dL Hct (37-47) % MCV (80-100) fL MCH (25-34) pg MCHC (32-36) g/dL RDW Std Deviation (36.4-46.3) fL RDW Coeff of Thea (11.5-14.5) % Plt Count (130-400) K/uL MPV (7.4-10.4) fL Immature Gran % (Auto) % Neut % (Auto) % Lymph % (Auto) % Gem % (Auto) % Eos % (Auto) % Baso % (Auto) % Immature Gran # (Auto) (0.00-0.02) K/uL Neut # (Auto) (1.4-6.5) K/uL Lymph # (Auto) (1.2-3.4) K/uL Gem # (Auto) (0.11-0.59) K/uL Eos # (Auto) (0-0.5) K/uL Baso # (Auto) (0-0.2) K/uL Sodium (136-145) mmol/L Potassium (3.5-5.1) mmol/L Chloride (98-107) mmol/L Carbon Dioxide (21-32) mmol/L Anion Gap (3-11) BUN (7-18) mg/dl Creatinine (0.6-1.2) mg/dl Est Cr Clr Drug Dosing ml/min Est GFR ( Amer) Est GFR (Non-Af Amer) BUN/Creatinine Ratio (10-20) Glucose (70-99) mg/dl POC Glucose (70-99) Calcium (8.5-10.1) mg/dl Magnesium (1.8-2.4) mg/dl Total Bilirubin (0.2-1) mg/dl AST (15-37) U/L ALT (12-78) U/L Alkaline Phosphatase (45-117) U/L Total Creatine Kinase (26-192) U/L Total Protein (6.4-8.2) gm/dl Albumin (3.4-5.0) gm/dl Globulin (2.5-4.0) gm/dl Albumin/Globulin Ratio (0.9-2) HCG, Qual (Negative) Urine Color Yellow Urine Appearance Clear (Clear) Urine pH 6.0 (4.5-7.5) Ur Specific Council 1.009 (1.000-1.030) Urine Protein Negative (Negative) Urine Glucose (UA) Negative (Negative) Urine Ketones Negative (Negative) Urine Blood Negative (Negative) Urine Nitrite Negative (Negative) Urine Bilirubin Negative (Negative) Urine Urobilinogen Negative (Negative) Ur Leukocyte Esterase Negative (Negative) Salicylates < 1.7 L (2.8-20) mg/dl Urine Opiates Screen Neg (Neg) Ur Methadone, Qual Neg (Neg) Acetaminophen < 2 L (10-30) ug/ml Urine Barbiturates Neg (Neg) Ur Phencyclidine (PCP) Neg (Neg) U Amphetamin/Meth Scrn Neg (Neg) MDMA (Ecstasy) Screen Neg (Neg) U Benzodiazepines Scrn Neg (Neg) Ur Cocaine Metabolite Neg (Neg) U Marijuana (THC) Screen Neg (Neg) Ethyl Alcohol mg/dL (0-3) mg/dl 03/14/19 03/14/19 03/14/19 Range/Units 00:39 00:39 00:39 WBC 4.43 L (4.8-10.8) K/uL RBC 3.96 L (4.2-5.4) M/uL Hgb 12.5 (12.0-16.0) g/dL Hct 37.0 (37-47) % MCV 93.4 (80-100) fL MCH 31.6 (25-34) pg MCHC 33.8 (32-36) g/dL RDW Std Deviation 42.5 (36.4-46.3) fL RDW Coeff of Thea 12.5 (11.5-14.5) % Plt Count 248 (130-400) K/uL MPV 11.3 H (7.4-10.4) fL Immature Gran % (Auto) 0.0 % Neut % (Auto) 51.2 % Lymph % (Auto) 43.6 % Gem % (Auto) 3.6 % Eos % (Auto) 1.1 % Baso % (Auto) 0.5 % Immature Gran # (Auto) 0.00 (0.00-0.02) K/uL Neut # (Auto) 2.27 (1.4-6.5) K/uL Lymph # (Auto) 1.93 (1.2-3.4) K/uL Gem # (Auto) 0.16 (0.11-0.59) K/uL Eos # (Auto) 0.05 (0-0.5) K/uL Baso # (Auto) 0.02 (0-0.2) K/uL Sodium (136-145) mmol/L Potassium (3.5-5.1) mmol/L Chloride (98-107) mmol/L Carbon Dioxide (21-32) mmol/L Anion Gap (3-11) BUN (7-18) mg/dl Creatinine (0.6-1.2) mg/dl Est Cr Clr Drug Dosing ml/min Est GFR ( Amer) Est GFR (Non-Af Amer) BUN/Creatinine Ratio (10-20) Glucose (70-99) mg/dl POC Glucose (70-99) Calcium (8.5-10.1) mg/dl Magnesium (1.8-2.4) mg/dl Total Bilirubin (0.2-1) mg/dl AST (15-37) U/L ALT (12-78) U/L Alkaline Phosphatase (45-117) U/L Total Creatine Kinase (26-192) U/L Total Protein (6.4-8.2) gm/dl Albumin (3.4-5.0) gm/dl Globulin (2.5-4.0) gm/dl Albumin/Globulin Ratio (0.9-2) HCG, Qual Negative (Negative) Urine Color Urine Appearance (Clear) Urine pH (4.5-7.5) Ur Specific Council (1.000-1.030) Urine Protein (Negative) Urine Glucose (UA) (Negative) Urine Ketones (Negative) Urine Blood (Negative) Urine Nitrite (Negative) Urine Bilirubin (Negative) Urine Urobilinogen (Negative) Ur Leukocyte Esterase (Negative) Salicylates (2.8-20) mg/dl Urine Opiates Screen (Neg) Ur Methadone, Qual (Neg) Acetaminophen (10-30) ug/ml Urine Barbiturates (Neg) Ur Phencyclidine (PCP) (Neg) U Amphetamin/Meth Scrn (Neg) MDMA (Ecstasy) Screen (Neg) U Benzodiazepines Scrn (Neg) Ur Cocaine Metabolite (Neg) U Marijuana (THC) Screen (Neg) Ethyl Alcohol mg/dL 96.0 H (0-3) mg/dl 03/14/19 03/14/19 03/14/19 Range/Units 00:39 02:01 02:02 WBC (4.8-10.8) K/uL RBC (4.2-5.4) M/uL Hgb (12.0-16.0) g/dL Hct (37-47) % MCV (80-100) fL MCH (25-34) pg MCHC (32-36) g/dL RDW Std Deviation (36.4-46.3) fL RDW Coeff of Thea (11.5-14.5) % Plt Count (130-400) K/uL MPV (7.4-10.4) fL Immature Gran % (Auto) % Neut % (Auto) % Lymph % (Auto) % Gem % (Auto) % Eos % (Auto) % Baso % (Auto) % Immature Gran # (Auto) (0.00-0.02) K/uL Neut # (Auto) (1.4-6.5) K/uL Lymph # (Auto) (1.2-3.4) K/uL Gem # (Auto) (0.11-0.59) K/uL Eos # (Auto) (0-0.5) K/uL Baso # (Auto) (0-0.2) K/uL Sodium 140 (136-145) mmol/L Potassium 3.0 L (3.5-5.1) mmol/L Chloride 109 H (98-107) mmol/L Carbon Dioxide 23 (21-32) mmol/L Anion Gap 8.0 (3-11) BUN 5 L (7-18) mg/dl Creatinine 0.91 (0.6-1.2) mg/dl Est Cr Clr Drug Dosing 66.0 ml/min Est GFR ( Amer) 85.9 Est GFR (Non-Af Amer) 74.1 BUN/Creatinine Ratio 5.1 L (10-20) Glucose 51 L* (70-99) mg/dl POC Glucose 66 L* 74 (70-99) Calcium 8.5 (8.5-10.1) mg/dl Magnesium (1.8-2.4) mg/dl Total Bilirubin 0.2 (0.2-1) mg/dl AST 15 (15-37) U/L ALT 14 (12-78) U/L Alkaline Phosphatase 90 (45-117) U/L Total Creatine Kinase 88 (26-192) U/L Total Protein 7.8 (6.4-8.2) gm/dl Albumin 4.1 (3.4-5.0) gm/dl Globulin 3.7 (2.5-4.0) gm/dl Albumin/Globulin Ratio 1.1 (0.9-2) HCG, Qual (Negative) Urine Color Urine Appearance (Clear) Urine pH (4.5-7.5) Ur Specific Council (1.000-1.030) Urine Protein (Negative) Urine Glucose (UA) (Negative) Urine Ketones (Negative) Urine Blood (Negative) Urine Nitrite (Negative) Urine Bilirubin (Negative) Urine Urobilinogen (Negative) Ur Leukocyte Esterase (Negative) Salicylates (2.8-20) mg/dl Urine Opiates Screen (Neg) Ur Methadone, Qual (Neg) Acetaminophen (10-30) ug/ml Urine Barbiturates (Neg) Ur Phencyclidine (PCP) (Neg) U Amphetamin/Meth Scrn (Neg) MDMA (Ecstasy) Screen (Neg) U Benzodiazepines Scrn (Neg) Ur Cocaine Metabolite (Neg) U Marijuana (THC) Screen (Neg) Ethyl Alcohol mg/dL (0-3) mg/dl 03/14/19 03/14/19 03/14/19 Range/Units 02:44 06:39 08:10 WBC (4.8-10.8) K/uL RBC (4.2-5.4) M/uL Hgb (12.0-16.0) g/dL Hct (37-47) % MCV (80-100) fL MCH (25-34) pg MCHC (32-36) g/dL RDW Std Deviation (36.4-46.3) fL RDW Coeff of Thea (11.5-14.5) % Plt Count (130-400) K/uL MPV (7.4-10.4) fL Immature Gran % (Auto) % Neut % (Auto) % Lymph % (Auto) % Gem % (Auto) % Eos % (Auto) % Baso % (Auto) % Immature Gran # (Auto) (0.00-0.02) K/uL Neut # (Auto) (1.4-6.5) K/uL Lymph # (Auto) (1.2-3.4) K/uL Gem # (Auto) (0.11-0.59) K/uL Eos # (Auto) (0-0.5) K/uL Baso # (Auto) (0-0.2) K/uL Sodium 144 (136-145) mmol/L Potassium 3.6 D (3.5-5.1) mmol/L Chloride 114 H (98-107) mmol/L Carbon Dioxide 23 (21-32) mmol/L Anion Gap 7.0 (3-11) BUN 7 (7-18) mg/dl Creatinine 0.93 (0.6-1.2) mg/dl Est Cr Clr Drug Dosing 64.6 ml/min Est GFR ( Amer) 83.6 Est GFR (Non-Af Amer) 72.2 BUN/Creatinine Ratio 7.1 L (10-20) Glucose 96 (70-99) mg/dl POC Glucose 83 82 (70-99) Calcium 9.0 (8.5-10.1) mg/dl Magnesium 2.9 H (1.8-2.4) mg/dl Total Bilirubin (0.2-1) mg/dl AST (15-37) U/L ALT (12-78) U/L Alkaline Phosphatase (45-117) U/L Total Creatine Kinase 108 (26-192) U/L Total Protein (6.4-8.2) gm/dl Albumin (3.4-5.0) gm/dl Globulin (2.5-4.0) gm/dl Albumin/Globulin Ratio (0.9-2) HCG, Qual (Negative) Urine Color Urine Appearance (Clear) Urine pH (4.5-7.5) Ur Specific Council (1.000-1.030) Urine Protein (Negative) Urine Glucose (UA) (Negative) Urine Ketones (Negative) Urine Blood (Negative) Urine Nitrite (Negative) Urine Bilirubin (Negative) Urine Urobilinogen (Negative) Ur Leukocyte Esterase (Negative) Salicylates (2.8-20) mg/dl Urine Opiates Screen (Neg) Ur Methadone, Qual (Neg) Acetaminophen (10-30) ug/ml Urine Barbiturates (Neg) Ur Phencyclidine (PCP) (Neg) U Amphetamin/Meth Scrn (Neg) MDMA (Ecstasy) Screen (Neg) U Benzodiazepines Scrn (Neg) Ur Cocaine Metabolite (Neg) U Marijuana (THC) Screen (Neg) Ethyl Alcohol mg/dL (0-3) mg/dl 03/14/19 03/14/19 Range/Units 08:10 08:10 WBC (4.8-10.8) K/uL RBC (4.2-5.4) M/uL Hgb (12.0-16.0) g/dL Hct (37-47) % MCV (80-100) fL MCH (25-34) pg MCHC (32-36) g/dL RDW Std Deviation (36.4-46.3) fL RDW Coeff of Thea (11.5-14.5) % Plt Count (130-400) K/uL MPV (7.4-10.4) fL Immature Gran % (Auto) % Neut % (Auto) % Lymph % (Auto) % Gem % (Auto) % Eos % (Auto) % Baso % (Auto) % Immature Gran # (Auto) (0.00-0.02) K/uL Neut # (Auto) (1.4-6.5) K/uL Lymph # (Auto) (1.2-3.4) K/uL Gem # (Auto) (0.11-0.59) K/uL Eos # (Auto) (0-0.5) K/uL Baso # (Auto) (0-0.2) K/uL Sodium (136-145) mmol/L Potassium (3.5-5.1) mmol/L Chloride (98-107) mmol/L Carbon Dioxide (21-32) mmol/L Anion Gap (3-11) BUN (7-18) mg/dl Creatinine (0.6-1.2) mg/dl Est Cr Clr Drug Dosing ml/min Est GFR ( Amer) Est GFR (Non-Af Amer) BUN/Creatinine Ratio (10-20) Glucose (70-99) mg/dl POC Glucose (70-99) Calcium (8.5-10.1) mg/dl Magnesium (1.8-2.4) mg/dl Total Bilirubin (0.2-1) mg/dl AST (15-37) U/L ALT (12-78) U/L Alkaline Phosphatase (45-117) U/L Total Creatine Kinase Cancelled (26-192) U/L Total Protein (6.4-8.2) gm/dl Albumin (3.4-5.0) gm/dl Globulin (2.5-4.0) gm/dl Albumin/Globulin Ratio (0.9-2) HCG, Qual (Negative) Urine Color Urine Appearance (Clear) Urine pH (4.5-7.5) Ur Specific Council (1.000-1.030) Urine Protein (Negative) Urine Glucose (UA) (Negative) Urine Ketones (Negative) Urine Blood (Negative) Urine Nitrite (Negative) Urine Bilirubin (Negative) Urine Urobilinogen (Negative) Ur Leukocyte Esterase (Negative) Salicylates (2.8-20) mg/dl Urine Opiates Screen (Neg) Ur Methadone, Qual (Neg) Acetaminophen (10-30) ug/ml Urine Barbiturates (Neg) Ur Phencyclidine (PCP) (Neg) U Amphetamin/Meth Scrn (Neg) MDMA (Ecstasy) Screen (Neg) U Benzodiazepines Scrn (Neg) Ur Cocaine Metabolite (Neg) U Marijuana (THC) Screen (Neg) Ethyl Alcohol mg/dL < 3.0 (0-3) mg/dl ECG Data Attestation: I personally reviewed and interpreted this ECG as follows: Indication: other (overdose) Rate (beats per minute): 92 Rhythm: normal sinus Findings: + other (possible left atrial enlargment- unchanged from pervious) and + prolonged QT (428); no ST depression and no ST elevation Comparison ECG Date: from (03/03/19) Change: the following changes noted (prolonged QT of 428 from 478 perviously. ) Blood Pressure Blood Pressure Findings: Normal blood pressure MDM Narrative This is a 49-year-old female who presents emergency department after a overdose at home. I will note EMS, police as well as this patient's boyfriend were all contacted to fill out a 302 on this patient however they all refused. The patient does not give a consistent story as to what happened tonight however per the boyfriend EMS and police the patient overdosed on approximately half bottle of Benadryl. The patient is also intoxicated. Because of concerns that the patient may try and leave the emergency department suicide precautions were taken in a 302 warrant was initiated by both myself as well as case management. Patient was found to have a decrease in her glucose which I believe may be rel ated to her intoxicated state. She was given food and her glucose stabilized. Her potassium was also found to be low at 3.0. This was repleted in the emergency department. She does not have an elevation in her white blood cell count. Because of the patient's intoxicated state and due to the Benadryl use she was discussed with poison control. They recommended giving the patient 2 units of magnesium and to having a repeat EKG as well as a repeat magnesium drawn in the morning. Patient's QT intervals found to be 428/529 compared to her old QT intervals 478/481. Because of the magnesium and the repeat magnesium draws the patient was observed for an extended period of time in the emergency department before she could be assessed by case management. Pt signed out to Dr Sorensen at change of shift. Impression & Plan Drug overdose, Alcohol intoxication, Acute hypokalemia Discharge Plan Visit Data *Final* Discharge Date/Time: 03/14/19 10:29 Chief Complaint: Overdose (Intentional) Stated Complaint: OD ED Provider: Robbin Sorensen Discharge Problem: Drug overdose, Alcohol intoxication, Acute hypokalemia Patient Disposition: Admitted As Inpatient Discharge Instructions Interventions: ED Discharge Assessment Last Done: 03/14/19 10:29 The scribe's documentation has been prepared under my direction and personally reviewed by me in its entirety. I confirm that the note above accurately refl ects all work, treatment, procedures, and medical decision making performed by me.
[2019-03-14] MEDS: POTASSIUM CHLORIDE 20 MEQ TABCR PO STA ×2 (06:16→06:32)
[2019-03-14] MEDS: POTASSIUM CHLORIDE / WTR 10 MEQ/100 ML PLCT IV SCH ×2 (06:39→07:45)
--- NOTE | 2019-03-14 06:54 | Emergency Department Note ---
ED Visit Note 0650: sign out from Dr. Young. patient attempted to OD with benadryl and EtOH. took a half bottle of benadryl tablets at uknown time. glucose 53. MgSO4 2 g given in ED. in ED patinet tolerating PO and had a meal. Poison control has been involved in the case. EKG and Mg ordered for 0800 by recommended by poison control. awaiting psych eval 0801: Repeat EKG done at 758 showed a sinus tachycardia with rate of 131. PA QRS intervals within normal limits. QTC is 575. This is increased from the EKG done at 12:30 AM which showed a QTC of 529. There is no ST elevation ST depression. I discussed these findings with Poison Control Center [place]. Poison Control Center recommends giving Ativan 1 mg to control the patient's heart rate and for symptom medic relief. They also recommend adding a creatinine kinase level. They recommend checking the magnesium level which is been drawn and we are awaiting the results for. They recommended keeping the magnesium greater than 2, if it is not greater than 2 they recommended giving more magnesium sulfate. They said that the patient needs to have every 24 hour magnesium levels checked until her EKG normalizes. She had and stated that these EKG findings can be seen with overdose from diphenhydramine. I discussed the case with Fredy Sanchez who accepted the admission and stated to admit to Dr. Bailey Stacy. 0849: Creatinine kinase within normal limits, magnesium 2.9, greater than 2 his Poison Control Center had recommended. .
[2019-03-14] MEDS ORDERED: LORazepam 1 MG/2 ML VIAL IV STA (08:16)
[2019-03-14 08:47] LABS: BUN Creatinine Ratio 7.1 (10-20); Creatinine Clr Calc Pharmacy 64.6 ml/min; Est GFR (African American) 83.6; Est GFR (Non-African American) 72.2; Magnesium 2.9 mg/dl (1.8-2.4); Potassium 3.6 mmol/L (3.5-5.1)
[2019-03-14] MEDS ORDERED: GABAPENTIN 300 MG CAP PO SCH ×2 (09:00→14:00)
[2019-03-14] MEDS ORDERED: TOPIRAMATE 100 MG TAB PO SCH (09:00)
[2019-03-14] MEDS ORDERED: MAGNESIUM OXIDE 400 MG TAB PO SCH (09:00)
[2019-03-14] MEDS ORDERED: levETIRAcetam 500 MG TAB PO SCH (09:00)
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
[2019-03-14] MEDS ORDERED: ACETAMINOPHEN 325 MG TAB PO PRN (10:54)
[2019-03-14] MEDS ORDERED: LORazepam 0.5 MG/1 ML VIAL IV STA (11:38)
[2019-03-14] MEDS ORDERED: PHENobarbital sodium 65 MG/ML VIAL IM PRN (12:16)
--- NOTE | 2019-03-14 12:18 | Critical Care Consultation ---
Date of Consultation March 14, 2019 Assessment & Plan (1) Suicidal overdose: Reason Critically Ill: 49-year-old female with drug-induced prolonged QTC with acute drug-induced encephalopathy PLAN: Neuro: Seizure disorder -Continue Keppra Suicidal ideation -Mental health following Acute encephalopathy Acute alcohol withdrawal -Phenobarbital taper Resp: End-tidal CO2 monitor CV: Prolonged QTC -Bicarbonate infusion at 100 mils per hour Fluids/Renal: Bicarbonate infusion ID: Afebrile GI/Nutrition: Thiamine repletion Heme: DVT prophylaxis: Lovenox Endocrine: ICU hyperglycemia protocol Continue thyroid supplementation -TSH acceptable in january Vascular access: Peripheral IVs Code Status: Full I have personally spent 40 minutes of critical care time in the direct management of this patient. This is a life/limb threatening event. This includes time spent evaluating patient, direct bedside care, chart review, placing orders, interpretation of diagnostic studies, discussion with consultants, patient, and/or family members regarding treatment decisions, as well as other required patient management activities. This time is exclusive of all separately billable procedures, and teaching time and separate from and in addition to any other critical care service time. (2) Suicidal behavior with attempted self-injury: (3) Intentional overdose of drug in tablet form: (4) Drug-induced mood disorder: (5) Acute encephalopathy: (6) Drug induced hallucinations: (7) Prolonged QT interval: (8) Suicide attempt: (9) Mood disorder: (10) Diphenhydramine overdose: (11) Alcohol abuse: (12) Seizure disorder: History of Present Illness Attending Physician: Bailey Stacy This is a second attempted consult note as the first appears to be lost by a computer malfunction while trying to review a thyroid-stimulating hormone result. History is obtained from prior records as the patient has acute encephalopathy. I was asked to evaluate the patient for possible alcohol withdrawal in the setting of self-injurious behavior by ingesting purportedly 75 tablets of 50 mg Benadryl and attempt to harm herself. The patient has multiple episodes of suicidal ideation suicide attempts. The patient's hemodynamics have worsened to include tachycardia and increasing encephalopathic behavior which might be indicative of acute alcohol withdrawal as the patient was acutely intoxicated upon presentation. Current plan at this time was discussion with poison control who agreed with serial EKGs and keeping magnesium letter level greater than 2, ultimately the patient will need further psychological evaluation and stabilization when she is medically stabilized and cleared. Allergies Allergy/AdvReac Type Severity Reaction Status Date / Time tree nut Allergy Severe ANAPHYLAXIS Verified 03/14/19 00:46 Penicillins Allergy Intermediate HIVES Verified 03/14/19 00:46 Home Medications Home Medications Medication Instructions Recorded Confirmed Type vitamin B complex-folic acid 1 tab PO DAILY 11/28/18 03/14/19 History gabapentin 300 mg PO TID 11/30/18 03/14/19 History levothyroxine 75 mcg PO DAILY 11/30/18 03/14/19 History multivitamin 1 tab PO DAILY 11/30/18 03/14/19 History ondansetron HCl [Zofran] 4 - 8 mg PO TID PRN 11/30/18 03/14/19 History topiramate [Topamax] 200 mg PO BID 11/30/18 03/14/19 History magnesium oxide 400 mg PO DAILY 12/21/18 03/14/19 History baclofen 10 mg PO TID 01/07/19 03/14/19 History hydroxyzine HCl 25 mg PO Q4H PRN #30 tab 01/10/19 03/14/19 Rx levetiracetam [Keppra] 2,000 mg PO BID #30 tab 01/10/19 03/14/19 Rx oxycodone 5 - 10 mg PO Q6 PRN #8 tab 01/19/19 03/14/19 Rx diphenhydramine HCl [Benadryl] 0 mg PO ONCE PRN 03/14/19 03/14/19 History Patient History Medical History Alcohol abuse (Chronic) Seizure disorder (Chronic) Hypothyroidism (Chronic) Raynauds phenomenon (Chronic) Cluster B personality disorder (Chronic) Diphenhydramine overdose (Chronic) PTSD (post-traumatic stress disorder) (Chronic) Hypokalemia (Inactive) Surgical History Hx of cholecystectomy (Chronic) H/O foot surgery (Chronic) H/O shoulder surgery (Chronic) H/O hernia repair (Chronic) Family History Other Breast cancer Diabetes Hypertension Myocardial infarction Social History Preferred Language: Moroccan Communication Ability: Effective Progressive Care Manager Required: No Beliefs That Will Affect Care: None marital status: Current Living Situation: Significant Other current occupational status: unemployed Other Information That Helps Us Care for You: No Feels Safe at Home: Yes Safety Concerns: Feels Safe At This Time Smoking Status: Never smoker Do You Dip or Chew Tobacco: No Second Hand Exposure: No Tobacco Cessation Education Requested by Patient: No Hx Alcohol Use: Yes Alcohol type: wine and hard liquor Hx Substance Use: Yes substance use type: other Substance Use Type Other:: cannabis oil Last Used Substance: Unknown Review of Systems Review of Systems: Unobtainable due to reduced consciousness Physical Exam Physical Exam: General: Thin female who appears her stated age I have reviewed the recorded vital signs Neurological: RASS score: 1, Moves all 4 extremities, Psychological: Glascow Coma Scale: Eyes: 3, Verbal 3, Motor 5, Total 11 not following complex commands Patient responding to internal stimuli, reaching for objects around the room which appear to be hallucinations Eyes: Pupils are equal, round and reactive to light, anicteric sclera. Symmetrical lids. HENT: Oropharynx is clear, mucous membranes are moist, . Neck: Supple. Symmetric. trachea midline. No thyromegaly. Cardiovascular: Normal peripheral perfusion. Distal pulses and capillary refill intact. No JVD. Respiratory: Respirations are non-labored, no accessory muscle use. Breath sounds are equal. Gastrointestinal: Soft. Non-distended. Lymphatic: No cervical lymphadenopathy. Musculoskeletal: No deformity. No clubbing nor cyanosis. Skin: Multiple tattoos of the bilateral upper and lower extremities Results & Data Vital Signs (Past 12 Hours) Vital Signs Temp Pulse Pulse Resp BP BP Pulse Ox 03/14/19 10:48 36.7 C 101 H 16 132/86 99 03/14/19 10:01 103 H 25 H 128/87 97 03/14/19 09:30 104 H 23 117/82 98 03/14/19 09:01 109 H 24 132/92 96 03/14/19 08:30 127 H 29 H 127/87 97 03/14/19 08:00 133 H 22 125/85 99 03/14/19 07:30 122 H 23 118/79 95 03/14/19 07:00 117 H 20 123/85 98 03/14/19 06:30 105 H 21 117/78 97 03/14/19 06:00 104 H 21 116/78 03/14/19 05:30 112 H 20 109/81 95 03/14/19 05:00 121 H 23 132/90 97 03/14/19 04:30 116 H 23 130/88 98 03/14/19 04:00 126 H 25 H 130/87 99 03/14/19 03:31 115 H 18 127/99 96 03/14/19 03:30 120 H 21 127/99 97 03/14/19 03:00 130 H 19 147/108 H 98 03/14/19 02:30 117 H 20 131/92 98 03/14/19 02:00 121 H 18 122/80 99 03/14/19 01:30 110 H 23 118/76 99 03/14/19 01:14 96 H 21 116/73 98 03/14/19 01:00 98 H 21 98 03/14/19 00:30 97 H 15 116/77 98 03/14/19 00:23 101 H 13 100 03/14/19 00:21 36.6 C 105 H 24 112/87 100 Laboratory Results 03/14/19 03/14/19 03/14/19 Range/Units 08:10 08:10 08:10 WBC (4.8-10.8) K/uL RBC (4.2-5.4) M/uL Hgb (12.0-16.0) g/dL Hct (37-47) % MCV (80-100) fL MCH (25-34) pg MCHC (32-36) g/dL RDW Std Deviation (36.4-46.3) fL RDW Coeff of Thea (11.5-14.5) % Plt Count (130-400) K/uL MPV (7.4-10.4) fL Immature Gran % (Auto) % Neut % (Auto) % Lymph % (Auto) % [place] % (Auto) % Eos % (Auto) % Baso % (Auto) % Immature Gran # (Auto) (0.00-0.02) K/uL Neut # (Auto) (1.4-6.5) K/uL Lymph # (Auto) (1.2-3.4) K/uL [place] # (Auto) (0.11-0.59) K/uL Eos # (Auto) (0-0.5) K/uL Baso # (Auto) (0-0.2) K/uL Sodium 144 (136-145) mmol/L Potassium 3.6 D (3.5-5.1) mmol/L Chloride 114 H (98-107) mmol/L Carbon Dioxide 23 (21-32) mmol/L Anion Gap 7.0 (3-11) BUN 7 (7-18) mg/dl Creatinine 0.93 (0.6-1.2) mg/dl Est Cr Clr Drug Dosing 64.6 ml/min Est GFR ( Amer) 83.6 Est GFR (Non-Af Amer) 72.2 BUN/Creatinine Ratio 7.1 L (10-20) Glucose 96 (70-99) mg/dl POC Glucose (70-99) Calcium 9.0 (8.5-10.1) mg/dl Magnesium 2.9 H (1.8-2.4) mg/dl Total Bilirubin (0.2-1) mg/dl AST (15-37) U/L ALT (12-78) U/L Alkaline Phosphatase (45-117) U/L Total Creatine Kinase Cancelled 108 (26-192) U/L Total Protein (6.4-8.2) gm/dl Albumin (3.4-5.0) gm/dl Globulin (2.5-4.0) gm/dl Albumin/Globulin Ratio (0.9-2) HCG, Qual (Negative) Urine Color Urine Appearance (Clear) Urine pH (4.5-7.5) Ur Specific [place] (1.000-1.030) Urine Protein (Negative) Urine Glucose (UA) (Negative) Urine Ketones (Negative) Urine Blood (Negative) Urine Nitrite (Negative) Urine Bilirubin (Negative) Urine Urobilinogen (Negative) Ur Leukocyte Esterase (Negative) Salicylates (2.8-20) mg/dl Urine Opiates Screen (Neg) Ur Methadone, Qual (Neg) Acetaminophen (10-30) ug/ml Urine Barbiturates (Neg) Levetiracetam Ur Phencyclidine (PCP) (Neg) U Amphetamin/Meth Scrn (Neg) MDMA (Ecstasy) Screen (Neg) U Benzodiazepines Scrn (Neg) Ur Cocaine Metabolite (Neg) U Marijuana (THC) Screen (Neg) Ethyl Alcohol mg/dL < 3.0 (0-3) mg/dl 03/14/19 03/14/19 03/14/19 Range/Units 06:39 02:44 02:02 WBC (4.8-10.8) K/uL RBC (4.2-5.4) M/uL Hgb (12.0-16.0) g/dL Hct (37-47) % MCV (80-100) fL MCH (25-34) pg MCHC (32-36) g/dL RDW Std Deviation (36.4-46.3) fL RDW Coeff of Thea (11.5-14.5) % Plt Count (130-400) K/uL MPV (7.4-10.4) fL Immature Gran % (Auto) % Neut % (Auto) % Lymph % (Auto) % [place] % (Auto) % Eos % (Auto) % Baso % (Auto) % Immature Gran # (Auto) (0.00-0.02) K/uL Neut # (Auto) (1.4-6.5) K/uL Lymph # (Auto) (1.2-3.4) K/uL [place] # (Auto) (0.11-0.59) K/uL Eos # (Auto) (0-0.5) K/uL Baso # (Auto) (0-0.2) K/uL Sodium (136-145) mmol/L Potassium (3.5-5.1) mmol/L Chloride (98-107) mmol/L Carbon Dioxide (21-32) mmol/L Anion Gap (3-11) BUN (7-18) mg/dl Creatinine (0.6-1.2) mg/dl Est Cr Clr Drug Dosing ml/min Est GFR ( Amer) Est GFR (Non-Af Amer) BUN/Creatinine Ratio (10-20) Glucose (70-99) mg/dl POC Glucose 82 83 74 (70-99) Calcium (8.5-10.1) mg/dl Magnesium (1.8-2.4) mg/dl Total Bilirubin (0.2-1) mg/dl AST (15-37) U/L ALT (12-78) U/L Alkaline Phosphatase (45-117) U/L Total Creatine Kinase (26-192) U/L Total Protein (6.4-8.2) gm/dl Albumin (3.4-5.0) gm/dl Globulin (2.5-4.0) gm/dl Albumin/Globulin Ratio (0.9-2) HCG, Qual (Negative) Urine Color Urine Appearance (Clear) Urine pH (4.5-7.5) Ur Specific [place] (1.000-1.030) Urine Protein (Negative) Urine Glucose (UA) (Negative) Urine Ketones (Negative) Urine Blood (Negative) Urine Nitrite (Negative) Urine Bilirubin (Negative) Urine Urobilinogen (Negative) Ur Leukocyte Esterase (Negative) Salicylates (2.8-20) mg/dl Urine Opiates Screen (Neg) Ur Methadone, Qual (Neg) Acetaminophen (10-30) ug/ml Urine Barbiturates (Neg) Levetiracetam Ur Phencyclidine (PCP) (Neg) U Amphetamin/Meth Scrn (Neg) MDMA (Ecstasy) Screen (Neg) U Benzodiazepines Scrn (Neg) Ur Cocaine Metabolite (Neg) U Marijuana (THC) Screen (Neg) Ethyl Alcohol mg/dL (0-3) mg/dl 03/14/19 03/14/19 03/14/19 Range/Units 02:01 00:39 00:39 WBC (4.8-10.8) K/uL RBC (4.2-5.4) M/uL Hgb (12.0-16.0) g/dL Hct (37-47) % MCV (80-100) fL MCH (25-34) pg MCHC (32-36) g/dL RDW Std Deviation (36.4-46.3) fL RDW Coeff of Thea (11.5-14.5) % Plt Count (130-400) K/uL MPV (7.4-10.4) fL Immature Gran % (Auto) % Neut % (Auto) % Lymph % (Auto) % [place] % (Auto) % Eos % (Auto) % Baso % (Auto) % Immature Gran # (Auto) (0.00-0.02) K/uL Neut # (Auto) (1.4-6.5) K/uL Lymph # (Auto) (1.2-3.4) K/uL [place] # (Auto) (0.11-0.59) K/uL Eos # (Auto) (0-0.5) K/uL Baso # (Auto) (0-0.2) K/uL Sodium 140 (136-145) mmol/L Potassium 3.0 L (3.5-5.1) mmol/L Chloride 109 H (98-107) mmol/L Carbon Dioxide 23 (21-32) mmol/L Anion Gap 8.0 (3-11) BUN 5 L (7-18) mg/dl Creatinine 0.91 (0.6-1.2) mg/dl Est Cr Clr Drug Dosing 66.0 ml/min Est GFR ( Amer) 85.9 Est GFR (Non-Af Amer) 74.1 BUN/Creatinine Ratio 5.1 L (10-20) Glucose 51 L* (70-99) mg/dl POC Glucose 66 L* (70-99) Calcium 8.5 (8.5-10.1) mg/dl Magnesium (1.8-2.4) mg/dl Total Bilirubin 0.2 (0.2-1) mg/dl AST 15 (15-37) U/L ALT 14 (12-78) U/L Alkaline Phosphatase 90 (45-117) U/L Total Creatine Kinase 88 (26-192) U/L Total Protein 7.8 (6.4-8.2) gm/dl Albumin 4.1 (3.4-5.0) gm/dl Globulin 3.7 (2.5-4.0) gm/dl Albumin/Globulin Ratio 1.1 (0.9-2) HCG, Qual (Negative) Urine Color Urine Appearance (Clear) Urine pH (4.5-7.5) Ur Specific [place] (1.000-1.030) Urine Protein (Negative) Urine Glucose (UA) (Negative) Urine Ketones (Negative) Urine Blood (Negative) Urine Nitrite (Negative) Urine Bilirubin (Negative) Urine Urobilinogen (Negative) Ur Leukocyte Esterase (Negative) Salicylates (2.8-20) mg/dl Urine Opiates Screen (Neg) Ur Methadone, Qual (Neg) Acetaminophen (10-30) ug/ml Urine Barbiturates (Neg) Levetiracetam Pending Ur Phencyclidine (PCP) (Neg) U Amphetamin/Meth Scrn (Neg) MDMA (Ecstasy) Screen (Neg) U Benzodiazepines Scrn (Neg) Ur Cocaine Metabolite (Neg) U Marijuana (THC) Screen (Neg) Ethyl Alcohol mg/dL (0-3) mg/dl 03/14/19 03/14/19 03/14/19 Range/Units 00:39 00:39 00:39 WBC 4.43 L (4.8-10.8) K/uL RBC 3.96 L (4.2-5.4) M/uL Hgb 12.5 (12.0-16.0) g/dL Hct 37.0 (37-47) % MCV 93.4 (80-100) fL MCH 31.6 (25-34) pg MCHC 33.8 (32-36) g/dL RDW Std Deviation 42.5 (36.4-46.3) fL RDW Coeff of Thea 12.5 (11.5-14.5) % Plt Count 248 (130-400) K/uL MPV 11.3 H (7.4-10.4) fL Immature Gran % (Auto) 0.0 % Neut % (Auto) 51.2 % Lymph % (Auto) 43.6 % [place] % (Auto) 3.6 % Eos % (Auto) 1.1 % Baso % (Auto) 0.5 % Immature Gran # (Auto) 0.00 (0.00-0.02) K/uL Neut # (Auto) 2.27 (1.4-6.5) K/uL Lymph # (Auto) 1.93 (1.2-3.4) K/uL [place] # (Auto) 0.16 (0.11-0.59) K/uL Eos # (Auto) 0.05 (0-0.5) K/uL Baso # (Auto) 0.02 (0-0.2) K/uL Sodium (136-145) mmol/L Potassium (3.5-5.1) mmol/L Chloride (98-107) mmol/L Carbon Dioxide (21-32) mmol/L Anion Gap (3-11) BUN (7-18) mg/dl Creatinine (0.6-1.2) mg/dl Est Cr Clr Drug Dosing ml/min Est GFR ( Amer) Est GFR (Non-Af Amer) BUN/Creatinine Ratio (10-20) Glucose (70-99) mg/dl POC Glucose (70-99) Calcium (8.5-10.1) mg/dl Magnesium (1.8-2.4) mg/dl Total Bilirubin (0.2-1) mg/dl AST (15-37) U/L ALT (12-78) U/L Alkaline Phosphatase (45-117) U/L Total Creatine Kinase (26-192) U/L Total Protein (6.4-8.2) gm/dl Albumin (3.4-5.0) gm/dl Globulin (2.5-4.0) gm/dl Albumin/Globulin Ratio (0.9-2) HCG, Qual Negative (Negative) Urine Color Urine Appearance (Clear) Urine pH (4.5-7.5) Ur Specific [place] (1.000-1.030) Urine Protein (Negative) Urine Glucose (UA) (Negative) Urine Ketones (Negative) Urine Blood (Negative) Urine Nitrite (Negative) Urine Bilirubin (Negative) Urine Urobilinogen (Negative) Ur Leukocyte Esterase (Negative) Salicylates (2.8-20) mg/dl Urine Opiates Screen (Neg) Ur Methadone, Qual (Neg) Acetaminophen (10-30) ug/ml Urine Barbiturates (Neg) Levetiracetam Ur Phencyclidine (PCP) (Neg) U Amphetamin/Meth Scrn (Neg) MDMA (Ecstasy) Screen (Neg) U Benzodiazepines Scrn (Neg) Ur Cocaine Metabolite (Neg) U Marijuana (THC) Screen (Neg) Ethyl Alcohol mg/dL 96.0 H (0-3) mg/dl 03/14/19 03/14/19 03/14/19 Range/Units 00:39 00:30 00:30 WBC (4.8-10.8) K/uL RBC (4.2-5.4) M/uL Hgb (12.0-16.0) g/dL Hct (37-47) % MCV (80-100) fL MCH (25-34) pg MCHC (32-36) g/dL RDW Std Deviation (36.4-46.3) fL RDW Coeff of Thea (11.5-14.5) % Plt Count (130-400) K/uL MPV (7.4-10.4) fL Immature Gran % (Auto) % Neut % (Auto) % Lymph % (Auto) % [place] % (Auto) % Eos % (Auto) % Baso % (Auto) % Immature Gran # (Auto) (0.00-0.02) K/uL Neut # (Auto) (1.4-6.5) K/uL Lymph # (Auto) (1.2-3.4) K/uL [place] # (Auto) (0.11-0.59) K/uL Eos # (Auto) (0-0.5) K/uL Baso # (Auto) (0-0.2) K/uL Sodium (136-145) mmol/L Potassium (3.5-5.1) mmol/L Chloride (98-107) mmol/L Carbon Dioxide (21-32) mmol/L Anion Gap (3-11) BUN (7-18) mg/dl Creatinine (0.6-1.2) mg/dl Est Cr Clr Drug Dosing ml/min Est GFR ( Amer) Est GFR (Non-Af Amer) BUN/Creatinine Ratio (10-20) Glucose (70-99) mg/dl POC Glucose (70-99) Calcium (8.5-10.1) mg/dl Magnesium (1.8-2.4) mg/dl Total Bilirubin (0.2-1) mg/dl AST (15-37) U/L ALT (12-78) U/L Alkaline Phosphatase (45-117) U/L Total Creatine Kinase (26-192) U/L Total Protein (6.4-8.2) gm/dl Albumin (3.4-5.0) gm/dl Globulin (2.5-4.0) gm/dl Albumin/Globulin Ratio (0.9-2) HCG, Qual (Negative) Urine Color Yellow Urine Appearance Clear (Clear) Urine pH 6.0 (4.5-7.5) Ur Specific [place] 1.009 (1.000-1.030) Urine Protein Negative (Negative) Urine Glucose (UA) Negative (Negative) Urine Ketones Negative (Negative) Urine Blood Negative (Negative) Urine Nitrite Negative (Negative) Urine Bilirubin Negative (Negative) Urine Urobilinogen Negative (Negative) Ur Leukocyte Esterase Negative (Negative) Salicylates < 1.7 L (2.8-20) mg/dl Urine Opiates Screen Neg (Neg) Ur Methadone, Qual Neg (Neg) Acetaminophen < 2 L (10-30) ug/ml Urine Barbiturates Neg (Neg) Levetiracetam Ur Phencyclidine (PCP) Neg (Neg) U Amphetamin/Meth Scrn Neg (Neg) MDMA (Ecstasy) Screen Neg (Neg) U Benzodiazepines Scrn Neg (Neg) Ur Cocaine Metabolite Neg (Neg) U Marijuana (THC) Screen Neg (Neg) Ethyl Alcohol mg/dL (0-3) mg/dl PG Care Time/CCT Total # of Minutes Spent Total Time Spent with Patient: Total time spent is greater than 50% in coordination of care (as documented) at patient's floor/unit and/or counseling patient: Critical Care Time: Yes Total Critical Care Time: 40 (1) Suicidal overdose Encounter type: initial encounter Qualified Code(s): T50.902A - Poisoning by unspecified drugs, medicaments and biological substances, intentional self-harm, initial encounter
[2019-03-14] MEDS ORDERED: PHENobarbital sodium 130 MG/ML VIAL IM STA (12:19)
[2019-03-14] MEDS ORDERED: THIAMINE HCL 500 MG in SYRINGE 9 ML IV SCH (12:39)
[2019-03-14] MEDS ORDERED: SODIUM BICARBONATE 8.4% 150 MEQ in WATER, STERILE 1,000 ML IV SCH (13:00)
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
[2019-03-14] MEDS: THIAMINE HCL 500 MG in 0.9 % SODIUM CHLORIDE 100 ML IV SCH (13:16)
[2019-03-14] MEDS ORDERED: PHENobarbital sodium 130 MG/ML VIAL IM SCH (15:15)
[2019-03-14] MEDS: ENOXAPARIN INJ 30 MG/0.3 ML SYR SQ SCH (19:36)
[2019-03-14] MEDS: TOPIRAMATE 100 MG TAB PO SCH (20:54)
[2019-03-14] MEDS: levETIRAcetam 500 MG TAB PO SCH (20:54)
[2019-03-14] MEDS ORDERED: GLUCOSE 10 TABS/TUBE PO PRN (22:09)
[2019-03-14] MEDS ORDERED: GLUCAGON FOR INJ 1 MG VIAL SQ PRN (22:09)
[2019-03-14] MEDS ORDERED: GLUCOSE 40% GEL 15 GM TUBE PO PRN (22:09)
[2019-03-14] MEDS ORDERED: DEXTROSE 50% 50 ML SYRINGE IV PRN (22:09)
[2019-03-15 04:51] LABS: Hematocrit (blood only) 34.7 % (37-47); Hemoglobin 11.4 g/dL (12.0-16.0); Mean Corpuscular Hgb Conc 32.9 g/dL (32-36); Mean Corpuscular Volume 93.8 fL (80-100); Mean Platelet Volume 11.6 fL (7.4-10.4); Platelet Count 209 K/uL (130-400); RDW Coefficient of Variation 12.9 % (11.5-14.5); RDW Standard Deviation 44.4 fL (36.4-46.3); White Blood Count 6.98 K/uL (4.8-10.8)
[2019-03-15 05:19] LABS: Albumin Level 3.7 gm/dl (3.4-5.0); BUN Creatinine Ratio 7.4 (10-20); Calcium 8.4 mg/dl (8.5-10.1); Creatinine Clr Calc Pharmacy 72.4 ml/min; Est GFR (Non-African American) 82.8; Magnesium 2.1 mg/dl (1.8-2.4); Potassium 3.6 mmol/L (3.5-5.1)
[2019-03-15 05:30] LABS: Albumin Globulin Ratio 1.2 (0.9-2); Bilirubin,Total 0.4 mg/dl (0.2-1); Total Protein 6.7 gm/dl (6.4-8.2)
[2019-03-15 05:43] LABS: T4 Free Thyroxine 1.2 ng/dl (0.8-1.6)
[2019-03-15] MEDS ORDERED: LEVOTHYROXINE SODIUM 75 MCG TABLET PO SCH (06:30)
[2019-03-15] MEDS: LEVOTHYROXINE SODIUM 75 MCG TABLET PO SCH (06:39)
--- NOTE | 2019-03-15 08:19 | Critical Care Progress Note ---
Date of Service March 15, 2019 Assessment & Plan (1) Admitted to intensive care unit: Reason Critically Ill: 49-year-old female with drug-induced prolonged QTC with acute drug-induced encephalopathy PLAN: Neuro: -Acute drug induced encephalopathy -Seizure disorder -Continue Keppra 2 g BID. Seizure precautions -Suicidal ideation -Mental health following -Acute alcohol withdrawal - Cont Phenobarbital taper, on 64 mg dosing currently -Holding home baclofen , oxycodone, gabapentin -Cont one-on-one monitoring Resp: -End-tidal CO2 monitor -Sating well on RA. No other acute concerns CV: -Prolonged QTC -Bicarbonate infusion at 100 mils per hour. Repeat EKG this AM- QTC 591 Fluids/Renal: -Bicarbonate infusion as above -Stable Cr. Cont trend daily ID: -No concerns for infectious etiology -Cont trend fever curve. Afebrile GI/Nutrition: -Thiamine repletion -tolerating diet Heme: -Stable H/H. No acute concerns Endocrine: -ICU hyperglycemia protocol -Hypothyroidism- Cont thyroid supplementation. TSH acceptable in january Vascular access: Peripheral IVs DVT prophylaxis: Lovenox, SCD's Full Code Dispo: Stable for downgrade out of ICU to tele Supervising Physician Co-Signing Physician Notes Dr. Stacy was resident physician during care of patient. I separately evaluated patient for gramajo portions of the history and the exam. I was present during the critical portion of medical decision making, and I discussed the case with the resident. I generally agree with the findings and plan. Discontinued breakthrough phenobarbital will continue with taper. Patient awakes and arouses easily at exceedingly low risk for respiratory compromise. Stable for downgrade out of the ICU QTC is improving Subjective 49 y/o F found in bed this AM, sleeping comfortably in bed. No acute overnight events. Reports that pt better able to follow commands, declined breakfast, tolerated AM EKG. No acute concerns or complaints. Review of Systems Review of Systems: All systems reviewed & are unremarkable except as noted in HPI & below Physical Exam Constitutional: WD/WN, vitals as above ENMT: external ear and nose normal, oropharynx normal Respiratory: normal respiratory effort, lungs clear to auscultation Cardiovascular: RRR, no murmur, no edema Gastrointestinal (Abdomen): normal bowel sounds, soft, nontender, no hepatosplenomegaly Skin: tatoos UE/LE Psychiatric: hallucinations improved Results & Data Vital Signs (Past 12 Hours) Vital Signs Temp Pulse Resp BP Pulse Ox 03/15/19 06:00 68 18 104/60 96 03/15/19 04:00 36.9 C 72 20 100/68 96 03/15/19 02:00 75 20 97/60 L 94 03/15/19 00:00 36.7 C 81 18 118/96 99 03/14/19 22:00 87 17 130/94 97 Laboratory Results Laboratory Results - last 24 hr 03/14/19 03/14/19 03/14/19 08:10 08:10 18:53 WBC RBC Hgb Hct MCV MCH MCHC RDW Std Deviation RDW Coeff of Thea Plt Count MPV Sodium 144 Potassium 3.6 D Chloride 114 H Carbon Dioxide 23 Anion Gap 7.0 BUN 7 Creatinine 0.93 Est Cr Clr Drug Dosing 64.6 Est GFR ( Amer) 83.6 Est GFR (Non-Af Amer) 72.2 BUN/Creatinine Ratio 7.1 L Glucose 96 POC Glucose 60 L* Calcium 9.0 Magnesium 2.9 H Total Bilirubin AST ALT Alkaline Phosphatase Total Creatine Kinase 108 Total Protein Albumin Globulin Albumin/Globulin Ratio TSH Free T4 Ethyl Alcohol mg/dL < 3.0 03/14/19 03/14/19 03/14/19 18:54 18:55 21:55 WBC RBC Hgb Hct MCV MCH MCHC RDW Std Deviation RDW Coeff of Thea Plt Count MPV Sodium Potassium Chloride Carbon Dioxide Anion Gap BUN Creatinine Est Cr Clr Drug Dosing Est GFR ( Amer) Est GFR (Non-Af Amer) BUN/Creatinine Ratio Glucose POC Glucose 72 88 55 L* Calcium Magnesium Total Bilirubin AST ALT Alkaline Phosphatase Total Creatine Kinase Total Protein Albumin Globulin Albumin/Globulin Ratio TSH Free T4 Ethyl Alcohol mg/dL 03/14/19 03/14/19 03/15/19 21:56 22:29 04:22 WBC 6.98 RBC 3.70 L Hgb 11.4 L Hct 34.7 L MCV 93.8 MCH 30.8 MCHC 32.9 RDW Std Deviation 44.4 RDW Coeff of Thea 12.9 Plt Count 209 MPV 11.6 H Sodium Potassium Chloride Carbon Dioxide Anion Gap BUN Creatinine Est Cr Clr Drug Dosing Est GFR ( Amer) Est GFR (Non-Af Amer) BUN/Creatinine Ratio Glucose POC Glucose 57 L* 105 H Calcium Magnesium Total Bilirubin AST ALT Alkaline Phosphatase Total Creatine Kinase Total Protein Albumin Globulin Albumin/Globulin Ratio TSH Free T4 Ethyl Alcohol mg/dL 03/15/19 03/15/19 04:22 04:49 WBC RBC Hgb Hct MCV MCH MCHC RDW Std Deviation RDW Coeff of Thea Plt Count MPV Sodium 142 Potassium 3.6 Chloride 114 H Carbon Dioxide 23 Anion Gap 5.0 BUN 6 L Creatinine 0.83 Est Cr Clr Drug Dosing 72.4 Est GFR ( Amer) 96.0 Est GFR (Non-Af Amer) 82.8 BUN/Creatinine Ratio 7.4 L Glucose 86 POC Glucose 92 Calcium 8.4 L Magnesium 2.1 Total Bilirubin 0.4 AST 17 ALT 10 L Alkaline Phosphatase 75 Total Creatine Kinase Total Protein 6.7 Albumin 3.7 Globulin 3.0 Albumin/Globulin Ratio 1.2 TSH 0.088 L Free T4 1.20 Ethyl Alcohol mg/dL Medications Administered Current Inpatient Medications Acetaminophen (Tylenol) 650 mg PO Q4H PRN PRN Reason: Pain or Fever Stop: 04/13/19 10:53 Dextrose (Dextrose 50%) 25 - 50 ml IV UD PRN; Protocol PRN Reason: Hypoglycemia Protocol Stop: 04/13/19 22:08 Last Admin: 03/14/19 22:14 Dose: 25 ml Documented by: Enoxaparin Sodium (Lovenox) 30 mg SQ Q24H CÉSAR Stop: 04/13/19 18:29 Last Admin: 03/14/19 19:36 Dose: 30 mg Documented by: Glucagon (Glucagen) 1 mg SQ UD PRN; Protocol PRN Reason: Hypoglycemia Protocol Stop: 04/13/19 22:08 Glucose (Glucose 40%) 15 - 30 gm PO UD PRN; Protocol PRN Reason: Hypoglycemia Protocol Stop: 04/13/19 22:08 Glucose (Dex4 Glucose) 4 - 8 tabs PO UD PRN; Protocol PRN Reason: Hypoglycemia Protocol Stop: 04/13/19 22:08 Thiamine HCl 500 mg/ Sodium (Chloride) 105 mls @ 210 mls/hr IV QAM [facility] Stop: 03/16/19 09:29 Last Infusion: 03/14/19 13:46 Dose: Infused Documented by: Levetiracetam (Keppra) 2,000 mg PO BID [facility] Stop: 04/13/19 20:59 Last Admin: 03/14/19 20:54 Dose: Not Given Documented by: Levothyroxine Sodium (Synthroid) 75 mcg PO DAILYBB CÉSAR Stop: 04/14/19 06:29 Last Admin: 03/15/19 06:39 Dose: 75 mcg Documented by: Magnesium Oxide (Mag-Ox) 400 mg PO DAILY CÉSAR Stop: 04/14/19 08:59 Miscellaneous (Carbohydrates For Hypoglycemia) 15 - 30 gm PO UD PRN PRN Reason: Hypoglycemia Treatment Stop: 04/13/19 22:08 Multivitamins (Multivitamin Tab) 1 tab PO DAILY CÉSAR Stop: 04/14/19 08:59 Phenobarbital (Phenobarbital) 32.4 mg PO BID CÉSAR Stop: 03/17/19 09:01 Phenobarbital (Phenobarbital) 64.8 mg PO BID CÉSAR Stop: 03/15/19 21:01 Topiramate (Topamax) 200 mg PO BID CÉSAR Stop: 04/13/19 20:59 Last Admin: 03/14/19 20:54 Dose: Not Given Documented by: Vitamin B Complex (Vitamin B Complex) 1 tab PO DAILY CÉSAR Stop: 04/14/19 08:59 Resident Activity Tracking Resident Involvement: Resident Care Provided Care Provided: Adult Hospital Medicine
[2019-03-15] MEDS: PHENobarbital 32.4 MG TAB PO SCH ×2 (09:05→21:01)
[2019-03-15] MEDS: levETIRAcetam 500 MG TAB PO SCH ×2 (09:05→21:01)
[2019-03-15] MEDS: MULTIVITAMIN TAB PO SCH (09:06)
[2019-03-15] MEDS: TOPIRAMATE 100 MG TAB PO SCH ×2 (09:06→21:01)
[2019-03-15] MEDS: VITAMIN B COMPLEX TAB PO SCH (09:06)
[2019-03-15] MEDS: THIAMINE HCL 500 MG in 0.9 % SODIUM CHLORIDE 100 ML IV SCH (09:08)
[2019-03-15] MEDS: MAGNESIUM OXIDE 400 MG TAB PO SCH (09:08)
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
[2019-03-15] MEDS: ENOXAPARIN INJ 30 MG/0.3 ML SYR SQ SCH (21:01)
[2019-03-16] MEDS: LEVOTHYROXINE SODIUM 75 MCG TABLET PO SCH (06:13)
[2019-03-16 08:50] LABS: BUN Creatinine Ratio 13.4 (10-20); Calcium 8.8 mg/dl (8.5-10.1); Creatinine Clr Calc Pharmacy 67.1 ml/min; Est GFR (African American) 89.4; Est GFR (Non-African American) 77.2; Potassium 3.8 mmol/L (3.5-5.1)
[2019-03-16] MEDS ORDERED: MULTIVITAMIN TAB PO SCH (09:00)
[2019-03-16] MEDS: VITAMIN B COMPLEX TAB PO SCH (10:09)
[2019-03-16] MEDS: MULTIVITAMIN TAB PO SCH ×3 (10:09→10:13)
[2019-03-16] MEDS: PHENobarbital 32.4 MG TAB PO SCH ×2 (10:09→20:36)
[2019-03-16] MEDS: TOPIRAMATE 100 MG TAB PO SCH ×2 (10:10→20:36)
[2019-03-16] MEDS: levETIRAcetam 500 MG TAB PO SCH ×2 (10:10→20:35)
[2019-03-16] MEDS: FOLIC ACID 1 MG TAB PO SCH (10:11)
[2019-03-16] MEDS: MAGNESIUM OXIDE 400 MG TAB PO SCH (11:24)
[2019-03-16] MEDS: THIAMINE HCL 500 MG in 0.9 % SODIUM CHLORIDE 100 ML IV SCH (11:25)
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
[2019-03-16] MEDS: CARBOHYDRATES FOR HYPOGLYCEMIA PO PRN (16:44)
[2019-03-16] MEDS: ENOXAPARIN INJ 30 MG/0.3 ML SYR SQ SCH (20:35)
[2019-03-17] MEDS ORDERED: LEVOTHYROXINE SODIUM 50 MCG TABLET PO SCH (06:30)
[2019-03-17 06:51] LABS: Creatinine Clr Calc Pharmacy 79.8 ml/min; Est GFR (African American) 110.3; Est GFR (Non-African American) 95.1
[2019-03-17] MEDS: levETIRAcetam 500 MG TAB PO SCH (08:33)
[2019-03-17] MEDS: PHENobarbital 32.4 MG TAB PO SCH (08:33)
[2019-03-17] MEDS: FOLIC ACID 1 MG TAB PO SCH (08:34)
[2019-03-17] MEDS: MULTIVITAMIN TAB PO SCH (08:34)
[2019-03-17] MEDS: VITAMIN B COMPLEX TAB PO SCH (08:34)
[2019-03-17] MEDS: TOPIRAMATE 100 MG TAB PO SCH (08:34)
[2019-03-17] MEDS ORDERED: THIAMINE HCL 100 MG TAB PO SCH (09:00)
[2019-03-17] MEDS: CARBOHYDRATES FOR HYPOGLYCEMIA PO PRN (11:43)
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
== END 2019-03-17 14:27 | DRG 917 ==
LOC: ED 00:12 → 2S 09:41 → SUATTDRO 09:41 → 2S 10:29 → 1E 12:11 → 2N 03-15 14:45

== ENCOUNTER 2019-03-17 13:30 | Inpatient (IN) ==
[2019-03-17] MEDS ORDERED: GLUCOSE 10 TABS/TUBE PO PRN (15:43)
[2019-03-17] MEDS ORDERED: ALUMINUM/MAGNESIUM SUSP 30 ML UDC PO PRN (15:45)
[2019-03-17] MEDS ORDERED: ACETAMINOPHEN 325 MG TAB PO PRN (15:45)
[2019-03-17] MEDS ORDERED: SODIUM CHLORIDE 0.65% NA SOLN 45 ML (OCEAN) PRN (15:45)
[2019-03-17] MEDS ORDERED: MAGNESIUM HYDROXIDE SUSP 30 ML UDC PO PRN (15:45)
[2019-03-17] MEDS ORDERED: BISMUTH SUBSALICYLATE PER ML OMNICELL CHARGE PO PRN (15:45)
[2019-03-17] MEDS: levETIRAcetam 250 MG TAB PO SCH (21:56)
[2019-03-17] MEDS: TOPIRAMATE 100 MG TAB PO SCH (21:57)
[2019-03-17] MEDS: GABAPENTIN 400 MG CAP PO SCH (21:57)
[2019-03-17] MEDS: CARBAMAZEPINE 200 MG TABCR PO SCH (21:57)
[2019-03-18] MEDS: LEVOTHYROXINE SODIUM 50 MCG TABLET PO SCH (07:46)
[2019-03-18] MEDS: FOLIC ACID 1 MG TAB PO SCH (08:51)
[2019-03-18] MEDS: levETIRAcetam 250 MG TAB PO SCH (08:51)
[2019-03-18] MEDS: GABAPENTIN 400 MG CAP PO SCH ×3 (08:52→21:06)
[2019-03-18] MEDS: MULTIVITAMIN TAB PO SCH (08:52)
[2019-03-18] MEDS: MAGNESIUM OXIDE 400 MG TAB PO SCH (08:52)
[2019-03-18] MEDS: CARBAMAZEPINE 200 MG TABCR PO SCH ×2 (08:52→21:06)
[2019-03-18] MEDS: THIAMINE HCL 100 MG TAB PO SCH (08:52)
[2019-03-18] MEDS: TOPIRAMATE 100 MG TAB PO SCH ×2 (08:52→21:06)
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
[2019-03-18] MEDS: levETIRAcetam 500 MG TAB PO SCH (21:06)
[2019-03-19] MEDS: LEVOTHYROXINE SODIUM 50 MCG TABLET PO SCH (08:43)
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
[2019-03-19] MEDS: FOLIC ACID 1 MG TAB PO SCH (10:40)
[2019-03-19] MEDS: levETIRAcetam 500 MG TAB PO SCH ×2 (10:40→21:28)
[2019-03-19] MEDS: MAGNESIUM OXIDE 400 MG TAB PO SCH (10:41)
[2019-03-19] MEDS: MULTIVITAMIN TAB PO SCH (10:41)
[2019-03-19] MEDS: GABAPENTIN 400 MG CAP PO SCH ×3 (10:41→21:28)
[2019-03-19] MEDS: CARBAMAZEPINE 200 MG TABCR PO SCH ×2 (10:42→21:28)
[2019-03-19] MEDS: THIAMINE HCL 100 MG TAB PO SCH (10:42)
[2019-03-19] MEDS: TOPIRAMATE 100 MG TAB PO SCH ×2 (10:42→21:28)
[2019-03-19] MEDS: MELATONIN 3 MG SCH (23:17)
[2019-03-20] MEDS: LEVOTHYROXINE SODIUM 50 MCG TABLET PO SCH (08:06)
[2019-03-20] MEDS: CARBAMAZEPINE 200 MG TABCR PO SCH ×2 (08:58→21:42)
[2019-03-20] MEDS: FOLIC ACID 1 MG TAB PO SCH (08:58)
[2019-03-20] MEDS: GABAPENTIN 400 MG CAP PO SCH ×3 (08:58→21:41)
[2019-03-20] MEDS: levETIRAcetam 500 MG TAB PO SCH ×2 (08:58→21:41)
[2019-03-20] MEDS: MAGNESIUM OXIDE 400 MG TAB PO SCH (08:58)
[2019-03-20] MEDS: TOPIRAMATE 100 MG TAB PO SCH ×2 (08:58→21:42)
[2019-03-20] MEDS: MULTIVITAMIN TAB PO SCH (08:58)
[2019-03-20] MEDS: THIAMINE HCL 100 MG TAB PO SCH (08:59)
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
[2019-03-20] MEDS ORDERED: BACLOFEN 10 MG TAB PO PRN (15:48)
[2019-03-20] MEDS: MELATONIN 3 MG SCH (21:43)
[2019-03-20] MEDS ORDERED: MELATONIN PO SCH (22:00)
[2019-03-21] MEDS: LEVOTHYROXINE SODIUM 50 MCG TABLET PO SCH (07:44)
[2019-03-21] MEDS: CARBAMAZEPINE 200 MG TABCR PO SCH ×2 (09:31→22:10)
[2019-03-21] MEDS: GABAPENTIN 400 MG CAP PO SCH ×3 (09:31→22:08)
[2019-03-21] MEDS: TOPIRAMATE 100 MG TAB PO SCH ×2 (09:31→22:09)
[2019-03-21] MEDS: MAGNESIUM OXIDE 400 MG TAB PO SCH (09:31)
[2019-03-21] MEDS: MULTIVITAMIN TAB PO SCH (09:31)
[2019-03-21] MEDS: THIAMINE HCL 100 MG TAB PO SCH (09:31)
[2019-03-21] MEDS: FOLIC ACID 1 MG TAB PO SCH (09:32)
[2019-03-21] MEDS: levETIRAcetam 500 MG TAB PO SCH ×2 (09:32→22:09)
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
[2019-03-21] MEDS: MELATONIN 3 MG SCH (22:06)
[2019-03-22] MEDS: LEVOTHYROXINE SODIUM 50 MCG TABLET PO SCH (08:05)
[2019-03-22] MEDS: MULTIVITAMIN TAB PO SCH (09:02)
[2019-03-22] MEDS: THIAMINE HCL 100 MG TAB PO SCH (09:02)
[2019-03-22] MEDS: MAGNESIUM OXIDE 400 MG TAB PO SCH (09:02)
[2019-03-22] MEDS: TOPIRAMATE 100 MG TAB PO SCH (09:02)
[2019-03-22] MEDS: levETIRAcetam 500 MG TAB PO SCH (09:02)
[2019-03-22] MEDS: FOLIC ACID 1 MG TAB PO SCH (09:02)
[2019-03-22] MEDS: GABAPENTIN 400 MG CAP PO SCH ×2 (09:02→13:36)
[2019-03-22] MEDS: CARBAMAZEPINE 200 MG TABCR PO SCH (09:02)
--- NOTE | 2019-03-22 14:06 | Discharge Summary ---
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 Clerk Name of Sales Record Clerk: Velvet Aleman Phone Number for Sales Record Clerk: [phone] Date of Appointment with Sales Record Clerk: 03/25/19 Time of Appointment with Sales Record Clerk: 11:00 a.m. Case Management Appointment Comment: With your therapy appt Post Discharge Appointments Primary Care Physician Name Of Family Doctor: Daniel Garza Primary Care Time of Appointment with PCP: Follow up as needed. Provider Appointment Comment: [address], [place] [address] Partial or Psych Rehab Name of Partial or Psych Rehab: [facility] Phone Number of Partial or Psych Rehab: [phone] Date of Appointment at Partial or Psych Rehab: 03/27/19 Time of Appointment at Partial or Psych Rehab: 2:00 pm Partial or Psych Rehab Appointment Comment: [address], [place] [address] Neurologist Name of Neurologist: [facility] - Bess Blanco Neurologist's Time of Appointment with Neurologist: Follow up as needed Neurology Appointment Comment: [address], [place] [address] Smoking Cessation Counseling Tobacco Cessation Medication Prescribed at Discharge: Not Applicable/Non-Smoker Other #1: Name of Aftercare Appointment: [facility] Phone Number of Aftercare Appointment: [phone] Date of Aftercare Appointment: 04/01/19 Time of Aftercare Appointment: 3:30pm Aftercare Appointment Comment: [address] [facility], [place] [address] Contact Information Discharge Discharge Address: [address] [place] [address], [address], [address], [place] [address] Discharge Plan Discharge Items Patient Disposition: Home - Self-Care Reason For Visit: MDD Discharge Diagnosis: PTSD, Anxiety Condition: Fair Discharge Goals: Decrease discomfort, Improve disease control, Improve function, Learn about illness and Therapeutic intervention Activity: Resume your previous activity Non-emergency contact: Primary Care Provider, Psychiatrist, Therapist and District Representative Call non-emergency contact if: you have any medication questions and your symptoms worsen Follow-up/Referrals: Lorraine Garza MD [Primary Care Provider] - Diet: Regular Addtl Provider Instructions: SPECIAL CARE INSTRUCTIONS: 1. Follow through with your scheduled aftercare appointments. If unable to keep an appointment, please call to reschedule. 2. Take your medication only as prescribed. Medication should not be changed or stopped without the approval of your doctor. In the event of worsening symptoms or concerns about side effects, contact your doctor immediately. 3. Utilize new healthy coping skills, anger management skills, and stress management skills learned during your hospitalization. Journal feelings and process them with a support person. Identify stressors or situations that may result in relapse, deterioration or inappropriate behaviors and develop a plan to deal with those issues. 4. If your coping skills are ineffective and you are in crisis, contact your outpatient providers for direction. If unable to reach your providers, please call the CAN HELP LINE AT or go to the closest Emergency Room. 5. Avoid alcohol and un-prescribed drugs. 6. You have been provided with the Mental Health Advance Directives Pamphlet for your review. 7. Keep all medications secured in a lock box as a protective factor to prevent future overdose events AFTERCARE APPOINTMENTS: * Please call your insurance company prior to your scheduled appointment to confirm your aftercare providers are covered. Take your insurance information to your appointments. WHO TO CALL AND WHEN: Medical Emergencies: For questions or emergencies related to your hospital stay, please contact the Inpatient Behavioral Health Unit at [phone]. A contract law specialist is on-call 27/03 for the Behavioral Health Unit for emergencies At any time you feel your situation is an emergency, you may also call 911 immediately. Your Doctors Instructions noted above were prepared by provider Estee Crane PA-C. Prescriptions: New buspirone 10 mg tablet 10 mg PO TID 7 Days Qty: 21 RF: 4 Continued multivitamin Tablet 1 tab PO DAILY RF: 0 topiramate [Topamax] 200 mg Tablet 200 mg PO BID RF: 0 gabapentin 100 mg Capsule 400 mg PO TID RF: 0 baclofen 10 mg Tablet 20 mg PO TID PRN (Reason: Back Pain) RF: 0 levetiracetam [Keppra] 500 mg Tablet 2,000 mg PO BID Qty: 30 RF: 0 carbamazepine 200 mg Capsule, Er Multiphase 12 Hr 200 mg PO BID RF: 0 thiamine HCl (vitamin B1) [Vitamin B-1] 100 mg Tablet 100 mg PO QAM 30 Days Qty: 30 RF: 0 levothyroxine [Synthroid] 50 mcg Tablet 50 mcg PO DAILYBB 30 Days Qty: 30 RF: 0 glucose [Dex4 Glucose] 4 gram Tablet,Chewable 16 gm PO UD PRN (Reason: hypoglycemia) 30 Days Qty: 100 RF: 0 folic acid 1 mg Tablet 1 mg PO QAM 30 Days Qty: 30 RF: 0 magnesium oxide 400 mg magnesium Tablet 400 mg PO DAILY RF: 0 Discontinued hydroxyzine HCl 25 mg Tablet 25 mg PO Q4H PRN (Reason: anxiety) Qty: 30 RF: 0 Stand-Alone Forms: [facility] Discharge Orders: Discharge Order (Routine); Ordered 03/22/19 Ordered By: Estee Crane Admission Data Admit Date/Time: 03/17/19 14:57 Attending Provider: Minerva Copeland Admit Provider: Evan Kohli Primary Care Provider: Lorraine Garza Service: Psychiatry Other Interventions: Discharge Summary Assessment (RN) Last Done: 03/22/19 14:37 PSY Interdisciplinary Discharge Planning Last Done: 03/22/19 14:35 Pending Studies at Discharge: No DC Date/Time DO NOT enter until pt leaves facility: 03/22/19 16:23
== END 2019-03-22 16:23 | disposition home or self-care (01) | DRG 883 ==
LOC: 3S 14:57

== ENCOUNTER 2019-03-29 11:36 | Inpatient (IN) ==
[2019-03-29] MEDS ORDERED: LORazepam 2 MG/ML VIAL (IM USE) IM STA (11:51)
[2019-03-29] MEDS ORDERED: LORazepam 2 MG/4 ML VIAL ONE (11:53)
[2019-03-29] MEDS ORDERED: SODIUM CHLORIDE 0.9% 1000ML 1,000 ML IV SCH (12:00)
[2019-03-29 12:02] LABS: Appearance Urine Clear (Clear); Bilirubin Urine Negative (Negative); Blood Urine Negative (Negative); Color Urine Yellow; Glucose Urine UA Negative (Negative); Ketones Urine Negative (Negative); Leukocyte Esterase Urine Negative (Negative); Nitrite Urine Negative (Negative); Protein Urine Negative (Negative); Specific Gravity Urine 1.013 (1.000-1.030); Urobilinogen Urine Negative (Negative)
[2019-03-29 12:04] LABS: Pregnancy Test, Urine Negative (Negative)
[2019-03-29 12:33] LABS: Amphetamines+Metham, Urine Neg (Neg); Barbiturates, Urine Pos (Neg); Benzodiazepine, Urine Neg (Neg); Cocaine, Urine Neg (Neg); MDMA (Ecstacy), Urine Neg (Neg); Methadone, Urine Neg (Neg); Opiate, Urine Neg (Neg); Phencyclidine, Urine Neg (Neg)
--- NOTE | 2019-03-29 12:40 | CT Scan Report ---
CT head/brain wo con CT DOSE: 601.98 mGy.cm HISTORY: Seizure. Mental status change. seizure TECHNIQUE: Multiaxial CT images of the head were performed without the use of intravenous contrast. A dose lowering technique was utilized adhering to the principles of ALARA. Comparison: 03/03/2019 Findings: The paranasal sinuses and mastoid air cells are clear. The calvarium and skull base are int act. The ventricles and sulci are within normal limits. There is no mass, hematoma, midline shift, or acute infarct. Impression: No acute intracranial abnormality. No change from the prior study. The above report was generated using voice recognition software. It may contain grammatical, syntax or spelling errors. Electronically signed by: Caesar Damon M.D. 03/29/2019 12:39 PM
[2019-03-29 13:00] LABS: Basophils # (auto) 0.02 K/uL (0-0.2); Basophils % (auto) 0.6 %; Eosinophils # (auto) 0.07 K/uL (0-0.5); Eosinophils % (auto) 1.9 %; Hematocrit (blood only) 32.2 % (37-47); Hemoglobin 10.7 g/dL (12.0-16.0); Lymphocytes % (auto) 41.3 %; Mean Corpuscular Hgb Conc 33.2 g/dL (32-36); Mean Corpuscular Volume 92.8 fL (80-100); Monocytes # (auto) 0.24 K/uL (0.11-0.59); Monocytes % (auto) 6.6 %; Neutrophils % (auto) 49.6 %; Platelet Count 200 K/uL (130-400); RDW Coefficient of Variation 13.1 % (11.5-14.5); RDW Standard Deviation 44.7 fL (36.4-46.3); Red Blood Count 3.47 M/uL (4.2-5.4); White Blood Count 3.63 K/uL (4.8-10.8)
[2019-03-29 13:17] LABS: Albumin Level 3.1 gm/dl (3.4-5.0); BUN Creatinine Ratio 5.3 (10-20); Calcium 8.5 mg/dl (8.5-10.1); Creatinine Clr Calc Pharmacy 73.9 ml/min; Est GFR (Non-African American) 98.3; Magnesium 2.1 mg/dl (1.8-2.4); Potassium 3.6 mmol/L (3.5-5.1)
[2019-03-29 13:19] LABS: Acetaminophen < 2 ug/ml (10-30); Salicylate < 1.7 mg/dl (2.8-20)
[2019-03-29 13:27] LABS: Bilirubin,Total 0.3 mg/dl (0.2-1); Globulin 3.1 gm/dl (2.5-4.0); Total Protein 6.2 gm/dl (6.4-8.2)
[2019-03-29 13:55] LABS: T4 Free Thyroxine 0.95 ng/dl (0.8-1.6)
--- NOTE | 2019-03-29 15:39 | History & Physical Report ---
Date of Service March 29, 2019 Assessment & Plan (1) Seizure: (2) Altered mental status: Pt with hx seizure disorder presented to ER with reported seizure like activity during EMS transport. Reported that pt received 5mg Ativan en route. In ER T: 36, P: 71, R: 17, BP: 99/71, 100% on RA. WBC: 3.6, H/H: 10.7/32, K: 3.6, magnesium: 2.1, glucose: 137, TSH: 0.26 UA: unremarkable. Urine tox screen +barbiturates, +marijuana. Negative salicylates, negative acetaminophen levels. In ER pt was given 2mg Ativan, Keppra 1000mg IV, 1L NSS Upon initial evaluation pt very sedated NPO for now while sedated Seizure precautions Pt sedated currently and will hold oral Keppra, Topamax, Tegretol today Neurology consult, pt follows with [facility] neuro. Spoke to Dr Millan ruby on rails web developer, recommends Keppra, Topamax and Tegretol levels, ESR, hold on further medications at this time Monitor CBC, BMP (3) Mood disorder: Hx mood disorder, PTSD, multiple suicide attempts with overdoses in past. Most recent 03/14/19 with Benadryl overdose -Currently holding Lexapro, buspirone today as pt sedated, plan to resume when pt awake and alert -Psychiatry consult (4) Hypothyroidism: TSH: 0.2 -Currently holding as pt sedated, with plan to resume tomorrow when pt awake and alert DVT Prophylaxis -SCD Full Code as per discussion with pt's significant other Follows with Dr Garza for routine care Pt was seen and care coordinated with Dr Wei. See addendum History of Present Illness Chief Complaint: Seizure Primary Care Provider: Lorraine Garza MD Pt is 49 y/o F with PMH seizure disorder, mood disorder, PTSD, depression, h/o multiple suicide attempts GERD, hypothyroidism presented to ER for reported seizure. History obtained from patient's significant other secondary to patient being sedated. Significant other reports last night patient started acting strangely and was noted to be staring off in space and slow to respond to questions. Reports she went to bed and slept for around 11 hours. This morning he reports patient was "spacey" and slid out of bed and was unresponsive and seemed like she choked. He denies noting any tonic-clonic seizure-like activity at home. EMS was called and it is reported that patient had seizure in route and was reportedly given 5 mg of Ativan and 2mg Ativan in ER. Pt's significant other reports that he has a lock box for her medications and he gives her her medications and he believes that she has been taking her seizure medicines as prescribed. He believes patient has not had any alcohol since last hospitalization several weeks ago and believes patient has not been taking any other medications, drugs, or OTC meds. Patient with most recent suicide attempt on 03/14/2019 with Benadryl overdose and was discharged on 03/22/2019 by psychiatry. Reports patient was started on BuSpar 1 week ago, denies any other noted medication changes. Reports patient mood has seemed "okay" since discharge however reports patient has had ups and downs. Denies any noted recent illness. Denies any noted coughing, rhinorrhea, vomiting or diarrhea. Allergies Allergy/AdvReac Type Severity Reaction Status Date / Time tree nut Allergy Severe ANAPHYLAXIS Verified 03/29/19 14:54 Penicillins Allergy Intermediate HIVES Verified 03/29/19 14:54 Home Medications Home Medications Medication Instructions Recorded Confirmed Type multivitamin 1 tab PO DAILY 11/30/18 03/29/19 History topiramate [Topamax] 200 mg PO BID 11/30/18 03/29/19 History magnesium oxide 400 mg PO DAILY 12/21/18 03/29/19 History carbamazepine 200 mg PO Q12 03/16/19 03/29/19 History folic acid 1 mg PO QAM 30 Days #30 tab 03/17/19 03/29/19 Rx glucose [Dex4 Glucose] 16 gm PO UD PRN 30 Days #100 tab 03/17/19 03/29/19 Rx levothyroxine [Synthroid] 50 mcg PO DAILYBB 30 Days #30 tab 03/17/19 03/29/19 Rx thiamine HCl (vitamin B1) [Vitamin 100 mg PO QAM 30 Days #30 tab 03/17/19 03/29/19 Rx B-1] buspirone 10 mg PO TID 7 Days #21 tab 03/22/19 03/29/19 Rx baclofen 20 mg PO TID PRN 03/29/19 03/29/19 History epinephrine [EpiPen] 0.3 mg IM Q3H PRN 03/29/19 03/29/19 History escitalopram oxalate 20 mg PO QAM 03/29/19 03/29/19 History gabapentin 400 mg PO TID 03/29/19 03/29/19 History levetiracetam [Keppra] 2,000 mg PO BID 03/29/19 03/29/19 History Past Med/Surg History Medical History Alcohol abuse (Chronic) Seizure disorder (Chronic) Hypothyroidism (Chronic) Raynauds phenomenon (Chronic) Cluster B personality disorder (Chronic) Diphenhydramine overdose (Chronic) PTSD (post-traumatic stress disorder) (Chronic) Hypokalemia (Inactive) Surgical History Hx of cholecystectomy (Chronic) H/O foot surgery (Chronic) H/O shoulder surgery (Chronic) H/O hernia repair (Chronic) Family History Other Breast cancer Diabetes Hypertension Myocardial infarction Social History Preferred Language: Malian Communication Ability: Effective Beliefs That Will Affect Care: None marital status: Current Living Situation: Significant Other current occupational status: unemployed Feels Safe at Home: Yes Smoking Status: Never smoker Second Hand Exposure: No Hx Alcohol Use: Yes Alcohol type: wine and hard liquor Hx Substance Use: Yes substance use type: other Substance Use Type Other:: cannabis oil Review of Systems Review of Systems: Unobtainable due to reduced consciousness Physical Exam Physical Exam: General: pt sedated, maintaining own airway, WDWN Head: normocephalic, atraumatic Eyes: PERRL, conjunctiva non-injected, anicteric ENT: normal inspection external ears, nose, mucous membranes moist Neck: supple, trachea midline Lungs: clear, no respiratory distress CV: RRR, no murmur, no pretibial edema Abd: normal BS, soft, no apparent tenderness to palpation Ext: no cyanosis, no edema Neuro: Pt sedated, does not withdraw from painful stimuli Skin: warm, dry; multiple tattoos noted Results & Data Vital Signs (Past 12 Hours) Vital Signs Temp Pulse Resp BP Pulse Ox 03/29/19 14:45 50 L 13 113/76 100 03/29/19 14:30 50 L 13 121/75 100 03/29/19 14:15 52 L 12 123/75 03/29/19 14:00 47 L 11 L 120/80 03/29/19 13:45 48 L 14 111/74 03/29/19 13:30 50 L 13 115/73 03/29/19 13:16 51 L 14 03/29/19 13:15 53 L 16 95/71 L 03/29/19 13:00 55 L 13 100 03/29/19 12:45 52 L 14 99/73 L 100 03/29/19 12:42 59 L 14 03/29/19 12:41 56 L 17 111/74 03/29/19 12:16 88 14 108/94 03/29/19 11:52 63 19 97/71 L 03/29/19 11:45 36 C L 71 17 99/71 L 03/29/19 11:42 70 17 99/71 L 100 Laboratory Results Short CBC 03/29/19 Range/Units 12:28 WBC 3.63 L (4.8-10.8) K/uL Hgb 10.7 L (12.0-16.0) g/dL Hct 32.2 L (37-47) % Plt Count 200 (130-400) K/uL BMP 03/29/19 12:28 Sodium 146 H Potassium 3.6 Chloride 119 H Carbon Dioxide 20 L BUN 4 L Creatinine 0.72 Glucose 137 H Calcium 8.5 Liver Function 03/29/19 Range/Units 12:28 Total Bilirubin 0.3 (0.2-1) mg/dl AST 14 L (15-37) U/L ALT 12 (12-78) U/L Alkaline Phosphatase 79 (45-117) U/L Albumin 3.1 L (3.4-5.0) gm/dl Urine 03/29/19 Range/Units 11:50 Urine Color Yellow Urine Appearance Clear (Clear) Urine pH 8.0 H (4.5-7.5) Ur Specific [place] 1.013 (1.000-1.030) Urine Protein Negative (Negative) Urine Glucose (UA) Negative (Negative) Diagnostic Findings CXR: IMPRESSION: No active disease in the chest. CT HEAD: Impression: No acute intracranial abnormality. No change from the prior study. Supervising Physician Co-Signing Physician Notes I saw this patient with the physician training and development assistant, I participated in the history, physical, review of systems, and physical exam. I reviewed the medications with the patient and the physician training and development assistant and helped reconcile the medications. I helped take a detailed family and social history as well. I formulated the assessment and plan personally with the physician training and development assistant and went over it with the patient. ROS-Sedated from Ativan Physical Exam Gen-Sedated, NAD, Afebrile Head-NCAT, EOMI, PERRLA, Anicteric Sclera, No Posterior Pharyngeal Erythema Neck-Supple, No JVD, No Thyromegaly, No Masses, No LAD, No Bruits Lungs-Clear to Auscultation Bilaterally, No Rales, No Rhonchi, No Wheezing, No Crepitus Chest-No S4, +S1, +S2, No S3, No Murmurs, No Rubs, No Gallops, No Ectopy Abdomen-Soft, Bowel Sounds Present, Non Tender, Non Distended, No Hepatomegaly, No Splenomegaly, No Palpable Masses, No Rebound, No Rigidity, No Guarding Musculoskeletal-Full Range of Motion Bilaterally, No CVAT Extremities-No Cyanosis, No Clubbing, No Edema Nuero-Cranial Nerves II-XII grossly intact, Motor WNL, DTRs WNL, Strength WNL, Non Focal Psych-Normal Mood
--- NOTE | 2019-03-29 15:52 | XRay Report ---
SINGLE VIEW CHEST CLINICAL HISTORY: Cough. FINDINGS: An AP, portable, upright chest radiograph is compared to study dated 03/03/2019 and correlat ed with chest CT dated 01/19/2019. The examination is degraded by portable technique and patient rotat ion. The cardiomediastinal silhouette is unremarkable. There is mild bibasilar atelectasis. The lung s and pleural spaces are otherwise clear. No pneumothorax is seen. The skeletal structures are osteop enic. The bony thorax is grossly intact. Postoperative change is noted in the right proximal humerus. There is chronic widening at the right AC joint. IMPRESSION: No active disease in the chest. Electronically signed by: Renzo Dixon M.D. 03/29/2019 3:50 PM
[2019-03-29] MEDS ORDERED: ACETAMINOPHEN 325 MG TAB PO PRN (17:21)
--- NOTE | 2019-03-29 18:08 | Emergency Department Note ---
Entered by Rimma Pedroza acting as a scribe for Yuri Beltran MD History of Present Illness General Chief complaint: Unresponsive Time Seen by Provider: 03/29/19 11:39 Source: EMS Mode of arrival: EMS Limitations: clinical acuity History of Present Illness Provider complaint: Unresponsive Onset (ago): hour(s) Location: upper extremity and lower extremity Associated symptoms: + seizure Treatments prior to arrival: other (IM Versed 5mg via my request from [facility]) The patient is a 49 year old white female w/ PMHx of PTSD, suicidal overdose, mood disorder, alcohol abuse, who presents to the ED unresponsive secondary to a seizure. Per EMS: They received a called from the patients boyfriend. She was lethargic last night and woke up with a seizure. HPI limited secondary to the patients unresponsiveness. Home Medications Home Medications Medication Instructions Recorded Confirmed Type multivitamin 1 tab PO DAILY 11/30/18 03/29/19 History topiramate [Topamax] 200 mg PO BID 11/30/18 03/29/19 History magnesium oxide 400 mg PO DAILY 12/21/18 03/29/19 History carbamazepine 200 mg PO Q12 03/16/19 03/29/19 History folic acid 1 mg PO QAM 30 Days #30 tab 03/17/19 03/29/19 Rx glucose [Dex4 Glucose] 16 gm PO UD PRN 30 Days #100 tab 03/17/19 03/29/19 Rx levothyroxine [Synthroid] 50 mcg PO DAILYBB 30 Days #30 tab 03/17/19 03/29/19 Rx thiamine HCl (vitamin B1) [Vitamin 100 mg PO QAM 30 Days #30 tab 03/17/19 03/29/19 Rx B-1] buspirone 10 mg PO TID 7 Days #21 tab 03/22/19 03/29/19 Rx baclofen 20 mg PO TID PRN 03/29/19 03/29/19 History epinephrine [EpiPen] 0.3 mg IM Q3H PRN 03/29/19 03/29/19 History escitalopram oxalate 20 mg PO QAM 03/29/19 03/29/19 History gabapentin 400 mg PO TID 03/29/19 03/29/19 History levetiracetam [Keppra] 2,000 mg PO BID 03/29/19 03/29/19 History Allergies Allergy/AdvReac Type Severity Reaction Status Date / Time tree nut Allergy Severe ANAPHYLAXIS Verified 03/29/19 14:54 Penicillins Allergy Intermediate HIVES Verified 03/29/19 14:54 Past Med/Surg History Medical History Alcohol abuse (Chronic) Seizure disorder (Chronic) Hypothyroidism (Chronic) Raynauds phenomenon (Chronic) Cluster B personality disorder (Chronic) Diphenhydramine overdose (Chronic) PTSD (post-traumatic stress disorder) (Chronic) Hypokalemia (Inactive) Surgical History Hx of cholecystectomy (Chronic) H/O foot surgery (Chronic) H/O shoulder surgery (Chronic) H/O hernia repair (Chronic) Family History Other Breast cancer Diabetes Hypertension Myocardial infarction Social History Preferred Language: Sami Communication Ability: Effective Beliefs That Will Affect Care: None marital status: Current Living Situation: Significant Other current occupational status: unemployed Feels Safe at Home: Yes Smoking Status: Never smoker Second Hand Exposure: No Hx Alcohol Use: Yes Alcohol type: wine and hard liquor Hx Substance Use: Yes substance use type: other Substance Use Type Other:: cannabis oil Review of Systems Other ( ROS limited secondary to the patients unresponsiveness. ) Physical Exam Vital Signs Vital Signs - 24 hr 03/29/19 11:42 03/29/19 11:45 03/29/19 11:52 Temperature 36 C L Temperature Source Rectal Sepsis Action Taken by Nursing No Action Required Pulse Rate 70 71 63 Pulse Rate from SpO2 Sensor 69 63 Respiratory Rate 17 17 19 Respiratory Effort / Characteristics Non-Labored Spontaneous Respiratory Depth Normal Blood Pressure 99/71 L 99/71 L 97/71 L Blood Pressure Mean 80 80 79 Blood Pressure Position Lying Pulse Oximetry 100 100 100 Oxygen Delivery Method Room Air Oxygen Flow Rate 03/29/19 12:16 03/29/19 12:41 03/29/19 12:42 Temperature Temperature Source Sepsis Action Taken by Nursing Pulse Rate 88 56 L 59 L Pulse Rate from SpO2 Sensor 57 L 59 L Respiratory Rate 14 17 14 Respiratory Effort / Characteristics Respiratory Depth Blood Pressure 108/94 111/74 Blood Pressure Mean 98 86 Blood Pressure Position Pulse Oximetry 100 100 Oxygen Delivery Method Oxygen Flow Rate 2 03/29/19 12:45 03/29/19 13:00 03/29/19 13:15 Temperature Temperature Source Sepsis Action Taken by Nursing Pulse Rate 52 L 55 L 53 L Pulse Rate from SpO2 Sensor 52 L 56 L 54 L Respiratory Rate 14 13 16 Respiratory Effort / Characteristics Respiratory Depth Blood Pressure 99/73 L 95/71 L Blood Pressure Mean 81 79 Blood Pressure Position Pulse Oximetry 100 100 100 Oxygen Delivery Method Oxygen Flow Rate 03/29/19 13:16 03/29/19 13:30 03/29/19 13:45 Temperature Temperature Source Sepsis Action Taken by Nursing Pulse Rate 51 L 50 L 48 L Pulse Rate from SpO2 Sensor 51 L 51 L 48 L Respiratory Rate 14 13 14 Respiratory Effort / Characteristics Respiratory Depth Blood Pressure 115/73 111/74 Blood Pressure Mean 87 86 Blood Pressure Position Pulse Oximetry 100 100 100 Oxygen Delivery Method Nasal Cannula Nasal Cannula Oxygen Flow Rate 2 2 03/29/19 14:00 03/29/19 14:15 03/29/19 14:30 Temperature Temperature Source Sepsis Action Taken by Nursing Pulse Rate 47 L 52 L 50 L Pulse Rate from SpO2 Sensor 48 L 48 L 51 L Respiratory Rate 11 L 12 13 Respiratory Effort / Characteristics Respiratory Depth Blood Pressure 120/80 123/75 121/75 Blood Pressure Mean 93 91 90 Blood Pressure Position Pulse Oximetry 100 100 100 Oxygen Delivery Method Nasal Cannula Nasal Cannula Oxygen Flow Rate 2 2 2 03/29/19 14:45 03/29/19 15:00 03/29/19 15:15 Temperature Temperature Source Sepsis Action Taken by Nursing Pulse Rate 50 L 51 L 52 L Pulse Rate from SpO2 Sensor 51 L 51 L 45 L Respiratory Rate 13 14 13 Respiratory Effort / Characteristics Respiratory Depth Blood Pressure 113/76 113/76 117/73 Blood Pressure Mean 88 88 87 Blood Pressure Position Pulse Oximetry 100 100 100 Oxygen Delivery Method Nasal Cannula Oxygen Flow Rate 2 GENERAL: Moderate distress. Protecting her airway. EYE EXAM: Normal conjunctiva. PERRL, no anisocoria. OROPHARYNX: Moist mucous membranes. Grossly normal dentition. NECK: Supple, no nuchal rigidity, no adenopathy, non-tender. No signs of mening ismus. LUNGS: Clear to auscultation. Normal chest wall mechanics. HEART: NSR, no MRG. ABDOMEN: Abdomen soft normo-active bowel sounds, no masses, no rebound or guarding. BACK: No CVA TTP. SKIN: No rashes and no bruising. Numerous tattoos. UPPER EXTREMITIES: Upper extremities are grossly normal. LOWER EXTREMITIES: No pitting edema. No calf pain. NEURO EXAM: Responds to painful stimuli. Pupils are equally round and reactive. Initial GCS of 7. Course 1141: The patient was evaluated in room A1. A complete history and physical exam was performed. 1154: The patient had a seizure for 30 seconds and was self-terminated. 1205: I checked on the patient. 1241: The patient's boyfriend showed up. He states she seemed to be different in the last 24 hours but slept normally last night. He notes she woke up at 10:30 this morning with a seizure. He states he kept her medications away and has not witnessed overdose. The patient started to open her eyes at bedside. I have personally spent 75 minutes of critical care time in the direct management of this patient. This includes bedside care, interpretation of diagnostic studies, and testing, discussion with consultants, patient, and family members, and other required patient management activities. This 75 minutes is in excess of all separately billable procedures. 1330: No recurrence of seizures since the patient got the Ativan. 1422: I discussed the patient's case with Daniel Quintero PA-C. The patient will be further managed by Daniel Salvador, Internal Medicine. Administered Medications Discontinued Medications Levetiracetam 1,000 mg/ (Dextrose) 110 mls @ 440 mls/hr IV NOW STA Stop: 03/29/19 12:05 Last Infusion: 03/29/19 12:41 Dose: 0 mls/hr Documented by: [id number] Admin: 03/29/19 12:11 Dose: 440 mls/hr Documented by: [id number] Sodium Chloride (Nss 1000ml) 1,000 mls @ 999 mls/hr IV .Q1H1M CÉSAR Stop: 03/29/19 13:00 Last Infusion: 03/29/19 14:07 Dose: 0 mls/hr Documented by: [id number] Admin: 03/29/19 12:11 Dose: 999 mls/hr Documented by: [id number] Lorazepam (Ativan) 4 mg IM NOW STA Stop: 03/29/19 11:52 Last Admin: 03/29/19 12:13 Dose: Not Given Documented by: [id number] Lorazepam (Ativan) Confirm Administered Dose 4 mg .ROUTE .STK-MED ONE Stop: 03/29/19 11:54 Last Admin: 03/29/19 12:10 Dose: 2 mg Documented by: [id number] Medical Decision Making Differential Diagnosis Differential Diagnosis: Etiologies such as infections, hypoglycemia, electrolyte abnormalities, cardiac sources, intracerebral event, trauma, toxicologic, neurologic, as well as others were entertained. Medical Records Attestation: I reviewed the patient's medical records. (The patient has a history of drug use. She attempted a Benadryl overdose on March 17. ) Home Medications Current Medication List: was personally reviewed by me Laboratory Data Attestation: I reviewed the patient's lab results. Result diagrams: 03/29/19 12:28 03/29/19 12:28 Lab Results 03/29/19 03/29/19 03/29/19 Range/Units 11:50 11:50 11:50 WBC (4.8-10.8) K/uL RBC (4.2-5.4) M/uL Hgb (12.0-16.0) g/dL Hct (37-47) % MCV (80-100) fL MCH (25-34) pg MCHC (32-36) g/dL RDW Std Deviation (36.4-46.3) fL RDW Coeff of Thea (11.5-14.5) % Plt Count (130-400) K/uL MPV (7.4-10.4) fL Immature Gran % (Auto) % Neut % (Auto) % Lymph % (Auto) % Humphreys % (Auto) % Eos % (Auto) % Baso % (Auto) % Immature Gran # (Auto) (0.00-0.02) K/uL Neut # (Auto) (1.4-6.5) K/uL Lymph # (Auto) (1.2-3.4) K/uL Humphreys # (Auto) (0.11-0.59) K/uL Eos # (Auto) (0-0.5) K/uL Baso # (Auto) (0-0.2) K/uL ESR (0-21) mm/hr Sodium (136-145) mmol/L Potassium (3.5-5.1) mmol/L Chloride (98-107) mmol/L Carbon Dioxide (21-32) mmol/L Anion Gap (3-11) BUN (7-18) mg/dl Creatinine (0.6-1.2) mg/dl Est Cr Clr Drug Dosing ml/min Est GFR ( Amer) Est GFR (Non-Af Amer) BUN/Creatinine Ratio (10-20) Glucose (70-99) mg/dl Calcium (8.5-10.1) mg/dl Magnesium (1.8-2.4) mg/dl Total Bilirubin (0.2-1) mg/dl AST (15-37) U/L ALT (12-78) U/L Alkaline Phosphatase (45-117) U/L Total Protein (6.4-8.2) gm/dl Albumin (3.4-5.0) gm/dl Globulin (2.5-4.0) gm/dl Albumin/Globulin Ratio (0.9-2) TSH (0.300-4.500) uIu/ml Free T4 (0.8-1.6) ng/dl Urine Color Yellow Urine Appearance Clear (Clear) Urine pH 8.0 H (4.5-7.5) Ur Specific [place] 1.013 (1.000-1.030) Urine Protein Negative (Negative) Urine Glucose (UA) Negative (Negative) Urine Ketones Negative (Negative) Urine Blood Negative (Negative) Urine Nitrite Negative (Negative) Urine Bilirubin Negative (Negative) Urine Urobilinogen Negative (Negative) Ur Leukocyte Esterase Negative (Negative) Urine Test Negative (Negative) Salicylates (2.8-20) mg/dl Urine Opiates Screen Neg (Neg) Ur Methadone, Qual Neg (Neg) Acetaminophen (10-30) ug/ml Urine Barbiturates Pos H (Neg) Ur Phencyclidine (PCP) Neg (Neg) U Amphetamin/Meth Scrn Neg (Neg) MDMA (Ecstasy) Screen Neg (Neg) U Benzodiazepines Scrn Neg (Neg) Ur Cocaine Metabolite Neg (Neg) U Marijuana (THC) Screen Pos H (Neg) Ethyl Alcohol mg/dL (0-3) mg/dl 03/29/19 03/29/19 03/29/19 Range/Units 12:28 12:28 12:28 WBC 3.63 L (4.8-10.8) K/uL RBC 3.47 L (4.2-5.4) M/uL Hgb 10.7 L (12.0-16.0) g/dL Hct 32.2 L (37-47) % MCV 92.8 (80-100) fL MCH 30.8 (25-34) pg MCHC 33.2 (32-36) g/dL RDW Std Deviation 44.7 (36.4-46.3) fL RDW Coeff of Thea 13.1 (11.5-14.5) % Plt Count 200 (130-400) K/uL MPV 12.0 H (7.4-10.4) fL Immature Gran % (Auto) 0.0 % Neut % (Auto) 49.6 % Lymph % (Auto) 41.3 % Humphreys % (Auto) 6.6 % Eos % (Auto) 1.9 % Baso % (Auto) 0.6 % Immature Gran # (Auto) 0.00 (0.00-0.02) K/uL Neut # (Auto) 1.80 (1.4-6.5) K/uL Lymph # (Auto) 1.50 (1.2-3.4) K/uL Humphreys # (Auto) 0.24 (0.11-0.59) K/uL Eos # (Auto) 0.07 (0-0.5) K/uL Baso # (Auto) 0.02 (0-0.2) K/uL ESR (0-21) mm/hr Sodium 146 H (136-145) mmol/L Potassium 3.6 (3.5-5.1) mmol/L Chloride 119 H (98-107) mmol/L Carbon Dioxide 20 L (21-32) mmol/L Anion Gap 7.0 (3-11) BUN 4 L (7-18) mg/dl Creatinine 0.72 (0.6-1.2) mg/dl Est Cr Clr Drug Dosing 73.9 ml/min Est GFR ( Amer) 114.0 Est GFR (Non-Af Amer) 98.3 BUN/Creatinine Ratio 5.3 L (10-20) Glucose 137 H (70-99) mg/dl Calcium 8.5 (8.5-10.1) mg/dl Magnesium 2.1 (1.8-2.4) mg/dl Total Bilirubin 0.3 (0.2-1) mg/dl AST 14 L (15-37) U/L ALT 12 (12-78) U/L Alkaline Phosphatase 79 (45-117) U/L Total Protein 6.2 L (6.4-8.2) gm/dl Albumin 3.1 L (3.4-5.0) gm/dl Globulin 3.1 (2.5-4.0) gm/dl Albumin/Globulin Ratio 1.0 (0.9-2) TSH 0.267 L (0.300-4.500) uIu/ml Free T4 0.95 (0.8-1.6) ng/dl Urine Color Urine Appearance (Clear) Urine pH (4.5-7.5) Ur Specific [place] (1.000-1.030) Urine Protein (Negative) Urine Glucose (UA) (Negative) Urine Ketones (Negative) Urine Blood (Negative) Urine Nitrite (Negative) Urine Bilirubin (Negative) Urine Urobilinogen (Negative) Ur Leukocyte Esterase (Negative) Urine Test (Negative) Salicylates < 1.7 L (2.8-20) mg/dl Urine Opiates Screen (Neg) Ur Methadone, Qual (Neg) Acetaminophen < 2 L (10-30) ug/ml Urine Barbiturates (Neg) Ur Phencyclidine (PCP) (Neg) U Amphetamin/Meth Scrn (Neg) MDMA (Ecstasy) Screen (Neg) U Benzodiazepines Scrn (Neg) Ur Cocaine Metabolite (Neg) U Marijuana (THC) Screen (Neg) Ethyl Alcohol mg/dL (0-3) mg/dl 03/29/19 03/29/19 Range/Units 12:28 12:28 WBC (4.8-10.8) K/uL RBC (4.2-5.4) M/uL Hgb (12.0-16.0) g/dL Hct (37-47) % MCV (80-100) fL MCH (25-34) pg MCHC (32-36) g/dL RDW Std Deviation (36.4-46.3) fL RDW Coeff of Thea (11.5-14.5) % Plt Count (130-400) K/uL MPV (7.4-10.4) fL Immature Gran % (Auto) % Neut % (Auto) % Lymph % (Auto) % Humphreys % (Auto) % Eos % (Auto) % Baso % (Auto) % Immature Gran # (Auto) (0.00-0.02) K/uL Neut # (Auto) (1.4-6.5) K/uL Lymph # (Auto) (1.2-3.4) K/uL Humphreys # (Auto) (0.11-0.59) K/uL Eos # (Auto) (0-0.5) K/uL Baso # (Auto) (0-0.2) K/uL ESR 23 H (0-21) mm/hr Sodium (136-145) mmol/L Potassium (3.5-5.1) mmol/L Chloride (98-107) mmol/L Carbon Dioxide (21-32) mmol/L Anion Gap (3-11) BUN (7-18) mg/dl Creatinine (0.6-1.2) mg/dl Est Cr Clr Drug Dosing ml/min Est GFR ( Amer) Est GFR (Non-Af Amer) BUN/Creatinine Ratio (10-20) Glucose (70-99) mg/dl Calcium (8.5-10.1) mg/dl Magnesium (1.8-2.4) mg/dl Total Bilirubin (0.2-1) mg/dl AST (15-37) U/L ALT (12-78) U/L Alkaline Phosphatase (45-117) U/L Total Protein (6.4-8.2) gm/dl Albumin (3.4-5.0) gm/dl Globulin (2.5-4.0) gm/dl Albumin/Globulin Ratio (0.9-2) TSH (0.300-4.500) uIu/ml Free T4 (0.8-1.6) ng/dl Urine Color Urine Appearance (Clear) Urine pH (4.5-7.5) Ur Specific [place] (1.000-1.030) Urine Protein (Negative) Urine Glucose (UA) (Negative) Urine Ketones (Negative) Urine Blood (Negative) Urine Nitrite (Negative) Urine Bilirubin (Negative) Urine Urobilinogen (Negative) Ur Leukocyte Esterase (Negative) Urine Test (Negative) Salicylates (2.8-20) mg/dl Urine Opiates Screen (Neg) Ur Methadone, Qual (Neg) Acetaminophen (10-30) ug/ml Urine Barbiturates (Neg) Ur Phencyclidine (PCP) (Neg) U Amphetamin/Meth Scrn (Neg) MDMA (Ecstasy) Screen (Neg) U Benzodiazepines Scrn (Neg) Ur Cocaine Metabolite (Neg) U Marijuana (THC) Screen (Neg) Ethyl Alcohol mg/dL < 3.0 (0-3) mg/dl Imaging Data Radiologist's Impression: Radiology results as stated below per my review and the radiologist's interpretation: CT head/brain wo con CT DOSE: 601.98 mGy.cm HISTORY: Seizure. Mental status change. seizure TECHNIQUE: Multiaxial CT images of the head were performed without the use of intravenous contrast. A dose lowering technique was utilized adhering to the principles of ALARA. Comparison: 03/03/2019 Findings: The paranasal sinuses and mastoid air cells are clear. The calvarium and skull base are intact. The ventricles and sulci are within normal limits. There is no mass, hematoma, midline shift, or acute infarct. Impression: No acute intracranial abnormality. No change from the prior study. The above report was generated using voice recognition software. It may contain grammatical, syntax or spelling errors. Electronically signed by: Caesar Damon M.D. 03/29/2019 12:39 PM Blood Pressure Blood Pressure Findings: Normal blood pressure Blood Pressure Disposition: did not require urgent referral MDM Narrative The patient is a 49 year old white female w/ PMHx of PTSD, suicidal overdose, mood disorder, alcohol abuse, who presents to the ED unresponsive secondary to a seizure. Patient was seen and evaluated the bedside. The patient did present with concern for seizures. The patient does have prior history of seizures and was recently started on the boyfriend did later arrive and did relate that the patient was not feeling quite herself and was unsure as well not she would have a seizure but slept throughout the night but then did have a seizure beginning at 1030 this morning. Patient does have a recent psychiatric history and was concerned about the possibility of overdose but the boyfriend states that she has not taken any [id number] medications inappropriately or her other medications and appropriately. The patient does respond to pain and does become slowly more arousable but initially had a GCS of 7 but was protecting her airway. The patient did have subsequent seizure which did require Ativan to be given a second time. The patient did have blood work completed along CT the brain. Patient does have mild leukopenia and anemia. No obvious signs of trauma. Boyfriend does not report any trauma. Patient does have mild low bicarb but this is likely secondary to the patient's prolonged seizures. Kidney function is normal. The patient does have a low TSH but free T4 is within normal limits. Urinalysis is negative along with test. The patient's UDS is positive for barbiturates as well as THC. The patient apparently does use marijuana. Given that the patient has not returned to her baseline I did discuss case with the on-call hospitalist who agreed to further evaluate treat the patient. Patient was admitted to the medicine service. Impression & Plan Seizure, Altered mental status Critical Care Time Critical Care Time: Yes Total Critical Care Time: 75 Discharge Plan Visit Data *Final* Discharge Date/Time: 03/29/19 16:36 Chief Complaint: Unresponsive ED Provider: Yuri Beltran Discharge Problem: Seizure, Altered mental status Patient Disposition: Admitted As Inpatient Discharge Instructions Interventions: ED Discharge Assessment Last Done: 03/29/19 16:36 The scribe's documentation has been prepared under my direction and personally reviewed by me in its entirety. I confirm that the note above accurately reflects all work, treatment, procedures, and medical decision making performed by me.
[2019-03-29] MEDS: SODIUM CHLORIDE 0.9% 1000ML 1,000 ML IV SCH (18:46)
[2019-03-30] MEDS: SODIUM CHLORIDE 0.9% 1000ML 1,000 ML IV SCH (03:27)
[2019-03-30 06:51] LABS: Hematocrit (blood only) 31.6 % (37-47); Hemoglobin 10.4 g/dL (12.0-16.0); Mean Corpuscular Hgb Conc 32.9 g/dL (32-36); Mean Corpuscular Volume 92.7 fL (80-100); Mean Platelet Volume 12.1 fL (7.4-10.4); Platelet Count 190 K/uL (130-400); RDW Coefficient of Variation 13.3 % (11.5-14.5); RDW Standard Deviation 44.7 fL (36.4-46.3); Red Blood Count 3.41 M/uL (4.2-5.4); White Blood Count 3.73 K/uL (4.8-10.8)
[2019-03-30 07:20] LABS: BUN Creatinine Ratio 4.8 (10-20); Calcium 8.1 mg/dl (8.5-10.1); Potassium 3.5 mmol/L (3.5-5.1)
[2019-03-30] MEDS ORDERED: IBUPROFEN 200 MG TAB PO STA (07:28)
[2019-03-30] MEDS ORDERED: BACLOFEN 20 MG TAB PO PRN (07:58)
[2019-03-30] MEDS ORDERED: POTASSIUM CHLORIDE / WTR 10 MEQ/100 ML PLCT IV ONE (08:00)
--- NOTE | 2019-03-30 10:15 | Neurology Consultation ---
Date of Consultation March 30, 2019 Assessment & Plan (1) Seizure: Patient has a longstanding history of seizures which were under fairly good control although she has had a probable breakthrough seizure yesterday or the night before. She certainly could have had more than 1 seizure. Interestingly her carbamazepine level is low. Records indicate that she was taking carbamazepine 200 mg ER twice daily and she tells me she takes it 3 times daily. She is also on topiramate 200 mg twice daily, levetiracetam 2000 mg twice daily, and gabapentin 40 mg 3 times a day. She has some chronic right upper extremity pain and spasms and uses CBD oil, gabapentin, baclofen 20 mg 3 times a day all of which helped her chronic pain. EMG and nerve conduction studies in June of 2016, when the right upper extremity pain started were unremarkable with no neuropathy or radiculopathy. Today she is doing well with no focal neurologic signs, meningeal signs, or encephalopathy. She does have some left lateral rib cage pain and low back pain with pain radiating down her left lateral leg. She may have injured herself during her seizure or during transport to the hospital (2) Mood disorder: Patient has a history of depression, anxiety including panic attacks, cluster B personality disorder, and significant PTSD. She is followed by Psychiatry and currently is on buspirone 10 mg 3 times a day. She is off the citalopram. Counseling/therapy does help. She has had several suicide attempts this year but seems to have no suicidal ideation currently. (3) Alcohol abuse: Patient has had some abuse of alcohol during the times of suicide attempts with overdose of medication. Alcohol level was 0 on admission this time. Recommendations: 1. We need to be absolutely sure how much carbamazepine ER she has been taking each day. Although she claims 3 times a day, my records show twice a day both inpatient discharge summary from March 22 and outpatient visits. Because her carbamazepine level was low at 2.3, I would increase by 1 tablet per day, therefore 1 carbamazepine ER 200 mg tablet in the morning and 2 tablets in the evening. 2. Decrease levetiracetam to 1500 mg twice daily. This has been a outpatient goal to decrease her taper off this medication while increasing the carbamazepine. 3. Check a trough carbamazepine level in 10-14 days. 4. Consider plain x-rays of the left lateral rib cage in lumbar spine in lieu of her pain 5. Continue with psychiatric follow-up as an outpatient. 6. I can follow up as an outpatient in 2-3 weeks. Overall, I spent a total of 110 minutes with this case including review of records, direct evaluation the patient at bedside, and discussion of the case with the patient at bedside, nursing staff at bedside, and Dr. Shepard, including differential diagnosis and treatment options. History of Present Illness Reason for Consultation: Patient is a 49-year-old, who I was asked to see at the request of Yoanna Rosario PA-C, for neurologic consultation regarding seizure. Requesting Physician: Dr. Shepard Attending Physician: Miles Shepard MD History of Present Illness Apparently, this patient's first seizure was in June 2006. That time she was under considerable stress including a in her family, going through a divorce, and the purchase of a home on her own. Apparently she has had multiple spells and seizures with multiple testing over the years. She tried an failed Dilantin and had significant side effects to Depakote. Lamictal was tried for short period of time but she is uncertain what happened with that. She moved to the [facility] in 2013 and an MRI of the brain August 2014 was unremarkable. At least 2 EEGs and a 48 hour ambulatory EEG (October 2014) have been unremarkable. She started seeing Dr. 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 I saw the patient in June of 2016 for recent b reakthrough seizures secondary to stress and sleep deprivation. She has followed with Dr. Blanco up until December of 2018 when she last saw her. At that time, Keppra was 2000 mg twice a day, topiramate 200 mg twice a day, carbamazepine ER 200 mg twice a day, gabapentin 400 mg 3 times a day (also taken for pain). Her last known seizure was in May of 2018. Patient had continue was 48 hour EEG in November of 2018 at and this was completely normal with no potentially epileptogenic discharges. She has had several suicide attempts overdosing with medication this year, most recently earlier in March on Benadryl. She has posttraumatic stress disorder, anxiety disorder, depression, and panic attacks. There is considerable amount of psychosocial stressors which have led her to over dose on medication. Patient last saw us in clinic February 06, 2019 and she was stable. Her migraines have been stable as well. She was discharged from the hospital March 22 on carbamazepine ER 200 mg twice daily. Patient tells me she has been taking it 3 times a day but I have no record of this in the chart. Since her most recent attempt, she has been doing very well and had a great weak last week. On the evening of March 28 she was very confused spacey and slow. She slept for a long time in the morning March 29 was found by her slid out of bed and not responding well. EMS arrived and found that she was having some seizure activity and 5 mg of Ativan were given. She arrived to the emergency room March 29 at 1142 with a temperature of 36.0 rectally, pulse 70 and regular, respiratory rate 17, blood pressure 99/71, and O2 saturation 100% In the ER she was apparently given 2 more mg of Ativan. She had altered responsiveness the patient does not remember the events of yesterday. CBC showed mild anemia as before white count low at 3.63. Chem profile was unremarkable although glucose was 137. TSH was normal at 0.267. Urinalysis was unremarkable. She was positive for marijuana but uses CBD oil for pain and anxiety. Alcohol was 0. ESR was 23 and carbamazepine level was low at 2.3. Topiramate and Keppra levels are pending. CT scan of the head was unremarkable. Chest x-ray was unremarkable. This morning, the patient has no complaint of headache or spine pain. She does have some left lower ribcage pain which she says is been hurting since last ni ght. When she takes a deep breath that is worse. She also has some left low back pain which radiates down the lateral aspect of the leg to pass the knee. She is not having any numbness or weakness, vision problems, speech or mentation problems and her mood seems good. Allergies Allergy/AdvReac Type Severity Reaction Status Date / Time tree nut Allergy Severe ANAPHYLAXIS Verified 03/29/19 14:54 Penicillins Allergy Intermediate HIVES Verified 03/29/19 14:54 Home Medications Home Medications Medication Instructions Recorded Confirmed Type multivitamin 1 tab PO DAILY 11/30/18 03/29/19 History topiramate [Topamax] 200 mg PO BID 11/30/18 03/29/19 History magnesium oxide 400 mg PO DAILY 12/21/18 03/29/19 History carbamazepine 200 mg PO Q12 03/16/19 03/29/19 History folic acid 1 mg PO QAM 30 Days #30 tab 03/17/19 03/29/19 Rx glucose [Dex4 Glucose] 16 gm PO UD PRN 30 Days #100 tab 03/17/19 03/29/19 Rx levothyroxine [Synthroid] 50 mcg PO DAILYBB 30 Days #30 tab 03/17/19 03/29/19 Rx thiamine HCl (vitamin B1) [Vitamin 100 mg PO QAM 30 Days #30 tab 03/17/19 03/29/19 Rx B-1] buspirone 10 mg PO TID 7 Days #21 tab 03/22/19 03/29/19 Rx baclofen 20 mg PO TID PRN 03/29/19 03/29/19 History epinephrine [EpiPen] 0.3 mg IM Q3H PRN 03/29/19 03/29/19 History escitalopram oxalate 20 mg PO QAM 03/29/19 03/29/19 History gabapentin 400 mg PO TID 03/29/19 03/29/19 History levetiracetam [Keppra] 2,000 mg PO BID 03/29/19 03/29/19 History Patient History Medical History Alcohol abuse (Chronic) Seizure disorder (Chronic) Hypothyroidism (Chronic) Raynauds phenomenon (Chronic) Cluster B personality disorder (Chronic) Diphenhydramine overdose (Chronic) PTSD (post-traumatic stress disorder) (Chronic) Hypokalemia (Inactive) Surgical History Hx of cholecystectomy (Chronic) H/O foot surgery (Chronic) H/O shoulder surgery (Chronic) H/O hernia repair (Chronic) Family History Mother Breast cancer Hypertension Diabetes Other Myocardial infarction Social History Preferred Language: Swazi Communication Ability: Effective Consumer Attorney Required: No Beliefs That Will Affect Care: None marital status: Current Living Situation: Significant Other current occupational status: unemployed current occupation: 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 Feels Safe at Home: Yes Smoking Status: Never smoker Second Hand Exposure: No Hx Alcohol Use: Yes Alcohol type: wine and hard liquor Alcohol Intake Frequency Comment: Uses excessively when suicidal otherwise does not drink alcohol Hx Substance Use: Yes substance use type: other Substance Use Type Other:: cannabis oil Review of Systems Constitutional: + fatigue; no fever and no weakness Eyes: no diplopia, no eye pain and no worsening vision Ear, Nose, Mouth, Throat: no ear pain, no tinnitus, no hearing loss, no dizziness, no snoring, no hoarseness and no dysphagia Respiratory: + pain on inspiration (Left lateral lower ribcage pain with deep breath); no cough and no dyspnea Cardiovascular: no chest pain, no palpitations and no lightheadedness Gastrointestinal: no abdominal pain, no nausea and no vomiting Genitourinary: no dysuria, no urinary frequency and no urinary incontinence Musculoskeletal: + back pain (Left low back pain which radiates down the lateral aspect of the leg to past the knee.); no neck pain, no radicular pain, no joint pain and no myalgia Integumentary: no rash and no lesions Neurologic: no gait abnormality, no localized weakness, no generalized weakness, no tingling, no numbness, no tremor(s), no abnormal movements, no headache(s), no abnormal speech, no confusion and no memory loss Psychiatric: + depression and + anxiety; no irritability, no difficulty concentrating, no confusion and no hallucinations Endocrine: + fatigue; no flushing Hematologic / Lymphatic: no easy bleeding and no easy bruising Allergy / Immunological: no urticaria and no problem reported Physical Exam Physical Exam: The patient is left-handed. The patient is awake, alert, and attentive. Speech is normal without any aphasia or dysarthria. Mentation and thought processes are intact, with full orientation and normal fund of knowledge. Attention and concentration are normal. Mood and affect are normal and appropriate. General appearance and grooming are normal. Short and long-term memory are intact although she does not have recall of the events of yesterday.. The discs are sharp with positive venous pulsations bilaterally. There are no exudates, hemorrhages, or blood vessel changes seen. Pupils are 4 mm bilaterally and reactive to light. Extraocular eye muscles are intact without nystagmus. Visual acuity and visual villalba seem normal grossly to confrontation. There are no deficits to sensation in the face in all 3 distributions of the fifth cranial nerve bilaterally. Corneal reflexes are positive bilaterally. Facial strength and symmetry was normal bilaterally. Hearing seems intact grossly to voice and finger rub bilaterally. Palate moves well without asymmetry. There is normal sternocleidomastoid and trapezius (shoulder shrug) strength bilaterally. Tongue is midline with good strength bilaterally. Neck has a full range of motion without discomfort. There are no cervical bruits bilaterally. There are no cranial or ocular bruits. Heart is without murmur. There is a regular rhythm and rate. Cervical, thoracic, and lumbar spine are nontender to palpation. Gait is not tested but stance sitting up in bed is quite good. With outstretched arms there is no drift. There are no resting, postural, or action tremors. There is no ataxia with finger to nose testing. There is good facility in the hands. No other abnormal involuntary movements are noted. Motor strength is 5/5 diffusely in the arms bilaterally including deltoids, biceps, triceps, brachioradialis, wrist flexors and extensors, burglar alarm assembler, and intrinsic hand muscles. Motor strength is 5/5 diffusely in the legs bilaterally including hip flexors, quadriceps, hamstrings, gastrocnemius, tibialis anterior, tibialis posterior, and Peroneii muscles bilaterally. Toe extensors are normal and there is good bulk in the extensor digitorum brevis muscles bilaterally. The limbs have good tone without rigidity or spasticity. There is no atrophy noted in the muscles. Muscle bulk is normal, there is no tenderness to palpation, no myotonia to percussion, and no fasciculations seen. Sensory examination is intact to touch and pin throughout all 4 limbs diffusely. Reflexes are 2/4 in the biceps, triceps, brachioradialis, quadriceps, and Achilles tendons bilaterally. Toes are downgoing with plantar stimulation bilaterally. Peripheral pulses are present and of normal quality distally in all 4 limbs. There is no peripheral edema noted in the limbs. Results & Data Vital Signs (Past 12 Hours) Vital Signs Temp Pulse Pulse Pulse Resp BP BP 03/30/19 07:40 36.6 C 75 18 127/83 03/30/19 04:30 36.4 C L 69 18 113/73 03/29/19 23:30 74 03/29/19 23:14 36.5 C 68 20 104/53 L Pulse Ox 03/30/19 07:40 100 03/30/19 04:30 99 03/29/19 23:30 03/29/19 23:14 99
[2019-03-30] MEDS ORDERED: CARBAMAZEPINE 200 MG TABCR PO ONE (10:30)
[2019-03-30] MEDS ORDERED: levETIRAcetam 500 MG TAB PO ONE (10:30)
[2019-03-30] MEDS: GABAPENTIN 400 MG CAP PO SCH ×3 (10:45→21:08)
--- NOTE | 2019-03-30 11:06 | XRay Report ---
PA CHEST WITH LEFT-SIDED RIB SERIES CLINICAL HISTORY: Left-sided chest wall pain. FINDINGS: A PA chest radiograph with 6 additional views from a left-sided rib series is compared to ed resendiz dated 03/29/2019 and correlated with chest CT dated 01/19/2019. The cardiomediastinal silhouette i s unremarkable. The lungs and pleural spaces are clear. No pneumothorax is seen. The skeletal structu res are osteopenic. There is no radiographic evidence of acute/distracted left-sided rib fracture on the rib series. The remainder of the bony thorax is grossly intact. There is chronic deformity of th e distal right clavicle and the right AC joint. IMPRESSION: 1. The lungs are clear. 2. There is no radiographic evidence of acute/distracted left-sided rib fracture on the rib series. Electronically signed by: Renzo Dixon M.D. 03/30/2019 11:05 AM
--- NOTE | 2019-03-30 12:25 | Hospitalist Progress Note ---
Date of Service March 30, 2019 Assessment & Plan (1) Seizure: "Pt with hx seizure disorder presented to ER with reported seizure like activity during EMS transport. Reported that pt received 5mg Ativan en route. In ER T: 36, P: 71, R: 17, BP: 99/71, 100% on RA. WBC: 3.6, H/H: 10.7/32, K: 3.6, magnesium: 2.1, glucose: 137, TSH: 0.26 UA: unremarkable. Urine tox screen +barbiturates, +marijuana. Negative salicylates, negative acetaminophen levels. In ER pt was given 2mg Ativan, Keppra 1000mg IV, 1L NSS Upon initial evaluation pt very sedated" -initial home anti-epileptics were held on 03/29/19 admission because patient sedated -baseline mental status as of 03/30/19 -as per neurology Dr. Millan 03/30/19, patient has low carbamazepine level low at 2.3 and he communicated with hospitalist that patient likely had seizure event -neurology advised to start hospital medications as 1 carbamazepine ER 200 mg tablet in the morning and 400mg at night; also to have levetiracetam as 1500 mg twice daily (which is a reduced dose compared to home dosing as there has been a outpatient goal to decrease her taper off this medication while increasing the carbamazepine) -Check a trough carbamazepine level in 10-14 days from 03/30/19 -continue seizure precautions and aspiration precautions, will continue to monitor on telemetry for now; obtain PT/OT assessments (2) Altered mental status: altered mental status secondary to seizure prior to hospital arrival -baseline mental status as of 03/30/19 (3) Mood disorder: Borderline personality disorder Post-traumatic stress disorder Alcohol abuse disorder -Patient has had multiple prior hospitalizations for prior suicide attempts from drug overdose -patient has been assess by neurology and psychiatry nurse by 03/30/19 and their impressions that patient's recent episode of altered mental status are from seizure disorder and not from psychiatric event -will resume home dose buspirone as 10 mg TID. will hold escitalopram for now. 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 will hold home dose Levothyroxine for today and re- evaluate DVT Prophylaxis:SCD Full Code Follows with Dr Garza for primary care outpatient Subjective Patient awake and alert and cooperative on exam. She has some left sided pain such as left arm and left side below the ribs and left thigh but she is re-ass ured that there are no rib fractures. no bruising of the affected areas. no vomiting. no shortness of breath. breathing on room air. normal affect. Physical Exam Constitutional: WD/WN, vitals as above Eyes: PERRL, conjunctivae normal, anicteric sclerae EOM intact bilaterally ENMT: external ear and nose normal, oropharynx normal Neck: normal visual inspection Respiratory: normal respiratory effort, lungs clear to auscultation Cardiovascular: RRR, no murmur, no edema Gastrointestinal (Abdomen): normal bowel sounds, soft, nontender, no hepatosp lenomegaly Musculoskeletal: Head/Neck/Chest: normocephalic and head atraumatic patient has some left sided musculoskeletal discomforts. no bruising Neurologic: PERRL, EOMI, accommodation nl, no face palsy, no dysarthria CN's II-XI intact bilaterally Psychiatric: A+Ox3, euthymic affect Results & Data Vital Signs (Past 12 Hours) Vital Signs Temp Pulse Pulse Resp BP Pulse Ox 03/30/19 10:53 36.5 C 73 18 118/75 100 03/30/19 07:40 36.6 C 75 18 127/83 100 03/30/19 04:30 36.4 C L 69 18 113/73 99
[2019-03-30 13:48] LABS: T3 Free 2.62 pg/ml (2.3-4.2); T3 Total 0.94 ng/ml (0.60-1.81)
[2019-03-30] MEDS: IBUPROFEN 200 MG TAB PO PRN ×2 (16:07→21:32)
[2019-03-30] MEDS ORDERED: carBAMazepine 200 MG TABLET PO SCH (21:00)
[2019-03-30] MEDS ORDERED: CARBAMAZEPINE 200 MG TABCR PO SCH (21:00)
[2019-03-30] MEDS: levETIRAcetam 500 MG TAB PO SCH (21:07)
[2019-03-30] MEDS ORDERED: MoRPHine SULFATE 4 MG/ML 1 ML CARP\\VIAL IV STA (22:11)
[2019-03-31] MEDS ORDERED: LEVOTHYROXINE SODIUM 25 MCG TABLET PO SCH (06:30)
[2019-03-31] MEDS: IBUPROFEN 200 MG TAB PO PRN (09:00)
[2019-03-31] MEDS ORDERED: CARBAMAZEPINE 200 MG TABCR PO SCH (09:00)
[2019-03-31] MEDS: levETIRAcetam 500 MG TAB PO SCH (09:02)
[2019-03-31] MEDS: GABAPENTIN 400 MG CAP PO SCH ×2 (09:02→12:59)
[2019-03-31 10:08] LABS: Basophils # (auto) 0.05 K/uL (0-0.2); Basophils % (auto) 1.4 %; Eosinophils # (auto) 0.11 K/uL (0-0.5); Eosinophils % (auto) 3.1 %; Hematocrit (blood only) 35.6 % (37-47); Hemoglobin 11.8 g/dL (12.0-16.0); Immature Granulocytes # (auto) 0.01 K/uL (0.00-0.02); Immature Granulocytes % (auto) 0.3 %; Lymphocytes # (auto) 1.75 K/uL (1.2-3.4); Lymphocytes % (auto) 48.9 %; Mean Corpuscular Volume 91.8 fL (80-100); Mean Platelet Volume 12.1 fL (7.4-10.4); Monocytes # (auto) 0.19 K/uL (0.11-0.59); Monocytes % (auto) 5.3 %; Neutrophils # (auto) 1.47 K/uL (1.4-6.5); Platelet Count 225 K/uL (130-400); RDW Coefficient of Variation 13.1 % (11.5-14.5); RDW Standard Deviation 43.8 fL (36.4-46.3); Red Blood Count 3.88 M/uL (4.2-5.4); White Blood Count 3.58 K/uL (4.8-10.8)
[2019-03-31 10:09] LABS: Mean Corpuscular Hgb Conc 33.1 g/dL (32-36)
[2019-03-31 10:44] LABS: Albumin Globulin Ratio 0.9 (0.9-2); Albumin Level 3.5 gm/dl (3.4-5.0); BUN Creatinine Ratio 4.1 (10-20); Bilirubin,Total 0.2 mg/dl (0.2-1); Calcium 8.8 mg/dl (8.5-10.1); Creatinine Clr Calc Pharmacy 53.7 ml/min; Est GFR (African American) 85.9; Est GFR (Non-African American) 74.1; Globulin 3.9 gm/dl (2.5-4.0); Potassium 3.6 mmol/L (3.5-5.1); Total Protein 7.4 gm/dl (6.4-8.2)
[2019-03-31] MEDS ORDERED: MAGNESIUM SULFATE / D5W 1 GM/100 ML BAG IV ONE (11:00)
--- NOTE | 2019-03-31 11:02 | Neurology Progress Note ---
Date of Service March 31, 2019 Assessment & Plan (1) Seizure: Patient has a longstanding history of seizures which were under fairly good control although she has had a probable breakthrough seizure 03-30 or the night before. She certainly could have had more than 1 seizure. Interestingly, her carbamazepine level is low. Records indicate that she was taking carbamazepine 200 mg ER twice daily and she tells me she takes it 3 times daily. She is also on topiramate 200 mg twice daily, levetiracetam 2000 mg twice daily, and gabapentin 40 mg 3 times a day. She has some chronic right upper extremity pain and spasms and uses CBD oil, gabapentin, baclofen 20 mg 3 times a day all of which helped her chronic pain. EMG and nerve conduction studies in June of 2016, when the right upper extremity pain started were unremarkable with no neuropathy or radiculopathy. Today she is doing well with no focal neurologic signs, meningeal signs, or encephalopathy. She does have some left lateral rib cage pain and low back pain with pain radiating down her left lateral leg. She may have injured herself during her seizure or during transport to the hospital (2) Mood disorder: Patient has a history of depression, anxiety including panic attacks, c luster B personality disorder, and significant PTSD. She is followed by Psychiatry and currently is on buspirone 10 mg 3 times a day. She is off the citalopram. Counseling/therapy does help. She has had several suicide attempts this year but seems to have no suicidal ideation currently. (3) Alcohol abuse: Patient has had some abuse of alcohol during the times of suicide attempts with overdose of medication. Alcohol level was 0 on admission this time. She is not having alcohol withdrawal symptoms. Recommendations: 1. Continue carbamazepine ER: 200 milligrams in the morning and 400 milligrams at night. 2. Continue levetiracetam to 1500 mg twice daily. This has been a outpatient goal to decrease her taper off this medication while increasing the carbamazepine. 3. Check a trough carbamazepine level in 10-14 days. 4. Continue with psychiatric follow-up as an outpatient. 5. I can follow up as an outpatient in 2-3 weeks. Otherwise, I have nothing further to add from a neurologic standpoint to testing or treatment. Overall, I spent a total of 25 minutes with this case including review of records, direct evaluation the patient at bedside, and discussion of the case with the patient at bedside, nursing staff at bedside, and Dr. Shepard, including differential diagnosis and treatment options. Subjective Patient is doing well with no pain or headaches dizziness or confusion. Nursing reports no events or seizures overnight. X-ray showed no rib fractures. Chem profile including electrolytes were unremarkable. CBC showed a mild anemia as before. CK was 92 and thyroid studies were normal as well. Blood pressure was 122/78 this morning. Physical Exam Physical Exam: She is awake and alert. Speech is without aphasia or dysarthria. Mood and affect seem normal appropriate. Thought processes are intact. Extraocular eye muscles are intact without nystagmus. There is no facial droop. Stance sitting up in bed is normal. Coordination is normal in the arms. Strength is symmetrical in the limbs. Results & Data Vital Signs (Past 12 Hours) Vital Signs Temp Pulse Pulse Resp BP Pulse Ox 03/31/19 08:00 77 03/31/19 07:24 36.6 C 68 18 127/78 99 03/31/19 04:13 36.6 C 58 L 20 113/75 95 03/31/19 02:26 66 03/31/19 00:15 36.5 C 64 22 112/74 99
[2019-03-31] MEDS ORDERED: POTASSIUM CHLORIDE / WTR 10 MEQ/100 ML PLCT IV ONE (12:00)
--- NOTE | 2019-03-31 12:55 | Hospitalist Progress Note ---
Date of Service March 31, 2019 Assessment & Plan (1) Seizure: "Pt with hx seizure disorder presented to ER with reported seizure like activity during EMS transport. Reported that pt received 5mg Ativan en route. In ER T: 36, P: 71, R: 17, BP: 99/71, 100% on RA. WBC: 3.6, H/H: 10.7/32, K: 3.6, magnesium: 2.1, glucose: 137, TSH: 0.26 UA: unremarkable. Urine tox screen +barbiturates, +marijuana. Negative salicylates, negative acetaminophen levels. In ER pt was given 2mg Ativan, Keppra 1000mg IV, 1L NSS Upon initial evaluation pt very sedated" -initial home anti-epileptics were held on 03/29/19 admission because patient sedated -seizure precautions and aspiration precautions, telemetry monitoring in the hospital -baseline mental status as of 03/30/19;PT/OT assessments -as per neurology Dr. Millan 03/30/19, patient has low carbamazepine level low at 2.3 and he communicated with hospitalist that patient likely had seizure event at home -neurology advised to start hospital medications as 1 carbamazepine ER 200 mg tablet in the morning and 400mg at night; also to have levetiracetam as 1500 mg twice daily (which is a reduced dose compared to home dosing as there has been a outpatient goal to decrease her taper off this medication while increasing the carbamazepine) -Patient should take Levetiracetam 1500 mg twice daily.Patient should take Carbamazepine extended release ER 200 mg every morning and 400 mg every night. -Patient will need a trough carbamazepine level in 10 to 14 days from 03/30/19 and this can be done with outpatient primary care doctor or neurologist -Patient is to schedule follow up with neurology Dr. Millan -Patient may take ibuprofen 200 mg every 6 hours for pain (because of muscle pain likely from seizure event) as needed for next 4 days -Discharge medications prescriptions sent to [address] [address] (2) Altered mental status: altered mental status secondary to seizure prior to hospital arrival -baseline mental status as of 03/30/19 (3) Mood disorder: Borderline personality disorder Post-traumatic stress disorder Alcohol abuse disorder -Patient has had multiple prior hospitalizations for prior suicide attempts from drug overdose -patient has been assess by neurology and psychiatry nurse by 03/30/19 and their impressions that patient's recent episode of altered mental status are from seizure disorder and not from psychiatric event -continue ome dose buspirone as 10 mg TID. 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 advise patient to have follow up thyroid function studies performed by her tire builder or hospital follow up visit with primary care doctor 04/05/2019 1:00 PM Provider Lorraine Garza MD Department General Internal Medicine [facility] (patient may need to re-schedule this appointment) 04/11/2019 10:40 AM Provider Reyna Bush DPM Department Podiatry [facility] (patient may need to re-schedule) 04/22/2019 3:00 PM Provider Lorraine Garza MD Department General Internal Medicine [facility] 04/29/2019 4:10 PM Provider MIGUEL ÁNGEL [facility] Department Radiology [address] DVT Prophylaxis:SCD and ambulation Full Code Discharge Diagnosis Seizure disorder, altered mental status secondary to seizure prior to hospital arrival, Mood disorder, Hypothyroidism Subjective Patient doing well. no acute events in the hospital stay. she has been ambulating. no lightheadedness. no dizziness. no headache. no vomiting. no chest pain. no abdominal pain. Physical Exam Constitutional: WD/WN, vitals as above Eyes: PERRL, conjunctivae normal, anicteric sclerae EOM intact bilaterally ENMT: external ear and nose normal, oropharynx normal Neck: normal visual inspection Respiratory: normal respiratory effort, lungs clear to auscultation Cardiovascular: RRR, no murmur, no edema Gastrointestinal (Abdomen): normal bowel sounds, soft, nontender, no hepatosplenomegaly Musculoskeletal: Head/Neck/Chest: normocephalic and head atraumatic Neurologic: PERRL, EOMI, accommodation nl, no face palsy, no dysarthria CN's II-XI intact bilaterally Psychiatric: A+Ox3, euthymic affect Results & Data Vital Signs (Past 12 Hours) Vital Signs Temp Pulse Pulse Resp BP Pulse Ox 03/31/19 11:02 36.6 C 83 19 134/89 98 03/31/19 08:00 77 03/31/19 07:24 36.6 C 68 18 127/78 99 03/31/19 04:13 36.6 C 58 L 20 113/75 95 03/31/19 02:26 66
--- NOTE | 2019-03-31 13:12 | Discharge Summary ---
Date of Service March 31, 2019 Admission HPI Per Admitting Provider Pt is 49 y/o F with PMH seizure disorder, mood disorder, PTSD, depression, h/o multiple suicide attempts GERD, hypothyroidism presented to ER for reported seizure. History obtained from patient's significant other secondary to patient being sedated. Significant other reports last night patient started acting strangely and was noted to be staring off in space and slow to respond to questions. Reports she went to bed and slept for around 11 hours. This morning he reports patient was "spacey" and slid out of bed and was unresponsive and seemed like she choked. He denies noting any tonic-clonic seizure-like activity at home. EMS was called and it is reported that patient had seizure in route and was reportedly given 5 mg of Ativan and 2mg Ativan in ER. Pt's significant other reports that he has a lock box for her medications and he gives her her medications and he believes that she has been taking her seizure medicines as prescribed. He believes patient has not had any alcohol since last hospitalization several weeks ago and believes patient has not been taking any other medications, drugs, or OTC meds. Patient with most recent suicide attempt on 03/14/2019 with Benadryl overdose and was discharged on 03/22/2019 by psychiatry. Reports patient was started on BuSpar 1 week ago, denies any other noted medication changes. Reports patient mood has seemed "okay" since discharge however reports patient has had ups and downs. Denies any noted recent illness. Denies any noted coughing, rhinorrhea, vomiting or diarrhea. Admission Exam Per Admitting Provider General: pt sedated, maintaining own airway, WDWN Head: normocephalic, atraumatic Eyes: PERRL, conjunctiva non-injected, anicteric ENT: normal inspection external ears, nose, mucous membranes moist Neck: supple, trachea midline Lungs: clear, no respiratory distress CV: RRR, no murmur, no pretibial edema Abd: normal BS, soft, no apparent tenderness to palpation Ext: no cyanosis, no edema Neuro: Pt sedated, does not withdraw from painful stimuli Skin: warm, dry; multiple tattoos noted Principal Diagnosis Seizure disorder, altered mental status secondary to seizure prior to hospital arrival, Mood disorder, Hypothyroidism Discharge Exam Constitutional WD/WN, vitals as above Eyes PERRL, conjunctivae normal, anicteric sclerae EOM intact bilaterally ENMT external ear and nose normal, oropharynx normal Neck normal visual inspection Respiratory normal respiratory effort, lungs clear to auscultation Cardiovascular RRR, no murmur, no edema Gastrointestinal (Abdomen) normal bowel sounds, soft, nontender, no hepatosplenomegaly Musculoskeletal Head/Neck/Chest: normocephalic and head atraumatic Neurologic PERRL, EOMI, accommodation nl, no face palsy, no dysarthria CN's II-XI intact bilaterally Psychiatric A+Ox3, euthymic affect Discharge Data Allergies Allergy/AdvReac Type Severity Reaction Status Date / Time tree nut Allergy Severe ANAPHYLAXIS Verified 03/29/19 14:54 Penicillins Allergy Intermediate HIVES Verified 03/29/19 14:54 Consultations 03/29/19 14:21 ED Decision to Admit Stat 03/29/19 17:21 Consult Case Management - Discharge Planning Routine Consult Neurology Routine Ordered Studies 03/29/19 11:51 CT head/brain wo con Stat Hospital Course (1) Seizure: "Pt with hx seizure disorder presented to ER with reported seizure like activity during EMS transport. Reported that pt received 5mg Ativan en route. In ER T: 36, P: 71, R: 17, BP: 99/71, 100% on RA. WBC: 3.6, H/H: 10.7/32, K: 3.6, magnesium: 2.1, glucose: 137, TSH: 0.26 UA: unremarkable. Urine tox screen +barbiturates, +marijuana. Negative salicylates, negative acetaminophen levels. In ER pt was given 2mg Ativan, Keppra 1000mg IV, 1L NSS Upon initial evaluation pt very sedated" -initial home anti-epileptics were held on 03/29/19 admission because patient sedated -seizure precautions and aspiration precautions, telemetry monitoring in the hospital -baseline mental status as of 03/30/19;PT/OT assessments -as per neurology Dr. Millan 03/30/19, patient has low carbamazepine level low at 2.3 and he communicated with hospitalist that patient likely had seizure event at home -neurology advised to start hospital medications as 1 carbamazepine ER 200 mg tablet in the morning and 400mg at night; also to have levetiracetam as 1500 mg twice daily (which is a reduced dose compared to home dosing as there has been a outpatient goal to decrease her taper off this medication while increasing the carbamazepine) -Patient should take Levetiracetam 1500 mg twice daily.Patient should take Carbamazepine extended release ER 200 mg every morning and 400 mg every night. -Patient will need a trough carbamazepine level in 10 to 14 days from 03/30/19 an d this can be done with outpatient primary care doctor or neurologist -Patient is to schedule follow up with neurology Dr. Millan -Patient may take ibuprofen 200 mg every 6 hours for pain (because of muscle pain likely from seizure event) as needed for next 4 days -Discharge medications prescriptions sent to [address] [place] [address] (2) Altered mental status: altered mental status secondary to seizure prior to hospital arrival -baseline mental status as of 03/30/19 (3) Mood disorder: Borderline personality disorder Post-traumatic stress disorder Alcohol abuse disorder -Patient has had multiple prior hospitalizations for prior suicide attempts from drug overdose -patient has been assess by neurology and psychiatry nurse by 03/30/19 and their impressions that patient's recent episode of altered mental status are from seizure disorder and not from psychiatric event -continue ome dose buspirone as 10 mg TID. 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 advise patient to have follow up thyroid function studies performed by her emergency communications dispatcher or hospital follow up visit with primary care doctor 04/05/2019 1:00 PM Provider Lorraine Garza MD Department General Internal Medicine [facility] (patient may need to re-schedule this appointment) 04/11/2019 10:40 AM Provider Reyna Bush DPM Department Podiatry [facility] (patient may need to re-schedule) 04/22/2019 3:00 PM Provider Lorraine Garza MD Department General Internal Medicine [facility] 04/29/2019 4:10 PM Provider MIGUEL ÁNGEL [facility] Department Radiology [facility] DVT Prophylaxis:SCD and ambulation Full Code Discharge Diagnosis Seizure disorder, altered mental status secondary to seizure prior to hospital arrival, Mood disorder, Hypothyroidism Total Time Total Time Spent Total Time Spent (In Minutes): 40 minutes Total Time Includes: Examination of the Patient, Discharge Planning, Medication Reconciliation and Communication With Other Providers Discharge Plan Discharge Items Patient Disposition: Home - Self-Care Reason For Visit: SEIZURE Discharge Diagnosis: Seizure disorder, altered mental status secondary to seizure prior to hospital arrival, Mood disorder, Hypothyroidism Condition: Good Discharge Goals: Improve disease control Activity: Resume your previous activity Non-emergency contact: Primary Care Provider, Specialist and Neurologist Call non-emergency contact if: you have any medication questions Follow-up/Referrals: Lorraine Garza MD [Primary Care Provider] - Diet: Regular Addtl Provider Instructions: -as per neurology Dr. Millan 03/30/19, patient has low carbamazepine level low at 2.3 and he communicated with hospitalist that patient likely had seizure event at home -neurology advised to start hospital medications as 1 carbamazepine ER 200 mg tablet in the morning and 400mg at night; also to have levetiracetam as 1500 mg twice daily (which is a reduced dose compared to home dosing as there has been a outpatient goal to decrease her taper off this medication while increasing the carbamazepine) Patient should take Levetiracetam 1500 mg twice daily.Patient should take [place] rbamazepine extended release ER 200 mg every morning and 400 mg every night. Patient will need a trough carbamazepine level in 10 to 14 days from 03/30/19 and this can be done with outpatient primary care doctor or neurologist Patient is to schedule follow up with neurology Dr. Millan Patient may take ibuprofen 200 mg every 6 hours for pain (because of muscle pain likely from seizure event) as needed for next 4 days Discharge medications prescriptions sent to [address] [place] [address] patient may resume home dose Levothyroxine 50 mcg on discharge. advise patient to have follow up thyroid function studies performed by her emergency communications dispatcher or hospital follow up visit with primary care doctor 04/05/2019 1:00 PM Provider Lorraine Garza MD Department General Internal Medicine [facility] (patient may need to re-schedule this appointment) 04/11/2019 10:40 AM Provider Reyna Bush DPM Department Podiatry [facility] 04/22/2019 3:00 PM Provider Lorraine Garza MD Department General Internal Medicine [facility] 04/29/2019 4:10 PM Provider MIGUEL ÁNGEL [facility] Department Radiology [facility] [address] [facility] Prescriptions: New ibuprofen 200 mg Tablet 200 mg PO Q6H PRN (Reason: pain) 4 Days Qty: 16 RF: 0 levetiracetam [Keppra] 500 mg Tablet 1,500 mg PO Q12H 30 Days Qty: 180 RF: 0 carbamazepine 200 mg Tablet Extended Release 12 Hr 200 mg PO UD 30 Days Qty: 90 RF: 0 Continued multivitamin Tablet 1 tab PO DAILY RF: 0 topiramate [Topamax] 200 mg Tablet 200 mg PO BID RF: 0 thiamine HCl (vitamin B1) [Vitamin B-1] 100 mg Tablet 100 mg PO QAM 30 Days Qty: 30 RF: 0 levothyroxine [Synthroid] 50 mcg Tablet 50 mcg PO DAILYBB 30 Days Qty: 30 RF: 0 glucose [Dex4 Glucose] 4 gram Tablet,Chewable 16 gm PO UD PRN (Reason: hypoglycemia) 30 Days Qty: 100 RF: 0 folic acid 1 mg Tablet 1 mg PO QAM 30 Days Qty: 30 RF: 0 buspirone 10 mg tablet 10 mg PO TID 7 Days Qty: 21 RF: 4 magnesium oxide 400 mg magnesium Tablet 400 mg PO DAILY RF: 0 epinephrine [EpiPen] 0.3 mg/0.3 mL Auto-Injector 0.3 mg IM Q3H PRN (Reason: Anaphylaxis) RF: 0 baclofen 20 mg tablet 20 mg PO TID PRN (Reason: Muscle Spasm) RF: 0 gabapentin 400 mg capsule 400 mg PO TID RF: 0 Discontinued carbamazepine 200 mg Capsule, Er Multiphase 12 Hr 200 mg PO Q12 RF: 0 escitalopram oxalate 20 mg tablet 20 mg PO QAM RF: 0 levetiracetam [Keppra] 1,000 mg Tablet 2,000 mg PO BID RF: 0 Stand-Alone Forms: [facility] Discharge Orders: Discharge Order (Routine); Ordered 03/31/19 Ordered By: Miles Shepard Admission Data Admit Date/Time: 03/29/19 15:30 Attending Provider: Miles Shepard Admit Provider: Miles Wei Primary Care Provider: Lorraine Garza Other Providers: Demarcus Millan III ; Miles Wei Service: Telemetry
[2019-04-02 12:54] LABS: Amobarbital, Urine Conf NEGATIVE NG/ML (CUTOFF=100); Butalbital, Urine NEGATIVE NG/ML (CUTOFF=100); Marijuana Quant, GCMS Urine 15 NG/ML (CUTOFF=5); Pentobarbital, Urine Conf NEGATIVE NG/ML (CUTOFF=100); Phenobarbital, Urine 1772 NG/ML (CUTOFF=100); Secobarbital, Urine Conf NEGATIVE NG/ML (CUTOFF=100)
[2019-04-03 14:20] LABS: Levetiracetam Keppra 32.3 mcg/mL (12.0-46.0); Topiramate 5.9 mcg/mL
== END 2019-03-31 15:01 | disposition home or self-care (01) | DRG 101 ==
LOC: ED 11:36 → 2E 15:30

== ENCOUNTER 2019-09-26 03:49 | Inpatient (IN) ==
[2019-09-26] MEDS ORDERED: SODIUM CHLORIDE 0.9% 1000ML 1,000 ML IV SCH (04:15)
[2019-09-26 04:39] LABS: Basophils # (auto) 0.02 K/uL (0-0.2); Basophils % (auto) 0.6 %; Eosinophils # (auto) 0.06 K/uL (0-0.5); Eosinophils % (auto) 1.9 %; Hemoglobin 11.2 g/dL (12.0-16.0); Lymphocytes % (auto) 41.9 %; Mean Corpuscular Hemoglobin 32.8 pg (25-34); Mean Corpuscular Hgb Conc 33.9 g/dL (32-36); Mean Corpuscular Volume 96.8 fL (80-100); Mean Platelet Volume 10.9 fL (7.4-10.4); Monocytes % (auto) 6.5 %; Neutrophils # (auto) 1.52 K/uL (1.4-6.5); Neutrophils % (auto) 49.1 %; Platelet Count 268 K/uL (130-400); RDW Coefficient of Variation 13.5 % (11.5-14.5); RDW Standard Deviation 47.1 fL (36.4-46.3); Red Blood Count 3.41 M/uL (4.2-5.4)
[2019-09-26 04:41] LABS: Appearance Urine Clear (Clear); Bilirubin Urine Negative (Negative); Blood Urine Negative (Negative); Color Urine Yellow; Glucose Urine UA Negative (Negative); Ketones Urine Negative (Negative); Leukocyte Esterase Urine Negative (Negative); Nitrite Urine Negative (Negative); Protein Urine Negative (Negative); Specific Gravity Urine 1.008 (1.000-1.030); Urobilinogen Urine Negative (Negative); pH Urine 7.5 (4.5-7.5)
[2019-09-26 04:43] LABS: Base Excess ABG -2.7 mEq/L (-9-1.8); HCO3 ABG 22 mmol/L (19-24); Oxygen Saturation ABG 96.3 % (90-95); PCO2 ABG 36 mmHg (35-46); PO2 ABG 84 mmHg (80-95)
[2019-09-26 04:45] LABS: Allen Test POS (Pos)
[2019-09-26 04:47] LABS: INR 1.1 (0.9-1.1); Prothrombin Time 10.9 Seconds (9.0-12.0)
[2019-09-26 04:57] LABS: Alanine Aminotransferase 12 U/L (12-78); Albumin Level 3.3 gm/dl (3.4-5.0); Aspartate Aminotransferase 17 U/L (15-37); BUN Creatinine Ratio 8.4 (10-20); Blood Urea Nitrogen 5 mg/dl (7-18); Calcium 8.1 mg/dl (8.5-10.1); Carbon Dioxide 21 mmol/L (21-32); Chloride 113 mmol/L (98-107); Est GFR (African American) 125.4; Est GFR (Non-African American) 108.2; Glucose 97 mg/dl (70-99); Lipase 99 U/L (73-393); Magnesium 1.8 mg/dl (1.8-2.4); Potassium 3.6 mmol/L (3.5-5.1); Sodium 143 mmol/L (136-145)
[2019-09-26 05:01] LABS: Amphetamines+Metham, Urine Neg (Neg); Barbiturates, Urine Neg (Neg); Benzodiazepine, Urine Neg (Neg); Cocaine, Urine Neg (Neg); MDMA (Ecstacy), Urine Neg (Neg); Methadone, Urine Neg (Neg); Opiate, Urine Neg (Neg); Phencyclidine, Urine Neg (Neg)
[2019-09-26 05:02] LABS: Alkaline Phosphatase 112 U/L (45-117); Bilirubin,Total 0.2 mg/dl (0.2-1); Globulin 3.3 gm/dl (2.5-4.0); Total Protein 6.6 gm/dl (6.4-8.2); Troponin I < 0.015 ng/ml (0-0.045)
[2019-09-26 05:05] LABS: Pregnancy Test, Serum Negative (Negative)
[2019-09-26 05:19] LABS: Acetaminophen < 2 ug/ml (10-30); Carbamazepine Tegretol 11.7 mcg/ml (4-12); Salicylate < 1.7 mg/dl (2.8-20)
--- NOTE | 2019-09-26 06:27 | XRay Report ---
XR chest 1V portable CLINICAL HISTORY: overdose COMPARISON STUDY: 03/30/2019 FINDINGS: The bones soft tissues and hemidiaphragms are normal. The cardiomediastinal silhouette is n ormal. The lungs are clear. The pulmonary vasculature is normal. IMPRESSION: Negative chest. ACT 112: Negative or not required by law. The above report was generated using voice recognition software. It may contain grammatical, syntax or spelling errors. Electronically signed by: Caeasr Damon M.D. 09/26/2019 6:25 AM
[2019-09-26] MEDS ORDERED: SODIUM CHLORIDE 0.9% 500 ML IV SCH (07:00)
[2019-09-26] MEDS ORDERED: LORazepam 1.5 MG/3 ML VIAL IV PRN (07:51)
[2019-09-26] MEDS ORDERED: EPINEPHRINE ADULT AUTO-INJECT 0.3 MG SYR IM PRN (07:51)
[2019-09-26] MEDS ORDERED: NITROGLYCERIN SL 0.4 MG/TAB TAB SL PRN (07:51)
[2019-09-26] MEDS ORDERED: ACETAMINOPHEN 325 MG TAB PO PRN (07:51)
[2019-09-26] MEDS: SODIUM CHLORIDE 0.9% 1000ML 1,000 ML IV SCH ×3 (08:01→20:12)
[2019-09-26] MEDS ORDERED: TOPIRAMATE 100 MG TAB PO SCH (09:00)
[2019-09-26] MEDS: MAGNESIUM SULFATE / D5W 1 GM/100 ML BAG IV SCH ×2 (09:41→10:50)
--- NOTE | 2019-09-26 09:58 | History and Physical Report ---
DATE OF ADMISSION: 09/26/2019 CHIEF COMPLAINT: Drug overdose and seizures. HISTORY OF PRESENT ILLNESS: This is a 49-year-old female with past medical history significant for hypothyroidism, frequent unifocal PVCs, history of mitral valve prolapse, GERD, partial symptomatic epilepsy with complex partial seizures, migraines, sarcoidosis, depression and generalized anxiety disorder, presents with drug overdose. The patient has history of drug overdose with Benadryl and carbamazepine in the past. As per the , it was their anniversary, they went out for a restaurant. She also had a glass of wine and the thinks that she was not in great mood, after coming home, they went to sleep and around 3:00 in the morning he heard that she fell from bed to the floor, drowsy and he waited for about 10 minutes, she opened eyes once and she said sorry, at that time he thought she might have overdosed based on past experience.. He saw all her medications and her carbamazepine bottle was empty, which just was refilled last week. He thinks she might have taken about 60 tablets of carbamazepine. EMS was called. When EMS came, she had episode of seizure. Currently, the patient is somewhat tachycardic. Earlier she was opening eyes to the nurses, but right now, she is most drowsy and not responding to painful stimuli. Blood pressure is okay and is tachycardic on the monitor. ER called poison control. She is out of the window for activated charcoal and recommended monitoring the patient for any seizure activity and they faxed recommendations. Recommendations are on the chart. Could not get any history from the patient currently. ALLERGIES: FOOD, PENICILLIN G. PAST MEDICAL HISTORY: As mentioned above. PAST SURGICAL HISTORY: Right breast lesion core biopsy, left foot bunion correction with double osteotomy colonoscopy, EGDs, right clavicular dislocation treatment, shoulder arthroscopy, umbilical hernia repair. MEDICATIONS: The patient is on baclofen 10 mg p.o. t.i.d. p.r.n., buspirone 20 mg p.o. b.i.d., carbamazepine 200 mg in a.m. and 400 mg in p.m., epinephrine 0.3 mg IM p.r.n., gabapentin 400 mg p.o. t.i.d., [place] 1 tablet p.o. q. 4 hours p.r.n., levothyroxine 75 mcg p.o. daily, nortriptyline p.r.n., potassium chloride 10 mEq p.o. daily, Topamax 200 mg p.o. b.i.d. FAMILY HISTORY: Significant for mother had diabetes and breast cancer. Maternal aunt has breast cancer. Maternal grandmother has breast cancer. Maternal grandfather from [place] at very young age. SOCIAL HISTORY: Lives with domestic partner. No smoking, sober since 2012. She only drinks once in a while. Currently, no drug use. REVIEW OF SYSTEMS: Unobtainable at this time. PHYSICAL EXAMINATION: GENERAL: The patient is drowsy. VITAL SIGNS: Temperature 37.1, pulse 66, respiratory rate 16, blood pressure 98/65, oxygen 94% room air. HEENT: No pallor, no icterus. Pupils are somewhat dilated, but reactive to light. NECK: No neck mass is seen. CARDIOVASCULAR: S1, S2 heard. Tachycardia. No murmurs. RESPIRATORY SYSTEM: Normal AP diameter. No accessory muscle use. No wheezing, no crackles. ABDOMEN: Soft, bowel sounds present. No distention. CENTRAL NERVOUS SYSTEM: Drowsy, currently no response to verbal and touch stimuli. EXTREMITIES: No edema, no erythema. LABORATORY DATA: WBC 3.1, hemoglobin 11.2, hematocrit 32.68. PT 10.9, INR 1.1. ABG: pH of 7.4, pCO2 of 36, pO2 of 84, bicarbonate 22, oxygen 96%. Sodium 143, potassium 3.6, chloride 113, CO2 of 21, BUN 5, creatinine 0.5, serum glucose 97, calcium 8.1, magnesium 1.8, total bilirubin 0.2, AST 17, ALT 12, alkaline phosphatase 112. Troponin I less than 0.015. HCG negative. Lipase 99. Urinalysis negative. Salicylates less than 1.7, acetaminophen less than 2. Carbamazepine 11.7. Rest of the drug screen negative. Ethyl alcohol 36. Keppra levels pending. Chest x-ray, negative chest. EKG: Normal sinus rhythm, rate of 79, nonspecific ST abnormalities, prolonged QTC of 548. ASSESSMENT AND PLAN: This is a 49-year-old female who presents with drug overdose, possible seizures. 1. Drug overdose. The patient has history of drug overdose in the past of Benadryl and carbamazepine. says that he had locked carbamazepine and he also locked up buspirone. Yesterday, at 3:00 she fell from the bed and she opened the eyes and told sorry and she is drowsy and whenever she did overdose she says sorry to him and he also received a message a little while after that she is sorry and EMS was called in. saw the empty bottle of carbamazepine and he things based on the dates of the refill, she might have taken about 60 tablets. She had episode of seizure when the EMS came in, currently drowsy, somewhat tachycardic but otherwise hemodynamically stable, but carbamazepine level came back at 11.7, we will repeat the carbamazepine level. Keppra level is pending. She recently tapered off Keppra, as per she might have stopped taking Keppra for about 2 weeks ago, though she has still the pills with her, but on her weekly tablets cart it was not there. Poison control was contacted by ER and recommended monitoring and benzo's as needed. The recommendations are on the chart. If the patient becomes more somnolent and in respiratory distress may need intubation, but currently she seems to be maintaining oxygen saturation okay on room air and hemodynamically stable. We will place her on IV Ativan prn. We will also get an EEG. We will get a neuro consult and psych consult, one-on-one suicide precautions, seizure precautions. We will give IV Ativan p.r.n. for breakthrough seizures. Closely monitor in the tele floor. We will also continue her Topamax. 2. History of epilepsy with complex partial seizures. We will hold her carbamazepine because of her overdose. We will continue her Tegretol and await neuro input.She could be post ictal as recently Keppra was stopped. 3. Hypothyroidism, will be placed on IV Synthroid. 5. Chronic anemia. Hemoglobin is stable. 6. Chronic leukopenia. 7.Prolonged QT on ekg. Follow repeat ekg. Avoid qt prolonging drugs. 8.Alcoholism. Alcohol level 36. says she is not drinking regularly anymore. Had glass of wine last night for their anniversary.. Will monitor for any withdrawal symptoms.Will give Iv thiamine. 9.. Deep venous thrombosis prophylaxis, sequential compression devices. DISPOSITION: Admit to tele floor. PT, OT prior to discharge. Social Service to help with discharge planning. OUMARD
--- NOTE | 2019-09-26 10:13 | Neurology Consultation ---
Date of Consultation September 26, 2019 Assessment & Plan (1) Acute encephalopathy: (2) Intentional overdose of drug in tablet form: (3) Suicidal behavior with attempted self-injury: (4) Seizure disorder: (5) Classic migraine with aura: This patient has a longstanding history of depression, personality disorder, and PTSD, with multiple drug overdoses and suicide attempts. She has a history of seizures but no one has been able to prove epilepsy. She has never had inpatient monitoring to prove seizures versus pseudoseizures. I suspect mainly pseudoseizures. She has been tapered off levetiracetam and is supposed to be on carbamazepine ER 200 mg twice daily. She takes topiramate 200 mg twice daily for migraines. Admission today for intentional drug overdose with carbamazepine and alcohol (level 36) as an attempt for self injury. Her neurologic examination is interesting and she has no focal neurologic findings. I suspect some volitional lack of communication/response on the part of the patient. Her EEG showed minimal slowing in general with some wakefulness and drowsiness noted. There were no focal abnormalities or potentially epileptogenic discharges seen. The EEG actually looks fairly good for someone who had supposedly taken all that carbamazepine. In addition, her carbamazepine level on admission was only 11.7 (not even out of normal range). However, this level could go up throughout the course of today and needs to be monitored. Patient has a history of migraine headaches. Recommendations: 1. Discontinue all levetiracetam 2. Hold topiramate until taking p.o.. 3. Hold carbamazepine until carbamazepine level goes down to below 10, and then restart at 200 mg ER twice daily. We will monitor levels closely. 4. Psychiatric consultation. 5. I see no need for additional neurologic testing at this time. 6. The patient needs to be admitted to a inpatient epilepsy monitoring unit (such as [facility]) to help answer the question of seizures versus pseudoseizures. 7. Although she tends to be a heavy binge drinker (not a daily regular alcohol user) we still need to monitor for alcohol withdrawal symptoms. Avoid benzodiazepines as much as we can. Overall, I spent a total of 100 minutes with this case including review of records, direct evaluation the patient at bedside, and discussing the case with the RN at bedside, and Dr. Shepard in clinic differential diagnosis and treatment options. History of Present Illness Reason for Consultation: Patient is a 49-year-old, words and see the request of Dr. Shepard, for neurologic consultation regarding presumed carbamazepine and alcohol overdose. Requesting Physician: Dr. Shepard Attending Physician: Miles Shepard MD History of Present Illness Apparently this patient had her 1st seizure in June of 2006 during the time of significant stress. Please see my history dated March 29, 2019. Multiple medications were tried that either did not help her give her side effects such as Dilantin, Depakote, Lamictal, clonazepam, Vimpat, and CBD oil. Patient has a longstanding history of major depressive disorder, cluster B personality disorder, and PTSD. She sees Psychiatry and has been on multiple medications as well. Patient has a longstanding history of multiple drug overdose and suicide attempts over the years. She most recently had an overdose of carbamazepine in January of 2019 with a level that reached as high as 41 (4-12). In [id number] Blanco and an MRI of the brain and at least 2 EEGs and 48 hour ambulatory EEG were all unremarkable. I saw her in March of 2019 for another seizure. She was discharged on carbamazepine ER 200 mg in the morning and 40 mg at night as well as levetiracetam 1500 mg twice daily. In April of 2019 she had an increase in psychiatric symptoms and stress because of some cord cases and the refusal of her teenage children to allow her to visit them. Admission was attempted around that time but did not happen as the 302 was rescinded. She tends to binge drink alcohol when she is distress ed/stressed. She saw Dr. Wolf August 07, 2019. The plan was to wean off Keppra over 5 weeks, maintain topiramate 200 mg twice a day and continue carbamazepine 200 mg twice a day. Carbamazepine level August 07 was 8.0. Apparently the patient was stressed and early this morning overdosed on carbamazepine. It could be as many as 60 tablets of the 200 mg carbamazepine ER. Unfortunately, I am not certain of the exact number of pills or what other substance she could of taken. She came to the emergency room at 0349 with a temperature of 37.1, pulse 77, respiratory rate 12, blood pressure 133/87, and O2 saturation 97%. She was obtunded/decreased mental status. No focal findings were noted however. Chest x-ray was unremarkable. CBC showed mild anemia as before. Chemistry profile showed a low calcium 8.1 but was otherwise unremarkable. was negative and urinalysis was unremarkable. A TSH from August 2019 was 1.06. Tox screen came back negative except for a alcohol of 36 (0-3). Carbamazepine level was 11.7 (4-12). The patient does not answer questions or say any words. EEG this morning (see separate report) showed no focal findings or potentially epileptogenic discharges. Allergies Allergy/AdvReac Type Severity Reaction Status Date / Time tree nut Allergy Severe ANAPHYLAXIS Verified 09/26/19 04:36 Penicillins Allergy Intermediate HIVES Verified 09/26/19 04:36 Home Medications Home Medications Medication Instructions Recorded Confirmed Type epinephrine [EpiPen] 0.3 mg IM Q3H PRN 03/29/19 09/26/19 History baclofen 10 mg tablet 20 mg PO .TAKE 1 TABLET 3 time tab 05/13/19 09/26/19 History carbamazepine 200 mg 200 mg PO .COMPLEX 30 Days #90 cap 05/13/19 09/26/19 Rx capsule,extended release [id number] gabapentin 100 mg capsule 400 mg PO .TAKE 3 CAPSULE 3 aj 05/13/19 09/26/19 History cap potassium chloride 10 mEq 10 meq PO DAILY 05/13/19 09/26/19 History capsule,extended release topiramate 200 mg tablet 200 mg PO BID #60 tab 08/05/19 09/26/19 Rx buspirone 10 mg tablet 20 mg PO QID tab 08/07/19 09/26/19 History levothyroxine 75 mcg tablet 50 mcg PO DAILY #90 tab 08/07/19 09/26/19 Rx naratriptan 2.5 mg tablet See Rx Instructions PO .COMPLEX #7 08/07/19 09/26/19 Rx tab hydrocodone-acetaminophen [[place]] 1 tab PO Q4H PRN #15 tab 09/21/19 09/26/19 Rx Patient History Medical History Acute encephalopathy Alcohol abuse (Chronic) Anxiety disorder (Chronic) Classic migraine with aura (Chronic) Cluster B personality disorder (Chronic) Cluster B personality disorder Diphenhydramine overdose (Chronic) 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) Hypokalemia (Inactive) Hypothyroidism (Chronic) Insomnia (Chronic) Mood disorder (Chronic) PTSD (post-traumatic stress disorder) (Chronic) PTSD (post-traumatic stress disorder) Raynauds phenomenon (Chronic) Recurrent seizures (Inactive) Seizure disorder (Chronic) Suicidal overdose Surgical History H/O foot surgery (Chronic) H/O hernia repair (Chronic) H/O shoulder surgery (Chronic) Hx of cholecystectomy (Chronic) Family History Mother Breast cancer Hypertension Diabetes Other Myocardial infarction Social History Preferred Language: Greek Communication Ability: Impaired Communication Ability Comment: Obtunded R D Manager Required: No Beliefs That Will Affect Care: None marital status: Current Living Situation: Other 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 Feels Safe at Home: Yes Safety Concerns: Feels Safe At This Time Smoking Status: Never smoker Do You Dip or Chew Tobacco: No ; Second Hand Exposure: No ; Tobacco Cessation Education Requested by Patient: No Hx Alcohol Use: Yes Alcohol type: wine Alcohol Intake Frequency Comment: Uses excessively when suicidal otherwise does not drink alcohol Hx Substance Use: No Review of Systems Review of Systems: Unobtainable due to cognitive status Review of systems could not be obtained because the patient was not speaking or following commands/answering questions. Physical Exam Physical Exam: The patient is left-handed. The patient is lying in bed fairly still with her eyes closed. She will move her head from side to side at times and have some limb movements spontaneously. She will not respond to voice/out or gentle stimulation. Deep pain distally in each limb results in no movement or withdrawal at 1st, however of there seemed to be some grimacing/pain response in her face. Eyes are front and she does not have any oculocephalics with head movement. The neck is quite supple in all directions. Pupils are 4-5 mm bilaterally and reactive to light. The discs are sharp with positive venous pulsations bilaterally. There are no exudates, hemorrhages, or blood vessel changes seen. There is no nystagmus. There are no deficits to sensation in the face in all 3 distributions of the fifth cranial nerve bilaterally. Corneal reflexes are positive bilaterally. Facial strength and symmetry was normal bilaterally. Tongue is midline. Neck has a full range of motion without discomfort. There are no cervical bruits bilaterally. There are no cranial or ocular bruits. Heart is without murmur. There is a regular rhythm and rate. Cervical, thoracic, and lumbar spine seem to be nontender to palpation. Gait cannot be tested and she cannot sit up on her own in bed. There are no tremors or abnormal involuntary movements noted. Tone in the limbs seem decreased at 1st, but when I put her arm up over her head she would lower it, stop before she hit her head, and move it lowering it to the bed. After doing this she started rocking her head side to side and moving in flexing all 4 limbs finding may resisting movement. She resisted eye opening as well. She still made no sounds. Therefore while doing this her strength seems symmetrical in all limbs both proximally and distally. She is thin throughout but no focal atrophy is noted. Although she did not withdrawal to pin pain at 1st, as noted above, she withdrew to stimuli in all 4 limbs later. Reflexes are 2/4 in the biceps, triceps, brachioradialis, quadriceps, and Achilles tendons bilaterally. There is no clonus bilaterally. Toes are downgoing with plantar stimulation bilaterally. Peripheral pulses are present and of normal quality distally in all 4 limbs. There is no peripheral edema noted in the limbs. Results & Data Vital Signs (Past 12 Hours) Vital Signs Temp Pulse Pulse Resp BP BP Pulse Ox 09/26/19 08:55 36.6 C 65 17 112/73 100 09/26/19 08:00 81 09/26/19 07:15 66 16 98/65 L 94 09/26/19 07:01 69 20 96/60 L 94 09/26/19 06:52 70 16 84/56 L 94 09/26/19 06:46 66 19 78/51 L 94 09/26/19 06:30 81 14 125/87 93 09/26/19 06:15 84 13 94/64 L 94 09/26/19 06:00 82 16 98/64 L 95 09/26/19 05:45 83 12 108/63 94 09/26/19 05:30 83 24 106/66 95 09/26/19 05:15 85 12 118/78 97 09/26/19 05:00 77 20 106/66 96 09/26/19 04:45 77 23 121/69 97 09/26/19 04:30 81 21 143/82 H 99 09/26/19 04:13 98 09/26/19 04:00 76 23 120/78 99 09/26/19 03:54 77 24 133/87 99 09/26/19 03:49 37.1 C 77 12 133/87 97 PG Care Time/CCT Total # of Minutes Spent Total Time Spent with Patient: Total time spent is greater than 50% in coordination of care (as documented) at patient's floor/unit and/or counseling patient:
[2019-09-26] MEDS: LEVOTHYROXINE SODIUM 37.5 MCG in SYRINGE 0 ML IV SCH (10:14)
--- NOTE | 2019-09-26 10:17 | Electroencephalogram ---
EEG Procedure Note Date of Service September 26, 2019 Start / End Times Start Time: 904 End Time: [address] Shepard History Patient is a 49-year-old with history of seizures versus pseudoseizures now with overdose of carbamazepine and alcohol, with seizure-like activity noted. Home Medication List Home Medications Medication Instructions Recorded Confirmed Type epinephrine [EpiPen] 0.3 mg IM Q3H PRN 03/29/19 09/26/19 History baclofen 10 mg tablet 20 mg PO .TAKE 1 TABLET 3 time tab 05/13/19 09/26/19 History carbamazepine 200 mg 200 mg PO .COMPLEX 30 Days #90 cap 05/13/19 09/26/19 Rx capsule,extended release [id number] gabapentin 100 mg capsule 400 mg PO .TAKE 3 CAPSULE 3 aj 05/13/19 09/26/19 History cap potassium chloride 10 mEq 10 meq PO DAILY 05/13/19 09/26/19 History capsule,extended release topiramate 200 mg tablet 200 mg PO BID #60 tab 08/05/19 09/26/19 Rx buspirone 10 mg tablet 20 mg PO QID tab 08/07/19 09/26/19 History levothyroxine 75 mcg tablet 50 mcg PO DAILY #90 tab 08/07/19 09/26/19 Rx naratriptan 2.5 mg tablet See Rx Instructions PO .COMPLEX #7 08/07/19 09/26/19 Rx tab hydrocodone-acetaminophen [[place]] 1 tab PO Q4H PRN #15 tab 09/21/19 09/26/19 Rx Inpatient Medication List Sodium Chloride (Nss 1000ml) 1,000 mls @ 150 mls/hr IV .Q6H40M [facility] Stop: 10/26/19 07:50 Last Admin: 09/26/19 08:01 Dose: 150 mls/hr Documented by: [id number] Magnesium Sulfate/Dextrose (Magnesium Sulfate / D5w) 1 gm in 100 mls @ 100 mls/hr IV TODAY@0900,1000 [facility] Stop: 09/26/19 12:00 Last Admin: 09/26/19 09:41 Dose: 100 mls/hr Documented by: [id number] Topiramate (Topamax) 200 mg PO BID [facility] Stop: 10/26/19 08:59 Last Admin: 09/26/19 09:39 Dose: Not Given Documented by: [id number] Discontinued Medications Sodium Chloride (Nss 1000ml) 1,000 mls @ 999 mls/hr IV .Q1H1M [facility] Stop: 09/26/19 05:15 Last Infusion: 09/26/19 06:20 Dose: 0 mls/hr Documented by: [id number] Admin: 09/26/19 04:28 Dose: 999 mls/hr Documented by: [id number] Sodium Chloride (Nss) 500 mls @ 500 mls/hr IV .Q1H [facility] Stop: 09/26/19 07:59 Last Infusion: 09/26/19 08:39 Dose: 0 mls/hr Documented by: [id number] Admin: 09/26/19 07:28 Dose: 500 mls/hr Documented by: [id number] Description This is a 21 electrode EEG with a single channel dedicated to limited EKG. The electrodes were placed in accordance with the International 10-20 system. Interpretation The predominant background activity consists of mildly irregular 8.5 Hz activity, of up to 40 mV in amplitude,seen symmetrically distributed over the posterior head regions bilaterally spreading anteriorly bilaterally as well. This activity attenuates some with alerting procedures. Photic stimulation was performed and elicited no change in the background activity and no abnormal responses were seen. Hyperventilation was not performed. A minimal amount of muscle and movement artifact activity contaminated the recording and did not hinder interpretation to any significant degree. Throughout the waking portion of the recording, no focal abnormalities, abnormal slow activity, or potentially epileptogenic discharges are seen. The patient entered the drowsy state and brief periods of stage II sleep with no further activation. In summary, this EEG was normal during wakefulness and sleep. No focal abnormalities, potentially epileptogenic discharges, or abnormal slow activity was seen. Clinical Correlation The absence of potentially epileptogenic activity does not exclude a seizure disorder, since interictally, EEGs can be normal. Clinical correlation is required. This EEG did not look like someone who was significantly encephalopathic. There was good reactivity in the background suggesting a relatively normal state.
[2019-09-26] MEDS ORDERED: THIAMINE HCL 100 MG in SYRINGE 9 ML IV STA (13:20)
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
[2019-09-26 13:40] LABS: Alanine Aminotransferase 12 U/L (12-78); Albumin Level 3.5 gm/dl (3.4-5.0); Aspartate Aminotransferase 19 U/L (15-37); BUN Creatinine Ratio 11.6 (10-20); Blood Urea Nitrogen 7 mg/dl (7-18); Calcium 8.1 mg/dl (8.5-10.1); Carbon Dioxide 26 mmol/L (21-32); Chloride 110 mmol/L (98-107); Est GFR (African American) 123.4; Est GFR (Non-African American) 106.5; Glucose 114 mg/dl (70-99); Magnesium 2.5 mg/dl (1.8-2.4); Potassium 3.6 mmol/L (3.5-5.1); Sodium 141 mmol/L (136-145)
[2019-09-26 13:43] LABS: Albumin Globulin Ratio 1.1 (0.9-2); Alkaline Phosphatase 114 U/L (45-117); Bilirubin,Total 0.2 mg/dl (0.2-1); Globulin 3.2 gm/dl (2.5-4.0); Total Protein 6.7 gm/dl (6.4-8.2)
--- NOTE | 2019-09-26 16:11 | Hospitalist Progress Note ---
Date of Service September 26, 2019 Assessment & Plan (1) Overdose: Drug Overdose from Carbamazepine Altered mental status from acute metabolic encephalopathy from drug overdose Concern for intentional drug overdose to cause self injury versus suicidal ideations -history of drug overdose in the past of Benadryl and carbamazepine. - found patient with empty bottle of carbamazepine; reportedly patient had episode of seizure when the EMS came in, drowsy, somewhat tachycardic but otherwise hemodynamically stable -carbamazepine level on admission 11.7 with positive alcohol level -patient was started on IV and in trending the carbamazepine levels as 34.3 and 34.7 -EEG showed minimal slowing in general with some wakefulness and drowsiness noted. There were no focal abnormalities or potentially epileptogenic discharges seen -as per neurology, discontinue all levetiracetam, Hold topiramate until taking p.o, Hold carbamazepine until carbamazepine level goes down to below 10, and then restart at 200 mg ER twice daily -psychiatry consult requested History of epilepsy with complex partial seizures. -patient is being monitored on telemetry closely at [facility]; there is no acute need at this time to send patient to a inpatient epilepsy monitoring unit (such as [facility]) to help answer the question of seizures versus pseudoseizures but further discussions can take place with neurology service and with patient when she is more alert Prolonged QTC on Ekg. -avoid qt prolonging drugs. Alcohol Use -does not appear to be regularly drinking alcohol as documented by previous medical providers. Will monitor for any withdrawal symptoms. continue IV thiamine. Hypothyroidism, -on IV Levothyroxine for now Chronic anemia -Hemoglobin is stable. Chronic leukopenia. -monitor WBC Deep venous thrombosis prophylaxis, sequential compression devices Subjective Patient seen and examined. is lethargic. but able to softly respond to some questions and she indicated that she did want anything ti eat or drink currently. does not appear have acute pain. full review of systems could not be obtained due to mental status Review of Systems Review of Systems: Unobtainable due to cognitive status Physical Exam Constitutional: + lethargic Eyes: EOM intact bilaterally ENMT: external ear and nose normal, oropharynx normal Neck: normal visual inspection Respiratory: normal respiratory effort, lungs clear to auscultation Cardiovascular: RRR, no murmur, no edema Gastrointestinal (Abdomen): normal bowel sounds, soft, nontender, no hepatosplenomegaly Musculoskeletal: Head/Neck/Chest: normocephalic and head atraumatic Results & Data Vital Signs (Past 12 Hours) Vital Signs Temp Pulse Pulse Resp BP BP Pulse Ox 09/26/19 10:00 72 19 185/88 H 93 09/26/19 08:55 36.6 C 65 17 112/73 100 09/26/19 08:51 67 17 167/82 H 93 09/26/19 08:00 36.8 C 81 63 98 09/26/19 07:15 66 16 98/65 L 94 09/26/19 07:01 69 20 96/60 L 94 09/26/19 06:52 70 16 84/56 L 94 09/26/19 06:46 66 19 78/51 L 94 09/26/19 06:30 81 14 125/87 93 09/26/19 06:15 84 13 94/64 L 94 09/26/19 06:00 82 16 98/64 L 95 09/26/19 05:45 83 12 108/63 94 09/26/19 05:30 83 24 106/66 95 09/26/19 05:15 85 12 118/78 97 09/26/19 05:00 77 20 106/66 96 09/26/19 04:45 77 23 121/69 97 09/26/19 04:30 81 21 143/82 H 99 09/26/19 04:13 98 (1) Overdose Encounter type: initial encounter Injury intent: intentional self-harm Qualified Code(s): T50.902A - Poisoning by unspecified drugs, medicaments and biological substances, intentional self-harm, initial encounter
[2019-09-27] MEDS: SODIUM CHLORIDE 0.9% 1000ML 1,000 ML IV SCH ×2 (02:19→12:42)
[2019-09-27 05:30] LABS: Basophils # (auto) 0.01 K/uL (0-0.2); Basophils % (auto) 0.2 %; Eosinophils # (auto) 0.01 K/uL (0-0.5); Eosinophils % (auto) 0.2 %; Hematocrit (blood only) 31.1 % (37-47); Hemoglobin 10.4 g/dL (12.0-16.0); Lymphocytes # (auto) 1.85 K/uL (1.2-3.4); Lymphocytes % (auto) 36.1 %; Mean Corpuscular Hemoglobin 32.5 pg (25-34); Mean Corpuscular Hgb Conc 33.4 g/dL (32-36); Mean Corpuscular Volume 97.2 fL (80-100); Mean Platelet Volume 10.8 fL (7.4-10.4); Monocytes # (auto) 0.41 K/uL (0.11-0.59); Neutrophils # (auto) 2.84 K/uL (1.4-6.5); Neutrophils % (auto) 55.5 %; Platelet Count 219 K/uL (130-400); RDW Standard Deviation 50.3 fL (36.4-46.3); White Blood Count 5.12 K/uL (4.8-10.8)
--- NOTE | 2019-09-27 05:38 | Electrocardiogram Report ---
Test Reason : Blood Pressure : / mmHG Vent. Rate : 079 BPM Atrial Rate : 079 BPM P-R Int : 172 ms QRS Dur : 080 ms QT Int : 478 ms P-R-T Axes : 060 048 054 degrees QTc Int : 548 ms Normal sinus rhythm Possible Left atrial enlargement Nonspecific T wave abnormality Abnormal ECG When compared with ECG of 08-MAY-2019 00:13, Nonspecific T wave abnormality now evident in Lateral leads QT has lengthened Confirmed by Kali Salgado ([id number]) on 09/27/2019 5:38:14 AM Referred By: REFERRED SELF Confirmed By:Kali Salgado
--- NOTE | 2019-09-27 05:47 | Electrocardiogram Report ---
Test Reason : Blood Pressure : / mmHG Vent. Rate : 070 BPM Atrial Rate : 070 BPM P-R Int : 202 ms QRS Dur : 090 ms QT Int : 430 ms P-R-T Axes : 062 062 060 degrees QTc Int : 464 ms Normal sinus rhythm Normal ECG When compared with ECG of 26-SEP-2019 03:56, Nonspecific T wave abnormality no longer evident in Anterolateral leads QT has shortened Confirmed by Kali Salgado ([id number]) on 09/27/2019 5:47:05 AM Referred By: REFERRED SELF Confirmed By:Kali Salgado
[2019-09-27 05:55] LABS: BUN Creatinine Ratio 8.8 (10-20); Blood Urea Nitrogen 5 mg/dl (7-18); Calcium 7.8 mg/dl (8.5-10.1); Carbon Dioxide 26 mmol/L (21-32); Chloride 113 mmol/L (98-107); Est GFR (African American) 123.4; Est GFR (Non-African American) 106.5; Glucose 106 mg/dl (70-99); Potassium 2.9 mmol/L (3.5-5.1); Sodium 142 mmol/L (136-145)
[2019-09-27] MEDS: POTASSIUM CHLORIDE / WTR 10 MEQ/100 ML PLCT IV SCH ×3 (08:40→11:01)
[2019-09-27] MEDS: LEVOTHYROXINE SODIUM 37.5 MCG in SYRINGE 0 ML IV SCH (09:10)
--- NOTE | 2019-09-27 09:53 | Neurology Progress Note ---
Date of Service September 27, 2019 Assessment & Plan (1) Acute encephalopathy: (2) Intentional overdose of drug in tablet form: (3) Suicidal behavior with attempted self-injury: (4) Seizure disorder: (5) Classic migraine with aura: This patient has a longstanding history of depression, personality disorder, and PTSD, with multiple drug overdoses and suicide attempts. She has overdosed on carbamazepine in the past. She has a history of seizures but no one has been able to prove epilepsy. She has never had inpatient monitoring to prove seizures versus pseudoseizures. I suspect mainly pseudoseizures. She has been tapered off levetiracetam and is supposed to be on carbamazepine ER 200 mg twice daily. She takes topiramate 200 mg twice daily for migraines. Admission September 26 for intentional drug overdose with carbamazepine and alcohol (level 36) as an attempt for self injury. Her neurologic examination today is nonfocal and she has no meningeal signs or obvious encephalopathy although she is sleepy. Carbamazepine toxicity usually gives ataxia, dizziness, and nausea. She is actually doing much better today than yesterday. I do not see any signs of alcohol withdrawal. Her EEG September 26 showed minimal slowing in general with some wakefulness and drowsiness noted. There were no focal abnormalities or potentially epileptogenic discharges seen. The EEG actually looks fairly good for someone who had overdosed. Patient has a history of migraine headaches which are stable. Recommendations: 1. Discontinue all levetiracetam 2. Hold topiramate until taking p.o. well, then resume at 100 milligrams twice daily. 3. Hold carbamazepine until carbamazepine level goes down to below 10, and then restart at 200 mg ER twice daily. We will monitor levels closely. When she is given medication as an outpatient she should not get more than 1 week at once. 4. Psychiatry was consulted. They recommend an inpatient stay when medically stable. 5. I see no need for additional neurologic testing at this time. 6. The patient needs to be admitted to a inpatient epilepsy monitoring unit (such as [facility]) to help answer the question of seizures versus pseudoseizures. Certainly, this should be done after she is psychologically more stable. This will be arranged as an outpatient. 7. Although she tends to be a heavy binge drinker (not a daily regular alcohol user) we still need to monitor for alcohol withdrawal symptoms. Avoid wayne odiazepines as much as we can. Overall, I spent a total of 35 minutes with this case including review of records, direct evaluation the patient at bedside, and discussing the case with the RN at bedside, and Dr. Shepard in clinic differential diagnosis and treatment options. Subjective Sleepy and crappy. She is nauseated and somewhat dizzy. She does not have pain or headache. She is breathing reasonably well and does not have abdominal pain. Blood pressure is 121/70 and she is afebrile. CBC shows some mild anemia at 10.431.1. Potassium was mildly low at 2.9 and calcium is low at 7.8. Carbamazepine yesterday estela to 34.3, then 34.7, and finally at 1658 was 26.5. Another level be obtained this morning. Physical Exam Physical Exam: She is sleepy but arousable. Her voice is weak but no aphasic a or dysarthria. She follows one-step commands and is cooperative. Extraocular eye muscles seem to move horizontally fairly well without obvious nystagmus. There is no facial droop. Coordination is normal in the arms and strength is symmetrical in the limbs. Reflexes are 1/4 throughout and toes are downgoing plantar stimulation bilaterally. Results & Data Vital Signs (Past 12 Hours) Vital Signs Temp Pulse Pulse Resp BP BP Pulse Ox 09/27/19 07:08 37.3 C 85 14 121/70 94 09/27/19 03:34 36.6 C 80 20 130/69 95 09/26/19 23:19 37.0 C 81 16 144/80 H 96 PG Care Time/CCT Total # of Minutes Spent Total Time Spent with Patient: Total time spent is greater than 50% in coordination of care (as documented) at patient's floor/unit and/or counseling patient: Coding Level of Care Code 02337 Subseq Hosp Care Lvl 3 Diagnoses Acute encephalopathy G93.40 Intentional overdose of drug in tablet form T50.902A Suicidal behavior with attempted self-injury T14.91XA Seizure disorder G40.909 Classic migraine with aura G43.109 Time Spent (min) 35
[2019-09-27 11:37] LABS: BUN Creatinine Ratio 9.9 (10-20); Blood Urea Nitrogen 5 mg/dl (7-18); Calcium 7.8 mg/dl (8.5-10.1); Carbon Dioxide 22 mmol/L (21-32); Chloride 114 mmol/L (98-107); Est GFR (African American) 128.4; Est GFR (Non-African American) 110.8; Glucose 124 mg/dl (70-99); Phosphorus 2.4 mg/dl (2.5-4.9); Potassium 3.5 mmol/L (3.5-5.1); Sodium 141 mmol/L (136-145)
[2019-09-27] MEDS ORDERED: POTASSIUM PHOS 3 MMOL/1 ML INFUSION IV STA (12:15)
--- NOTE | 2019-09-27 12:26 | Psychiatric Progress Note ---
Date of Service September 27, 2019 Impression / Recommendations Impression 09/26 - 49-year-old female well-known to psychiatric consult service from numerous psychiatric consultations and inpatient mental health hospitalizations. Psychiatric consultation was requested as patient was admitted status post intentional overdose of carbamazepine. 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 Patient is noted numerous suicide attempts by overdosing on prescribed medications, or [id number] Benadryl. At this time, patient is unable to participate in a productive psychiatric evaluation d ue to level of disorientation and sedation. It appears as though patient is on a 302 mental health warrant, which means she is unable to leave the hospital AMA until she is evaluated psychiatrically. It is clear from her significant history of suicidal ideation, attempt to end her life, and reports made in the 302 petitioning statement regarding a suicide note that inpatient psychiatric hospitalization will be recommended at time of medical clearance. We will plan to reevaluate the patient when she is more appropriate for an assessment, in order to gather additional information and make a determination regarding voluntary versus involuntary admission status. We will request additional history from patient's significant other. Please reach out to our service with any additional questions or updates. 09/27 - Patient sleeping, not arousing to verbal or tactile stimuli - Recommendations for inpatient psychiatric treatment remain in place. Patient on a 302 mental health warrant and should not be permitted to leave AMA - Continue attempts to gather collateral from patient/supports Risk Factors Assessment Do You Have Access To A Gun?: No Interval History Identifying Information 49-year-old female admitted medically on 09/26/2019 after presenting to the ED via EMS status post intentional overdose. Patient was admitted medically for management and monitoring after ingesting ~60 tabs of 200mg carbamazepine. Psychiatric consultation was requested to evaluate patient for intentional overdose. Seen today for follow-up visit. Review of Systems Notes Unable to complete full ROS due to level of sedation Subjective Subjective Yaakov York is a 49-year-old female admitted medically on 09/26/2019 status post intentional overdose. Patient was brought to the ED via EMS after her significant other found her, seizing, with an empty pill bottle next to her. Pt was seen initially on psychiatric consult service on 09/26/2019 - but was unable to participate in productive interview. She was seen today on follow-up with Kathi Shabazz PA-C observing interaction. Pt was asleep when entering room - d id not wake with verbal or tactile stimuli. Pt was informed again that we are involved in her treatment and will be continuing to attempt to speak with her during her medical hospitalization. Physical Exam Psychiatric Orientation: + not alert (asleep, does not wake with verbal or tactile stimuli) Apperance: appropriately dressed (for setting, in paper scrubs) and + disheveled Eye Contact: + poor eye contact (asleep) Motor Behavior: no abnormal motor movements (asleep ) Vital Signs (Past 24 Hours) Last Vital Signs Temp 37.1 C 09/27/19 11:07 Pulse 84 09/27/19 11:07 Resp 16 09/27/19 11:07 BP 117/70 09/27/19 11:07 Pulse Ox 94 09/27/19 11:07 Results & Data Laboratory Results Laboratory Results - last 24 hr 09/26/19 09/26/19 09/26/19 13:00 13:00 16:58 WBC RBC Hgb Hct MCV MCH MCHC RDW Std Deviation RDW Coeff of Thea Plt Count MPV Immature Gran % (Auto) Neut % (Auto) Lymph % (Auto) Sterling % (Auto) Eos % (Auto) Baso % (Auto) Immature Gran # (Auto) Neut # (Auto) Lymph # (Auto) Sterling # (Auto) Eos # (Auto) Baso # (Auto) Sodium 141 Potassium 3.6 Chloride 110 H Carbon Dioxide 26 Anion Gap 4.0 BUN 7 Creatinine 0.61 Est Cr Clr Drug Dosing Not Reportable Est GFR ( Amer) 123.4 Est GFR (Non-Af Amer) 106.5 BUN/Creatinine Ratio 11.6 Glucose 114 H Calcium 8.1 L Phosphorus Magnesium 2.5 H Total Bilirubin 0.2 AST 19 ALT 12 Alkaline Phosphatase 114 Total Protein 6.7 Albumin 3.5 Globulin 3.2 Albumin/Globulin Ratio 1.1 Carbamazepine 34.7 H* 26.5 H* 09/27/19 09/27/19 09/27/19 05:14 05:14 10:59 WBC 5.12 RBC 3.20 L Hgb 10.4 L Hct 31.1 L MCV 97.2 MCH 32.5 MCHC 33.4 RDW Std Deviation 50.3 H RDW Coeff of Thea 14.0 Plt Count 219 MPV 10.8 H Immature Gran % (Auto) 0.0 Neut % (Auto) 55.5 Lymph % (Auto) 36.1 Sterling % (Auto) 8.0 Eos % (Auto) 0.2 Baso % (Auto) 0.2 Immature Gran # (Auto) 0.00 Neut # (Auto) 2.84 Lymph # (Auto) 1.85 Sterling # (Auto) 0.41 Eos # (Auto) 0.01 Baso # (Auto) 0.01 Sodium 142 141 Potassium 2.9 L D 3.5 D Chloride 113 H 114 H Carbon Dioxide 26 22 Anion Gap 3.0 5.0 BUN 5 L 5 L Creatinine 0.61 0.54 L Est Cr Clr Drug Dosing Not Reportable Not Reportable Est GFR ( Amer) 123.4 128.4 Est GFR (Non-Af Amer) 106.5 110.8 BUN/Creatinine Ratio 8.8 L 9.9 L Glucose 106 H 124 H Calcium 7.8 L 7.8 L Phosphorus 2.4 L Magnesium 2.0 Total Bilirubin AST ALT Alkaline Phosphatase Total Protein Albumin Globulin Albumin/Globulin Ratio Carbamazepine 09/27/19 10:59 WBC RBC Hgb Hct MCV MCH MCHC RDW Std Deviation RDW Coeff of Thea Plt Count MPV Immature Gran % (Auto) Neut % (Auto) Lymph % (Auto) Sterling % (Auto) Eos % (Auto) Baso % (Auto) Immature Gran # (Auto) Neut # (Auto) Lymph # (Auto) Sterling # (Auto) Eos # (Auto) Baso # (Auto) Sodium Potassium Chloride Carbon Dioxide Anion Gap BUN Creatinine Est Cr Clr Drug Dosing Est GFR ( Amer) Est GFR (Non-Af Amer) BUN/Creatinine Ratio Glucose Calcium Phosphorus Magnesium Total Bilirubin AST ALT Alkaline Phosphatase Total Protein Albumin Globulin Albumin/Globulin Ratio Carbamazepine 22.1 H* Current Inpatient Medications Current Inpatient Medications: Current Inpatient Medications Acetaminophen (Tylenol) 650 mg PO Q4H PRN PRN Reason: Pain or Fever Stop: 10/26/19 07:50 Epinephrine HCl (Epipen) 0.3 mg IM Q3H PRN PRN Reason: Anaphylaxis Stop: 10/26/19 07:50 Lorazepam (Ativan) 1.5 mg in 3 mls @ 3 mls/min IV Q2H PRN PRN Reason: Breakthrough Seizures Stop: 10/26/19 07:50 Levothyroxine Sodium 37.5 mcg/ (Syringe) 1.875 mls @ 2 mls/min IV DAILY@0900 [facility] Stop: 10/26/19 08:59 Last Admin: 09/27/19 09:10 Dose: 2 mls/min Documented by: Sodium Chloride (Nss 1000ml) 1,000 mls @ 80 mls/hr IV .[id number] [facility] Stop: 10/27/19 12:14 Potassium Phosphate 15 mmol/ (Sodium Chloride) 255 mls @ 102 mls/hr IV ONE ONE Stop: 09/27/19 14:59 Nitroglycerin (Nitrostat) 0.4 mg SL UD PRN PRN Reason: Chest Pain Stop: 10/26/19 07:50 Topiramate (Topamax) 200 mg PO BID [facility] Stop: 10/26/19 08:59 Last Admin: 09/26/19 09:39 Dose: Not Given Documented by:
[2019-09-27] MEDS ORDERED: POTASSIUM PHOSPHATE 15 MMOL in SODIUM CHLORIDE 0.9% 250 ML IV ONE (12:30)
--- NOTE | 2019-09-27 12:41 | Hospitalist Progress Note ---
Date of Service September 27, 2019 Assessment & Plan (1) Overdose: Drug Overdose from Carbamazepine Altered mental status from acute metabolic encephalopathy from drug overdose Concern for intentional drug overdose to cause self injury versus suicidal ideations -history of drug overdose in the past of Benadryl and carbamazepine. - found patient with empty bottle of carbamazepine; reportedly patient had episode of seizure when the EMS came in, drowsy, somewhat tachycardic but otherwise hemodynamically stable -carbamazepine level on admission 11.7 with positive alcohol level -patient was started on IV and in trending the carbamazepine levels as 34.3 and 34.7 -EEG showed minimal slowing in general with some wakefulness and drowsiness noted. 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 Patient is noted numerous suicide attempts by overdosing on prescribed medications, or [id number] Benadryl. At this time, patient is unable to participate in a productive psychiatric evaluation due to level of disorientation and sedation. It appears as though patient is on a 302 mental health warrant, which means she is unable to leave the hospital AMA until she is evaluated psychiatrically. It is clear from her significant history of suicidal ideation, attempt to end her life, and reports made in the 302 petitioning statement regarding a suicide note that inpatient psychiatric hospitalization will be recommended at time of medical clearance. -09/27/2019: carbamazepine levels downtrended to 22.1. Continue IV fluids History of epilepsy with complex partial seizures. -09/27/2019: as per neurology "do not believe she has epilepsy" and recommend to keep off all anticonvulsants including carbamazepine, topiramate, and gabapentin. "However, if Psychiatry feels that carbamazepine helps her mood this could be restarted at 200 mg twice daily once the level falls below 10." -outpatient arrangement for inpatient epilepsy monitoring unit as per [facility] neurology Prolonged QTC on Ekg. -avoid qt prolonging drugs. Alcohol Use -does not appear to be regularly drinking alcohol as documented by previous medical providers. Will monitor for any withdrawal symptoms. continue IV thiamine. Hypothyroidism, -on IV Levothyroxine for now Chronic anemia -Hemoglobin is stable. Chronic leukopenia. -monitor WBC Deep venous thrombosis prophylaxis, sequential compression devices Subjective Patient seen at bedside. Patient has 1 to 1 nursing assoc at bedside. Patient has moreira. She is arousable from sleep. surgical aide reports patient has been sleeping since yesterday. patient is lethargic but allowed for physician to trever to her heart and lungs and abdomen. Patient then pulled back the covers. Patient shook her head when asked if she was hungry. Review of Systems Review of Systems: All systems reviewed & are unremarkable except as noted in HPI & below Physical Exam Constitutional: + lethargic Eyes: EOM intact bilaterally ENMT: external ear and nose normal, oropharynx normal Neck: normal visual inspection Respiratory: normal respiratory effort, lungs clear to auscultation Cardiovascular: RRR, no murmur, no edema Gastrointestinal (Abdomen): normal bowel sounds, soft, nontender, no hepatosplenomegaly Musculoskeletal: Head/Neck/Chest: normocephalic and head atraumatic Psychiatric: Patient seen at bedside. Patient has 1 to 1 nursing assoc at bedside. Patient has moreira. She is arousable from sleep. surgical aide reports patient has been sleeping since yesterday. patient is lethargic but allowed for physician to trever to her heart and lungs and abdomen. Patient then pulled back the covers. Patient shook her head when asked if she was hungry. Genitourinary: has moreira Results & Data Vital Signs (Past 12 Hours) Vital Signs Temp Pulse Pulse Pulse Resp BP BP 09/27/19 11:07 37.1 C 84 16 117/70 09/27/19 08:00 80 09/27/19 07:08 37.3 C 85 14 121/70 09/27/19 03:34 36.6 C 80 20 130/69 Pulse Ox 09/27/19 11:07 94 09/27/19 08:00 09/27/19 07:08 94 09/27/19 03:34 95 (1) Overdose Encounter type: initial encounter Injury intent: intentional self-harm Qualified Code(s): T50.902A - Poisoning by unspecified drugs, medicaments and biological substances, intentional self-harm, initial encounter
--- NOTE | 2019-09-27 13:51 | Emergency Department Note ---
Entered by Trinh Marie acting as a scribe for Tala Dave DO History of Present Illness General Chief complaint: Overdose (Intentional) Stated complaint: OVERDOSE Time Seen by Provider: 09/26/19 04:01 Source: patient History of Present Illness Provider complaint: overdose Onset (ago): hour(s) less than 1 Location: head Radiation: non-radiation Pain Consistency: + constant Quality: + other (overdose-pills) The patient is a 49 y/o female who present to the emergency department for evaluation of constant overdose that occurred an hour ago. The police state that the patient had sent a suicidal text to her significant other before he heard a thud. They note that when he went upstairs to her he found her having a seizure and an empty pill bottle next to her. They report she took roughly 60 200mg carbamazepine pills. EMS note that the patient was no longer seizing when they arrived and she was semi-responsive for them. The HPI and ROS are limited secondary to patients condition. Patient well-known to the emergency room and has been here multiple times for prior intentional overdoses. Home Medications Home Medications Medication Instructions Recorded Confirmed Type epinephrine [EpiPen] 0.3 mg IM Q3H PRN 03/29/19 09/26/19 History baclofen 10 mg tablet 20 mg PO .TAKE 1 TABLET 3 time tab 05/13/19 09/26/19 History carbamazepine 200 mg 200 mg PO .COMPLEX 30 Days #90 cap 05/13/19 09/26/19 Rx capsule,extended release [id number] gabapentin 100 mg capsule 400 mg PO .TAKE 3 CAPSULE 3 aj 05/13/19 09/26/19 History cap potassium chloride 10 mEq 10 meq PO DAILY 05/13/19 09/26/19 History capsule,extended release topiramate 200 mg tablet 200 mg PO BID #60 tab 08/05/19 09/26/19 Rx buspirone 10 mg tablet 20 mg PO QID tab 08/07/19 09/26/19 History levothyroxine 75 mcg tablet 50 mcg PO DAILY #90 tab 08/07/19 09/26/19 Rx naratriptan 2.5 mg tablet See Rx Instructions PO .COMPLEX #7 08/07/19 09/26/19 Rx tab hydrocodone-acetaminophen [[place]] 1 tab PO Q4H PRN #15 tab 09/21/19 09/26/19 Rx Allergies Allergy/AdvReac Type Severity Reaction Status Date / Time tree nut Allergy Severe ANAPHYLAXIS Verified 09/26/19 04:36 Penicillins Allergy Intermediate HIVES Verified 09/26/19 04:36 Past Med/Surg History Medical History Acute encephalopathy Alcohol abuse (Chronic) Anxiety disorder (Chronic) Classic migraine with aura (Chronic) Cluster B personality disorder (Chronic) Cluster B personality disorder Diphenhydramine overdose (Chronic) 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) Hypokalemia (Inactive) Hypothyroidism (Chronic) Insomnia (Chronic) Mood disorder (Chronic) PTSD (post-traumatic stress disorder) (Chronic) PTSD (post-traumatic stress disorder) Raynauds phenomenon (Chronic) Recurrent seizures (Inactive) Seizure disorder (Chronic) Suicidal overdose Surgical History H/O foot surgery (Chronic) H/O hernia repair (Chronic) H/O shoulder surgery (Chronic) Hx of cholecystectomy (Chronic) Family History Mother Breast cancer Hypertension Diabetes Other Myocardial infarction Social History Preferred Language: Romansh Communication Ability: Unable Mail Messenger Required: No Beliefs That Will Affect Care: None marital status: Current Living Situation: Other Current Living Situation Comment: [employer] Abel Huerta current occupational status: unemployed current occupation: 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 Feels Safe at Home: Yes Smoking Status: Never smoker Second Hand Exposure: No ; Hx Alcohol Use: Yes Alcohol type: wine Alcohol Intake Frequency Comment: Uses excessively when suicidal otherwise does not drink alcohol Hx Substance Use: No Review of Systems The HPI and ROS are limited secondary to patients condition. Physical Exam Vital Signs Vital Signs - 24 hr 09/26/19 03:49 09/26/19 03:54 09/26/19 04:00 Temperature 98.8 F Temperature Source Oral Pulse Rate 77 77 76 Pulse Rate from SpO2 Sensor 77 77 Respiratory Rate 12 24 23 Blood Pressure 133/87 133/87 120/78 Blood Pressure Mean 102 100 84 Pulse Oximetry 97 99 99 Oxygen Delivery Method Room Air Sepsis Recent Fever Within 48 Hours No Sepsis New/Unexplained Change in Mental Status No Sepsis Action Taken by Nursing No Action Required 09/26/19 04:13 09/26/19 04:30 09/26/19 04:45 Temperature Temperature Source Pulse Rate 81 77 Pulse Rate from SpO2 Sensor 82 77 Respiratory Rate 21 23 Blood Pressure 143/82 H 121/69 Blood Pressure Mean 108 78 Pulse Oximetry 98 99 97 Oxygen Delivery Method Room Air Sepsis Recent Fever Within 48 Hours Sepsis New/Unexplained Change in Mental Status Sepsis Action Taken by Nursing 09/26/19 05:00 09/26/19 05:15 09/26/19 05:30 Temperature Temperature Source Pulse Rate 77 85 83 Pulse Rate from SpO2 Sensor 77 86 82 Respiratory Rate 20 12 24 Blood Pressure 106/66 118/78 106/66 Blood Pressure Mean 84 91 72 Pulse Oximetry 96 97 95 Oxygen Delivery Method Sepsis Recent Fever Within 48 Hours Sepsis New/Unexplained Change in Mental Status Sepsis Action Taken by Nursing 09/26/19 05:45 Temperature Temperature Source Pulse Rate 83 Pulse Rate from SpO2 Sensor 83 Respiratory Rate 12 Blood Pressure 108/63 Blood Pressure Mean 68 Pulse Oximetry 94 Oxygen Delivery Method Sepsis Recent Fever Within 48 Hours Sepsis New/Unexplained Change in Mental Status Sepsis Action Taken by Nursing GENERAL: alert, well appearing, well nourished, no distress, non-toxic EYE EXAM: normal conjunctiva, PERRL and EOM's grossly intact OROPHARYNX: no exudate, no erythema, lips, buccal mucosa, and tongue normal and mucous membranes are moist. Dried blood noted at right lateral bottom lip. NECK: supple, no nuchal rigidity, no adenopathy, non-tender LUNGS: Clear to auscultation. Normal chest wall mechanics HEART: no murmurs, S1 normal and S2 normal ABDOMEN: abdomen soft, non-tender, normo-active bowel sounds, no masses, no rebound or guarding. BACK: Back is symmetrical on inspection and there is no deformity, no midline tenderness, no CVA tenderness. SKIN: no rashes and no bruising UPPER EXTREMITIES: upper extremities are grossly normal. LOWER EXTREMITIES: No pitting edema. NEURO EXAM: Somnolent but arousable, cranial nerves II-XII grossly intact, pt refusing to answer questions, no gross weakness of arms, no gross weakness of legs. Course Course 0405: Past medical records reviewed. The patient was evaluated in room A03. A complete history and physical exam was performed. 0445: Patient significant other at bedside. He confirms the only missing m edication that he noted was carbamazepine. He estimates that based on one the text was sent she ingested the carbamazepine somewhere around 2 AM. States she had recently been taken off of her Keppra that she was previously using for her seizures. He denies witnessing any seizure-like activity this evening. 0542: I spoke with poison control. The recommend observation for 12 to 24 hours due to amount of ingestion and it being extended release. 0546: I spoke with Dr. Brewster Tiffany hospitalist. He will evaluate for further management. Administered Medications Levothyroxine Sodium 37.5 mcg/ (Syringe) 1.875 mls @ 2 mls/min IV DAILY@0900 CÉSAR Stop: 10/26/19 08:59 Last Admin: 09/27/19 09:10 Dose: 2 mls/min Documented by: [id number] Admin: 09/26/19 10:14 Dose: 2 mls/min Documented by: [id number] Sodium Chloride (Nss 1000ml) 1,000 mls @ 80 mls/hr IV .[id number] CÉSAR Stop: 10/27/19 12:14 Last Admin: 09/27/19 12:42 Dose: 80 mls/hr Documented by: [id number] Potassium Phosphate 15 mmol/ (Sodium Chloride) 255 mls @ 102 mls/hr IV ONE ONE Stop: 09/27/19 14:59 Last Admin: 09/27/19 12:42 Dose: 102 mls/hr Documented by: [id number] Topiramate (Topamax) 200 mg PO BID CÉSAR Stop: 10/26/19 08:59 Last Admin: 09/26/19 09:39 Dose: Not Given Documented by: [id number] Discontinued Medications Sodium Chloride (Nss 1000ml) 1,000 mls @ 999 mls/hr IV .Q1H1M CÉSAR Stop: 09/26/19 05:15 Last Infusion: 09/26/19 06:20 Dose: 0 mls/hr Documented by: [id number] Admin: 09/26/19 04:28 Dose: 999 mls/hr Documented by: [id number] Sodium Chloride (Nss) 500 mls @ 500 mls/hr IV .Q1H CÉSAR Stop: 09/26/19 07:59 Last Infusion: 09/26/19 08:39 Dose: 0 mls/hr Documented by: [id number] Admin: 09/26/19 07:28 Dose: 500 mls/hr Documented by: [id number] Sodium Chloride (Nss 1000ml) 1,000 mls @ 150 mls/hr IV .Q6H40M CÉSAR Stop: 10/26/19 07:50 Last Infusion: 09/27/19 11:10 Dose: 0 mls/hr Documented by: [id number] Admin: 09/27/19 02:19 Dose: 150 mls/hr Documented by: [id number] Infusion: 09/27/19 02:19 Dose: 150 mls/hr Documented by: [id number] Admin: 09/26/19 20:12 Dose: 150 mls/hr Documented by: [id number] Infusion: 09/26/19 20:12 Dose: 150 mls/hr Documented by: [id number] Admin: 09/26/19 13:44 Dose: 150 mls/hr Documented by: [id number] Infusion: 09/26/19 13:44 Dose: 150 mls/hr Documented by: [id number] Admin: 09/26/19 08:01 Dose: 150 mls/hr Documented by: [id number] Magnesium Sulfate/Dextrose (Magnesium Sulfate / D5w) 1 gm in 100 mls @ 100 mls/hr IV TODAY@0900,1000 [facility] Stop: 09/26/19 12:00 Last Infusion: 09/26/19 11:48 Dose: 0 mls/hr Documented by: [id number] Admin: 09/26/19 10:50 Dose: 100 mls/hr Documented by: [id number] Infusion: 09/26/19 10:41 Dose: 100 mls/hr Documented by: [id number] Admin: 09/26/19 09:41 Dose: 100 mls/hr Documented by: [id number] Thiamine HCl 100 mg/ Syringe 10 mls @ 2 mls/min IV NOW STA Stop: 09/26/19 13:24 Last Admin: 09/26/19 13:43 Dose: 2 mls/min Documented by: [id number] Potassium Chloride (K Manish / Wtr) 10 meq in 100 mls @ 100 mls/hr IV Q1H CÉSAR Stop: 09/27/19 10:44 Last Infusion: 09/27/19 12:07 Dose: 0 mls/hr Documented by: [id number] Admin: 09/27/19 11:01 Dose: 100 mls/hr Documented by: [id number] Infusion: 09/27/19 10:45 Dose: 100 mls/hr Documented by: [id number] Admin: 09/27/19 09:45 Dose: 100 mls/hr Documented by: [id number] Infusion: 09/27/19 09:40 Dose: 100 mls/hr Documented by: [id number] Admin: 09/27/19 08:40 Dose: 100 mls/hr Documented by: [id number] Medical Decision Making Differential Diagnosis Differential includes overdose on Tylenol/aspirin/ethanol, ethylene glycol, methanol, prescribed medications, not prescribe medications/street drugs, metabolic process, traumatic process. Medical Records Attestation: I reviewed the patient's medical records. Home Medications Current Medication List: was personally reviewed by me Laboratory Data Attestation: I reviewed the patient's lab results. Result diagrams: 09/27/19 05:14 09/27/19 10:59 Lab Results 09/26/19 09/26/19 09/26/19 Range/Units 04:25 04:25 04:25 WBC 3.10 L (4.8-10.8) K/uL RBC 3.41 L (4.2-5.4) M/uL Hgb 11.2 L (12.0-16.0) g/dL Hct 33.0 L (37-47) % MCV 96.8 (80-100) fL MCH 32.8 (25-34) pg MCHC 33.9 (32-36) g/dL RDW Std Deviation 47.1 H (36.4-46.3) fL RDW Coeff of Thea 13.5 (11.5-14.5) % Plt Count 268 (130-400) K/uL MPV 10.9 H (7.4-10.4) fL Immature Gran % (Auto) 0.0 % Neut % (Auto) 49.1 % Lymph % (Auto) 41.9 % Gage % (Auto) 6.5 % Eos % (Auto) 1.9 % Baso % (Auto) 0.6 % Immature Gran # (Auto) 0.00 (0.00-0.02) K/uL Neut # (Auto) 1.52 (1.4-6.5) K/uL Lymph # (Auto) 1.30 (1.2-3.4) K/uL Gage # (Auto) 0.20 (0.11-0.59) K/uL Eos # (Auto) 0.06 (0-0.5) K/uL Baso # (Auto) 0.02 (0-0.2) K/uL PT 10.9 (9.0-12.0) Seconds INR 1.1 (0.9-1.1) ABG pH (7.35-7.45) ABG pCO2 (35-46) mmHg ABG pO2 (80-95) mmHg ABG HCO3 (19-24) mmol/L ABG O2 Saturation (90-95) % ABG Base Excess (-9-1.8) mEq/L Forrest Test (Pos) Barometric Pressure mm/Hg Oxygen Given Sodium 143 (136-145) mmol/L Potassium 3.6 (3.5-5.1) mmol/L Chloride 113 H (98-107) mmol/L Carbon Dioxide 21 (21-32) mmol/L Anion Gap 9.0 (3-11) BUN 5 L (7-18) mg/dl Creatinine 0.58 L (0.6-1.2) mg/dl Est Cr Clr Drug Dosing Not Reportable Est GFR ( Amer) 125.4 Est GFR (Non-Af Amer) 108.2 BUN/Creatinine Ratio 8.4 L (10-20) Glucose 97 (70-99) mg/dl Calcium 8.1 L (8.5-10.1) mg/dl Magnesium 1.8 (1.8-2.4) mg/dl Total Bilirubin 0.2 (0.2-1) mg/dl AST 17 (15-37) U/L ALT 12 (12-78) U/L Alkaline Phosphatase 112 (45-117) U/L Troponin I < 0.015 (0-0.045) ng/ml Total Protein 6.6 (6.4-8.2) gm/dl Albumin 3.3 L (3.4-5.0) gm/dl Globulin 3.3 (2.5-4.0) gm/dl Albumin/Globulin Ratio 1.0 (0.9-2) Lipase 99 (73-393) U/L HCG, Qual (Negative) Urine Color Urine Appearance (Clear) Urine pH (4.5-7.5) Ur Specific [place] (1.000-1.030) Urine Protein (Negative) Urine Glucose (UA) (Negative) Urine Ketones (Negative) Urine Blood (Negative) Urine Nitrite (Negative) Urine Bilirubin (Negative) Urine Urobilinogen (Negative) Ur Leukocyte Esterase (Negative) Salicylates (2.8-20) mg/dl Urine Opiates Screen (Neg) Ur Methadone, Qual (Neg) Acetaminophen (10-30) ug/ml Urine Barbiturates (Neg) Carbamazepine (4-12) mcg/ml Ur Phencyclidine (PCP) (Neg) U Amphetamin/Meth Scrn (Neg) MDMA (Ecstasy) Screen (Neg) U Benzodiazepines Scrn (Neg) Ur Cocaine Metabolite (Neg) U Marijuana (THC) Screen (Neg) Ethyl Alcohol mg/dL (0-3) mg/dl 09/26/19 09/26/19 09/26/19 Range/Units 04:25 04:25 04:25 WBC (4.8-10.8) K/uL RBC (4.2-5.4) M/uL Hgb (12.0-16.0) g/dL Hct (37-47) % MCV (80-100) fL MCH (25-34) pg MCHC (32-36) g/dL RDW Std Deviation (36.4-46.3) fL RDW Coeff of Thea (11.5-14.5) % Plt Count (130-400) K/uL MPV (7.4-10.4) fL Immature Gran % (Auto) % Neut % (Auto) % Lymph % (Auto) % Gage % (Auto) % Eos % (Auto) % Baso % (Auto) % Immature Gran # (Auto) (0.00-0.02) K/uL Neut # (Auto) (1.4-6.5) K/uL Lymph # (Auto) (1.2-3.4) K/uL Gage # (Auto) (0.11-0.59) K/uL Eos # (Auto) (0-0.5) K/uL Baso # (Auto) (0-0.2) K/uL PT (9.0-12.0) Seconds INR (0.9-1.1) ABG pH (7.35-7.45) ABG pCO2 (35-46) mmHg ABG pO2 (80-95) mmHg ABG HCO3 (19-24) mmol/L ABG O2 Saturation (90-95) % ABG Base Excess (-9-1.8) mEq/L Forrest Test (Pos) Barometric Pressure mm/Hg Oxygen Given Sodium (136-145) mmol/L Potassium (3.5-5.1) mmol/L Chloride (98-107) mmol/L Carbon Dioxide (21-32) mmol/L Anion Gap (3-11) BUN (7-18) mg/dl Creatinine (0.6-1.2) mg/dl Est Cr Clr Drug Dosing Est GFR ( Amer) Est GFR (Non-Af Amer) BUN/Creatinine Ratio (10-20) Glucose (70-99) mg/dl Calcium (8.5-10.1) mg/dl Magnesium (1.8-2.4) mg/dl Total Bilirubin (0.2-1) mg/dl AST (15-37) U/L ALT (12-78) U/L Alkaline Phosphatase (45-117) U/L Troponin I (0-0.045) ng/ml Total Protein (6.4-8.2) gm/dl Albumin (3.4-5.0) gm/dl Globulin (2.5-4.0) gm/dl Albumin/Globulin Ratio (0.9-2) Lipase (73-393) U/L HCG, Qual Negative (Negative) Urine Color Urine Appearance (Clear) Urine pH (4.5-7.5) Ur Specific [place] (1.000-1.030) Urine Protein (Negative) Urine Glucose (UA) (Negative) Urine Ketones (Negative) Urine Blood (Negative) Urine Nitrite (Negative) Urine Bilirubin (Negative) Urine Urobilinogen (Negative) Ur Leukocyte Esterase (Negative) Salicylates < 1.7 L (2.8-20) mg/dl Urine Opiates Screen (Neg) Ur Methadone, Qual (Neg) Acetaminophen < 2 L (10-30) ug/ml Urine Barbiturates (Neg) Carbamazepine 11.7 (4-12) mcg/ml Ur Phencyclidine (PCP) (Neg) U Amphetamin/Meth Scrn (Neg) MDMA (Ecstasy) Screen (Neg) U Benzodiazepines Scrn (Neg) Ur Cocaine Metabolite (Neg) U Marijuana (THC) Screen (Neg) Ethyl Alcohol mg/dL 36.0 H (0-3) mg/dl 09/26/19 09/26/19 09/26/19 Range/Units 04:25 04:30 04:30 WBC (4.8-10.8) K/uL RBC (4.2-5.4) M/uL Hgb (12.0-16.0) g/dL Hct (37-47) % MCV (80-100) fL MCH (25-34) pg MCHC (32-36) g/dL RDW Std Deviation (36.4-46.3) fL RDW Coeff of Thea (11.5-14.5) % Plt Count (130-400) K/uL MPV (7.4-10.4) fL Immature Gran % (Auto) % Neut % (Auto) % Lymph % (Auto) % Gage % (Auto) % Eos % (Auto) % Baso % (Auto) % Immature Gran # (Auto) (0.00-0.02) K/uL Neut # (Auto) (1.4-6.5) K/uL Lymph # (Auto) (1.2-3.4) K/uL Gage # (Auto) (0.11-0.59) K/uL Eos # (Auto) (0-0.5) K/uL Baso # (Auto) (0-0.2) K/uL PT (9.0-12.0) Seconds INR (0.9-1.1) ABG pH 7.40 (7.35-7.45) ABG pCO2 36 (35-46) mmHg ABG pO2 84 (80-95) mmHg ABG HCO3 22 (19-24) mmol/L ABG O2 Saturation 96.3 H (90-95) % ABG Base Excess -2.7 (-9-1.8) mEq/L Forrest Test POS (Pos) Barometric Pressure 738.5 mm/Hg Oxygen Given ROOM AIR Sodium (136-145) mmol/L Potassium (3.5-5.1) mmol/L Chloride (98-107) mmol/L Carbon Dioxide (21-32) mmol/L Anion Gap (3-11) BUN (7-18) mg/dl Creatinine (0.6-1.2) mg/dl Est Cr Clr Drug Dosing Est GFR ( Amer) Est GFR (Non-Af Amer) BUN/Creatinine Ratio (10-20) Glucose (70-99) mg/dl Calcium (8.5-10.1) mg/dl Magnesium (1.8-2.4) mg/dl Total Bilirubin (0.2-1) mg/dl AST (15-37) U/L ALT (12-78) U/L Alkaline Phosphatase (45-117) U/L Troponin I (0-0.045) ng/ml Total Protein (6.4-8.2) gm/dl Albumin (3.4-5.0) gm/dl Globulin (2.5-4.0) gm/dl Albumin/Globulin Ratio (0.9-2) Lipase (73-393) U/L HCG, Qual (Negative) Urine Color Yellow Urine Appearance Clear (Clear) Urine pH 7.5 (4.5-7.5) Ur Specific [place] 1.008 (1.000-1.030) Urine Protein Negative (Negative) Urine Glucose (UA) Negative (Negative) Urine Ketones Negative (Negative) Urine Blood Negative (Negative) Urine Nitrite Negative (Negative) Urine Bilirubin Negative (Negative) Urine Urobilinogen Negative (Negative) Ur Leukocyte Esterase Negative (Negative) Salicylates (2.8-20) mg/dl Urine Opiates Screen Neg (Neg) Ur Methadone, Qual Neg (Neg) Acetaminophen (10-30) ug/ml Urine Barbiturates Neg (Neg) Carbamazepine (4-12) mcg/ml Ur Phencyclidine (PCP) Neg (Neg) U Amphetamin/Meth Scrn Neg (Neg) MDMA (Ecstasy) Screen Neg (Neg) U Benzodiazepines Scrn Neg (Neg) Ur Cocaine Metabolite Neg (Neg) U Marijuana (THC) Screen Neg (Neg) Ethyl Alcohol mg/dL (0-3) mg/dl Imaging Data Radiologist's Impression: X-ray: I interpreted the following studies. Chest: A one view study of the chest was reviewed and was negative for cardiomegaly, focal infiltrate, effusion, pulmonary edema, or wide mediastinum. No evidence of foreign body. ECG Data Attestation: I personally reviewed and interpreted this ECG as follows: Indication: + altered mental status Rate (beats per minute): 79 Rhythm: + sinus rhythm ECG [place]: + Normal ECG ST segments: no ST depression and no ST elevation ECG Findings: + Other (normal interval, QT= 478, QRS= 80) Blood Pressure Blood Pressure Findings: Normal blood pressure MDM Narrative Patient brought in by EMS as an intentional overdose. Patient has been seen here multiple times previously with a similar complaint. Patient was somnolent but arousable. Patient's vital signs were stable. Labs drawn and sent and are reassuring. Unfortunately carbamazepine is a send out reference lab for us. Case discussed with poison control due to need for monitoring. Patient was already outside the window for activated charcoal on her arrival and due to her increased somnolence I felt the risks of an adverse reaction like vomiting and aspiration outweighed any potential benefit while we were awaiting the arrival of her significant other to more accurately determine time of ingestion. Patient remained hemodynamically stable in the emergency room. No evidence of anticholinergic toxicity. Patient's somnolence and level of mentation remained the same. Patient would follow few simple commands, however refused to talk or answer any questions. Case discussed with hospitalist for additional monitoring and medical management at this time as she would need 12 to 24 hours for the carbamazepine to clear her system. Impression & Plan Overdose, Altered mental status, Depression, Suicidal ideation Discharge Plan Visit Data *Final* Discharge Date/Time: 09/26/19 07:42 Chief Complaint: Overdose (Intentional) Stated Complaint: OVERDOSE ED Provider: Tala Dave Discharge Problem: Overdose, Altered mental status, Depression, Suicidal ideation Patient Disposition: Admitted As Inpatient Discharge Instructions Interventions: ED Discharge Assessment Last Done: 09/26/19 07:42 Discharge Problem: Overdose Qualifiers: Encounter type: initial encounter Injury intent: intentional self-harm Qualified Code(s): T50.902A - Poisoning by unspecified drugs, medicaments and biological substances, intentional self-harm, initial encounter Altered mental status Qualifiers: Altered mental status type: unspecified Qualified Code(s): R41.82 - Altered mental status, unspecified Depression Qualifiers: Depression Type: unspecified Qualified Code(s): F32.9 - Major depressive disorder, single episode, unspecified The scribe's documentation has been prepared under my direction and personally reviewed by me in its entirety. I confirm that the note above accurately reflects all work, treatment, procedures, and medical decision making performed by me.
[2019-09-28] MEDS: SODIUM CHLORIDE 0.9% 1000ML 1,000 ML IV SCH ×3 (01:40→20:25)
--- NOTE | 2019-09-28 06:07 | Electrocardiogram Report ---
Test Reason : Blood Pressure : / mmHG Vent. Rate : 091 BPM Atrial Rate : 091 BPM P-R Int : 200 ms QRS Dur : 092 ms QT Int : 386 ms P-R-T Axes : 066 072 043 degrees QTc Int : 474 ms Normal sinus rhythm Possible Left atrial enlargement Nonspecific T wave abnormality Prolonged QT Abnormal ECG When compared with ECG of 26-SEP-2019 09:21, Nonspecific T wave abnormality now evident in Inferolateral leads Confirmed by Kali Salgado ([id number]) on 09/28/2019 6:07:19 AM Referred By: REFERRED SELF Confirmed By:Kali Salgado
[2019-09-28] MEDS: LEVOTHYROXINE SODIUM 37.5 MCG in SYRINGE 0 ML IV SCH (09:04)
[2019-09-28 09:39] LABS: Alanine Aminotransferase 10 U/L (12-78); Albumin Level 2.8 gm/dl (3.4-5.0); Alkaline Phosphatase 93 U/L (45-117); Aspartate Aminotransferase 13 U/L (15-37); BUN Creatinine Ratio 6.7 (10-20); Bilirubin,Total 0.3 mg/dl (0.2-1); Blood Urea Nitrogen 3 mg/dl (7-18); Calcium 7.8 mg/dl (8.5-10.1); Carbon Dioxide 28 mmol/L (21-32); Chloride 104 mmol/L (98-107); Creatine Kinase 38 U/L (26-192); Est GFR (African American) 138.4; Est GFR (Non-African American) 119.4; Globulin 2.8 gm/dl (2.5-4.0); Glucose 98 mg/dl (70-99); Phosphorus 2.5 mg/dl (2.5-4.9); Potassium 2.8 mmol/L (3.5-5.1); Sodium 137 mmol/L (136-145); Total Protein 5.6 gm/dl (6.4-8.2)
[2019-09-28] MEDS ORDERED: POTASSIUM PHOS 3 MMOL/1 ML INFUSION IV STA (10:01)
--- NOTE | 2019-09-28 10:05 | Hospitalist Progress Note ---
Date of Service September 28, 2019 Assessment & Plan (1) Overdose: Drug Overdose from Carbamazepine Altered mental status from acute metabolic encephalopathy from drug overdose Concern for intentional drug overdose to cause self injury versus suicidal ideations -history of drug overdose in the past of Benadryl and carbamazepine. - found patient with empty bottle of carbamazepine; reportedly patient had episode of seizure when the EMS came in, drowsy, somewhat tachycardic but otherwise hemodynamically stable -carbamazepine level on admission 11.7 with positive alcohol level -patient was started on IV and in trending the carbamazepine levels as 34.3 and 34.7 -EEG showed minimal slowing in general with some wakefulness and drowsiness noted. 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 Patient is noted numerous suicide attempts by overdosing on prescribed medications, or [id number] Benadryl. At this time, patient is unable to participate in a productive psychiatric evaluation due to level of disorientation and sedation. It appears as though patient is on a 302 mental health warrant, which means she is unable to leave the hospital AMA until she is evaluated psychiatrically. It is clear from her significant history of suicidal ideation, attempt to end her life, and reports made in the 302 petitioning statement regarding a suicide note that inpatient psychiatric hospitalization will be recommended at time of medical clearance. -carbamazepine levels downtrended to 22.1 on 09/27/2019 and is 22.3 on 09/28/2019; on IV fluids -09/28/2019: patient less lethargic and she recalls that at home she took 75 pills carbamazepine but she reports that she does not know the reason why she took so much pills History of epilepsy with complex partial seizures. -09/27/2019: as per neurology "do not believe she has epilepsy" and recommend to keep off all anticonvulsants including carbamazepine, topiramate, and gabapentin. "However, if Psychiatry feels that carbamazepine helps her mood this could be restarted at 200 mg twice daily once the level falls below 10." -outpatient arrangement for inpatient epilepsy monitoring unit as per [facility] neurology Prolonged QTC on EKG. -avoid qt prolonging drugs. Hypophosphatemia Hypokalemia -serum phosphorous 2.4 on 09/27/2019 and patient given IV phosphorous supplements, serum phosphorous 2.5 on 09/28/2019 and will give additional phosphorous supplements with potassium -serum potassium 2.9 on 09/27/2019 and improved with supplementation but again lowered to 2.8 on 09/28/2019, give potassium supplements and trend the labs Alcohol Use -does not appear to be regularly drinking alcohol as documented by previous medical providers. Will monitor for any withdrawal symptoms. continue IV thiamine. Hypothyroidism, -on IV Levothyroxine for now Chronic anemia -Hemoglobin is stable. Chronic leukopenia. -monitor WBC Deep venous thrombosis prophylaxis, sequential compression devices Subjective Patient less lethargic this AM. She was able to speak more today with hospital medical doctor. She says that her head feels "wobbly" and that she does not want to sit up. Patient denies of wanting to eat or drink fluids. She has IV fluids running. She recalls that at home she took 75 pills carbamazepine but she does not know the reason. Patient does not have pain. she is encouraged to notify the 1 to 1 nursing education consultant when she feels the need to use the bathroom to make bowel movement Review of Systems Review of Systems: All systems reviewed & are unremarkable except as noted in HPI & below Physical Exam Constitutional: + lethargic Eyes: EOM intact bilaterally ENMT: external ear and nose normal, oropharynx normal Neck: normal visual inspection Respiratory: normal respiratory effort, lungs clear to auscultation Cardiovascular: RRR, no murmur, no edema Gastrointestinal (Abdomen): normal bowel sounds, soft, nontender, no hepatosplenomegaly Musculoskeletal: Head/Neck/Chest: normocephalic and head atraumatic Neurologic: PERRL, EOMI, accommodation nl, no face palsy, no dysarthria Results & Data Vital Signs (Past 12 Hours) Vital Signs Temp Pulse Pulse Resp BP Pulse Ox 09/28/19 02:49 37.1 C 89 17 131/79 96 09/28/19 00:00 92 H 09/27/19 22:53 37.5 C 84 17 151/86 H 96 (1) Overdose Encounter type: initial encounter Injury intent: intentional self-harm Qualified Code(s): T50.902A - Poisoning by unspecified drugs, medicaments and biological substances, intentional self-harm, initial encounter
[2019-09-28] MEDS ORDERED: POTASSIUM PHOSPHATE 15 MMOL in SODIUM CHLORIDE 0.9% 250 ML IV ONE (10:30)
[2019-09-28] MEDS: POTASSIUM CHLORIDE / WTR 10 MEQ/100 ML PLCT IV SCH ×3 (10:57→13:41)
--- NOTE | 2019-09-28 15:16 | Communication Note ---
Date of Service: September 28, 2019 Psychiatric nurse liaisons continue daily rounding on patient, assessing for ability to tolerate productive psychiatric assessment. It is reported to this provider that the patient remains to lethargic to participate with interview at this time. Our service will continue routine rounding and conduct formal interview when able. Recommendation remains for inpatient psychiatric treatment at time of medical clearance due to significant history of suicide attempts by overdose, 302 warrant due to recent intentional overdose, and having left a suicide note. Pt should not be permitted to leave the hospital AMA.
[2019-09-28 15:47] LABS: BUN Creatinine Ratio 6.5 (10-20); Blood Urea Nitrogen 3 mg/dl (7-18); Carbon Dioxide 29 mmol/L (21-32); Chloride 101 mmol/L (98-107); Est GFR (African American) 133.5; Est GFR (Non-African American) 115.2; Glucose 96 mg/dl (70-99); Potassium 3.5 mmol/L (3.5-5.1); Sodium 135 mmol/L (136-145)
[2019-09-28] MEDS ORDERED: ONDANSETRON INJ 2 MG/ML 2 ML VIAL IV STA ×2 (16:50→23:48)
[2019-09-28] MEDS ORDERED: ONDANSETRON INJ 2 MG/ML 2 ML VIAL ONE (23:51)
[2019-09-29] MEDS: SODIUM CHLORIDE 0.9% 1000ML 1,000 ML IV SCH (06:09)
[2019-09-29 08:10] LABS: BUN Creatinine Ratio 9.2 (10-20); Blood Urea Nitrogen 4 mg/dl (7-18); Calcium 8.4 mg/dl (8.5-10.1); Carbon Dioxide 29 mmol/L (21-32); Chloride 103 mmol/L (98-107); Est GFR (African American) 138.4; Est GFR (Non-African American) 119.4; Glucose 92 mg/dl (70-99); Sodium 138 mmol/L (136-145)
[2019-09-29] MEDS ORDERED: POTASSIUM CHLORIDE 20 MEQ TABCR PO STA (08:40)
[2019-09-29] MEDS ORDERED: ACETAMINOPHEN 325 MG TAB PO PRN (08:42)
[2019-09-29] MEDS: POTASSIUM CHLORIDE / WTR 10 MEQ/100 ML PLCT IV SCH ×2 (09:06→10:38)
[2019-09-29] MEDS: LEVOTHYROXINE SODIUM 37.5 MCG in SYRINGE 0 ML IV SCH (09:07)
--- NOTE | 2019-09-29 09:08 | Hospitalist Progress Note ---
Date of Service September 29, 2019 Assessment & Plan (1) Overdose: Drug Overdose from Carbamazepine Altered mental status from acute metabolic encephalopathy from drug overdose Concern for intentional drug overdose to cause self injury versus suicidal ideations -history of drug overdose in the past of Benadryl and carbamazepine. - found patient with empty bottle of carbamazepine; reportedly patient had episode of seizure when the EMS came in, drowsy, somewhat tachycardic but otherwise hemodynamically stable -carbamazepine level on admission 11.7 with positive alcohol level -patient was started on IV and in trending the carbamazepine levels as 34.3 and 34.7 -EEG showed minimal slowing in general with some wakefulness and drowsiness noted. 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 Patient is noted numerous suicide attempts by overdosing on prescribed medications, or [id number] Benadryl. At this time, patient is unable to participate in a productive psychiatric evaluation due to level of disorientation and sedation. It appears as though patient is on a 302 mental health warrant, which means she is unable to leave the hospital AMA until she is evaluated psychiatrically. It is clear from her significant history of suicidal ideation, attempt to end her life, and reports made in the 302 petitioning statement regarding a suicide note that inpatient psychiatric hospitalization will be recommended at time of medical clearance. -carbamazepine levels downtrended to 22.1 on 09/27/2019 and is 22.3 on 09/28/2019; on IV fluids -09/28/2019: patient less lethargic and she recalls that at home she took 75 pills carbamazepine but she reports that she does not know the reason why she took so much pills -09/29/2019: Carbamazepine levels normalized as 8.8. as Patient is awake and alert and oriented. breathing comfortably on room air. has moreira which is to be removed and patient encouraged to walk. 1 to1 nursing aid at bedside. Had long discussion with patient about hospital course to date. Patient reports that her carbamazepine overdose was due to impulsivity and not due to intentional act to hurt herself. We also discussed the recent hospital recommendations from [facility] neurology in holding all anti-epileptic medications because of suspected pseudoseizures and recurrent risk of misuse and overdose. Patient also wishes to avoid inpatient epilepsy monitoring at a tertiary care center to prove whether she has seizures or pseudoseizures. Discussed Dr. Millan neurology and he recommends resuming carbamazepine as 200 mg q12 hours with daily carbamazepine levels and that when patient is discharged on outpatient basis that she should only get 1 week supply of carbamazepine and close follow up with [facility] - this discussion with hospitalist and psychiatry liason. Psychiatry service will likely admit patient to their service when patient is more ambulatory. History of epilepsy with complex partial seizures concern for pseudoseizure -outpatient arrangement for inpatient epilepsy monitoring unit as per [facility] if patient is agreeable -management as above Prolonged QTC on EKG. -avoid QT prolonging drugs. -will transfer off telemetry as carbamazepine overdose has resolved on 09/29/2019 Hypophosphatemia Hypokalemia -serum phosphorous 2.4 on 09/27/2019 and patient given IV phosphorous supplements, serum phosphorous 2.5 on 09/28/2019 and will give additional phosphorous supplements with potassium -serum potassium 2.9 on 09/27/2019 and improved with supplementation but again lowered to 2.8 on 09/28/2019, give potassium supplements and trend the labs Alcohol Use -does not appear to be regularly drinking alcohol as documented by previous medical providers. no withdrawal symptoms to date. continue IV thiamine. Hypothyroidism -has been on IV Levothyroxine and will plan to resume oral Levothyroxine Chronic anemia -Hemoglobin is stable. Chronic leukopenia. -monitor WBC Deep venous thrombosis prophylaxis, sequential compression devices Subjective Carbamazepine levels normalized as 8.8. as Patient is awake and alert and oriented. breathing comfortably on room air. has moreira which is to be removed and patient encouraged to walk. 1 to1 nursing aid at bedside. Had long discussion with patient about hospital course to date. Patient reports that her carbamazepine overdose was due to impulsivity and not due to intentional act to hurt herself. We also discussed the recent hospital recommendations from [facility] in holding all anti-epileptic medications because of suspected pseudoseizures and recurrent risk of misuse and overdose. Patient also wishes to avoid inpatient epilepsy monitoring at a tertiary care center to prove whether she has seizures or pseudoseizures. Discussed Dr. Millan neurology and he recommends resuming carbamazepine as 200 mg q12 hours with daily carbamazepine levels and that when patient is discharged on outpatient basis that she should only get 1 week supply of carbamazepine and close follow up with [facility] neurology - this discussion with hospitalist and psychiatry liason. Psychiatry service will likely admit patient to their service when patient is more ambulatory. Review of Systems Review of Systems: All systems reviewed & are unremarkable except as noted in HPI & below Physical Exam Constitutional: WD/WN, vitals as above Eyes: EOM intact bilaterally ENMT: external ear and nose normal, oropharynx normal Neck: normal visual inspection Respiratory: normal respiratory effort, lungs clear to auscultation Cardiovascular: RRR, no murmur, no edema Gastrointestinal (Abdomen): normal bowel sounds, soft, nontender, no hepatosplenomegaly Musculoskeletal: Head/Neck/Chest: normocephalic and head atraumatic Neurologic: PERRL, EOMI, accommodation nl, no face palsy, no dysarthria Psychiatric: A+Ox3, euthymic affect Genitourinary: moreira Results & Data Vital Signs (Past 12 Hours) Vital Signs Temp Pulse Resp BP Pulse Ox 09/29/19 07:02 36.5 C 58 L 16 124/71 96 09/28/19 23:30 36.7 C 59 L 18 151/86 H 95 (1) Overdose Encounter type: initial encounter Injury intent: intentional self-harm Qualified Code(s): T50.902A - Poisoning by unspecified drugs, medicaments and biological substances, intentional self-harm, initial encounter
--- NOTE | 2019-09-29 09:34 | Psychiatric Progress Note ---
Date of Service September 29, 2019 Impression / Recommendations Impression 09/26 - 49-year-old female well-known to psychiatric consult service from numerous psychiatric consultations and inpatient mental health hospitalizations. Psychiatric consultation was requested as patient was admitted status post intentional overdose of carbamazepine. 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 Patient is noted numerous suicide attempts by overdosing on prescribed medications, or wjlw-yco-ndaqzmo Benadryl. At this time, patient is unable to participate in a productive psychiatric evaluation d ue to level of disorientation and sedation. It appears as though patient is on a 302 mental health warrant, which means she is unable to leave the hospital AMA until she is evaluated psychiatrically. It is clear from her significant history of suicidal ideation, attempt to end her life, and reports made in the 302 petitioning statement regarding a suicide note that inpatient psychiatric hospitalization will be recommended at time of medical clearance. We will plan to reevaluate the patient when she is more appropriate for an assessment, in order to gather additional information and make a determination regarding voluntary versus involuntary admission status. We will request additional history from patient's significant other. Please reach out to our service with any additional questions or updates. 09/27 - Patient sleeping, not arousing to verbal or tactile stimuli - Recommendations for inpatient psychiatric treatment remain in place. Patient on a 302 mental health warrant and should not be permitted to leave AMA - Continue attempts to gather collateral from patient/supports 09/28 - Received reports from psychiatric nurse liaison that patient remains too sedated to participate in meaningful interview 09/29 - Recommendation remains for inpatient psychiatric treatment. While patient denies SI presently and states she is not sure the overdose was a suicide attempt; her history of serious suicide attempts by overdose and limited insight as to why inpatient treatment is being recommended - While patient states she does not feel inpatient treatment is necessary, she does verbalize willingness to comply with psychiatric recommendations - Pt states she has appointments with her therapist and psychiatrist on 10/01 in the afternoon - Will attempt to gather collateral information from significant other regarding recent mood and any other psychiatric changes Risk Factors Assessment Do You Have Access To A Gun?: No Interval History Identifying Information 49-year-old female admitted medically on 09/26/2019 after presenting to the ED via EMS status post intentional overdose. Patient was admitted medically for management and monitoring after ingesting ~60 tabs of 200mg carbamazepine. Psychiatric consultation was requested to evaluate patient for intentional overdose. Seen today for follow-up visit. Chief Complaint "I don't know why I did this. I'm not suicidal. My life has been really good the past 6 months." Review of Systems Notes Constitutional: denied Cardiovascular: denied Respiratory: denied Gastrointestinal: denied Neurological: denied Psychiatric: denies symptoms other than stated above Total of at least 10 systems reviewed, pertinent positives as above and in HPI. Subjective Subjective Patient's case was reviewed and discussed during morning report with psychiatric nurse liaison and supervising psychiatrist. Nursing reports indicate patient is better able to tolerate conversation, and psychiatric evaluation was completed at this time. Patient was cooperative with evaluation, and appeared much more alert during today's visit. Patient was asked what she felt contributed to her intentional overdose, and stated "I do not know why I did this. I am not suicidal. My life has been really good the past 6 months." As she considers this question longer, she states "the only trigger I can think of is my kids not speaking to me. That something that has been going on for the past 15 months though." She states, "it was just some impulsive, stupid sh*t." Patient informs this provider that "my just started trusting me to organize my own weekly pillbox, I can guarantee those medications are already locked up and I want have that privilege for a long time." Patient was asked specific details regarding the day of her overdose. She states "it was a beautiful day. It was our third wedding anniversary. I cannot even think of anything that may have made me do this." Patient states that she has not been having active suicidal ideation in several months, and admits that her mood and anxiety are significantly improved from her last inpatient hospitalization. She states "the best decision I ever made was being pulled off of the antidepressants and put on BuSpar. I have actually been feeling really good." Patient states that she has continued to follow with Dr. Nolan at [facility], and is aware that the office is closing but is planning to follow Dr. Nolan to another office. She continues to meet weekly with Karena Mathias for therapy. Patient states she has an appointment with both of these providers 10/01/2019 in the afternoon. Patient denies any perceived concerns related to substance use. She does admit to "occasional" alcohol use, admitting she did have alcohol the night of the overdose, as they were celebrating their anniversary. She does not feel inpatient psychiatric treatment is necessary as "I can tell you my has already locked up the medication, I have appointments next week, and I'm sure my therapist will want to increase our visits to two times a week now. I just don't think it's going to make any difference." She does admit that if inpatient psychiatric treatment is recommended, she will be willing to comply. Physical Exam Psychiatric Orientation: alert, oriented x 3 and cooperative (and pleasant) Apperance: appropriately dressed, appropriately groomed and appeared stated age Eye Contact: good eye contact Motor Behavior: no abnormal motor movements (observed while laying in bed) Speech: normal rate/rhythm/volume of speech Affect: euthymic affect (bright, interactive) and mood congruent with affect Mood: no depressed mood ("My life has been really good the past 6 months") and no anxious mood Thought Process: goal directed thought process and clear/coherent thought process Thought Content: + cognitive distortions; no hopelessness and no worthlessness Suicidal Thoughts: denies suicidal thoughts and denies suicidal intent "I don't know why I did this" and "just some impulsive, stupid sh*t" Homicidal Thoughts: denies homicidal thoughts Hallucinations: no auditory hallucinations and no visual hallucinations Cognition: attention grossly intact and language grossly intact Insight: + limited insight Judgement: + fair judgement Vital Signs (Past 24 Hours) Last Vital Signs Temp 36.5 C 09/29/19 07:02 Pulse 58 L 09/29/19 07:02 Resp 16 09/29/19 07:02 BP 124/71 09/29/19 07:02 Pulse Ox 96 09/29/19 07:02 Results & Data Laboratory Results Laboratory Results - last 24 hr 09/28/19 09/28/19 09/28/19 08:20 08:20 15:00 Sodium 137 135 L Potassium 2.8 L D 3.5 D Chloride 104 101 Carbon Dioxide 28 29 Anion Gap 5.0 5.0 BUN 3 L 3 L Creatinine 0.43 L 0.48 L Est Cr Clr Drug Dosing Not Reportable Not Reportable Est GFR ( Amer) 138.4 133.5 Est GFR (Non-Af Amer) 119.4 115.2 BUN/Creatinine Ratio 6.7 L 6.5 L Glucose 98 96 Calcium 7.8 L 8.0 L Phosphorus 2.5 Total Bilirubin 0.3 AST 13 L ALT 10 L Alkaline Phosphatase 93 Total Creatine Kinase 38 Total Protein 5.6 L Albumin 2.8 L Globulin 2.8 Albumin/Globulin Ratio 1.0 Carbamazepine 22.3 H* 09/28/19 09/29/19 09/29/19 15:00 07:37 07:37 Sodium 138 Potassium 3.0 L Chloride 103 Carbon Dioxide 29 Anion Gap 5.0 BUN 4 L Creatinine 0.43 L Est Cr Clr Drug Dosing Not Reportable Est GFR ( Amer) 138.4 Est GFR (Non-Af Amer) 119.4 BUN/Creatinine Ratio 9.2 L Glucose 92 Calcium 8.4 L Phosphorus Total Bilirubin AST ALT Alkaline Phosphatase Total Creatine Kinase Total Protein Albumin Globulin Albumin/Globulin Ratio Carbamazepine 16.6 H* 8.8 Current Inpatient Medications Current Inpatient Medications: Current Inpatient Medications Acetaminophen (Tylenol) 325 mg PO Q6H PRN PRN Reason: Pain or Fever Stop: 10/26/19 07:50 Carbamazepine (Tegretol Xr) 200 mg PO Q12H CÉSAR Stop: 10/29/19 09:29 Epinephrine HCl (Epipen) 0.3 mg IM Q3H PRN PRN Reason: Anaphylaxis Stop: 10/26/19 07:50 Lorazepam (Ativan) 1.5 mg in 3 mls @ 3 mls/min IV Q2H PRN PRN Reason: Breakthrough Seizures Stop: 10/26/19 07:50 Potassium Chloride (K Manish / Wtr) 10 meq in 100 mls @ 100 mls/hr IV Q1H CÉSAR Stop: 09/29/19 10:59 Last Admin: 09/29/19 09:06 Dose: 100 mls/hr Documented by: Levothyroxine Sodium (Synthroid) 50 mcg PO DAILY CÉSAR Stop: 10/30/19 08:59 Nitroglycerin (Nitrostat) 0.4 mg SL UD PRN PRN Reason: Chest Pain Stop: 10/26/19 07:50
[2019-09-29] MEDS: CARBAMAZEPINE 200 MG TABCR PO SCH ×2 (11:39→20:29)
[2019-09-29 14:31] LABS: BUN Creatinine Ratio 8.2 (10-20); Blood Urea Nitrogen 4 mg/dl (7-18); Calcium 8.5 mg/dl (8.5-10.1); Carbon Dioxide 30 mmol/L (21-32); Chloride 100 mmol/L (98-107); Est GFR (African American) 128.4; Est GFR (Non-African American) 110.8; Glucose 100 mg/dl (70-99); Potassium 3.8 mmol/L (3.5-5.1); Sodium 135 mmol/L (136-145)
[2019-09-30 07:49] LABS: BUN Creatinine Ratio 11.3 (10-20); Blood Urea Nitrogen 6 mg/dl (7-18); Calcium 8.9 mg/dl (8.5-10.1); Carbon Dioxide 29 mmol/L (21-32); Chloride 106 mmol/L (98-107); Est GFR (African American) 131.7; Est GFR (Non-African American) 113.7; Glucose 88 mg/dl (70-99); Potassium 3.7 mmol/L (3.5-5.1); Sodium 139 mmol/L (136-145)
[2019-09-30 07:54] LABS: Phosphorus 3.6 mg/dl (2.5-4.9)
[2019-09-30] MEDS: CARBAMAZEPINE 200 MG TABCR PO SCH (08:48)
--- NOTE | 2019-09-30 08:48 | Hospitalist Progress Note ---
Date of Service September 30, 2019 Assessment & Plan (1) Overdose: Drug Overdose from Carbamazepine Altered mental status from acute metabolic encephalopathy from drug overdose Concern for intentional drug overdose to cause self injury versus suicidal ideations -history of drug overdose in the past of Benadryl and carbamazepine. - found patient with empty bottle of carbamazepine; reportedly patient had episode of seizure when the EMS came in, drowsy, somewhat tachycardic but otherwise hemodynamically stable -carbamazepine level on admission 11.7 with positive alcohol level -patient was started on IV and in trending the carbamazepine levels as 34.3 and 34.7 -EEG showed minimal slowing in general with some wakefulness and drowsiness noted. 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 Patient is noted numerous suicide attempts by overdosing on prescribed medications, or [id number] Benadryl. At this time, patient is unable to participate in a productive psychiatric evaluation due to level of disorientation and sedation. It appears as though patient is on a 302 mental health warrant, which means she is unable to leave the hospital AMA until she is evaluated psychiatrically. It is clear from her significant history of suicidal ideation, attempt to end her life, and reports made in the 302 petitioning statement regarding a suicide note that inpatient psychiatric hospitalization will be recommended at time of medical clearance. -carbamazepine levels downtrended to 22.1 on 09/27/2019 and is 22.3 on 09/28/2019; on IV fluids -09/28/2019: patient less lethargic and she recalls that at home she took 75 pills carbamazepine but she reports that she does not know the reason why she took so much pills -09/29/2019: Carbamazepine levels normalized as 8.8. as Patient is awake and alert and oriented. breathing comfortably on room air. has moreira which is to be removed and patient encouraged to walk. 1 to1 nursing aid at bedside. Had long discussion with patient about hospital course to date. Patient reports that her carbamazepine overdose was due to impulsivity and not due to intentional act to hurt herself. We also discussed the recent hospital recommendations from [facility] neurology in holding all anti-epileptic medications because of suspected pseudoseizures and recurrent risk of misuse and overdose. Patient also wishes to avoid inpatient epilepsy monitoring at a tertiary care center to prove whether she has seizures or pseudoseizures. Discussed Dr. Millan neurology and he recommends resuming carbamazepine as 200 mg q12 hours with daily carbamazepine levels and that when patient is discharged on outpatient basis that she should only get 1 week supply of carbamazepine and close follow up with [facility] neurology - this discussion with hospitalist and psychiatry liason. Psychiatry service will likely admit patient to their service when patient is more ambulatory. -09/30/2019: Patient seen and examined at bedside. She has 1 to 1 nursing assoc in the room. Patient is awake and alert and oriented and answers questions appropriately. Patient has reported that she has been able to ambulate, urinate without moreira, and make bowel movement. No acute pain. no vomiting. no problems with breathing. We discussed that the next step of the care will be for patient to continue the evaluation by psychiatry service as psychiatry service need to complete an inpatient psychiatry evaluation for her mental health. Patient agrees to follow this recommendation although she expresses her concern that nothing new will be accomplished as she has been through this process before (from previous hospitalizations for drug misuse and overdose) as she had already made plans with her male partner to regulate her prescribed medications. Patient expresses concern that she will miss her outpatient psychiatry follow up. Hospital doctor expressed to patient that because of 302 mental health warrant, psychiatry service needs to complete the mental health evaluation before she is to be discharged from [facility] and patient expresses her cooperation. History of epilepsy with complex partial seizures concern for pseudoseizure -outpatient arrangement for inpatient epilepsy monitoring unit as per [facility] neurology if patient is agreeable; but patient has expressed her desire to not go through this process because of her concern that this monitoring would induce seizures -management as above Prolonged QTC on EKG. -avoid QT prolonging drugs. -transferred off telemetry as carbamazepine overdose has resolved on 09/29/2019 Hypophosphatemia Hypokalemia -serum phosphorous 2.4 on 09/27/2019 and patient given IV phosphorous supplements, serum phosphorous 2.5 on 09/28/2019 and given additional phosphorous supplements with potassium -serum potassium 2.9 on 09/27/2019 and improved with supplementation but again lowered to 2.8 on 09/28/2019, given potassium supplements -serum potassium and phosphorous are at goal on 09/30/2019 Alcohol Use -does not appear to be regularly drinking alcohol as documented by previous medical providers. no withdrawal symptoms to date. continue thiamine as oral medication Hypothyroidism -oral Levothyroxine Chronic anemia -Hemoglobin is stable. Chronic leukopenia. -stable, WBC 5.12 K as of 09/27/2019 Deep venous thrombosis prophylaxis, sequential compression device, ambulation Disposition: awaiting acceptance to inpatient psychiatry service when a psychiatry olea bed is available Subjective Patient seen and examined at bedside. She has 1 to 1 nursing assoc in the room. Patient is awake and alert and oriented and answers questions appropriately. Patient has reported that she has been able to ambulate, urinate without moreira, and make bowel movement. No acute pain. no vomiting. no problems with breathing. We discussed that the next step of the care will be for patient to continue the evaluation by psychiatry service as psychiatry service need to complete an inpatient psychiatry evaluation for her mental health. Patient agrees to follow this recommendation although she expresses her concern that nothing new will be accomplished as she has been through this process before (from previous hospitalizations for drug misuse and overdose) as she had already made plans with her male partner to regulate her prescribed medications. Patient expresses concern that she will miss her outpatient psychiatry follow up. Hospital doctor expressed to patient that because of 302 mental health warrant, psychiatry service needs to complete the mental health evaluation before she is to be discharged from [facility] and patient expresses her cooperation. Review of Systems Review of Systems: All systems reviewed & are unremarkable except as noted in HPI & below Physical Exam Constitutional: WD/WN, vitals as above comfortable Eyes: EOM intact bilaterally ENMT: external ear and nose normal, oropharynx normal Neck: normal visual inspection Respiratory: normal respiratory effort, lungs clear to auscultation Cardiovascular: RRR, no murmur, no edema Gastrointestinal (Abdomen): normal bowel sounds, soft, nontender, no hepatosplenomegaly Musculoskeletal: Head/Neck/Chest: normocephalic and head atraumatic Neurologic: PERRL, EOMI, accommodation nl, no face palsy, no dysarthria Psychiatric: A+Ox3, euthymic affect Results & Data Vital Signs (Past 12 Hours) Vital Signs Temp Pulse Resp BP Pulse Ox 09/30/19 08:20 36.4 C L 58 L 18 115/96 100 09/29/19 22:59 36.6 C 86 16 120/80 98 (1) Overdose Encounter type: initial encounter Injury intent: intentional self-harm Qualified Code(s): T50.902A - Poisoning by unspecified drugs, medicaments and biological substances, intentional self-harm, initial encounter
[2019-09-30] MEDS ORDERED: Nursing to Pharmacy Communication ONE (08:57)
[2019-09-30] MEDS ORDERED: LEVOTHYROXINE SODIUM 50 MCG TABLET PO SCH ×2 (09:00)
[2019-09-30] MEDS ORDERED: THIAMINE HCL 50 MG TABLET PO SCH (09:00)
[2019-09-30 15:53] LABS: Basophils # (auto) 0.02 K/uL (0-0.2); Basophils % (auto) 0.5 %; Eosinophils # (auto) 0.05 K/uL (0-0.5); Eosinophils % (auto) 1.3 %; Hematocrit (blood only) 37.9 % (37-47); Hemoglobin 13.1 g/dL (12.0-16.0); Lymphocytes # (auto) 1.22 K/uL (1.2-3.4); Lymphocytes % (auto) 30.5 %; Mean Corpuscular Hemoglobin 33.2 pg (25-34); Mean Corpuscular Volume 95.9 fL (80-100); Mean Platelet Volume 11.5 fL (7.4-10.4); Monocytes # (auto) 0.37 K/uL (0.11-0.59); Monocytes % (auto) 9.3 %; Neutrophils # (auto) 2.34 K/uL (1.4-6.5); Neutrophils % (auto) 58.4 %; Platelet Count 244 K/uL (130-400); RDW Coefficient of Variation 12.9 % (11.5-14.5); RDW Standard Deviation 45.4 fL (36.4-46.3); Red Blood Count 3.95 M/uL (4.2-5.4)
[2019-09-30 16:02] LABS: Mean Corpuscular Hgb Conc 34.6 g/dL (32-36)
--- NOTE | 2019-09-30 19:36 | Discharge Summary ---
Date of Service September 30, 2019 Admission HPI Per Admitting Provider This is a 49-year-old female with past medical history significant for hypothyroidism, frequent unifocal PVCs, history of mitral valve prolapse, GERD, partial symptomatic epilepsy with complex partial seizures, migraines, sarcoidosis, depression and generalized anxiety disorder, presents with drug overdose. The patient has history of drug overdose with Benadryl and carbamazepine in the past. As per the , it was their anniversary, they went out for a restaurant. She also had a glass of wine and the thinks that she was not in great mood, after coming home, they went to sleep and around 3:00 in the morning he heard that she fell from bed to the floor, drowsy and he waited for about 10 minutes, she opened eyes once and she said sorry, at that time he thought she might have overdosed based on past experience.. He saw all her medications and her carbamazepine bottle was empty, which just was refilled last week. He thinks she might have taken about 60 tablets of carbamazepine. EMS was called. When EMS came, she had episode of seizure. Currently, the patient is somewhat tachycardic. Earlier she was opening eyes to the nurses, but right now, she is most drowsy and not responding to painful stimuli. Blood pressure is okay and is tachycardic on the monitor. ER called poison control. She is out of the window for activated charcoal and recommended monitoring the patient for any seizure activity and they faxed recommendations. Recommendations are on the chart. Could not get any history from the patient currently. Admission Exam Per Admitting Provider GENERAL: The patient is drowsy. VITAL SIGNS: Temperature 37.1, pulse 66, respiratory rate 16, blood pressure 98/65, oxygen 94% room air. HEENT: No pallor, no icterus. Pupils are somewhat dilated, but reactive to light. NECK: No neck mass is seen. CARDIOVASCULAR: S1, S2 heard. Tachycardia. No murmurs. RESPIRATORY SYSTEM: Normal AP diameter. No accessory muscle use. No wheezing, no crackles. ABDOMEN: Soft, bowel sounds present. No distention. CENTRAL NERVOUS SYSTEM: Drowsy, currently no response to verbal and touch stimuli. EXTREMITIES: No edema, no erythema. Principal Diagnosis drug overdose Discharge Exam Constitutional: WD/WN, vitals as above comfortable Eyes: EOM intact bilaterally ENMT: external ear and nose normal, oropharynx normal Neck: normal visual inspection Respiratory: normal respiratory effort, lungs clear to auscultation Cardiovascular: RRR, no murmur, no edema Gastrointestinal (Abdomen): normal bowel sounds, soft, nontender, no hepatosplenomegaly Musculoskeletal: Head/Neck/Chest: normocephalic and head atraumatic Neurologic: PERRL, EOMI, accommodation nl, no face palsy, no dysarthria Psychiatric: A+Ox3, euthymic affect Discharge Data Allergies Allergy/AdvReac Type Severity Reaction Status Date / Time tree nut Allergy Severe ANAPHYLAXIS Verified 09/26/19 04:36 Penicillins Allergy Intermediate HIVES Verified 09/26/19 04:36 Consultations 09/26/19 06:02 ED Decision to Admit Stat 09/26/19 07:51 Consult Case Management - Discharge Planning Routine 09/26/19 08:00 Consult Neurology Routine Consult Psychiatry Routine Hospital Course (1) Overdose: Drug Overdose from Carbamazepine Altered mental status from acute metabolic encephalopathy from drug overdose Concern for intentional drug overdose to cause self injury versus suicidal ideations -history of drug overdose in the past of Benadryl and carbamazepine. - found patient with empty bottle of carbamazepine; reportedly patient had episode of seizure when the EMS came in, drowsy, somewhat tachycardic but otherwise hemodynamically stable -carbamazepine level on admission 11.7 with positive alcohol level -patient was started on IV and in trending the carbamazepine levels as 34.3 and 34.7 -EEG showed minimal slowing in general with some wakefulness and drowsiness noted. 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 Patient is noted numerous suicide attempts by overdosing on prescribed medications, or [id number] Benadryl. At this time, patient is unable to participate in a productive psychiatric evaluation due to level of disorientation and sedation. It appears as though patient is on a 302 mental health warrant, which means she is unable to leave the hospital AMA until she is evaluated psychiatrically. It is clear from her significant history of suicidal ideation, attempt to end her life, and reports made in the 302 petitioning statement regarding a suicide note that inpatient psychiatric hospitalization will be recommended at time of medical clearance. -carbamazepine levels downtrended to 22.1 on 09/27/2019 and is 22.3 on 09/28/2019; on IV fluids -09/28/2019: patient less lethargic and she recalls that at home she took 75 pills carbamazepine but she reports that she does not know the reason why she took so much pills -09/29/2019: Carbamazepine levels normalized as 8.8. as Patient is awake and alert and oriented. breathing comfortably on room air. has moreira which is to be removed and patient encouraged to walk. 1 to1 nursing aid at bedside. Had long discussion with patient about hospital course to date. Patient reports that her carbamazepine overdose was due to impulsivity and not due to intentional act to hurt herself. We also discussed the recent hospital recommendations from [facility] neurology in holding all anti-epileptic medications because of suspected pseudoseizures and recurrent risk of misuse and overdose. Patient also wishes to avoid inpatient epilepsy monitoring at a tertiary care center to prove whether she has seizures or pseudoseizures. Discussed Dr. Millan neurology and he recommends resuming carbamazepine as 200 mg q12 hours with daily carbamazepine levels and that when patient is discharged on outpatient basis that she should only get 1 week supply of carbamazepine and close follow up with [facility] neurology - this discussion with hospitalist and psychiatry liason. Psychiatry service will likely admit patient to their service when patient is more ambulatory. -09/30/2019: Patient seen and examined at bedside. She has 1 to 1 acute care certified nursing assistant in the room. Patient is awake and alert and oriented and answers questions appropriately. Patient has reported that she has been able to ambulate, urinate without moreira, and make bowel movement. No acute pain. no vomiting. no problems with breathing. We discussed that the next step of the care will be for patient to continue the evaluation by psychiatry service as psychiatry service need to complete an inpatient psychiatry evaluation for her mental health. Patient ag jeanine to follow this recommendation although she expresses her concern that nothing new will be accomplished as she has been through this process before (from previous hospitalizations for drug misuse and overdose) as she had already made plans with her male partner to regulate her prescribed medications. Patient expresses concern that she will miss her outpatient psychiatry follow up. Hospital doctor expressed to patient that because of 302 mental health warrant, psychiatry service needs to complete the mental health evaluation before she is to be discharged from [facility] and patient expresses her cooperation. History of epilepsy with complex partial seizures concern for pseudoseizure -outpatient arrangement for inpatient epilepsy monitoring unit as per [facility] neurology if patient is agreeable; but patient has expressed her desire to not go through this process because of her concern that this monitoring would induce seizures -management as above Prolonged QTC on EKG. -avoid QT prolonging drugs. -transferred off telemetry as carbamazepine overdose has resolved on 09/29/2019 Hypophosphatemia Hypokalemia -serum phosphorous 2.4 on 09/27/2019 and patient given IV phosphorous supplements, serum phosphorous 2.5 on 09/28/2019 and given additional phosphorous supplements with potassium -serum potassium 2.9 on 09/27/2019 and improved with supplementation but again lowered to 2.8 on 09/28/2019, given potassium supplements -serum potassium and phosphorous are at goal on 09/30/2019 Alcohol Use -does not appear to be regularly drinking alcohol as documented by previous medical providers. no withdrawal symptoms to date. continue thiamine as oral medication Hypothyroidism -oral Levothyroxine Chronic anemia -Hemoglobin is stable. Chronic leukopenia. -stable, WBC 5.12 K as of 09/27/2019 Deep venous thrombosis prophylaxis, sequential compression device, ambulation Disposition: Transferring Patient to [facility] Total Time Total Time Spent Total Time Spent (In Minutes): 25minutes Discharge Plan Discharge Items Patient Disposition: Transfer Behavioral [facility] Fac Reason For Visit: DRUG OVERDOSE Discharge Diagnosis: drug overdose Activity: Resume your previous activity Non-emergency contact: Primary Care Provider Call non-emergency contact if: you have any medication questions, your symptoms worsen and you have a fever Follow-up/Referrals: Lorraine Garza MD [Primary Care Provider] - Diet: Heart Healthy Addtl Attending Provider Instructions: Followup as per psychiatry and with pcp in one week on discharge Pending Studies at Discharge: No Stand-Alone Forms: My [facility], Suicide Prevention Resources Medications and DC Order Prescriptions: New buspirone 5 mg Tablet 20 mg PO QID Qty: 30 RF: 0 carbamazepine 200 mg Tablet Extended Release 12 Hr 200 mg PO Q12 Qty: 30 RF: 0 levothyroxine [Synthroid] 50 mcg Tablet 50 mcg PO DAILYBB Qty: 30 RF: 0 Continued epinephrine [EpiPen] 0.3 mg/0.3 mL Auto-Injector 0.3 mg IM Q3H PRN (Reason: Anaphylaxis) RF: 0 Discontinued carbamazepine 200 mg capsule, ER multiphase 12 hr 200 mg PO .COMPLEX 30 Days Qty: 90 RF: 5 topiramate [Topamax] 200 mg tablet 200 mg PO BID Qty: 60 RF: 5 potassium chloride 10 mEq capsule, extended release 10 meq PO DAILY RF: 0 gabapentin 100 mg capsule 300 mg PO TID RF: 0 baclofen 10 mg tablet 10 mg PO TID RF: 0 naratriptan 2.5 mg tablet See Rx Instructions PO .COMPLEX Qty: 7 RF: 6 levothyroxine 75 mcg tablet 50 mcg PO DAILY Qty: 90 RF: 1 buspirone 10 mg tablet 20 mg PO QID RF: 0 hydrocodone-acetaminophen [[place]] 5-325 mg tablet 1 tab PO Q4H PRN (Reason: pain) Qty: 15 RF: 0 Discharge Orders: Discharge Order (Routine); Ordered 09/30/19 Ordered By: Steve Brewster Admission Data Admit Date/Time: 09/26/19 06:49 Attending Provider: Miles Shepard Admit Provider: Steve Brewster Primary Care Provider: Lorraine Garza Other Providers: Steve Brewster ; Demarcus Millan III ; Minerva Copeland
== END 2019-09-30 20:04 | DRG 918 ==
LOC: ED 03:49 → 1E 07:42 → 2S 18:56 → 2W 09-29 11:00